=== PATIENT | female | born 1945 | race Caucasian/White ===

== ENCOUNTER 2019-11-12 15:18 | Outpatient (CLI) | payer MEDICARE, SELFPAY ==
--- NOTE | ~2019-11-12 | XR_ITS ---
EXAMINATION: XR chest 2V EXAM DATE: 11/12/2019 16:37 INDICATION: Clinical concern for pneumonia. Sinus infection. TECHNIQUE: Frontal and lateral projections of the chest obtained and reviewed. Comparison is made to prior examination from 03/09/2019. FINDINGS: The lungs are clear. There are no pleural effusions. There is mild cardiomegaly. There i s no pneumothorax suspected. The bones and soft tissues are unremarkable. IMPRESSION: Mild cardiomegaly. Reviewed, dictated and finalized at location A. IMPRESSION: Mild cardiomegaly.
--- NOTE | ~2019-11-12 | XR_ITS ---
EXAMINATION: XR sinus min 3V EXAM DATE: 11/12/2019 16:36 INDICATION: Sinusitis, drainage left side worse. TECHNIQUE: Sinuses frontal, Rosa's, De La Torre, lateral and submentovertex projections for interpretati on. There is no prior study for comparison. FINDINGS: Probable small amount of fluid in the right maxillary sinus. Otherwise, difficult to appre ciate any sinus disease but mild mucoperiosteal thickening difficult to identify by x-ray. Dental joseph lings. IMPRESSION: Probable small right maxillary sinus fluid. Reviewed, dictated and finalized at location A.
[2019-11-12 16:15] LABS: Basophils Absolute Auto 0.1 K/mm3 (0.0-0.1); Basophils Percent Auto 0.6 % (0.2-1.2); Eosinophils Absolute Auto 0.2 K/mm3 (0-0.3); Eosinophils Percent Auto 1.7 % (0-4.4); Hematocrit 35.5 % (37.0-47.0); Hemoglobin 12.2 g/dL (12.0-15.0); Immature Granulocyte Absolute 0.05 K/mm3 (0.00-0.031); Immature Granulocyte Percent A 0.5 % (0-0.5); Lymphocytes Absolute Auto 1.04 K/mm3 (0.9-3.2); Lymphocytes Percent Auto 10.8 % (18.3-44.2); Mean Corpuscular HGB Conc 34.4 g/dl (32-36); Mean Corpuscular Hemoglobin 29.5 pg (26-34); Mean Platelet Volume 12.9 fl (7.4-10.4); Monocytes Absolute Auto 0.7 K/mm3 (0.1-0.6); Monocytes Percent Auto 7.5 % (2.6-8.5); Neutrophils Absolute Auto 7.6 K/mm3 (1.3-6.7); Neutrophils Percent Auto 78.9 % (45.5-73.1); Platelet Count Result 157 k/mm3 (150-375); Red Blood Count 4.13 M/mm3 (4.2-5.4); Red Cell Distribution Width 15.6 % (11.5-14.5); White Blood Count 9.6 K/mm3 (4.5-10.0)
[2019-11-12 16:31] LABS: Blood Urea Nitrogen 12 mg/dL (7-17); Calcium 9.6 mg/dL (8.4-10.2); Carbon Dioxide 30 mmol/L (22-30); Chloride 88 mmol/L (98-107); Estimated Glomerular Filt Rate > 60; Glucose 122 mg/dL (65-105); Magnesium 1.4 mg/dL (1.6-2.3); Potassium 4.1 mmol/L (3.4-5.0); Sodium 125 mmol/L (137-145)
== END 2019-11-12 15:19 | disposition home or self-care (01) ==
PROVIDERS: PCP Internal Medicine; Visit Provider Internal Medicine
DX: R69 Illness, unspecified (principal); R68.89 Other general symptoms and signs; J32.9 Chronic sinusitis, unspecified; I51.7 Cardiomegaly
CPT/HCPCS: 36415; 70220; 71046; 80048; 83735; 85025

== ENCOUNTER 2019-12-14 09:26 | Outpatient (CLI) | payer MEDICARE, SELFPAY ==
--- NOTE | ~2019-12-14 | MR_ITS ---
EXAMINATION: MR brain IAC wo/w con DATE: 12/14/2019 11:03 INDICATION: Sudden idiopathic bilateral hearing loss. TECHNIQUE: Magnetic resonance imaging (MRI) of the brain, brainstem, and internal auditory canals was performed without and with 13 mL MultiHance intravenous contrast. Sequences included sagittal and ax ial T1-weighted FSE, axial diffusion-weighted FS EPI, axial T2*-weighted GRE, axial T2-weighted FLAIR Propeller, axial T2-weighted Propeller, small ivnhe-ao-jcws coronal FIESTA, small vqkbk-ki-rqhh dank nal T1-weighted FSE, and small wrpdr-fl-hkql axial T1-weighted SPGR. Postcontrast sequences included axial T1-weighted FSE, small nxght-dx-qphl coronal T1-weighted FSE, and small zgqkc-ph-bmsv axial T1- weighted SPGR. Apparent diffusion coefficient (ADC) maps were created. COMPARISON: Brain MRI 06/20/2011 FINDINGS: There are scattered areas of nonspecific increased T2-weighted signal intensity in the cere bral white matter, which is within normal limits for the patient's age. There is no intracranial hemo rrhage, acute infarction, or abnormal intracranial mass lesion. The ventricles are normal in size. Th e orbits are normal. The paranasal sinuses are clear. The internal auditory canals and inner and midd le ears are normal. The mastoid air cells are normal. IMPRESSION: 1. Normal aging brain. Reviewed, dictated and finalized at location A. IMPRESSION: 1. Normal aging brain.
[2019-12-14 10:09] LABS: Estimated Glomerular Filt Rate > 60
== END 2019-12-14 09:27 | disposition home or self-care (01) ==
PROVIDERS: PCP Internal Medicine; Visit Provider Otolaryngology
DX: H91.23 Sudden idiopathic hearing loss, bilateral (principal)
CPT/HCPCS: 36415; 70553; A9577

== ENCOUNTER → 2020-02-11 10:42 | Outpatient (CLI) | payer MEDICARE, SELFPAY ==
--- NOTE | ~2020-02-11 | XR_ITS ---
EXAMINATION: XR chest 2V EXAM DATE: 02/11/2020 10:59 INDICATION: Edema, shortness of breath for one month. Bilateral ankle swelling. TECHNIQUE: Frontal and lateral projections of the chest obtained and reviewed. Comparison is made to prior examination from 11/12/2019. FINDINGS: There is moderate cardiomegaly and moderate hyperinflation. No confluent consolidation, pn eumothorax or pleural effusion suspected. There are no osseous abnormalities identified. Accounting f or differences in technique, there is no significant interval change. IMPRESSION: 1. Moderate cardiomegaly. 2. Moderate hyperinflation. Reviewed, dictated and finalized at location A.
== END ==
PROVIDERS: PCP Internal Medicine; Visit Provider Internal Medicine
DX: R60.9 Edema, unspecified (principal); R06.02 Shortness of breath; I51.7 Cardiomegaly; R91.8 Other nonspecific abnormal finding of lung field
CPT/HCPCS: 71046

== ENCOUNTER 2021-04-19 11:17 | Emergency (ER) | payer MEDICARE, SELFPAY ==
[2021-04-19] VITALS (17 sets, daily range): BP systolic 105–124; BP diastolic 55–72; PULSE 66–76; RESP 14–21; TEMP 36.9; O2SAT 87–96
--- NOTE | ~2021-04-19 | XR_ITS ---
EXAMINATION: XR chest 2V DATE: 04/19/2021 12:09 INDICATION: Shortness of breath and weakness TECHNIQUE: PA and lateral views of the chest were obtained. COMPARISON: Chest radiograph dated 02/11/2020 FINDINGS: Increased interstitial pattern, mild peribronchial cuffing and a few peripheral [place] B-lines in the bilateral mid and lower lung zones consistent with mild pulmonary edema. No pleural effusion or pneu mothorax. Cardiomegaly. Mild thoracic spondylosis. IMPRESSION: 1. Likely congestive heart failure with cardiomegaly and mild pulmonary edema in the mid and lower dana ng zones. Differential would include less likely pneumonia. Reviewed, dictated and finalized at location B. IMPRESSION: 1. Likely congestive heart failure with cardiomegaly and mild pulmonary edema i n the mid and lower lung zones. Differential would include less likely pneumoni a.
--- NOTE | 2021-04-19 11:25 | ECG_ITS ---
Measurements Intervals [place] Rate: 78 P: NH: 0 QRS: 114 QRSD: 97 T: 46 QT: 386 QTc: 441 Interpretive Statements ATRIAL FIBRILLATION RIGHT AXIS DEVIATION INCOMPLETE RIGHT BUNDLE BRANCH BLOCK POOR R WAVE PROGRESSION, ANTERIOR LEADS BORDERLINE T WAVE ABNORMALITY- ANTERIOR LEADS BASELINE ARTIFACT- I, III, AVR, AVL, AVF ABNORMAL ECG Electronically Signed On 04-19-2021 11:31:17 CDT by Ruben Conklin D.O.
[2021-04-19 11:46] LABS: Basophils Absolute Auto 0.1 K/mm3 (0.0-0.1); Basophils Percent Auto 0.9 % (0.2-1.2); Eosinophils Absolute Auto 0.2 K/mm3 (0-0.3); Eosinophils Percent Auto 1.7 % (0-4.4); Hemoglobin 9.8 g/dL (12.0-15.0); Immature Granulocyte Absolute 0.03 K/mm3 (0.00-0.031); Immature Granulocyte Percent A 0.3 % (0-0.5); Lymphocytes Absolute Auto 0.78 K/mm3 (0.9-3.2); Lymphocytes Percent Auto 8.4 % (18.3-44.2); Mean Corpuscular HGB Conc 33.8 g/dl (32-36); Mean Corpuscular Hemoglobin 26.6 pg (26-34); Mean Corpuscular Volume 78.8 fl (80-100); Mean Platelet Volume 12.6 fl (7.4-10.4); Monocytes Absolute Auto 0.8 K/mm3 (0.1-0.6); Neutrophils Absolute Auto 7.4 K/mm3 (1.3-6.7); Neutrophils Percent Auto 79.7 % (45.5-73.1); Platelet Count Result 266 k/mm3 (150-375); Red Blood Count 3.68 M/mm3 (4.2-5.4); Red Cell Distribution Width 16.2 % (11.5-14.5); White Blood Count 9.3 K/mm3 (4.5-10.0)
[2021-04-19 11:57] LABS: Anion Gap 12 mmol/L (8-16); Blood Urea Nitrogen 16 mg/dL (7-17); Calcium 9.1 mg/dL (8.4-10.2); Carbon Dioxide 26 mmol/L (22-30); Chloride 86 mmol/L (98-107); Estimated CRCL calculation 51 ml/min; Estimated Glomerular Filt Rate > 60; Glucose 114 mg/dL (65-110); Sodium 124 mmol/L (137-145)
[2021-04-19 11:59] LABS: INR 2.9; Prothrombin Time 29.4 Seconds (11.1-14.7)
[2021-04-19 12:00] LABS: Partial Thromboplastin Time 57.2 SECONDS (22.3-36.8)
[2021-04-19 12:09] LABS: NT Pro B Type Natriuretic Pept 15500 pg/mL (5-100); Troponin I < 0.012 ng/mL (0.000-0.034)
--- NOTE | 2021-04-19 15:08 | ED.GENADULT ---
HPI - General Adult General Chief complaint: Shortness of Breath/Dyspnea Stated complaint: SOB x 4 weeks Time Seen by Provider: 04/19/21 14:53 Source: patient History of Present Illness HPI narrative: Patient is a 75 y/o female complaining of moderate to severe SOB for last 3 weeks. She states that her SOB is worse with exertion and laying down. She has no chest pain or cough. She has some chronic leg swelling. Related Data Home Medications Medication Instructions Recorded Confirmed mecobalamin (vitamin B12) 1,000 1,000 mcg SUBLINGUAL DAILY 08/28/20 04/20/21 mcg disintegrating tablet,sublingual Allergies Allergy/AdvReac Type Severity Reaction Status Date / Time Penicillins Allergy Unknown Rash Verified 04/20/21 12:07 hydrochlorothiazide AdvReac Unknown Other Verified 04/20/21 12:07 Review of Systems Constitutional: Constitutional: Denies chills, Denies fever(s), Denies headache(s) and Denies weakness Eyes: Eyes: Denies blurry vision ENT: Denies headache(s) and Denies neck pain Cardiovascular: Cardiovascular: Denies chest pain, Reports leg edema and Reports dyspnea Respiratory: Respiratory: Denies cough and Reports dyspnea Gastrointestinal: Gastrointestinal: Denies abdominal pain, Denies diarrhea, Denies nausea and Denies vomiting Genitourinary: Genitourinary: Denies hematuria and Denies dysuria Musculoskeletal: Musculoskeletal: Denies back pain and Denies neck pain Neurologic: Denies headache(s) and Denies weakness [facility] Past Medical History Medical History (Updated 04/24/21 @ 21:03 by Cira Jiang MD) Anemia BMI 25.0-25.9,adult BMI 26.0-26.9,adult CHF (congestive heart failure) Colon cancer screening Cough Elevated alkaline phosphatase level Elevated homocysteine Encounter for routine adult health examination with abnormal findings Encounter for routine adult health examination without abnormal findings Encounter for screening mammogram for malignant neoplasm of breast Epistaxis Follow up Hearing loss Hypomagnesemia Hyponatremia IBS (irritable bowel syndrome) Impacted cerumen of both ears Nocturia Pedal edema Sinus infection Tobacco abuse Family History Family History Sibling Family history of rheumatoid arthritis Family history of lung cancer Father Family history of rheumatoid arthritis Patient's father is Mother Family history of type 2 diabetes mellitus Diabetes mellitus Family history of diabetes mellitus in first degree relative Social History Social History Smoking status: Current every day smoker Second hand tobacco smoke exposure: No Alcohol intake: never Exam Const: General: no acute distress and well developed Orientation/consciousness: oriented to person, oriented to place, oriented to time and patient oriented x3 HENMT: Head: normocephalic Ears: external ears normal General nose exam: Normal external nose present Eyes: General: appearance normal, both eyes and all related structures Conjunctivae: conjunctivae normal Neck: Neck: normal visual inspection and full ROM Chest: Chest palpation & inspection: normal inspection of the chest and no tenderness Resp: Effort & Inspection: normal respiratory effort Auscultation: clear to auscultation bilaterally Cardio: Rate: regular rate Rhythm: regular rhythm GI: GI Palp: No abdominal tenderness and Yes Soft to palpation Skin: General skin exam: normal color and turgor normal Neuro: General: oriented to person, oriented to place, oriented to time and patient oriented x3 Cognition (Neuro): normal cognition Extrem: General: full ROM and edema bilateral Psych: Appearance: grossly normal Mental Status: mental status grossly normal Affect: normal affect Course Reevaluation(s) Reevaluation #1: I advised patient to be admitted for observation and further evaluation. She declined a
[2021-04-19] MEDS: FUROSEMIDE INJ 40 MG/4 ML VIAL IV PUSH (15:35)
--- NOTE | 2021-04-19 17:16 | PC.NURSE ---
pt walked out of ER with telling him multiple times I'm not staying . told her Dr Contreras wants her to stay in the hospital. She states I'm not staying . gait steady no resp distress noted as she walked out.
== END 2021-04-19 17:16 | disposition left against medical advice (07) ==
PROVIDERS: Emergency Provider Emergency Medicine; PCP Internal Medicine
DX: E87.1 Hypo-osmolality and hyponatremia (principal); I50.9 Heart failure, unspecified; K58.9 Irritable bowel syndrome, unspecified; F17.200 Nicotine dependence, unspecified, uncomplicated; I48.91 Unspecified atrial fibrillation; I45.10 Unspecified right bundle-branch block; R94.31 Abnormal electrocardiogram [ECG] [EKG]
CPT/HCPCS: 36415; 71046; 80048; 83880; 84484; 85025; 85610; 85730; 93005; 96374; 99284; J1940

== ENCOUNTER → 2021-05-15 00:51 | Outpatient (CLI) | payer MEDICARE, SELFPAY ==
[2021-05-15 18:23] LABS: SARS-CoV-2 RNA PCR Negative
== END ==
PROVIDERS: PCP Internal Medicine; Visit Provider Specialist
DX: Z01.812 Encounter for preprocedural laboratory examination (principal); Z20.822 Contact with and (suspected) exposure to COVID-19
CPT/HCPCS: C9803; U0003; U0005

== ENCOUNTER 2021-05-19 00:53 | Day surgery (SDC) | payer MEDICARE, SELFPAY ==
[2021-05-18 11:10] VITALS: BMI 25.2
[2021-05-19] VITALS (7 sets, daily range): BP systolic 127–148; BP diastolic 70–85; PULSE 69–95; RESP 13–22; TEMP 36.8; O2SAT 96–100
--- NOTE | 2021-05-19 | ECHO_ITS ---
Patient Info Name: Ela Chen Age: 75 years : 1945 Gender: Female Ht: 66 in Wt: 157 lbs BSA: 1.83 m2 HR: 87 bpm Heart Rhythm: Atrial Fibrillation Exam Date: 05/19/2021 10:07 AM Exam Location: [facility] Patient Status: Outpatient Admit Date: 05/19/2021 Staff Ordering Physician: Tushar Shore MD Field Manager: Santiago Rodriguez RDCS, RT Attending Provider: Tushar Shore MD Referring Physician: Mone LONDON; Exam Type: CA echo transesophageal Study Info Indications I34.0 - Nonrheumatic mitral (valve) insufficiency Complete two-dimensional, color flow and Doppler transesophageal study is performed. Summary 1. Left ventricular chamber dimension is normal. 2. Normal systolic function. 3. Mild MVP. 4. There is moderate mitral valve regurgitation. 5. Biatrial dilation. Left Ventricle Left ventricular chamber dimension is normal. Normal systolic function. Right Ventricle Right ventricular chamber dimension is normal. Left Atria Left atrial chamber dimension is severely enlarged. Right Atria Right atrial chamber dimension is mildly enlarged. Aortic Valve The aortic valve is normal. Pulmonic Valve The pulmonic valve is normal. Mitral Valve The mitral valve has anterior prolapse and posterior prolapse. There is moderate mitral valve regurgitation. Mild MVP. Tricuspid Valve The tricuspid valve leaflets are normal. There is trace tricuspid valve regurgitation. Pericardium/Pleural The pericardium appears normal. There is no pericardial effusion. Inferior Vena Cava Not well visualized inferior vena cava with Empty collapse upon inspiration consistent with Empty right atrial pressure, Empty. Aorta The aortic root size at the sinus of Valsalva is normal. Report Signatures
--- NOTE | 2021-05-19 10:28 | P.PCNCC_ITS ---
Cardiac Cath Procedure Note Date of procedure:: 05/19/21 Performing physician:: Tushar Shore MD Indication:: Mitral regurgitation/chronic atrial fibrillation Brief clinical history:: This is a 75-year-old woman who is in chronic atrial fibrillation. She is known to have mitral regurgitation which on previous echocardiogram has been felt to be [id number]-ga-ocjqmtjr. On a recent echocardiogram it was graded as moderate to severe prompting recommendation for transesophageal examination. Procedure Procedure performed:: Transesophageal echocardiogram Sedation/Medication given:: Fentanyl 50 mg Versed 4 mg Case start time 10:12 a.m. Case end time 10:27 a.m. Sedation provided by Marii Sparrow RN, trained observer Estimated blood loss:: None Procedure note:: Patient was brought to the cardiac catheterization lab holding area in the postabsorptive state he was placed in the supine position. Oropharyngeal benzocaine was sprayed for topical anesthesia. She then had a bite block placed into position and was then sedated using a combination of fentanyl and Versed as detailed above. There was excellent procedural sedation. The esophagus was then intubated using the KADEN probe and esophageal echocardiogram was carried out in detail. The details of this are in a separately dictated echo report. Following this the probe was withdrawn the patient is awake conversant and stable there were no apparent procedural complications Findings:: The left atrium is moderately dilated. The mitral valve leaflets are pliable with no evidence of stenosis. There is mild anterior leaflet prolapse. There is a jet of mitral valve regurgitation which appears to be moderate in severity. There is a centrally directed jet. There do not appear to be any disrupted chordal elements. The left ventricle is modestly enlarged the systolic contractility is adequate in all segments the global ejection fraction is 50-55% the aortic valve is a trileaflet structure which is normal. The ascending aorta aortic arch and descending thoracic aorta are remarkable for mild atherosclerotic plaquing but no other abnormalities. The right-sided chambers are unremarkable remarkable the tricuspid and pulmonic valves look normal. There is a trivial jet of tricuspid valve regurgitation that is the barely detectable. The interatrial septum is unremarkable. Conclusion:: 1. Left atrial dilation 2. Mild LV dilation with preserved left systolic function 3. Modest mitral valve prolapse of the anterior leaflet, no disrupted chordal elements and moderate mitral regurgitation mostly a centrally directed jet. Tushar Shore MD [facility]
== END 2021-05-19 11:30 | disposition home or self-care (01) ==
PROVIDERS: PCP Internal Medicine; Visit Provider Specialist
PROC: (CPT 93312; principal; 2021-05-19 10:00)
DX: I34.0 Nonrheumatic mitral (valve) insufficiency (principal); I48.20 Chronic atrial fibrillation, unspecified; I34.1 Nonrheumatic mitral (valve) prolapse; Z79.51 Long term (current) use of inhaled steroids; Z79.84 Long term (current) use of oral hypoglycemic drugs; Z79.01 Long term (current) use of anticoagulants
CPT/HCPCS: 93312; 93320; 93325; J1644; J2250; J3010; J7030; J7040

== ENCOUNTER 2021-08-11 06:57 | Emergency (ER) | payer MEDICARE, SELFPAY ==
[2021-08-11 06:57] VITALS: BP 160/79; PULSE 93; RESP 20; TEMP 36.4; O2SAT 95
--- NOTE | 2021-08-11 07:02 | PC.NURSE ---
Rhino rocket applied.
--- NOTE | 2021-08-11 07:43 | ED.EPISTAXIS ---
HPI - Epistaxis General Chief complaint: Epistaxis Stated complaint: NOSEBLEED Time Seen by Provider: 08/11/21 07:31 Source: patient and family Mode of arrival: ambulatory Limitations: clinical condition History of Present Illness HPI Narrative: 75-year-old female Take Xarelto for A. fib Says she blew her nose this morning and epistaxis ensued She thinks it started on the right-hand side but blood did come out of both sides, said that she bloodied about half a dozen washcloths Right now it does not seem to be very active Not having any lightheadedness or dizziness or shortness of breath Related Data Home Medications Medication Instructions Recorded Confirmed furosemide 80 mg PO DAILY 05/18/21 06/24/21 olmesartan-hydrochlorothiazide 1 tablet PO DAILY 05/18/21 06/24/21 rivaroxaban [Xarelto] 20 mg PO BID 05/18/21 06/24/21 Allergies Allergy/AdvReac Type Severity Reaction Status Date / Time Penicillins Allergy Unknown Rash Verified 08/11/21 07:02 Review of Systems Constitutional: Constitutional: Denies fever(s) and Denies weakness Cardiovascular: Cardiovascular: Denies chest pain Respiratory: Respiratory: Denies cough and Denies dyspnea Gastrointestinal: Gastrointestinal: Denies vomiting Hematologic/Lymphatic: Hematologic/Lymphatic: Reports easy bleeding and Reports easy bruising PMFSH Past Medical History Medical History Anemia BMI 25.0-25.9,adult BMI 25.0-25.9,adult BMI 26.0-26.9,adult CHF (congestive heart failure) Colon cancer screening Cough Elevated alkaline phosphatase level Elevated homocysteine Encounter for routine adult health examination with abnormal findings Encounter for routine adult health examination without abnormal findings Encounter for screening mammogram for malignant neoplasm of breast Epistaxis Follow up Hearing loss Hypomagnesemia Hyponatremia IBS (irritable bowel syndrome) Impacted cerumen of both ears Moderate mitral valve regurgitation Nocturia Pedal edema Post-nasal drainage Sinus infection Tobacco abuse Tortuous colon Family History Family History Sibling Family history of rheumatoid arthritis Family history of lung cancer Father Family history of rheumatoid arthritis Patient's father is Mother Family history of type 2 diabetes mellitus Diabetes mellitus Family history of diabetes mellitus in first degree relative Social History Social History Smoking status: Current every day smoker Tobacco type: cigarettes Second hand tobacco smoke exposure: No Alcohol intake: current Drinks per week: 2 Exam Const: General: alert Orientation/consciousness: patient oriented x3 HENMT: General nose exam: Epistaxis present Other: Dried blood bilaterally [place] Resp: Effort & Inspection: normal respiratory effort, not labored and not tachypneic Neuro: General: patient oriented x3 Speech: normal speech Course Vital Signs Vital signs: Vital Signs Temperature 36.4 C 08/11/21 06:57 Pulse Rate 93 08/11/21 06:57 Respiratory Rate 20 08/11/21 06:57 Blood Pressure 160/79 H 08/11/21 06:57 Pulse Oximetry 95 08/11/21 06:57 Temperature 36.4 C 08/11/21 06:57 Pulse Rate 93 08/11/21 06:57 Respiratory Rate 20 08/11/21 06:57 Blood Pressure 160/79 H 08/11/21 06:57 Pulse Oximetry 95 08/11/21 06:57 MDM - Epistaxis Lab Data Result diagrams: 08/11/21 07:45 08/11/21 08:29 Labs: Lab Results 08/11/21 08/11/21 08/11/21 Range/Units 07:45 07:45 08:29 WBC 5.0 (4.5-10.0) K/mm3 RBC 2.86 L (4.2-5.4) M/mm3 Hgb 7.4 L (12.0-15.0) g/dL Hct 23.2 L (37.0-47.0) % MCV 81.1 (80-100) fl MCH 25.9 L (26-34) pg MCHC 31.9 L (32-36) g/dl RDW 15.3 H (11.5-14.5) % Plt Count 124 L D (150-375)
[2021-08-11 08:00] LABS: Basophils Percent Auto 0.8 % (0.2-1.2); Eosinophils Absolute Auto 0.2 K/mm3 (0-0.3); Eosinophils Percent Auto 4.8 % (0-4.4); Hematocrit 23.2 % (37.0-47.0); Hemoglobin 7.4 g/dL (12.0-15.0); Immature Granulocyte Absolute 0.02 K/mm3 (0.00-0.031); Immature Granulocyte Percent A 0.4 % (0-0.5); Immature Platelet Fraction Pct 19.1 % (0.9-11.2); Lymphocytes Absolute Auto 0.64 K/mm3 (0.9-3.2); Lymphocytes Percent Auto 12.7 % (18.3-44.2); Mean Corpuscular HGB Conc 31.9 g/dl (32-36); Mean Corpuscular Hemoglobin 25.9 pg (26-34); Mean Corpuscular Volume 81.1 fl (80-100); Monocytes Absolute Auto 0.4 K/mm3 (0.1-0.6); Neutrophils Absolute Auto 3.7 K/mm3 (1.3-6.7); Neutrophils Percent Auto 73.3 % (45.5-73.1); Platelet Count Result 124 k/mm3 (150-375); Red Blood Count 2.86 M/mm3 (4.2-5.4); Red Cell Distribution Width 15.3 % (11.5-14.5)
[2021-08-11 08:10] LABS: INR 2.8; Prothrombin Time 28.5 Seconds (11.1-14.7)
[2021-08-11 08:11] LABS: Partial Thromboplastin Time 47.1 SECONDS (22.3-36.8)
[2021-08-11] MEDS: PHENYLEPHRINE 1% NA SPR (*BKC) 15 ML BTL 4 SPRAY NASAL (08:35)
[2021-08-11 08:38] LABS: Immature Reticulocyte Fraction 18.2 % (3.0-15.9); Reticulocyte Hemoglobin Conten 26.2 pg (28.2-35.7); Reticulocyte Percent 1.58 % (0.7-4.3); Reticulocytes Absolute 0.04 B/L (32.2-175.7)
[2021-08-11 08:46] LABS: Anion Gap 9 mmol/L (8-16); Blood Urea Nitrogen 29 mg/dL (7-17); Calcium 9.3 mg/dL (8.4-10.2); Carbon Dioxide 26 mmol/L (22-30); Chloride 93 mmol/L (98-107); Estimated CRCL calculation 38 ml/min; Estimated Glomerular Filt Rate 49; Glucose 115 mg/dL (65-110); Potassium 4.4 mmol/L (3.4-5.0); Sodium 128 mmol/L (137-145)
[2021-08-11 09:45] LABS: Iron 38 ug/dL (37-170)
[2021-08-11 09:47] VITALS: BP 143/91; PULSE 86; RESP 18; O2SAT 99
[2021-08-11 09:54] LABS: Percent Iron Saturation 9 % (20-50)
== END 2021-08-11 10:00 | disposition home or self-care (01) ==
PROVIDERS: Emergency Provider Emergency Medicine; PCP Internal Medicine
DX: R04.0 Epistaxis (principal); E87.1 Hypo-osmolality and hyponatremia; D64.9 Anemia, unspecified; I48.91 Unspecified atrial fibrillation; I50.9 Heart failure, unspecified; I34.0 Nonrheumatic mitral (valve) insufficiency; K58.9 Irritable bowel syndrome, unspecified; Z79.01 Long term (current) use of anticoagulants; F17.210 Nicotine dependence, cigarettes, uncomplicated
CPT/HCPCS: 36415; 80048; 82728; 83540; 83550; 85025; 85046; 85055; 85610; 85730; 99283; A9270

== ENCOUNTER 2021-08-12 09:58 | Outpatient (CLI) | payer MEDICARE, SELFPAY ==
--- NOTE | ~2021-08-12 | CT_ITS ---
EXAMINATION: CT chest abdomen pelvis w con DATE: 08/12/2021 11:12 INDICATION: Anemia, unspecified. TECHNIQUE: Computed tomography (CT) of the chest, abdomen, and pelvis was performed with 100 mL Omnip aque 350 intravenous contrast. Automated exposure control and iterative reconstruction technique were employed. The dose-length product was 498.51 mGy-cm. COMPARISON: CT abdomen and pelvis 02/22/2018, chest CT 09/08/16 FINDINGS: CHEST CT: There is mild emphysema. There is mild scarring at the lung apices. There is mild atelectasis bilater ally. There is a 12 mm nodule in right upper lobe. There is a 4 mm nodule in right upper lobe. There is a 6 mm nodule in right lower lobe. There is smooth septal thickening in the inferior lungs, consis tent with mild pulmonary edema. No pleural effusion. Cardiomegaly is noted. There are coronary artery calcifications. There is a small pericardial effusion. There is no pulmonary embolus. There is mild thoracic spondylosis. ABDOMEN/PELVIS CT: There is transient hepatic attenuation difference in the gallbladder fossa. The gallbladder is normal in size. Gallbladder wall thickening is noted, likely interstitial edema. The spleen, pancreas, and adrenal glands are normal. There is cortical thinning of the kidneys. There are no dilated loops of b owel. There is high attenuation material in the cecum. The appendix is not visualized. There is calci fied atherosclerosis of the aorta and many of the other arteries. There are no pathologically enlarge d lymph nodes. There is no free intraperitoneal fluid. There is moderate lumbar spondylosis. IMPRESSION: 1. High attenuation material in the cecum, which may be active extravasation of contrast or normal mac wel contents. Correlate for blood in stool. 2. Pulmonary nodules measuring up to 12 mm, new from 09/08/2016. The largest nodule is suspicious for primary bronchogenic carcinoma. CT-guided biopsy is recommended. 3. Mild pulmonary edema. 4. Cardiomegaly. 5. Small pericardial effusion. Reviewed, dictated and finalized at location A. END JAVA DEVELOPER IMPRESSION: 1. High attenuation material in the cecum, which may be active extravasation of contrast or normal bowel contents. Correlate for blood in stool. 2. Pulmonary nodules measuring up to 12 mm, new from 09/08/2016. The largest nod ule is suspicious for primary bronchogenic carcinoma. CT-guided biopsy is recom mended. 3. Mild pulmonary edema. 4. Cardiomegaly. 5. Small pericardial effusion.
[2021-08-12 10:47] LABS: Basophils Absolute Auto 0.1 K/mm3 (0.0-0.1); Basophils Percent Auto 0.8 % (0.2-1.2); Eosinophils Absolute Auto 0.3 K/mm3 (0-0.3); Eosinophils Percent Auto 3.4 % (0-4.4); Hematocrit 22.1 % (37.0-47.0); Hemoglobin 7.2 g/dL (12.0-15.0); Immature Granulocyte Absolute 0.04 K/mm3 (0.00-0.031); Immature Granulocyte Percent A 0.5 % (0-0.5); Immature Platelet Fraction Pct 19.1 % (0.9-11.2); Lymphocytes Absolute Auto 0.84 K/mm3 (0.9-3.2); Lymphocytes Percent Auto 11.3 % (18.3-44.2); Mean Corpuscular HGB Conc 32.6 g/dl (32-36); Mean Corpuscular Hemoglobin 26.4 pg (26-34); Monocytes Absolute Auto 0.7 K/mm3 (0.1-0.6); Monocytes Percent Auto 9.4 % (2.6-8.5); Neutrophils Absolute Auto 5.5 K/mm3 (1.3-6.7); Neutrophils Percent Auto 74.6 % (45.5-73.1); Platelet Count Result 128 k/mm3 (150-375); Red Blood Count 2.73 M/mm3 (4.2-5.4); Red Cell Distribution Width 15.3 % (11.5-14.5); White Blood Count 7.4 K/mm3 (4.5-10.0)
[2021-08-12 11:01] LABS: Anion Gap 9 mmol/L (8-16); Blood Urea Nitrogen 26 mg/dL (7-17); Calcium 9.5 mg/dL (8.4-10.2); Carbon Dioxide 28 mmol/L (22-30); Chloride 94 mmol/L (98-107); Estimated Glomerular Filt Rate 54; Glucose 117 mg/dL (65-110); Potassium 4.1 mmol/L (3.4-5.0); Sodium 131 mmol/L (137-145)
== END 2021-08-12 09:59 | disposition home or self-care (01) ==
PROVIDERS: PCP Internal Medicine; Visit Provider Internal Medicine
DX: D64.9 Anemia, unspecified (principal); R07.9 Chest pain, unspecified; J44.9 Chronic obstructive pulmonary disease, unspecified; R58 Hemorrhage, not elsewhere classified; R91.1 Solitary pulmonary nodule; Z79.899 Other long term (current) drug therapy
CPT/HCPCS: 36415; 36430; 71260; 74177; 80048; 85025; 85055; 86850; 86900; 86901; 86920; J3411; J7050; P9016; Q9967

== ENCOUNTER 2021-08-12 11:00 | Outpatient (RCR) | payer MEDICARE, SELFPAY ==
[2021-08-12] MEDS: SODIUM CHLORIDE 0.9% IV 250 ML 65 ML IV CONT (14:00)
[2021-08-12 14:15] VITALS: BP 142/87; PULSE 84; RESP 16; TEMP 36.3; O2SAT 96
[2021-08-12] MEDS: THIAMINE HCL 200 MG/2 ML VIAL 100 MG IM (14:20)
[2021-08-12 14:30] VITALS: BP 147/89; PULSE 88; RESP 18; TEMP 36.6; O2SAT 98
[2021-08-12 15:30] VITALS: BP 149/81; PULSE 85; RESP 18; TEMP 36.4; O2SAT 96
[2021-08-12 16:30] VITALS: BP 149/75; PULSE 82; RESP 16; TEMP 36.4; O2SAT 95
[2021-08-12 17:30] VITALS: BP 149/78; PULSE 92; RESP 16; TEMP 36.6; O2SAT 99
[2021-08-12 18:00] VITALS: BP 156/84; PULSE 95; RESP 16; TEMP 37.1; O2SAT 100
== END 2021-11-10 23:59 | disposition home or self-care (01) ==
LOC: ANHCPCTRAN 11:00
PROVIDERS: PCP Internal Medicine; Visit Provider Internal Medicine
DX: D64.9 Anemia, unspecified (principal); D50.0 Iron deficiency anemia secondary to blood loss (chronic); J44.9 Chronic obstructive pulmonary disease, unspecified; R91.1 Solitary pulmonary nodule; R58 Hemorrhage, not elsewhere classified
CPT/HCPCS: 36415; 36430; 86850; 86900; 86901; 86920; J3411; J7050; P9016

== ENCOUNTER → 2021-08-24 09:32 | Outpatient (CLI) | payer MEDICARE, SELFPAY ==
[2021-08-24 17:21] LABS: SARS-CoV-2 RNA PCR Negative
== END ==
PROVIDERS: PCP Internal Medicine; Visit Provider Internal Medicine Gastroenterology
DX: Z01.812 Encounter for preprocedural laboratory examination (principal); Z20.822 Contact with and (suspected) exposure to COVID-19
CPT/HCPCS: C9803; U0003; U0005

== ENCOUNTER 2021-08-27 02:14 | Day surgery (SDC) | payer MEDICARE, SELFPAY ==
[2021-08-18 14:43] VITALS: BMI 25.4
[2021-08-27 10:10] VITALS: BP 128/64; PULSE 88; RESP 18; TEMP 36.6; O2SAT 100; BMI 23.9
--- NOTE | 2021-08-27 10:26 | WPDGICN ---
Assessment and Plan Assessment and plan (1) Anemia: Qualifiers: Anemia type: unspecified type Qualified Code(s): D64.9 - Anemia, unspecified Code(s): D64.9 - Anemia, unspecified Status: Acute Assessment and Plan: Patient with significant anemia presumably from nose bleed. She does have a prior history of colon polyps. Plan for GI endoscopy to assess safety of restarting anticoagulation also to exclude any additional etiology for anemia. (2) Epistaxis: Code(s): R04.0 - Epistaxis Status: Acute Assessment and Plan: Patient with significant nose bleed. Likely etiology for anemia but uncertain whether other factors contributed GI endoscopy will be performed to exclude additional etiology. (3) Colon polyps: Qualifiers: Colon polyp type: unspecified Colon location: unspecified part of colon Qualified Code(s): K63.5 - Polyp of colon Code(s): K63.5 - Polyp of colon Status: Acute Assessment and Plan: Patient has a prior history of colon polyps. Most recently 5 years ago. Plan is for follow-up colonoscopy at this time. (4) Atrial fibrillation and flutter: Code(s): I48.91 - Unspecified atrial fibrillation; I48.92 - Unspecified atrial flutter Status: Acute Assessment and Plan: Anticoagulation on hold because of profound anemia requiring transfusion significant epistaxis. Colonoscopy and EGD plan to determine safety of restarting anticoagulation. (5) Lung nodule: Code(s): R91.1 - Solitary pulmonary nodule Status: Acute Assessment and Plan: Workup in process by primary care service. GI Consult Note Consult date/time: 08/27/21 10:26 HPI: Ela Chen is a 75 year old female Presents for GI endoscopy because of anemia. Patient has a history of colon polyps on 2 previous colonoscopies. Most recently 5 years ago. She was advised to return this year for screening colonoscopy. Patient has done well until recently. She was found to have atrial fibrillation and congestive heart failure. Patient was placed on anticoagulation with Xarelto. She developed rather significant nose bleed at the end of July. This required an emergency room visit. It was noted that she had a significant decline in hemoglobin. Patient denies any obvious blood in her stools. She now presents for EGD and colonoscopy to assess safety of restarting anticoagulation. Also to assess for recurrent colon polyps with prior to any consideration of anticoagulation. Most recent follow-up CBC shows improvement after transfusion. Patient's past medical history is significant for significant alcohol use in the past. She has been evaluated for a lung nodule and workup is proceeding. Her family history is noncontributory. Review of Systems Review of Systems: All systems reviewed & are unremarkable except as noted in HPI and below PMFSH Past Medical History Medical History (Updated 08/26/21 @ 10:07 by Raffi Vasquez, ) Anemia BMI 25.0-25.9,adult BMI 25.0-25.9,adult BMI 26.0-26.9,adult CHF (congestive heart failure) EF 61% Colon cancer screening Cough Elevated alkaline phosphatase level Elevated homocysteine Encounter for routine adult health examination with abnormal findings Encounter for routine adult health examination without abnormal findings Encounter for screening mammogram for malignant neoplasm of breast Epistaxis Epistaxis Follow up Hearing loss Hypomagnesemia Hyponatremia IBS (irritable bowel syndrome) Impacted cerumen of both ears Moderate mitral valve regurgitation Nocturia Orthostatic hypotension Pedal edema Post-nasal drainage Sinus infection Tobacco abuse Tortuous colon Family History Family History Sibling Family history of rheumatoid arthritis Family history of lung cancer Father Family history of rheumatoid arthritis Patient's fath
--- NOTE | 2021-08-27 10:34 | WPDANESEPPF ---
Anes - Initial Pre Proc Eval Procedure: Operation Date: 08/27/21 11:30 Proposed Procedures p Colonoscopy - Maico Bains MD Date/Time: 08/27/21 10:34 Surgeon: Maico Bains MD Pre Op Diagnosis: AHSAN Patient Data Age: 75 Gender: F Height: 1.68 m Weight: 67.3 kg Last Vital Signs Temp 36.6 C 08/27/21 10:10 Pulse 88 08/27/21 10:10 Resp 18 08/27/21 10:10 BP 128/64 08/27/21 10:10 Pulse Ox 100 08/27/21 10:10 Allergies Allergy/AdvReac Type Severity Reaction Status Date / Time Penicillins Allergy Severe Rash Verified 08/27/21 10:18 Home Medications Medication Instructions Recorded Confirmed Type albuterol sulfate 90 mcg/actuation See Rx Instructions .ROUTE 09/16/20 08/27/21 Rx aerosol inhaler .COMPLEX #9 g carvedilol 12.5 mg tablet 12.5 mg PO Q12H #180 tablet 04/20/21 08/27/21 Rx potassium chloride 10 mEq 10 meq PO DAILY #90 tablet 05/06/21 08/27/21 Rx tablet,extended release olmesartan-hydrochlorothiazide 1 tablet PO DAILY 05/18/21 08/27/21 History rivaroxaban [Xarelto] 20 mg PO DAILY 05/18/21 08/27/21 History safety needles 25 gauge x 1 #1 ea 08/14/21 08/27/21 Rx thiamine HCl (vitamin B1) 100 mg 100 mg PO DAILY #90 tablet 08/14/21 08/27/21 Rx tablet Calcium 600 + D(3) 1 cap PO DAILY 08/18/21 08/27/21 History alprazolam 0.25 mg PO BID 08/18/21 08/27/21 History atorvastatin 40 mg PO DAILY 08/18/21 08/27/21 History calcium polycarbophil [FiberCon] 1,250 mg PO DAILY 08/18/21 08/27/21 History cholecalciferol (vitamin D3) 25 mcg PO DAILY 08/18/21 08/27/21 History [Vitamin D3] cyanocobalamin (vitamin B-12) 1,000 mcg PO DAILY 08/18/21 08/27/21 History [Vitamin B-12] diphenhydramine HCl [Benadryl] 50 mg PO HS 08/18/21 08/27/21 History folic acid 1 mg PO DAILY 08/18/21 08/27/21 History furosemide 80 mg PO DAILY 08/18/21 08/27/21 History linagliptin [Tradjenta] 5 mg PO DAILY 08/18/21 08/27/21 History magnesium oxide 800 mg PO BID 08/18/21 08/27/21 History nortriptyline 20 mg PO HS 08/18/21 08/27/21 History omeprazole magnesium [Prilosec OTC] 20 mg PO DAILY 08/18/21 08/27/21 History oxymetazoline [Sinus Relief 2 spray INTRANASAL Q12H PRN 08/18/21 08/27/21 History (oxymetazoline)] pantoprazole 40 mg PO DAILY 08/18/21 08/27/21 History Patient hx anesthesia problems: none Family hx anesthesia problems: none Results Review: All pre-operative results and documents have been reviewed as part of the pre-operative evaluation. REPLACED BY [facility] Past Medical History Medical History (Updated 08/26/21 @ 10:07 by Raffi Vasquez DO) Anemia BMI 25.0-25.9,adult BMI 25.0-25.9,adult BMI 26.0-26.9,adult CHF (congestive heart failure) EF 61% Colon cancer screening Cough Elevated alkaline phosphatase level Elevated homocysteine Encounter for routine adult health examination with abnormal findings Encounter for routine adult health examination without abnormal findings Encounter for screening mammogram for malignant neoplasm of breast Epistaxis Epistaxis Follow up Hearing loss Hypomagnesemia Hyponatremia IBS (irritable bowel syndrome) Impacted cerumen of both ears Moderate mitral valve regurgitation Nocturia Orthostatic hypotension Pedal edema Post-nasal drainage Sinus infection Tobacco abuse Tortuous colon Family History Family History Sibling Family history of rheumatoid arthritis Family history of lung cancer Father Family history of rheumatoid arthritis Patient's father is Mother Family history of type 2 diabetes mellitus Diabetes mellitus Family history of diabetes mellitus in first degree relative Social History Social History Smoking packs per day: 0.5 Smoking cigarettes per day: 10.0 Years smoked: 53 Smoking pack-years: 26.50 Smoking status: Current every day smoker Tobacco type: cigarettes Second hand tobacco smoke exposure: No A
[2021-08-27] MEDS: LACTATED RINGERS 1,000 ML 150 ML IV CONT (10:36)
[2021-08-27 10:38] LABS: Glucose Point of Care 89 mg/dl (65-105)
[2021-08-27 11:28] VITALS: BP 81/47; PULSE 68; RESP 25; O2SAT 100
[2021-08-27 11:38] VITALS: BP 90/51; PULSE 75; RESP 20; O2SAT 100
[2021-08-27 11:48] VITALS: BP 98/51; PULSE 77; RESP 31; O2SAT 100
== END 2021-08-27 12:04 | disposition home or self-care (01) ==
PROVIDERS: PCP Internal Medicine; Visit Provider Internal Medicine Gastroenterology
PROC: 0DJD8ZZ Inspection of Lower Intestinal Tract, Via Natural or Artificial Opening Endoscopic (ICD-10-PCS; CPT 45378; principal; 2021-08-27 11:30)
DX: D50.0 Iron deficiency anemia secondary to blood loss (chronic) (principal); K64.8 Other hemorrhoids; K57.30 Diverticulosis of large intestine without perforation or abscess without bleeding; Z86.010 Personal history of colon polyps; R04.0 Epistaxis; I48.91 Unspecified atrial fibrillation; R91.1 Solitary pulmonary nodule; I50.9 Heart failure, unspecified; I34.0 Nonrheumatic mitral (valve) insufficiency; F17.210 Nicotine dependence, cigarettes, uncomplicated; Z79.51 Long term (current) use of inhaled steroids; Z79.01 Long term (current) use of anticoagulants
CPT/HCPCS: 45378; 82948; J2704; J7120

== ENCOUNTER 2021-11-04 09:00 | Outpatient (CLI) | payer MEDICARE, SELFPAY ==
--- NOTE | ~2021-11-04 | PE_ITS ---
EXAMINATION: PET skull to mid thigh DATE: 11/04/2021 10:51 INDICATION: Solitary pulmonary nodule TECHNIQUE: Blood glucose level was 130 mg/dL. 11.443 mCi of 18-fluorodeoxyglucose (18-FDG) was admini stered i.v. Low dose computed tomography (CT) images were acquired from the base of the brain to the proximal thighs for attenuation correction and anatomic localization. Positron emission tomography (P ET) images were acquired in the same distribution beginning 57 minutes after injection. Images includ ing fused PET/CT images were reconstructed in axial, coronal, and sagittal planes. Automated exposure control technique was employed. The dose-length product was 482.49mGy-cm. COMPARISON: CT chest, abdomen and pelvis dated 08/12/2021 FINDINGS: Head/neck: There is symmetric increased activity in the oral and nasal cavities, palatine tonsils, laryngeal mus cles and ocular muscles without CT correlate, likely physiologic. No pathologically enlarged cervical lymphadenopathy or suspicious foci of increased FDG uptake in the visualized head or neck. Chest: Mild emphysema. There is increased FDG uptake with maximal SUV of 4.4 is associated with an approxima te 1.5 cm spiculated right upper lobe nodule which is concerning for primary bronchogenic carcinoma. No evident FDG uptake associated with a smaller 4 mm right upper lobe nodule or 6 mm right lower lobe nodule. Band of discoid atelectasis/scarring in the right middle lobe. No pneumonia, pulmonary edema or pleural effusion. Cardiomegaly including biatrial enlargement. Atherosclerotic coronary artery ca lcific location. Small pericardial effusion. Thoracic aorta is normal in caliber. No pathologically e nlarged or FDG avid thoracic lymphadenopathy. Abdomen/pelvis/proximal thighs: Physiologic renal accumulation and excretion of FDG activity in the kidneys, bladder and along portio ns of ureters. Normal degree and heterogenous pattern of increased uptake throughout the liver withou t radiologic correlate or dominant FDG avid lesion. The gallbladder, pancreas, spleen and bilateral a drenal glands are normal. There is moderate colonic diverticulosis with a sigmoid predominance. Ther e is no adjacent inflammatory change to suggest diverticulitis. Mild uptake scattered throughout the bowels without radiologic correlate, also likely physiologic. The uterus is not identified and has li sherrie been surgically resected. No other abnormal foci of increased FDG uptake or pathologically enl arged lymphadenopathy in the abdomen, pelvis or proximal thighs. Musculoskeletal: Mild likely synovial uptake at the bilateral shoulders most prominent at the left acromioclavicular j oint where there is severe osteoarthritis. Additional mild likely degenerative FDG uptake associated with severe osteoarthritis at C3-C4. No suspicious lytic, blastic or other FDG avid bone lesions. IMPRESSION: 1. Increased FDG uptake is fissure with a 1.5 cm spiculated right upper lobe nodule concerning for pr imary bronchogenic carcinoma. Recommend CT-guided biopsy. No findings to suggest metastatic disease. 2. Cardiomegaly with biatrial enlargement and small pericardial effusion. 3. Diverticulosis. Reviewed, dictated and finalized at location A. IMPRESSION: 1. Increased FDG uptake is fissure with a 1.5 cm spiculated right upper lobe no dule concerning for primary bronchogenic carcinoma. Recommend CT-guided biopsy. No findings to suggest metastatic disease. 2. Cardiomegaly with biatrial enlargement and small pericardial effusion. 3. Diverticulosis.
[2021-11-04 09:24] LABS: Glucose Point of Care 130 mg/dl (65-105)
== END 2021-11-04 09:01 | disposition home or self-care (01) ==
LOC: ANHIMG 09:04
PROVIDERS: PCP Internal Medicine; Visit Provider Internal Medicine
DX: R91.8 Other nonspecific abnormal finding of lung field (principal); C34.90 Malignant neoplasm of unspecified part of unspecified bronchus or lung; K57.30 Diverticulosis of large intestine without perforation or abscess without bleeding; I51.7 Cardiomegaly
CPT/HCPCS: 78815; A9552

== ENCOUNTER → 2021-11-08 02:22 | Outpatient (CLI) | payer MEDICARE, SELFPAY ==
[2021-11-08 11:34] LABS: SARS-CoV-2 RNA PCR Negative
== END ==
PROVIDERS: PCP Internal Medicine; Visit Provider Internal Medicine
DX: Z01.812 Encounter for preprocedural laboratory examination (principal); Z20.822 Contact with and (suspected) exposure to COVID-19
CPT/HCPCS: C9803; U0003; U0005

== ENCOUNTER 2021-11-11 08:53 | Outpatient (CLI) | payer MEDICARE, SELFPAY ==
--- NOTE | 2021-11-08 12:58 | PC.NURSE ---
Pre Radiology instructions Report to the Outpatient Waiting Room, entrance under the green pavilion located off [facility], at time _0900 on date __11/11/21 . Procedure Time: _1100 . One visitor will be allowed to accompany the patient into the hospital. The visitor will be instructed to remain with patient at all times or leave the building. We will allow the visitor to come back to the postoperative area when patient is ready. You and your visitor will be asked a series of questions to screen for COVID 19 for your protection. A mask is required within the hospital. Pre-procedure COVID Testing Requirements: No COVID Test needed if: (proof is required; if not received patient will have Rapid Test prior to entry)- Patient has received COVID Vaccine at least 14 days prior to procedure date or- Patient has positive COVID test result within last 90 days of procedure date. COVID Test needed if above criteria is not met If not COVID vaccinated a COVID test must be conducted within 72 hours of surgery and patient is asked to isolate self from time of testing until procedure. You will go to the [facility] for your COVID testing. The [facility] is located at the corner of [address] [facility]. You will only be called if COVID results are positive and your surgeon may reschedule your elective procedure date Patients are to have no food or drink 6 hours prior to procedure time Driving will be restricted after the procedure, you must have a person to drive you home. Labs will be drawn in preop area and once reviewed, you will be taken to radiology area for procedure. When the procedure is completed, you will be taken to outpatient where you will be monitored for several hours. You may have one visitor in this area. Other than holding anti-coagulants, patient may take other medication(s) as scheduled. Prior to your appointment date patients are instructed to hold anti-coagulants after discussing with ordering provider to stop. If unable to discontinue anti-coagulants please notify radiologist. No aspirin or warfarin (Coumadin) for 7 days prior to the procedure. No clopidogrel (Plavix), ticagrelor (Brilinta), prasugrel (Effient) or dabigatran (Pradaxa) for 5 days prior to the procedure. No rivaroxaban (Xarelto), apixaban (Eliquis), dipyridamole (Aggrenox or Persantine) or cilostazol (Pletal) for 2 days prior to the procedure. Medications to discontinue per physician: Date to take last dose: Please leave all valuables, including medications, at home the day of procedure. The hospital will not accept responsibility for valuables. Wear comfortable, loose fitting clothing. Follow any additional instructions given to you from ordering provider. Telephone instructions given to __PATIENT and asked if any additional questions and then verbalized understanding. Patient advised to call scheduling provider office or registration scheduling [phone] if any additional questions.
[2021-11-08 13:03] VITALS: BMI 26.4
[2021-11-11] VITALS (11 sets, daily range): BP systolic 141–158; BP diastolic 69–99; PULSE 85–102; RESP 14–20; TEMP 36.7; O2SAT 97–100
--- NOTE | ~2021-11-11 | XR_ITS ---
EXAMINATION: XR chest 1V portable DATE: 11/11/2021 13:03 INDICATION: Right lung nodule status post percutaneous biopsy. TECHNIQUE: A single frontal view of the chest was obtained. COMPARISON: Chest single view at 12:06 PM FINDINGS: There is a mass in right lung upper lobe. [place] B-lines are noted, consistent with mild pu lmonary edema. No pleural effusion or pneumothorax. Cardiomegaly is noted. IMPRESSION: 1. Mass in right lung upper lobe, consistent with postbiopsy hemorrhage. 2. Mild pulmonary edema. 3. Cardiomegaly. Reviewed, dictated and finalized at location A.
--- NOTE | ~2021-11-11 | XR_ITS ---
EXAMINATION: XR chest 1V portable DATE: 11/11/2021 15:02 INDICATION: Right lung nodule status post percutaneous biopsy. TECHNIQUE: A single frontal view of the chest was obtained. COMPARISON: Chest single view at 12:57 PM FINDINGS: There is a diffuse interstitial pattern, consistent mild pulmonary edema. There is a mass i n right lung upper lobe. No pleural effusion or pneumothorax. Cardiomegaly is noted. IMPRESSION: 1. Mass in right lung upper lobe, consistent with postbiopsy hemorrhage. 2. Mild pulmonary edema. 3. Cardiomegaly. Reviewed, dictated and finalized at location A.
--- NOTE | ~2021-11-11 | CT_ITS ---
EXAMINATION: CT biopsy lung w/imaging DATE: 11/11/2021 12:16 INDICATION: Malignant neoplasm of unspecified part of unspecified lung. TECHNIQUE: The procedure including the risks, benefits, and alternatives and possibility of chest tub e placement were discussed with the patient. Risks discussed included infection, approximately 1/10 r isk of symptomatic hemorrhage beyond mild hemoptysis, approximately 1/3 risk of pneumothorax, approxi mately 1/10 risk of pneumothorax severe enough to warrant chest tube placement, and rarely . The patient understood the risks and agreed to proceed. The patient was placed supine. The skin overlyi ng the right chest was prepped and draped in sterile fashion. Anesthetic was administered with 1% li docaine subcutaneously. A 19 gauge outer needle was advanced under CT guidance to the lesion of inte rest. A 20 gauge core biopsy needle was then used to obtain 3 core biopsy specimens. The needle was r emoved and the entry site was cleaned and dressed. The mA was adjusted according to patient size. Ite rative reconstruction technique was employed. The dose-length product was 131.22 mGy-cm. There were no immediate complications. FINDINGS: CT images demonstrate the outer needle tip adjacent to a 1.5 cm nodule in right lung upper lobe. Postbiopsy images demonstrate hemorrhage around the nodule. The patient denies chest pain or sh ortness of breath. IMPRESSION: 1. CT-guided core needle biopsy of a nodule in right lung upper lobe. Reviewed, dictated and finalized at location A.
--- NOTE | ~2021-11-11 | XR_ITS ---
EXAMINATION: XR chest 1V DATE: 11/11/2021 12:10 INDICATION: Right lung nodule status post percutaneous biopsy. TECHNIQUE: A single frontal view of the chest was obtained. COMPARISON: Chest 2 views 04/19/2021 FINDINGS: There is a mass in right lung upper lobe. No pleural effusion or pneumothorax. Cardiomegaly is noted. IMPRESSION: 1. Mass in right lung upper lobe, consistent with postbiopsy hemorrhage. 2. Cardiomegaly. Reviewed, dictated and finalized at location A.
[2021-11-11 09:52] LABS: Immature Platelet Fraction Pct 17.5 % (0.9-11.2); Mean Platelet Volume 12.7 fl (7.4-10.4); Platelet Count Result 178 k/mm3 (150-375)
[2021-11-11 10:00] LABS: INR 1.1
--- NOTE | 2021-11-11 15:04 | SUR.PHASEII ---
Dr. Rivero called this nurse and said pt CXR looks good and pt can go home and that he does not need to see pt before he leaves.
== END 2021-11-11 15:20 | disposition home or self-care (01) ==
PROVIDERS: PCP Internal Medicine; Visit Provider Radiology Diagnostic Radiology
PROC: BB24ZZZ Computerized Tomography (CT Scan) of Bilateral Lungs (ICD-10-PCS; CPT 32408; principal; 2021-11-11 11:00)
DX: Z01.818 Encounter for other preprocedural examination (principal); C34.11 Malignant neoplasm of upper lobe, right bronchus or lung; R91.1 Solitary pulmonary nodule; Z51.81 Encounter for therapeutic drug level monitoring; Z79.899 Other long term (current) drug therapy
CPT/HCPCS: 32408; 36415; 71045; 85049; 85055; 85610; 88305

== ENCOUNTER 2021-12-06 07:52 | Outpatient (CLI) | payer MEDICARE, SELFPAY ==
--- NOTE | 2021-12-06 12:46 | WPDPFTINT ---
PFT Procedure Performed PFT Procedure Performed Spirometry with Pre/Post Bronchodilator Plethysmography (Lung Vol) Diffusing Cap (DLCO) Flow Vol Loop PFT Interpretation Lung volumes were measured with the body plethysmography method. Lung volumes are unremarkable. Spirometry showed diminished expiratory flow rates and a diminished FEV1 to FVC ratio of 63%, indicative of mild obstructive airway disease. No post bronchodilator study was carried out. Lung diffusion capacity is moderately reduced at 48% predicted. The flow volume loop is consistent with obstructive airway disease. Impression: Mild obstructive airway disease. Moderately reduced lung diffusion capacity.
== END 2021-12-06 07:53 | disposition home or self-care (01) ==
LOC: ANHPFT 07:54
PROVIDERS: PCP Internal Medicine; Visit Provider Internal Medicine Hematology & Oncology
DX: C34.11 Malignant neoplasm of upper lobe, right bronchus or lung (principal); R94.2 Abnormal results of pulmonary function studies
CPT/HCPCS: 94375; 94726; 94729

== ENCOUNTER 2022-01-10 19:28 | Inpatient (IN) | payer MEDICARE, SELFPAY ==
[2022-01-10] VITALS (30 sets, daily range): BP systolic 83–98; BP diastolic 50–66; PULSE 62–79; RESP 13–23; TEMP 36.4; O2SAT 90–100
--- NOTE | ~2022-01-10 | US_ITS ---
EXAMINATION: US wrist asp inj w image RT DATE: 01/12/2022 11:47 INDICATION: Right wrist swelling TECHNIQUE: The procedure including the risks and benefits was discussed with the patient. Risks discu ssed included bleeding and infection. The patient understood the risks and agreed to proceed. The sk in overlying the dorsum of the right wrist was prepped and draped in usual sterile fashion. Anesthet ic was administered with 1% lidocaine subcutaneously. An 21 gauge needle was advanced under continuo us ultrasound observation into the fluid collection at the dorsal aspect of the wrist joint. 1 mL of relatively clear yellowish fluid was aspirated. Post procedure ultrasound demonstrated no hemorrhag e. FINDINGS: Ultrasound images demonstrate a small wrist joint effusion at the dorsal recess. Trace amou nt of fluid is seen extending along a few of the extensor tendon sheaths at the dorsal aspect of the wrist and carpus. Hypertrophic osteophytes but no significant joint effusion at the first carpometaca rpal joint. Subsequent images demonstrate aspiration needle advanced into the anechoic fluid at the d orsal recess of the radiocarpal joint which is decompressed following the aspiration. IMPRESSION: 1. Successful Ultrasound-guided aspiration of the right wrist joint yielding 1 mL of clear yellowish fluid which was sent to the lab for Gram stain, cultures and crystal analysis. Reviewed, dictated and finalized at location A.
--- NOTE | ~2022-01-10 | CT_ITS ---
EXAMINATION: CT abdomen pelvis wo con DATE: 01/15/2022 13:52 INDICATION: abdominal pain TECHNIQUE: Computed tomography (CT) of the abdomen and pelvis was performed without intravenous contr ast. Automated exposure control and iterative reconstruction technique were employed. The dose-length product was 808.84 mGy-cm. COMPARISON: 08/12/2021. FINDINGS: Lower thorax: Trace bilateral pleural effusions. Bibasilar scarring. Pulmonary edema. Cardiomegaly, w ith incompletely visualized pericardial effusion. Coronary artery calcifications. Liver: Nodular liver border. Biliary/Gallbladder: Wall hyperemia and pericholecystic fluid. No bile duct dilation. Pancreas: No mass or duct dilation. Atrophy. Spleen: Normal. Adrenals:No mass. Kidneys: No mass, stone, or hydronephrosis. Left renal scarring. Bilateral stranding. GI tract: No small or large bowel dilation. Appendix not visualized. Diverticulosis without diverticu litis. Mesentery/Peritoneum: Trace ascites. Retroperitoneum: No mass. Atherosclerotic abdominal aortic and/or arterial calcifications. Pelvis: Bladder wall thickening with surrounding inflammatory change and intraluminal gas. Soft Tissues: Subcutaneous edema in the right flank. Diffuse body wall edema. Bones: No acute osseous finding. IMPRESSION: Cardiomegaly. Pulmonary edema and small pericardial effusion. Small bilateral pleural effusions. Cirr hosis. Mild ascites and body wall edema. Nonspecific gallbladder wall thickening. Bladder findings th at may reflect cystitis, in the appropriate clinical context. Reviewed, dictated and finalized at location K. IMPRESSION: Cardiomegaly. Pulmonary edema and small pericardial effusion. Small bilateral p leural effusions. Cirrhosis. Mild ascites and body wall edema. Nonspecific gall bladder wall thickening. Bladder findings that may reflect cystitis, in the josselyn ropriate clinical context.
--- NOTE | ~2022-01-10 | NM_ITS ---
EXAMINATION: NM hepatobiliary w pharm DATE: 01/18/2022 14:04 INDICATION: Acute cholecystitis with abdominal pain COMPARISON: None. TECHNIQUE: 3.9 mCi Tc-99m mebrofenin (Choletec) was administered intravenously. Scintigraphic images of the abdomen were obtained for one hour. 1.5 mcg sincalide (Kinevac) was administered by slow intr avenous infusion, and imaging was continued for 30 minutes. Gallbladder ejection fraction was calcula jessica by the technologist. FINDINGS: There is normal clearance of radiotracer from the blood pool. There is homogeneous tracer uptake by t he liver. Activity progresses to the gallbladder and bowel. The gallbladder ejection fraction (GBEF) is 100% (normal 10-90%, but most patient with gallbladder dysfunction have GBEF < 35% which does ove rlap with the normal range). IMPRESSION: 1. Essentially complete emptying of the gallbladder post Kinevac administration which strongly sugge sts the gallbladder wall thickening identified on prior ultrasound related to other systemic causes o f edema such as heart failure, liver failure, renal failure or sepsis. Reviewed, dictated and finalized at location A. IMPRESSION: 1. Essentially complete emptying of the gallbladder post Kinevac administratio n which strongly suggests the gallbladder wall thickening identified on prior u ltrasound related to other systemic causes of edema such as heart failure, live r failure, renal failure or sepsis.
--- NOTE | ~2022-01-10 | CT_ITS ---
EXAMINATION: CTA chest PE protocol DATE: 01/10/2022 20:47 INDICATION: recent right lobectomy on 12/20/2021, increased weakness, SOB TECHNIQUE: Computed tomography angiography (CTA) of the chest was performed with 100 mL Omnipaque-350 intravenous contrast timed to evaluate the pulmonary arteries. Coronal maximum intensity projection 3D-reconstructions were created by the technologist. The dose-length product (DLP) was 552.48 mGy-cm. Automated exposure control and iterative reconstruction technique were employed. COMPARISON: CT chest abdomen and pelvis 08/12/2021. FINDINGS: Study quality: Adequate. Pulmonary arteries: No pulmonary emboli detected. Main pulmonary artery dilation as can be seen with pulmonary arterial hypertension. Thoracic aorta: Arch calcifications. No significant dilation. Lung parenchyma and airways: Interlobular septal thickening and patchy peripheral reticulation, more pronounced in the right lung. Bibasilar scar/atelectasis. Status post right upper lobe lobectomy. Thoracic inlet, axillae and chest wall: Postsurgical change in the right chest. Mediastinum: Normal. Heart and pericardium: Cardiomegaly, with prominent dilation of the right atrium. Small-volume perica rdial effusion. Coronary artery calcifications: Moderate. Pleura: Small volume right pleural and fissural fluid. Small volume anterior right pneumothorax. Upper abdomen: Hepatic vein reflux as can be seen with right heart failure. Bones: No acute osseous finding. IMPRESSION: No CT evidence of acute pulmonary embolus. Mild pulmonary edema, more pronounced in the right lung. S mall pericardial effusion. Cardiomegaly with marked dilation of the right atrium and signs of right h eart failure. Pulmonary arterial hypertension. Post surgical changes in the right chest wall includin g small volume right pleural effusion and small anteriorly loculated pneumothorax. Reviewed, dictated and finalized at location K. IMPRESSION: No CT evidence of acute pulmonary embolus. Mild pulmonary edema, more pronounce d in the right lung. Small pericardial effusion. Cardiomegaly with marked dilat ion of the right atrium and signs of right heart failure. Pulmonary arterial hy pertension. Post surgical changes in the right chest wall including small volum e right pleural effusion and small anteriorly loculated pneumothorax.
--- NOTE | ~2022-01-10 | XR_ITS ---
XR chest port-a-cath/central 01/11/2022 02:25 Indication: AP portable chest Procedure: Comparison to multiple prior studies sequentially, with oldest reviewed study dated 04/19. Comparison: 11/11/2021 Findings: Cardiomegaly. Small right pleural effusion. Previously identified mass in the right upper l obe is not seen on current examination. Right IJ central line tip in the cranial aspect of the SVC. T here are interstitial changes of the right lung base which may reflect mild edema or pneumonia. Impression: 1: Central line tip in the cranial aspect of the SVC. 2: Interstitial infiltrates of the right lower lung which may represent edema or pneumonia. 3: Enlarged cardiopericardial silhouette. Cannot exclude pericardial effusion. Reviewed, dictated and finalized at location A. Impression: 1: Central line tip in the cranial aspect of the SVC. 2: Interstitial infiltrates of the right lower lung which may represent edema o r pneumonia. 3: Enlarged cardiopericardial silhouette. Cannot exclude pericardial effusion.
--- NOTE | ~2022-01-10 | US_ITS ---
US right upper quadrant DATE: 01/17/2022 09:09 INDICATION: Abdominal pain. Nonspecific gallbladder wall thickening noted on 01/15/2022 CT abdomen pelv is examination TECHNIQUE: Real-time imaging of liver, pancreas, gallbladder COMPARISON: 01/15/2022 CT abdomen pelvis FINDINGS: There is hepatic surface nodularity suggesting cirrhosis. There is normal hepatopedal portal venous flow direction. No hepatic space-occupying mass lesion is e vident. Small gallstones are identified. There is gallbladder wall thickening, which is a nonspecific finding , possibly due to acute or chronic cholecystitis, congestive heart failure, cirrhosis. If there is co ncern for acute cholecystitis and need for further imaging evaluation, consider radionuclide hepatobi liary scan which did help to confirm or exclude acute cholecystitis. The common bile duct measures 3 mm, normal. No pancreatic mass lesion or ductal dilatation is noted. IMPRESSION: Cholelithiasis and gallbladder wall thickening; acute cholecystitis is not excluded. Cons ider radionuclide hepatobiliary scan for more definitive evaluation of possible acute cholecystitis a s clinically appropriate Cirrhosis Reviewed, dictated and finalized at Location A. Reviewed, dictated and finalized at location A. IMPRESSION: Cholelithiasis and gallbladder wall thickening; acute cholecystitis is not excluded. Consider radionuclide hepatobiliary scan for more definitive evaluation of possible acute cholecystitis as clinically appropriate Cirrhosis
--- NOTE | ~2022-01-10 | XR_ITS ---
EXAMINATION: XR wrist RT min 3V INDICATION: Right wrist pain TECHNIQUE: Four views of the right wrist are obtained. COMPARISON: None available FINDINGS: There is no fracture. There is advanced osteoarthritis at the first carpometacarpal joint. The soft tissues are unremarkable. IMPRESSION: 1. 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 Reviewed, dictated and finalized at location A.
--- NOTE | 2022-01-10 19:40 | ED.GENADULT ---
HPI - General Adult General Chief complaint: Weakness Stated complaint: low b/p, weak, 1 week s/p right lobectomy Time Seen by Provider: 01/10/22 19:32 History of Present Illness HPI narrative: 76-year-old female with history of lung cancer presenting to the emergency department for evaluation of increased generalized weakness and fatigue. Patient had a right lobectomy done last week at [facility]. Patient is complaining of increased generalized weakness, some shortness of breath and increased body aches. Patient also reports decreased p.o. intake. Patient's oncologist is Dr. Rainey, surgeon was Dr Villafuerte at [facility]. Related Data Home Medications Medication Instructions Recorded Confirmed olmesartan 40 1 tablet PO DAILY 05/18/21 01/11/22 mg-hydrochlorothiazide 12.5 mg tablet Calcium 600 + D(3) 1 cap PO DAILY 08/18/21 01/11/22 atorvastatin 40 mg tablet 40 mg PO DAILY 08/18/21 01/11/22 calcium polycarbophil 625 mg 625 mg PO DAILY 08/18/21 01/11/22 tablet (FiberCon) cholecalciferol (vitamin D3) 25 25 mcg PO DAILY 08/18/21 01/11/22 mcg (1,000 unit) tablet (Vitamin D3) cyanocobalamin (vitamin B-12) 1,000 mcg PO DAILY 08/18/21 01/11/22 1,000 mcg tablet (Vitamin B-12) diphenhydramine HCl 25 mg capsule 50 mg PO HS 08/18/21 01/11/22 (Benadryl) folic acid 1 mg tablet 1 mg PO DAILY 08/18/21 01/11/22 omeprazole magnesium 20 mg 20 mg PO DAILY 08/18/21 01/11/22 tablet,delayed release (Prilosec OTC) pantoprazole 40 mg tablet,delayed 40 mg PO DAILY 08/18/21 01/11/22 release ferrous sulfate 325 mg (65 mg 325 mg PO DAILY 11/08/21 01/11/22 iron) tablet furosemide 40 mg tablet 80 mg PO DAILY 01/11/22 01/11/22 linagliptin 5 mg tablet (Tradjenta) 5 mg PO DAILY 01/11/22 01/11/22 magnesium oxide 400 mg (241.3 mg 400 mg PO DAILY 01/11/22 01/11/22 magnesium) tablet nortriptyline 10 mg capsule 10 mg PO QHS 01/11/22 01/11/22 potassium chloride 10 mEq 20 meq PO BID 01/11/22 01/11/22 tablet,extended release tramadol 50 mg tablet 1 tablet PO Q4-6H PRN Moderate 01/11/22 01/11/22 Pain (Scale Score 5-6) Allergies Allergy/AdvReac Type Severity Reaction Status Date / Time Penicillins Allergy Severe Rash Verified 01/11/22 00:40 Review of Systems Review of Systems: CONSTITUTIONAL: See HPI EYES: Denies visual changes, redness, or discharge. ENT: Denies rhinorrhea, congestion, sore throat, or otalgia. CARDIOVASCULAR: See HPI RESPIRATORY: Denies cough or dyspnea. GASTROINTESTINAL: Denies abdominal pain, nausea, vomiting, or diarrhea. GENITOURINARY: Denies dysuria or hematuria. SKIN: Denies rash or itching. MUSCULOSKELETAL: Denies back pain, joint pain, or myalgia. NEUROLOGIC: Denies headache, numbness, or weakness. PSYCHIATRIC: Denies anxiety or depression. [facility] Past Medical History Medical History (Updated 01/11/22 @ 04:04 by Parris Brown DO) Atrial fibrillation Cataract of both eyes COPD (chronic obstructive pulmonary disease) PFTs 11/2021: Mild obstructive airway disease moderate reduced diffusion capacity Elevated alkaline phosphatase level Elevated homocysteine ETOHism Hearing loss Hyponatremia With baseline sodium ranging between 128 and 138 IBS (irritable bowel syndrome) Iron deficiency anemia secondary to blood loss (chronic) With most recent iron studies September 2021 due to severe epistaxis from Xarelto use Moderate mitral valve regurgitation KADEN May 2021 Orthostatic hypotension Right-sided heart failure TTE April 2021: Mild concentric left ventricular hypertrophy, indeterminate diastolic function, ejection fraction 61%, moderate enlargement of the right ventricle, moderate right ventricular hypokinesis, severe biatrial enlargement, moderate to severe mitral valve regurgitation, severe pulmonary hypertension with RVSP of 69, moderate to severe tricuspid regurgitation Severe pulmonary hypertension Squamous cell carcinoma of lung, stage I (10/2021) PET scan demonstrated 1.5 cm spicu
[2022-01-10 20:02] LABS: Basophils Percent Auto 0.3 % (0.2-1.2); Eosinophils Absolute Auto 0.2 K/mm3 (0-0.3); Eosinophils Percent Auto 0.9 % (0-4.4); Hematocrit 24.8 % (37.0-47.0); Hemoglobin 8.5 g/dL (12.0-15.0); Immature Granulocyte Absolute 0.16 K/mm3 (0.00-0.031); Lymphocytes Percent Auto 4.4 % (18.3-44.2); Mean Corpuscular HGB Conc 34.3 g/dl (32-36); Mean Corpuscular Volume 84.6 fl (80-100); Mean Platelet Volume 12.4 fl (7.4-10.4); Monocytes Absolute Auto 1.1 K/mm3 (0.1-0.6); Monocytes Percent Auto 7.1 % (2.6-8.5); Neutrophils Absolute Auto 13.7 K/mm3 (1.3-6.7); Neutrophils Percent Auto 86.3 % (45.5-73.1); Platelet Count Result 176 k/mm3 (150-375); Red Blood Count 2.93 M/mm3 (4.2-5.4); Red Cell Distribution Width 16.8 % (11.5-14.5); White Blood Count 15.9 K/mm3 (4.5-10.0)
[2022-01-10 20:11] LABS: Lactic Acid Reflex 1.6 mmol/L (0.7-2.0)
[2022-01-10 20:13] LABS: INR 1.4; Prothrombin Time 16.4 Seconds (11.1-14.7)
[2022-01-10 20:17] LABS: Alanine Aminotransferase 31 U/L (6-35); Albumin Level 3.1 g/dL (3.5-5.1); Alkaline Phosphatase 275 U/L (38-126); Anion Gap 6 mmol/L (8-16); Aspartate Amino Transferase 37 U/L (14-36); Bilirubin,Total 2.5 mg/dL (0.2-1.3); Blood Urea Nitrogen 17 mg/dL (7-17); Calcium 7.7 mg/dL (8.4-10.2); Carbon Dioxide 28 mmol/L (22-30); Chloride 81 mmol/L (98-107); Estimated Glomerular Filt Rate 37; Glucose 131 mg/dL (65-110); Potassium 3.6 mmol/L (3.4-5.0); Sodium 115 mmol/L (137-145)
[2022-01-10 20:19] LABS: Partial Thromboplastin Time 38.8 SECONDS (22.3-36.8)
--- NOTE | 2022-01-10 20:27 | PC.NURSE ---
VRBO from EDJulisa Cote give a bolus of normal saline
[2022-01-10] MEDS: SODIUM CHLORIDE 0.9% IV 1,000 ML 999 ML IV CONT (20:28)
[2022-01-10 20:37] LABS: SARS-CoV-2 RNA PCR Negative
[2022-01-10 20:38] LABS: Ovalocytes 1+ (NORMAL); Platelet Estimate Adequate (Adequate)
--- NOTE | 2022-01-10 22:28 | ECG_ITS ---
Measurements Intervals [place] Rate: 65 P: [place]: 0 QRS: 128 QRSD: 94 T: 68 QT: 408 QTc: 427 Interpretive Statements ATRIAL FIBRILLATION INCOMPLETE RIGHT BUNDLE BRANCH BLOCK POSSIBLE ANTERIOR MYOCARDIAL INFARCTION , AGE INDETERMINATE Electronically Signed On 01-11-2022 10:54:28 CDT by Jovany Garcia M.D.
[2022-01-10 23:44] LABS: Bacteria Urine Trace /hpf; Mucus Urine Rare /lpf; RBC Urine 0-2 /hpf (0-2); Squamous Epithelial Cell Urine Rare /hpf (Few); WBC Clumps Urine Present /HPF; WBC Urine >75 /hpf
[2022-01-10 23:45] LABS: Add Urine Microscopic? YES; Appearance Urine Clear (Clear); Bilirubin Urine Negative (Negative); Blood Urine Trace-lysed (Negative); Color Urine Yellow (Yellow); Glucose Urine UA Negative (Negative); Ketones Urine Negative (Negative); Leukocyte Esterase Ur 2+ LEU/UL (Negative); Nitrate Urine Negative (Negative); Protein Urine Negative (Negative); Specific Grav Ur <= 1.005 (1.001-1.035); Urobilinogen Urine 0.2 mg/dL (<2.0); pH Urine 5.5 (5.0-9.0)
[2022-01-10] MEDS: SODIUM CHLORIDE 0.9% IV 1,000 ML 75 ML IV CONT (23:48)
[2022-01-11] VITALS (32 sets, daily range): BP systolic 81–119; BP diastolic 56–78; PULSE 59–88; RESP 11–24; TEMP 35.7–36.9; O2SAT 91–100; BMI 27.6
--- NOTE | 2022-01-11 00:35 | PM.IMHP ---
H&P: HPI History of Present Illness Date/Time: 01/11/22 00:35 Chief Complaint: Weakness Narrative: 76-year-old female with a past medical history of hypertension, hyperlipidemia, COPD, right-sided heart failure, nonrheumatic valvular heart disease, and recent diagnosis of right upper lobe squamous cell carcinoma who presented to the ER due to increased weakness. The patient reports that she was diagnosed with lung cancer after she had a screening imaging study that suggested possible bronchogenic carcinoma. She had a CT-guided biopsy in October 2021 that demonstrated squamous cell carcinoma. He had a PET scan November 04 which demonstrated localized 1.5 cm mass in the right upper lobe. She underwent right upper lobe lobectomy at [facility] on 12/30. She reports he was discharged from hospital on the . She reports that she has been having some increased shortness breath over the last 2 days. She has had increased profound weakness over the last 2-3 days. She denies any dysuria or hematuria. She reports that she has been feeling dehydrated so has not taken her Lasix at home for the last 3 days. She has been having some nausea but no vomiting. She denies any specific chest pain but states that she just hurts all over. But her most notable area of pain is her right wrist. She cries out if the wrist is moved or touched in any way shape or form. She denies any fevers or chills. She reports that she has been so weak over the last couple of days that she has not been able to get out of bed. She has become so weak that she cannot stay awake. She describes that her pain is aching in nature. She denies any known injury to the right hand and does not know she had an IV in that arm during her last hospitalization to cause her pain. She quit smoking on the when she had her lung surgery. Prior that she has smoked between a half a pack to 1 pack of cigarettes per day since she was a teenager. Review of Systems Review of Systems: 12 systems were reviewed with pertinent positives and negatives per HPI. Except as documented in the HPI, all other systems were reviewed and are negative. [facility] Past Medical History Medical History (Updated 01/11/22 @ 10:35 by Parris Brown DO) Atrial fibrillation Cataract of both eyes COPD (chronic obstructive pulmonary disease) PFTs 11/2021: Mild obstructive airway disease moderate reduced diffusion capacity Elevated alkaline phosphatase level Elevated homocysteine ETOHism Hearing loss Hyponatremia With baseline sodium ranging between 128 and 138 IBS (irritable bowel syndrome) Iron deficiency anemia secondary to blood loss (chronic) With most recent iron studies September 2021 due to severe epistaxis from Xarelto use Moderate mitral valve regurgitation KADEN May 2021 Orthostatic hypotension Right-sided heart failure TTE April 2021: Mild concentric left ventricular hypertrophy, indeterminate diastolic function, ejection fraction 61%, moderate enlargement of the right ventricle, moderate right ventricular hypokinesis, severe biatrial enlargement, moderate to severe mitral valve regurgitation, severe pulmonary hypertension with RVSP of 69, moderate to severe tricuspid regurgitation Severe pulmonary hypertension Squamous cell carcinoma of lung, stage I (10/2021) PET scan demonstrated 1.5 cm spiculated right upper lobe lung mass concerning for primary bronchogenic carcinoma. No evidence to suggest metastatic disease Tobacco abuse Tortuous colon Surgical History Surgical History (Updated 01/11/22 @ 04:04 by Parris Brown, ) History of appendectomy History of carpal tunnel surgery of right wrist History of colonoscopy with polypectomy X2 in the past with last colonoscopy August 2021 demonstrated no polyps History of tonsillectomy History of total hysterectomy with bilateral salpingo-oophorectomy (BSO) Status post lobectomy of lung (12/30/21) Due to lung cancer reportedly stage I Family Hist
--- NOTE | 2022-01-11 00:44 | PC.NURSE ---
This patient, Ela Chen, was admitted to Intensive Care Unit-10. Patient/family oriented to hospital policies and general routines including ID bracelet, bed and alarms, visiting hours, pain management, procedures, bathroom and other care routines, personal items, smoking policy, room service/diet, and visiting hours. Information on how to activate the Rapid Response Team has been discussed. Patient/Family are encouraged to report perceived risks to care and to ask questions if they do not understand what they are told or what they should do.
[2022-01-11] MEDS: SODIUM CHLORIDE 0.9% IV 500 ML 250 ML IV CONT (00:45)
[2022-01-11 01:13] LABS: Sodium 119 mmol/L (137-145)
[2022-01-11 01:29] LABS: Troponin I 0.027 ng/mL (0.000-0.034)
--- NOTE | 2022-01-11 02:14 | WPDPROCEDUR ---
Procedures Central Line Placement Right IJ: Central Line Date: 01/11/22 Central Line Time: 01:50 Discussed w/ the patient/family/POA,the placement of a central venous catheter, including its clinical necessity/indication & associated potential risks, benifits and alternatives.: Yes Consent: I have discussed with the patient and/or surrogate, the non-emergent placement of a central venous catheter, including its clinical necessity/indication and associated potential risks and complications. The patient and/or surrogate understand(s) and acknowledge(s) the need to proceed with central venous catheter insertion as an important element of the patient's clinical management. Time Out Performed: Yes Patient Position: trendelenburg Patient placed on monitor/pulse ox: Yes Provider Prep: mask, sterile gown, sterile gloves, Max. sterile barrier precautions, cap and hand hygiene with conventional soap/water or alcohol based hand rub Central line prep: 2% Chlorhexidine scrub and sterile full body sheet applied Local anesthesia used: lidocaine 1% Amount of anesthesia used (ml): 5 Sterile US Technique with sterile gel/sterile probe covers: Yes Cameroonian: 7 Length (cm): 16 Depth of Insertion (cm): 13 Post Procedure: sutured in place, good blood return, all ports aspirated, flushed, capped, transparent dressing, hemostatic product, antimicrobial product, securement product and aseptic technique maintained throughout procedure Post procedure x-ray: tip of catheter in good position and other Patient tolerated procedure: well and no complications Additional comments: The patient has a known pneumothorax but is actually cannot be visualized on the current x-ray. Tip is in good position. Radiologic interpretation pending.
[2022-01-11] MEDS: NOREPINEPHRINE 8 MG/D5W 250 ML 8 MG/250 ML BAG 9.38 MG IV CONT (02:33)
[2022-01-11] MEDS: DOBUTamine 250 MG/D5W 250 ML 250 MG/250 ML BAG 13.57 MG IV CONT (02:57)
[2022-01-11] MEDS: DEXTROSE 5%/0.45% SOD CHL 1,000 ML 75 ML IV CONT ×2 (04:45→20:28)
[2022-01-11 05:43] LABS: Basophils Percent Auto 0.2 % (0.2-1.2); Eosinophils Absolute Auto 0.2 K/mm3 (0-0.3); Eosinophils Percent Auto 1.2 % (0-4.4); Hematocrit 23.9 % (37.0-47.0); Hemoglobin 8.2 g/dL (12.0-15.0); Immature Granulocyte Absolute 0.17 K/mm3 (0.00-0.031); Lymphocytes Absolute Auto 0.66 K/mm3 (0.9-3.2); Lymphocytes Percent Auto 4.1 % (18.3-44.2); Mean Corpuscular HGB Conc 34.3 g/dl (32-36); Mean Corpuscular Hemoglobin 29.2 pg (26-34); Mean Corpuscular Volume 85.1 fl (80-100); Monocytes Percent Auto 6.3 % (2.6-8.5); Neutrophils Absolute Auto 14.1 K/mm3 (1.3-6.7); Neutrophils Percent Auto 87.2 % (45.5-73.1); Platelet Count Result 168 k/mm3 (150-375); Red Blood Count 2.81 M/mm3 (4.2-5.4); Red Cell Distribution Width 16.5 % (11.5-14.5); White Blood Count 16.2 K/mm3 (4.5-10.0)
[2022-01-11 05:52] LABS: Lactic Acid Reflex 0.6 mmol/L (0.7-2.0)
[2022-01-11 05:56] LABS: Alanine Aminotransferase 30 U/L (6-35); Albumin Level 2.9 g/dL (3.5-5.1); Alkaline Phosphatase 270 U/L (38-126); Anion Gap 6 mmol/L (8-16); Aspartate Amino Transferase 27 U/L (14-36); Bilirubin,Total 2.7 mg/dL (0.2-1.3); Blood Urea Nitrogen 15 mg/dL (7-17); Calcium 7.6 mg/dL (8.4-10.2); Carbon Dioxide 28 mmol/L (22-30); Chloride 87 mmol/L (98-107); Estimated CRCL calculation 37 ml/min; Estimated Glomerular Filt Rate 44; Glucose 171 mg/dL (65-110); Potassium 3.2 mmol/L (3.4-5.0); Sodium 121 mmol/L (137-145)
[2022-01-11 06:03] LABS: Troponin I 0.026 ng/mL (0.000-0.034)
[2022-01-11 06:56] LABS: CRP 17.8 mg/dL (<1.0)
[2022-01-11] MEDS: POTASSIUM CHLORIDE 20 MEQ TABLET 40 MEQ PO (06:59)
[2022-01-11] MEDS: ALBUTEROL SULFATE NEB 2.5 MG/3 ML INH 5 MG INHALATION ×3 (08:43→20:44)
[2022-01-11] MEDS: IPRATROPIUM BR 0.02% INH SOLN 0.5 MG/2.5 ML VIAL INHALATION ×3 (08:44→20:44)
[2022-01-11] MEDS: PANTOPRAZOLE 40 MG TABLET PO (10:02)
[2022-01-11] MEDS: CHOLECALCIFEROL 1,000 UNITS TABLET 1000 UNITS PO (10:02)
[2022-01-11] MEDS: THIAMINE HCL 100 MG TABLET PO (10:02)
[2022-01-11] MEDS: POTASSIUM CHLORIDE 10 MEQ TABLET.ER 20 MEQ PO ×2 (10:02→17:08)
[2022-01-11] MEDS: calcium polycarbophiL 625 MG TABLET PO (10:02)
[2022-01-11] MEDS: ATORVASTATIN 40 MG TABLET PO (10:02)
[2022-01-11] MEDS: FOLIC ACID 1 MG TABLET PO (10:02)
[2022-01-11] MEDS: FERROUS SULFATE 324 MG TABLET PO (10:02)
[2022-01-11] MEDS: CYANOCOBALAMIN 1,000 MCG TABLET 1000 MCG PO (10:02)
[2022-01-11] MEDS: traMADol HCL (*CRX) 50 MG TABLET PO ×2 (10:07→21:12)
[2022-01-11 10:32] LABS: Sodium 122 mmol/L (137-145); Uric Acid 5.4 mg/dL (2.5-7.5)
--- NOTE | 2022-01-11 12:43 | PM.CNOR ---
Assessment and Plan Assessment and plan (1) Wrist pain: Code(s): M25.539 - Pain in unspecified wrist <EBONY Lu - Last Filed: 01/11/22 15:51> Status: Acute <EBONY Lu - Last Filed: 01/11/22 15:51> Assessment and Plan: History exam and radiographs reviewed with the patient. Radiographs of the right wrist reveal advanced osteoarthritis at the first carpometacarpal joint, no evidence of fracture. Patient does have swelling and significant difficultly with flexion and extension of the wrist. Positive grind test. Mild warmth. Mild redness. She reports 2 day history of wrist pain. No history of wrist pain prior. No known injury. Elevated CRP. Elevated white count. Recommend MRI at this time to rule out evidence of infection. Ice and elevation in the interim. We will determine further plan of care pending MRI results. <JOSE LuP - Last Filed: 01/11/22 15:51> (2) Status post lobectomy of lung: Onset Date: 12/30/21 <JOSE LuP - Last Filed: 01/11/22 15:51> Code(s): Z90.2 - Acquired absence of lung [part of] <JOSE LuP - Last Filed: 01/11/22 15:51> Status: Acute <JOSE LuP - Last Filed: 01/11/22 15:51> Assessment and Plan: Recent lobectomy at [facility]. Medicine team following. <JOSE LuP - Last Filed: 01/11/22 15:51> (3) Shock circulatory: Code(s): R57.9 - Shock, unspecified <JOSE LuP - Last Filed: 01/11/22 15:51> Status: Acute <EBONY Lu - Last Filed: 01/11/22 15:51> Assessment and Plan: Medicine team following. <JOSE LuP - Last Filed: 01/11/22 15:51> Assessment and Plan: Consult and chart reviewed. Recommend MRI of the wrist. Further treatment based on MRI results. <Clifford Islas MD - Last Filed: 01/11/22 16:01> Additional Plan Reviewed history, radiographs and physical exam with attending physician and consulted surgeon, Dr. Clifford Islas. Agrees with current plan of care. No further recommendations. We will review MRI results with attending pending finalized results. <EBONY Lu - Last Filed: 01/11/22 15:51> History of Present Illness HPI Consult date: 01/11/22 <EBONY Lu - Last Filed: 01/11/22 15:51> 01/11/22 <Clifford Islas MD - Last Filed: 01/11/22 16:01> Requesting physician: Parris Brown DO <EBONY Lu - Last Filed: 01/11/22 15:51> Consult reason: other (right wrist pain ) <EBONY Lu - Last Filed: 01/11/22 15:51> Chief complaint: Hyponatremia <EBONY Lu - Last Filed: 01/11/22 15:51> Narrative: 76 [facility]. Per the medical record, patient was discharged from [facility] on 01/04 after a lobectomy due to squamous cell carcinoma. Patient had generalized weakness on arrival with septic shock, hyponatremia and UTI. Patient admitted to the ICU due to diagnosis of septic shock. She has been complaining of significant right wrist pain x2 days. She denies known injury. She denies history of wrist pain. She also complains of left wrist pain which is not as significant. Orthopedic surgery consulted requested for evaluation of right wrist pain. <EBONY Lu - Last Filed: 01/11/22 15:51> Review of Systems Constitutional: Constitutional: Reports no additional constitutional complaints, Reports fatigue, Denies fever(s), Denies headache(s) and Reports weakness <EBONY Lu - Last Filed: 01/11/22 15:51> Eyes: Eyes: Denies change in vision <EBONY Lu - Last Filed: 01/11/22 15:51> ENT: Reports Normal hearing present and Denies headache(s) <EBONY Lu - Last Filed: 01/11/22 15:51> Cardiovascular: Cardiovascular: Denies chest pain and Denies dyspnea <EBONY Lu - Last Filed: 01/11/22 15:51> Respiratory: Respiratory: D
--- NOTE | 2022-01-11 13:44 | PM.IMPN ---
Progress Note: A&P Assessment and Plan (1) Shock circulatory: Code(s): R57.9 - Shock, unspecified Status: Acute (2) Status post lobectomy of lung: Onset Date: 12/30/21 Code(s): Z90.2 - Acquired absence of lung [part of] Status: Acute (3) Abnormal urinalysis: Code(s): R82.90 - Unspecified abnormal findings in urine Status: Acute (4) Hyponatremia: Code(s): E87.1 - Hypo-osmolality and hyponatremia Status: Acute (5) Atrial fibrillation: Code(s): I48.91 - Unspecified atrial fibrillation Status: Acute (6) Hypokalemia: Code(s): E87.6 - Hypokalemia Status: Acute Plan Generalized weakness hypotensive on arrival cortisol 13.2. Septic shock blood pressure is 80s on arrival. Treated with IV fluid resuscitation. With improvement CT negative for pneumonia. CTA with postsurgical changes in the right chest wall including small volume right pleural effusion with small anteriorly located pneumothorax. urinalysis with WBC clumps. On cefepime and vancomycin . Cortisol level 13.2 Started on vasopressor with Levophed and dobutamine. Severe hyponatremia sodium level of 115 on arrival. History of chronic hyponatremia in the past. Possible SIADH. Continue to monitor sodium level closely. Up to 122 this afternoon. Currently on D5 half normal saline Right wrist pain uric acid is normal. MR wrist ordered by orthopedics was then consulted Leukocytosis Anemia with no signs of bleeding hypokalemia replace and monitor Atrial fibrillation chronic rate controlled. Anticoagulation currently on hold elevated liver enzymes Hypertension Hyperlipidemia COPD Right-sided heart failure Nonrheumatic valvular heart disease Recently diagnosed right upper lobe squamous cell carcinoma status post CT-guided biopsy in October 2021 status post right upper lobe lobectomy at [facility] on 12/30/2021 DVT prophylaxis Code status full code Subjective Date/time seen: 01/11/22 13:44 Interval history: HPI:76-year-old female with a past medical history of hypertension, hyperlipidemia, COPD, right-sided heart failure, nonrheumatic valvular heart disease, and recent diagnosis of right upper lobe squamous cell carcinoma who presented to the ER due to increased weakness.? The patient reports that she was diagnosed with lung cancer after she had a screening imaging study that suggested possible bronchogenic carcinoma.? She had a CT-guided biopsy in October 2021 that demonstrated squamous cell carcinoma.? He had a PET scan November 04 which demonstrated localized 1.5 cm mass in the right upper lobe.? She underwent right upper lobe lobectomy at [facility] on 12/30.? She reports he was discharged from hospital on the .? She reports that she has been having some increased shortness breath over the last 2 days.? She has had increased profound weakness over the last 2-3 days.? She denies any dysuria or hematuria.? She reports that she has been feeling dehydrated so has not taken her Lasix at home for the last 3 days.? She has been having some nausea but no vomiting.? She denies any specific chest pain but states that she just hurts all over.? But her most notable area of pain is her right wrist.? She cries out if the wrist is moved or touched in any way shape or form.? She denies any fevers or chills.? She reports that she has been so weak over the last couple of days that she has not been able to get out of bed.? She has become so weak that she cannot stay awake.? She describes that her pain is aching in nature. She denies any known injury to the right hand and does not know she had an IV in that arm during her last hospitalization to cause her pain. She quit smoking on the when she had her lung surgery.? Prior that she has smoked between a half a pack to 1 pack of cigarettes per day since she was a teenager. 01/11/2022 no overnight events. Remains on Levophed and dobutamine infusion. Blood pressure low norm
--- NOTE | 2022-01-11 17:07 | WPDCNINT ---
Assessment and Plan Assessment and plan (1) Shock: Code(s): R57.9 - Shock, unspecified Status: Acute Assessment and Plan: Patient presented with hypertension, adequately fluid-resuscitated, despite which she had refractory hypotension, central line was inserted and patient was started on Levophed -continue Levophed and maintain mean arterial pressures greater than 65 mmHg 5 adequate end organ perfusion -lactic acid was 0.6 -Leukocytosis -acute kidney injury -patient started on cefepime and vancomycin -blood and urine cultures have been obtained and pending (2) Wrist pain: Code(s): M25.539 - Pain in unspecified wrist Status: Acute Assessment and Plan: Right wrist pain and decreased movement of the joint -x-ray of the right wrist showed Advanced osteoarthritis at the first carpometacarpal joint. -appreciate Ortho evaluation -MRI of the right wrist is pending (3) UTI (urinary tract infection): Code(s): N39.0 - Urinary tract infection, site not specified Status: Acute Assessment and Plan: Urine cultures have been obtained, continue cefepime (4) Hypokalemia: Code(s): E87.6 - Hypokalemia Status: Acute Assessment and Plan: Potassium has been repleted (5) Hyponatremia: Code(s): E87.1 - Hypo-osmolality and hyponatremia Status: Acute Assessment and Plan: Hyponatremia which could be a cause of the weakness -patient presented with sodium levels of 115 on admission -repeat sodium levels 122 this morning -will continue to monitor, could be related to SIADH from lung cancer (6) Weakness: Code(s): R53.1 - Weakness Status: Acute Assessment and Plan: Weakness could be related to the UTI, shock, low blood pressures, hyponatremia -once she is off the vasopressors will have PT/OT evaluate the patient (7) Status post lobectomy of lung: Onset Date: 12/30/21 Code(s): Z90.2 - Acquired absence of lung [part of] Status: Acute Assessment and Plan: Patient had a right lobectomy at [facility] on 12/30/2021 (8) Atrial fibrillation: Code(s): I48.91 - Unspecified atrial fibrillation Status: Acute Assessment and Plan: Patient has a history of atrial fibrillation. Has not been on any anticoagulation at home likely related to the recent lobectomy -currently rate controlled, -hold home Coreg as patient is on vasopressors Additional Plan DVT prophylaxis: SCDs Stress ulcer prophylaxis: Protonix Nutrition: Heart healthy diet Code status: Full code Critical care time spent: 45 minutes This dictation may have been done utilizing a voice recognition system. Attempts have been made to correct errors. However, there may be uncorrected grammatical, spelling, and recognition errors present. Due to a high probability of clinically significant, life threatening deterioration, the patient required my highest level of preparedness to intervene emergently and I personally spent this critical care time directly and personally managing the patient. This critical care time included obtaining a history; examining the patient; pulse oximetry; ordering and review of studies; arranging urgent treatment with development of a management plan; evaluation of patient's response to treatment; frequent reassessment; and discussions with other providers. It was exclusive of separately billable procedures and treating other patients and teaching time. Please see Assessment and Plan section and the rest of the note for further information on patient assessment and treatment Employee Representative Consult Note Consult date: 01/11/22 Reason for consult: Generalized weakness, UTI, shock HPI: Ela Chen is a 76 year old female with past medical history of essential hypertension, hyperlipidemia, COPD, right-sided heart failure, nonrheumatic valvular heart disease, recent diagnosis of right upper lobe squamous cell carcinoma with rec
[2022-01-11 17:54] LABS: Sodium 122 mmol/L (137-145)
[2022-01-11] MEDS: diphenhydrAMINE HCl CAP 25 MG CAPSULE 50 MG PO (21:05)
[2022-01-11 21:24] LABS: Sodium 120 mmol/L (137-145)
[2022-01-12] VITALS (17 sets, daily range): BP systolic 86–117; BP diastolic 57–79; PULSE 70–90; RESP 16–25; TEMP 36.4–36.9; O2SAT 92–98
[2022-01-12] MEDS: IPRATROPIUM BR 0.02% INH SOLN 0.5 MG/2.5 ML VIAL INHALATION ×3 (01:00→14:17)
[2022-01-12] MEDS: ALBUTEROL SULFATE NEB 2.5 MG/3 ML INH 5 MG INHALATION ×3 (01:00→14:17)
[2022-01-12] MEDS: traMADol HCL (*CRX) 50 MG TABLET PO ×2 (04:42→14:01)
[2022-01-12 04:53] LABS: Hematocrit 24.5 % (37.0-47.0); Hemoglobin 8.4 g/dL (12.0-15.0); Mean Corpuscular HGB Conc 34.3 g/dl (32-36); Mean Corpuscular Hemoglobin 29.2 pg (26-34); Mean Corpuscular Volume 85.1 fl (80-100); Platelet Count Result 179 k/mm3 (150-375); Red Blood Count 2.88 M/mm3 (4.2-5.4); Red Cell Distribution Width 16.9 % (11.5-14.5); White Blood Count 14.6 K/mm3 (4.5-10.0)
[2022-01-12 05:01] LABS: Alanine Aminotransferase 27 U/L (6-35); Albumin Level 3.1 g/dL (3.5-5.1); Alkaline Phosphatase 288 U/L (38-126); Anion Gap 3 mmol/L (8-16); Aspartate Amino Transferase 24 U/L (14-36); Bilirubin,Total 1.9 mg/dL (0.2-1.3); Blood Urea Nitrogen 12 mg/dL (7-17); Carbon Dioxide 28 mmol/L (22-30); Chloride 91 mmol/L (98-107); Estimated CRCL calculation 49 ml/min; Estimated Glomerular Filt Rate > 60; Glucose 100 mg/dL (65-110); Magnesium 1.6 mg/dL (1.6-2.3); Potassium 4.7 mmol/L (3.4-5.0); Sodium 122 mmol/L (137-145)
[2022-01-12] MEDS: FOLIC ACID 1 MG TABLET PO (08:59)
[2022-01-12] MEDS: THIAMINE HCL 100 MG TABLET PO (08:59)
[2022-01-12] MEDS: calcium polycarbophiL 625 MG TABLET PO (08:59)
[2022-01-12] MEDS: POTASSIUM CHLORIDE 10 MEQ TABLET.ER 20 MEQ PO ×2 (08:59→16:05)
[2022-01-12] MEDS: CYANOCOBALAMIN 1,000 MCG TABLET 1000 MCG PO (08:59)
[2022-01-12] MEDS: ATORVASTATIN 40 MG TABLET PO (08:59)
[2022-01-12] MEDS: FERROUS SULFATE 324 MG TABLET PO (08:59)
[2022-01-12] MEDS: PANTOPRAZOLE 40 MG TABLET PO (08:59)
[2022-01-12] MEDS: CHOLECALCIFEROL 1,000 UNITS TABLET 1000 UNITS PO (08:59)
[2022-01-12] MEDS: ONDANSETRON INJ 4 MG/2 ML VIAL IV PUSH (09:04)
[2022-01-12] MEDS: DEXTROSE 5%/0.45% SOD CHL 1,000 ML 75 ML IV CONT (11:09)
--- NOTE | 2022-01-12 12:49 | P.CONNP_ITS ---
Assessment and Plan Assessment and plan (1) Hyponatremia: Code(s): E87.1 - Hypo-osmolality and hyponatremia Status: Acute Assessment and Plan: * acute on chronic * sodium levels appear to have fluctuated around 125 - 134 since 2019 * during recent [facility] admission, sodium running 128 - 129 * on admission here, sodium 115...now up to 122 by AM labs (over 48 hours) * multiple risk factors for this issue: * COPD * lung cancer (possible SIADH) * PPI use * thiazide diuretics * improvement in sodium with normal saline IVF would suggest an element of volume depletion * check TSH, cortisol, SPEP, UPEP serum/urine osmolality, as well as urine electrolytes * follow serial sodium levels (2) Shock: Code(s): R57.9 - Shock, unspecified Status: Acute Assessment and Plan: * resolved * presented with hypotension * unresponsive despite aggressive IVF resuscitation * initially on vasopressor therapy but this has since been weaned off * follow culture data * on antibiotics (3) Wrist pain: Qualifiers: Laterality: right Qualified Code(s): M25.531 - Pain in right wrist Code(s): M25.539 - Pain in unspecified wrist Status: Acute Assessment and Plan: * Right wrist pain with decreased movement noted on admision * X-ray results noted; unable to get MRI * s/p ultrasound-guided aspiration of the right wrist joint * Orthopedics following (4) UTI (urinary tract infection): Code(s): N39.0 - Urinary tract infection, site not specified Status: Acute Assessment and Plan: * urine culture with Klebsiella * on antibiotics (5) Status post lobectomy of lung: Onset Date: 12/30/21 Code(s): Z90.2 - Acquired absence of lung [part of] Status: Acute Assessment and Plan: * s/p right lobectomy on 12/30/21 * done as part of her treatment for lung cancer (6) Atrial fibrillation: Code(s): I48.91 - Unspecified atrial fibrillation Status: Acute Assessment and Plan: * continue rate control strategy * off anticoagulation presumable due to recent lung surgery Will continue to follow. History of Present Illness Reason for Consult Consult date: 01/12/22 Reason for consult: hyponatremia Chief Complaint Chief complaint: Hyponatremia History of Present Illness Narrative: The patient is a 76-year-old female with an extensive past medical history as outlined below who presented to [facility] Emergency room with complaints of shortness of breath and weakness. 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 She was subsequently discharged on 01/04/22. approximately 2 days prior to presentation to the emergency room, the patient reports worsening shortness of breath in association brought with profound weakness. Associated symptoms include some nausea but no overt vomiting and a description of pain all over her body with particular emphasis on her right wrist. Due to her profound weakness, she has not been able to ambulate much or get out of bed. Because of the progressive nature of the symptoms, she presented to the ER for further evaluation Workup and evaluation in the emergency room demonstrated the patient to be quite hypotensive. She was aggressively fluid resuscitated but did not respond to this intervention and hence had a central line placed and was started on va sopressor therapy. Routine b
--- NOTE | 2022-01-12 12:49 | PM.CNNEP ---
Assessment and Plan Assessment and plan (1) Hyponatremia: Code(s): E87.1 - Hypo-osmolality and hyponatremia Status: Acute Assessment and Plan: acute on chronic sodium levels appear to have fluctuated around 125 - 134 since 2019 during recent [facility] admission, sodium running 128 - 129 on admission here, sodium 115...now up to 122 by AM labs (over 48 hours) multiple risk factors for this issue: COPD lung cancer (possible SIADH) PPI use thiazide diuretics improvement in sodium with normal saline IVF would suggest an element of volume depletion check TSH, cortisol, SPEP, UPEP serum/urine osmolality, as well as urine electrolytes follow serial sodium levels (2) Shock: Code(s): R57.9 - Shock, unspecified Status: Acute Assessment and Plan: resolved presented with hypotension unresponsive despite aggressive IVF resuscitation initially on vasopressor therapy but this has since been weaned off follow culture data on antibiotics (3) Wrist pain: Qualifiers: Laterality: right Qualified Code(s): M25.531 - Pain in right wrist Code(s): M25.539 - Pain in unspecified wrist Status: Acute Assessment and Plan: Right wrist pain with decreased movement noted on admision X-ray results noted; unable to get MRI s/p ultrasound-guided aspiration of the right wrist joint Orthopedics following (4) UTI (urinary tract infection): Code(s): N39.0 - Urinary tract infection, site not specified Status: Acute Assessment and Plan: urine culture with Klebsiella on antibiotics (5) Status post lobectomy of lung: Onset Date: 12/30/21 Code(s): Z90.2 - Acquired absence of lung [part of] Status: Acute Assessment and Plan: s/p right lobectomy on 12/30/21 done as part of her treatment for lung cancer (6) Atrial fibrillation: Code(s): I48.91 - Unspecified atrial fibrillation Status: Acute Assessment and Plan: continue rate control strategy off anticoagulation presumable due to recent lung surgery Will continue to follow. History of Present Illness Reason for Consult Consult date: 01/12/22 Reason for consult: hyponatremia Chief Complaint Chief complaint: Hyponatremia History of Present Illness Narrative: The patient is a 76-year-old female with an extensive past medical history as outlined below who presented to [facility] Emergency room with complaints of shortness of breath and weakness. 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 She was subsequently discharged on 01/04/22. approximately 2 days prior to presentation to the emergency room, the patient reports worsening shortness of breath in association brought with profound weakness. Associated symptoms include some nausea but no overt vomiting and a description of pain all over her body with particular emphasis on her right wrist. Due to her profound weakness, she has not been able to ambulate much or get out of bed. Because of the progressive nature of the symptoms, she presented to the ER for further evaluation Workup and evaluation in the emergency room demonstrated the patient to be quite hypotensive. She was aggressively fluid resuscitated but did not respond to this intervention and hence had a central line placed and was started on vasopressor therapy. Routine blood tests were done and were significant for significant hyponatremia with a sodium level of 115. Given her history, a CTA of her chest was done but did not demonstrate any acute pulmonary embolism but did have some mild pulmonary edema that was more pronounced in the right lung In association with cardiomegaly, and pulmonary hypertension. Postsurgical changes in the right chest wall including a small volume right pleural effusio
--- NOTE | 2022-01-12 12:49 | PM.PNORT ---
Progress Note: A&P Assessment and Plan (1) Wrist pain: Qualifiers: Laterality: right Qualified Code(s): M25.531 - Pain in right wrist Code(s): M25.539 - Pain in unspecified wrist Status: Acute Assessment and Plan: Right wrist pain and swelling without injury. MRI ordered yesterday but and able to be performed. Discussed with Radiology. May be more beneficial for ultrasound with possible aspiration. We will see if we can obtain that today and follow lab results from the fluid if any. Conservative treatment with ice and elevation. Will continue to follow. Subjective Subjective Date/Time Seen: 01/12/22 07:49 Principal diagnosis: Right wrist pain and swelling Interval history: patient seen and examined. Continues to complain of right wrist pain on the dorsal aspect. Also some pain on the left side. Denies numbness or tingling. Review of Systems Constitutional: Constitutional: Reports no additional constitutional complaints, Reports fatigue, Denies fever(s), Denies headache(s) and Reports weakness Eyes: Eyes: Denies change in vision ENT: Reports Normal hearing present and Denies headache(s) Cardiovascular: Cardiovascular: Denies chest pain and Denies dyspnea Respiratory: Respiratory: Denies cough, Denies dyspnea and Denies wheezing Gastrointestinal: Gastrointestinal: Denies constipation, Denies diarrhea, Denies nausea and Denies vomiting Genitourinary: Genitourinary: Denies hematuria, Denies dysuria and Denies urinary urgency Musculoskeletal: Musculoskeletal: Reports as per HPI, Denies numbness and Denies tingling Integumentary/Breasts: Skin/Breast: Reports as per HPI Neurologic: Reports as per HPI, Reports Normal hearing present, Denies headache(s), Denies numbness, Denies tingling and Denies weakness Psychiatric: Psychiatric: Reports no additional psychiatric complaints Endocrine: Endocrine: Reports no additional endocrine complaints and Reports fatigue Hematologic/Lymphatic: Hematologic/Lymphatic: Reports no additional hematologic/lymphatic complaints Allergic/Immunologic: Allergic/Immunologic: Reports no additional allergic/immunologic complaints and Denies wheezing Exam Const: General: no acute distress and ill appearing Nutritional Appearance: well nourished Orientation/consciousness: patient oriented x3 Limitations: no limitations HENMT: Head: normal to inspection, normocephalic and atraumatic Ears: hearing grossly normal bilaterally General nose exam: Normal external nose present Mouth: Yes Normal oral and palatal mucosa present Eyes: Conjunctivae: conjunctivae normal Sclera: sclerae normal Cardio: Jugular venous distension: no JVD Rate: regular rate Rhythm: regular rhythm Neuro: Cognition (Neuro): normal cognition Extrem: Right upper extremity: elbow/forearm normal to inspection and normal ROM; no tenderness and no swelling, wrist tenderness of the distal radius, swelling of the dorsal wrist and of the volar wrist, warmth of the dorsal wrist and of the volar wrist, normal vascular exam and radial pulse present 2+; no ecchymosis and no crepitus and Extremity exam: right hand normal capillary refill, neuromotor exam normal wrist extension normal, thumb opposition normal, thumb IP flexion normal, thumb ADduction normal and fingers 2-5 ABduction normal and tenderness of the thumb (CMC joint ) Left upper extremity: elbow/forearm normal to inspection and normal ROM; no tenderness and no swelling, wrist normal to inspection, tenderness (mild, diffuse ) and abnormal ROM pain with active ROM with extension and with flexion and pain with passive ROM in extension and in flexion and hand no swelling Objective Data Vital Signs Vital Signs: Vital Signs - 24 hr 01/11/22 13:04 01/11/22 15:43 01/11/22 15:45 Temperature Pulse Rate 70 73 73 Respiratory Rate 15 12 Blood Pressure 106/56 L Pulse Oximetry 93 Oxygen Delivery Room Air 01/11/22 15:52 01/11/22
[2022-01-12] MEDS: DICLOFENAC SODIUM 1% 100 GM GEL (*BKC) 1 APPLIC TOPICAL ×3 (13:59→21:21)
[2022-01-12] MEDS: CENTRAL LINE FLUSH 10 ML IV PUSH ×3 (14:08→21:21)
--- NOTE | 2022-01-12 14:50 | WPDINTPN ---
Progress Note: A&P Assessment and Plan (1) Shock: Code(s): R57.9 - Shock, unspecified Status: Acute Assessment and Plan: RESOLVED Patient presented with hypertension, adequately fluid-resuscitated, despite which she had refractory hypotension, central line was inserted and patient was started on Levophed -OFF LEVOPHED -lactic acid was 0.6 -Leukocytosis -acute kidney injury -patient started on cefepime and vancomycin -01/11/2022 blood cultures: Preliminary results are Negative x2 -01/11/2022 urine cultures growing Klebsiella pneumonia, sensitivities pending (2) Wrist pain: Qualifiers: Laterality: right Qualified Code(s): M25.531 - Pain in right wrist Code(s): M25.539 - Pain in unspecified wrist Status: Acute Assessment and Plan: Right wrist pain and decreased movement of the joint -x-ray of the right wrist showed 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 -appreciate Ortho evaluation -01/12: ultrasound-guided aspiration of the right wrist joint with removal of 1 mL of clear yellowish fluid which was sent to the lab for Gram stain, culture and crystal analysis. (3) UTI (urinary tract infection): Code(s): N39.0 - Urinary tract infection, site not specified Status: Acute Assessment and Plan: 01/12/2022: Urine culture growing Klebsiella pneumoniae, sensitivities pending -continue cefepime (4) Hypokalemia: Code(s): E87.6 - Hypokalemia Status: Acute Assessment and Plan: Resolved (5) Hyponatremia: Code(s): E87.1 - Hypo-osmolality and hyponatremia Status: Acute Assessment and Plan: Hyponatremia which could be a cause of the weakness -patient presented with sodium levels of 115 on admission -repeat sodium levels 122 this morning -continue D5 half normal saline IV fluids. -will continue to monitor, could be related to SIADH from lung cancer -nephrology following the patient and managing sodium levels (6) Weakness: Code(s): R53.1 - Weakness Status: Acute Assessment and Plan: Weakness could be related to the UTI, shock, low blood pressures, hyponatremia -once she is off the vasopressors will have PT/OT evaluate the patient (7) Status post lobectomy of lung: Onset Date: 12/30/21 Code(s): Z90.2 - Acquired absence of lung [part of] Status: Acute Assessment and Plan: Patient had a right lobectomy at [facility] on 12/30/2021 (8) Atrial fibrillation: Code(s): I48.91 - Unspecified atrial fibrillation Status: Acute Assessment and Plan: Patient has a history of atrial fibrillation. Has not been on any anticoagulation at home likely related to the recent lobectomy -currently rate controlled, -hold home Coreg for now as patient just came off vasopressors on 01/11/2022 Additional Plan DVT prophylaxis: SCDs Stress ulcer prophylaxis: Protonix Nutrition: Heart healthy diet Code status: Full code Critical care time spent: 33 minutes This dictation may have been done utilizing a voice recognition system. Attempts have been made to correct errors. However, there may be uncorrected grammatical, spelling, and recognition errors present. Due to a high probability of clinically significant, life threatening deterioration, the patient required my highest level of preparedness to intervene emergently and I personally spent this critical care time directly and personally managing the patient. This critical care time included obtaining a history; examining the patient; pulse oximetry; ordering and review of studies; arranging urgent treatment with development of a management plan; evaluation of patient's response to treatment; frequent reassessment; and discussions with other providers. It was exclusive of separately billable procedures and treating other patients and teaching time. Please see Assessment and Plan section and the rest of the note for further inform
--- NOTE | 2022-01-12 18:19 | PC.NURSE ---
This patient, Ela Chen, was transferred to [[id number]] on 01/12/22 at 1819. Personal belongings sent with patient. Report given to [Marcie CHARLES]. Appropriate documentation sent with patient.
--- NOTE | 2022-01-12 18:23 | PC.NURSE ---
This patient, Ela Chen, was transferred from Intensive Care Unit-10 to [facility] 3 med-surg at 1820. Patient/family oriented to hospital policies and general routines including ID bracelet, bed and alarms, visiting hours, pain management, procedures, bathroom and other care routines, personal items, smoking policy, room service/diet, and visiting hours. Information on how to activate the Rapid Response Team has been discussed. Patient/Family are encouraged to report perceived risks to care and to ask questions if they do not understand what they are told or what they should do.
--- NOTE | 2022-01-12 18:52 | PC.NURSE ---
urine samples sent to lab for analysis
[2022-01-12 19:09] LABS: Sodium Urine Random 16 meq/L
[2022-01-12 19:11] LABS: Creatinine Urine 38.6 mg/dL; Total Protein Urine Random 24 mg/dL; Ur Ttl Prot Creatinine Ratio 0.62 mg/mg (0-0.20)
[2022-01-12 19:39] LABS: Sodium 121 mmol/L (137-145)
[2022-01-12] MEDS: diphenhydrAMINE HCl CAP 25 MG CAPSULE 50 MG PO (21:21)
[2022-01-13] VITALS (11 sets, daily range): BP systolic 110–145; BP diastolic 60–90; PULSE 62–90; RESP 16–22; TEMP 36.6–36.7; O2SAT 94–98
[2022-01-13] MEDS: DEXTROSE 5%/0.9% SOD CHL 1,000 ML 60 ML IV CONT (01:03)
[2022-01-13 01:29] LABS: Sodium 120 mmol/L (137-145)
[2022-01-13] MEDS: SODIUM CHLORIDE 0.9% IV 1,000 ML 75 ML IV CONT ×2 (01:42→16:05)
[2022-01-13] MEDS: traMADol HCL (*CRX) 50 MG TABLET PO ×2 (03:52→20:57)
[2022-01-13] MEDS: IPRATROPIUM BR 0.02% INH SOLN 0.5 MG/2.5 ML VIAL INHALATION ×4 (04:42→21:21)
[2022-01-13] MEDS: ALBUTEROL SULFATE NEB 2.5 MG/3 ML INH 5 MG INHALATION ×3 (04:43→21:21)
[2022-01-13] MEDS: CENTRAL LINE FLUSH 10 ML IV PUSH ×4 (05:23→21:00)
[2022-01-13 05:44] LABS: Basophils Absolute Auto 0.1 K/mm3 (0.0-0.1); Basophils Percent Auto 0.5 % (0.2-1.2); Eosinophils Absolute Auto 0.3 K/mm3 (0-0.3); Eosinophils Percent Auto 2.2 % (0-4.4); Hematocrit 23.5 % (37.0-47.0); Hemoglobin 8.2 g/dL (12.0-15.0); Immature Granulocyte Percent A 0.9 % (0-0.5); Lymphocytes Absolute Auto 0.89 K/mm3 (0.9-3.2); Lymphocytes Percent Auto 7.9 % (18.3-44.2); Mean Corpuscular HGB Conc 34.9 g/dl (32-36); Mean Corpuscular Hemoglobin 29.3 pg (26-34); Mean Corpuscular Volume 83.9 fl (80-100); Monocytes Absolute Auto 1.1 K/mm3 (0.1-0.6); Monocytes Percent Auto 9.4 % (2.6-8.5); Neutrophils Absolute Auto 8.9 K/mm3 (1.3-6.7); Neutrophils Percent Auto 79.1 % (45.5-73.1); Platelet Count Result 186 k/mm3 (150-375); Red Cell Distribution Width 16.5 % (11.5-14.5); White Blood Count 11.2 K/mm3 (4.5-10.0)
[2022-01-13 06:00] LABS: Anion Gap 4 mmol/L (8-16); Blood Urea Nitrogen 8 mg/dL (7-17); Calcium 8.2 mg/dL (8.4-10.2); Carbon Dioxide 26 mmol/L (22-30); Chloride 93 mmol/L (98-107); Estimated CRCL calculation 57 ml/min; Estimated Glomerular Filt Rate > 60; Glucose 98 mg/dL (65-110); Potassium 5.3 mmol/L (3.4-5.0); Sodium 123 mmol/L (137-145)
[2022-01-13 08:10] LABS: Free T4 Free Thyroxine Reflex 1.94 ng/dL (0.78-2.19)
[2022-01-13] MEDS: FERROUS SULFATE 324 MG TABLET PO (08:32)
[2022-01-13] MEDS: PANTOPRAZOLE 40 MG TABLET PO (08:32)
[2022-01-13] MEDS: ATORVASTATIN 40 MG TABLET PO (08:32)
[2022-01-13] MEDS: POTASSIUM CHLORIDE 10 MEQ TABLET.ER 20 MEQ PO ×2 (08:32→16:06)
[2022-01-13] MEDS: calcium polycarbophiL 625 MG TABLET PO (08:33)
[2022-01-13] MEDS: THIAMINE HCL 100 MG TABLET PO (08:33)
[2022-01-13] MEDS: FOLIC ACID 1 MG TABLET PO (08:33)
[2022-01-13] MEDS: CHOLECALCIFEROL 1,000 UNITS TABLET 1000 UNITS PO (08:33)
[2022-01-13] MEDS: DICLOFENAC SODIUM 1% 100 GM GEL (*BKC) 1 APPLIC TOPICAL ×4 (08:33→20:59)
[2022-01-13] MEDS: CYANOCOBALAMIN 1,000 MCG TABLET 1000 MCG PO (08:33)
[2022-01-13 09:21] LABS: Total Triiodothyronine (T3) 0.91 NG/ML (0.97-1.69)
--- NOTE | 2022-01-13 09:22 | PM.PNORT ---
Progress Note: A&P Assessment and Plan (1) Wrist pain: Qualifiers: Laterality: right Qualified Code(s): M25.531 - Pain in right wrist Code(s): M25.539 - Pain in unspecified wrist Status: Acute Assessment and Plan: Right wrist pain and swelling without injury. MRI ordered initially but unable to be performed. Ultrasound guided aspiration of 1mL of serous fluid yesterday. Culture results pending currently. Patient reports 95% improvement in pain. Flexion/extension with significant improvement. Will await results. WBAT. Activity as tolerated. Dispo: Pending culture results when medically stable. Subjective Subjective Date/Time Seen: 01/13/22 09:22 Interval history: Reevaluation of right wrist pain. Patient reports 95% improvement in pain at this time. No new concerns. Review of Systems Constitutional: Constitutional: Reports no additional constitutional complaints, Reports fatigue, Denies fever(s), Denies headache(s) and Reports weakness Eyes: Eyes: Denies change in vision ENT: Reports Normal hearing present and Denies headache(s) Cardiovascular: Cardiovascular: Denies chest pain and Denies dyspnea Respiratory: Respiratory: Denies cough, Denies dyspnea and Denies wheezing Gastrointestinal: Gastrointestinal: Denies constipation, Denies diarrhea, Denies nausea and Denies vomiting Genitourinary: Genitourinary: Denies hematuria, Denies dysuria and Denies urinary urgency Musculoskeletal: Musculoskeletal: Reports as per HPI, Denies numbness and Denies tingling Integumentary/Breasts: Skin/Breast: Reports as per HPI Neurologic: Reports as per HPI, Reports Normal hearing present, Denies headache(s), Denies numbness, Denies tingling and Denies weakness Psychiatric: Psychiatric: Reports no additional psychiatric complaints Endocrine: Endocrine: Reports no additional endocrine complaints and Reports fatigue Hematologic/Lymphatic: Hematologic/Lymphatic: Reports no additional hematologic/lymphatic complaints Allergic/Immunologic: Allergic/Immunologic: Reports no additional allergic/immunologic complaints and Denies wheezing Exam Const: General: no acute distress and ill appearing Nutritional Appearance: well nourished Orientation/consciousness: patient oriented x3 Limitations: no limitations HENMT: Head: normal to inspection, normocephalic and atraumatic Ears: hearing grossly normal bilaterally General nose exam: Normal external nose present Mouth: Yes Normal oral and palatal mucosa present Eyes: Conjunctivae: conjunctivae normal Sclera: sclerae normal Cardio: Jugular venous distension: no JVD Rate: regular rate Rhythm: regular rhythm GI: GI Palp: Yes Soft to palpation, No Tenderness to palpation present (GI) and No Guarding due to palpation present (GI) Neuro: Cognition (Neuro): normal cognition Extrem: Right upper extremity: elbow/forearm normal to inspection and normal ROM; no tenderness and no swelling, wrist tenderness (IMPROVED ) of the distal radius, swelling (MILD ) of the dorsal wrist and of the volar wrist, warmth (MILD ) of the dorsal wrist and of the volar wrist, normal vascular exam and radial pulse present 2+; no ecchymosis and no crepitus and Extremity exam: right hand normal capillary refill, neuromotor exam normal wrist extension normal, thumb opposition normal, thumb IP flexion normal, thumb ADduction normal and fingers 2-5 ABduction normal and tenderness of the thumb (CMC joint ) Left upper extremity: elbow/forearm normal to inspection and normal ROM; no tenderness and no swelling, wrist normal to inspection, tenderness (mild, diffuse ) and abnormal ROM pain with active ROM with extension and with flexion and pain with passive ROM in extension and in flexion and hand no swelling Objective Data Vital Signs Vital Signs: Vital Signs - 24 hr 01/12/22 09:35 01/12/22 10:00 01/12/22 10:00 Temperature Pulse Rate 77 81 80 Respiratory Rate 16 25 H Blood Pressure
[2022-01-13 12:56] LABS: Sodium 125 mmol/L (137-145)
--- NOTE | 2022-01-13 14:35 | PC.NURSE ---
paul removed this shift
[2022-01-13] MEDS: ALBUTEROL SULFATE NEB 2.5 MG/0.5 ML INH 5 MG (15:03)
--- NOTE | 2022-01-13 15:09 | P.PNNP_ITS ---
Progress Note: A&P Assessment and Plan (1) Hyponatremia: Code(s): E87.1 - Hypo-osmolality and hyponatremia Status: Acute Assessment and Plan: * acute on chronic * sodium levels appear to have fluctuated around 125 - 134 since 2019 * during recent [facility] admission, sodium running 128 - 129 * on admission here, sodium 115 * multiple risk factors for this issue: * COPD * lung cancer (possible SIADH) * PPI use * thiazide diuretics * improvement in sodium with normal saline IVF would suggest an element of vo lume depletion * evaluation to date: * TSH and cortisol okay * urine electrolytes suggest pre-renal azotemia * SPEP, UPEP serum/urine osmolality pending * follow serial sodium levels (2) Wrist pain: Qualifiers: Laterality: right Qualified Code(s): M25.531 - Pain in right wrist Code(s): M25.539 - Pain in unspecified wrist Status: Acute Assessment and Plan: * Right wrist pain with decreased movement noted on admision * X-ray results noted; unable to get MRI * s/p ultrasound-guided aspiration of the right wrist joint * Orthopedics following (3) UTI (urinary tract infection): Code(s): N39.0 - Urinary tract infection, site not specified Status: Acute Assessment and Plan: * urine culture with Klebsiella * on antibiotics (4) Status post lobectomy of lung: Onset Date: 12/30/21 Code(s): Z90.2 - Acquired absence of lung [part of] Status: Acute Assessment and Plan: * s/p right lobectomy on 12/30/21 * done as part of her treatment for lung cancer (5) Atrial fibrillation: Code(s): I48.91 - Unspecified atrial fibrillation Status: Acute Assessment and Plan: * continue rate control strategy * off anticoagulation presumable due to recent lung surgery Will continue to follow. Subjective Date/time seen: 01/13/22 15:09 Moved out of ICU and seems to be doing reasonably well; sodium appears to be slowly improving with normal saline IVFs; right wrist pain appears to be doing better as well; no issues/events overnight or earlier this AM. Exam Narrative: General: WD/WN female in NAD Heart: normal S1 and S2; no rub Lungs: clear to auscultation Abdomen: soft, nontender, nondistended, positive bowel sounds Extremities: no cyanosis or clubbing; no edema Skin: warm and dry Objective Data Vital Signs Vital Signs: Vital Signs Temp Pulse Resp BP Pulse Ox O2 Del Method 01/13/22 15:00 77 22 H 01/13/22 15:00 97 Room Air 01/13/22 16:00 36.7 C 79 18 131/67 95 01/13/22 08:00 62 18 96 Room Air 01/13/22 11:14 Room Air 01/13/22 08:00 36.6 C 62 18 110/64 96 01/13/22 05:41 36.7 C 68 17 112/60 98 01/13/22 04:53 84 16 01/13/22 04:40 82 16 01/12/22 22:00 36.6 C 76 17 108/61 95 01/12/22 20:00 Room Air Intake/Output Intake/Output: Intake & Output 01/10/22 01/11/22 01/12/22 01/13/22 23:59 23:59 23:59 23:59 Intake Total 1000 1740 1650 3710 Output Total 2250 1101 1850 Balance 1000 -362 543 2283 Meds/Results Medications: Active Medications Gene
--- NOTE | 2022-01-13 15:09 | PM.PNNEP ---
Progress Note: A&P Assessment and Plan (1) Hyponatremia: Code(s): E87.1 - Hypo-osmolality and hyponatremia Status: Acute Assessment and Plan: acute on chronic sodium levels appear to have fluctuated around 125 - 134 since 2020 during recent [facility] admission, sodium running 128 - 129 on admission here, sodium 115 multiple risk factors for this issue: COPD lung cancer (possible SIADH) PPI use thiazide diuretics improvement in sodium with normal saline IVF would suggest an element of volume depletion evaluation to date: TSH and cortisol okay urine electrolytes suggest pre-renal azotemia SPEP, UPEP serum/urine osmolality pending follow serial sodium levels (2) Wrist pain: Qualifiers: Laterality: right Qualified Code(s): M25.531 - Pain in right wrist Code(s): M25.539 - Pain in unspecified wrist Status: Acute Assessment and Plan: Right wrist pain with decreased movement noted on admision X-ray results noted; unable to get MRI s/p ultrasound-guided aspiration of the right wrist joint Orthopedics following (3) UTI (urinary tract infection): Code(s): N39.0 - Urinary tract infection, site not specified Status: Acute Assessment and Plan: urine culture with Klebsiella on antibiotics (4) Status post lobectomy of lung: Onset Date: 12/30/21 Code(s): Z90.2 - Acquired absence of lung [part of] Status: Acute Assessment and Plan: s/p right lobectomy on 12/30/21 done as part of her treatment for lung cancer (5) Atrial fibrillation: Code(s): I48.91 - Unspecified atrial fibrillation Status: Acute Assessment and Plan: continue rate control strategy off anticoagulation presumable due to recent lung surgery Will continue to follow. Subjective Date/time seen: 01/13/22 15:09 Moved out of ICU and seems to be doing reasonably well; sodium appears to be slowly improving with normal saline IVFs; right wrist pain appears to be doing better as well; no issues/events overnight or earlier this AM. Exam Narrative: General: WD/WN female in NAD Heart: normal S1 and S2; no rub Lungs: clear to auscultation Abdomen: soft, nontender, nondistended, positive bowel sounds Extremities: no cyanosis or clubbing; no edema Skin: warm and dry Objective Data Vital Signs Vital Signs: Vital Signs Temp Pulse Resp BP Pulse Ox O2 Del Method 01/13/22 15:00 77 22 H 01/13/22 15:00 97 Room Air 01/13/22 16:00 36.7 C 79 18 131/67 95 01/13/22 08:00 62 18 96 Room Air 01/13/22 11:14 Room Air 01/13/22 08:00 36.6 C 62 18 110/64 96 01/13/22 05:41 36.7 C 68 17 112/60 98 01/13/22 04:53 84 16 01/13/22 04:40 82 16 01/12/22 22:00 36.6 C 76 17 108/61 95 01/12/22 20:00 Room Air Intake/Output Intake/Output: Intake & Output 01/10/22 01/11/22 01/12/22 01/13/22 23:59 23:59 23:59 23:59 Intake Total 1000 1740 1650 3710 Output Total 2250 1101 1850 Balance 1000 -851 139 2403 Meds/Results Medications: Active Medications Generic Name Dose Route Start Last Admin Trade Name Freq PRN Reason Stop Dose Admin Albuterol 5 mg 01/11/22 08:00 01/13/22 15:03 Albuterol Sulfate Neb 2.5 Mg/3 Ml Inh INHALATION Not Given Q6HRT [facility] Alprazolam 0.25 mg 01/11/22 02:56 Alprazolam (*Crx) 0.25 Mg Tablet PO BID PRN anxiety Atorvastatin Calcium 40 mg 01/11/22 09:00 01/13/22 08:32 Atorvastatin 40 Mg Tablet PO 40 mg DAILY [facility] Administration Calcium Carbonate 500 mg 01/11/22 09:00 01/13/22 08:33 Calcium/Vitamin D 500 Mg Tablet PO 500 mg QAM [facility] Administration Calcium Polycarbophil 625 mg 01/11/22 09:00 01/13/22 08:33 Calcium Polycarbophil 625 Mg Tablet PO 625 mg DAILY [facility] Administration Cyanocobalamin 1,000 mcg 01/11/22 09:00 01/13/22 08:33 Cyanocobalamin 1,000 Mcg Tabl
--- NOTE | 2022-01-13 15:53 | PM.IMPN ---
Progress Note: A&P Assessment and Plan (1) Shock circulatory: Code(s): R57.9 - Shock, unspecified Status: Acute (2) Status post lobectomy of lung: Onset Date: 12/30/21 Code(s): Z90.2 - Acquired absence of lung [part of] Status: Acute (3) Abnormal urinalysis: Code(s): R82.90 - Unspecified abnormal findings in urine Status: Acute (4) Hyponatremia: Code(s): E87.1 - Hypo-osmolality and hyponatremia Status: Acute (5) Atrial fibrillation: Code(s): I48.91 - Unspecified atrial fibrillation Status: Acute (6) Hypokalemia: Code(s): E87.6 - Hypokalemia Status: Acute Plan # Generalized weakness hypotensive on arrival cortisol 13.2. improving. PT OT to see will recommence home health therapy 01/13 # Septic shock blood pressure is 80s on arrival. Treated with IV fluid resuscitation. With improvement CT negative for pneumonia. CTA with postsurgical changes in the right chest wall including small volume right pleural effusion with small anteriorly located pneumothorax. urinalysis with WBC clumps. On cefepime and vancomycin . Cortisol level 13.2 Started on vasopressor with Levophed and dobutamine. Remains on vancomycin and cefepime MRSA screen is negative. Urine culture growing Klebsiella pneumoniae. Which is pansensitive wrist arthrocentesis culture is pending her Gram stain showed some WBC but no organisms Leukocytosis improving #Severe hyponatremia sodium level of 115 on arrival. History of chronic hyponatremia in the past. Possible SIADH. Continue to monitor sodium level closely. Nephrology on board. On normal saline #Right wrist pain uric acid is normal. ultrasound-guided arthrocentesis performed 01/12/2022. Few WBCs seen in the wrist with no organisms #Leukocytosis continues to improve #Anemia with no signs of bleeding # hypokalemia replace and monitor #Atrial fibrillation chronic rate controlled. 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 The patient reports that she was diagnosed with lung cancer after she had a screening imaging study that suggested possible bronchogenic carcinoma.? She had a CT-guided biopsy in October 2021 that demonstrated squamous cell carcinoma.? He had a PET scan November 04 which demonstrated localized 1.5 cm mass in the right upper lobe.? She underwent right upper lobe lobectomy at [facility] on 12/30.? She reports he was discharged from hospital on the .? She reports that she has been having some increased shortness breath over the last 2 days.? She has had increased profound weakness over the last 2-3 days.? She denies any dysuria or hematuria.? She reports that she has been feeling dehydrated so has not taken her Lasix at home for the last 3 days.? She has been having some nausea but no vomiting.? She denies any specific chest pain but states that she just hurts all over.? But her most notable area of pain is her right wrist.? She cries out if the wrist is moved or touched in any way shape or form.? She denies any fevers or chills.? She reports that she has been so weak over the last couple of days that she has not been able to get out of bed.? She has become so weak that she cannot stay awak
[2022-01-13 20:14] LABS: Sodium 124 mmol/L (137-145)
[2022-01-13] MEDS: diphenhydrAMINE HCl CAP 25 MG CAPSULE 50 MG PO (20:58)
[2022-01-14] VITALS (11 sets, daily range): BP systolic 137–153; BP diastolic 75–90; PULSE 77–107; RESP 16–20; TEMP 36.6–36.9; O2SAT 94–99
[2022-01-14] MEDS: SODIUM CHLORIDE 0.9% IV 1,000 ML 75 ML IV CONT (05:07)
[2022-01-14] MEDS: CENTRAL LINE FLUSH 10 ML IV PUSH ×2 (05:08→13:24)
[2022-01-14] MEDS: FOLIC ACID 1 MG TABLET PO (08:28)
[2022-01-14] MEDS: FERROUS SULFATE 324 MG TABLET PO (08:28)
[2022-01-14] MEDS: CHOLECALCIFEROL 1,000 UNITS TABLET 1000 UNITS PO (08:29)
[2022-01-14] MEDS: ATORVASTATIN 40 MG TABLET PO (08:29)
[2022-01-14] MEDS: THIAMINE HCL 100 MG TABLET PO (08:29)
[2022-01-14] MEDS: CYANOCOBALAMIN 1,000 MCG TABLET 1000 MCG PO (08:29)
[2022-01-14] MEDS: calcium polycarbophiL 625 MG TABLET PO (08:29)
[2022-01-14] MEDS: PANTOPRAZOLE 40 MG TABLET PO (08:29)
[2022-01-14] MEDS: DICLOFENAC SODIUM 1% 100 GM GEL (*BKC) 1 APPLIC TOPICAL ×4 (08:30→21:01)
[2022-01-14 08:31] LABS: Basophils Absolute Auto 0.1 K/mm3 (0.0-0.1); Basophils Percent Auto 0.9 % (0.2-1.2); Eosinophils Absolute Auto 0.2 K/mm3 (0-0.3); Eosinophils Percent Auto 2.6 % (0-4.4); Hemoglobin 8.4 g/dL (12.0-15.0); Immature Granulocyte Absolute 0.07 K/mm3 (0.00-0.031); Immature Granulocyte Percent A 0.8 % (0-0.5); Lymphocytes Absolute Auto 0.85 K/mm3 (0.9-3.2); Lymphocytes Percent Auto 9.7 % (18.3-44.2); Mean Corpuscular HGB Conc 33.6 g/dl (32-36); Mean Corpuscular Volume 86.2 fl (80-100); Mean Platelet Volume 12.6 fl (7.4-10.4); Monocytes Absolute Auto 0.8 K/mm3 (0.1-0.6); Monocytes Percent Auto 9.5 % (2.6-8.5); Neutrophils Absolute Auto 6.7 K/mm3 (1.3-6.7); Neutrophils Percent Auto 76.5 % (45.5-73.1); Platelet Count Result 209 k/mm3 (150-375); White Blood Count 8.8 K/mm3 (4.5-10.0)
[2022-01-14] MEDS: traMADol HCL (*CRX) 50 MG TABLET PO ×3 (08:35→21:09)
[2022-01-14 08:45] LABS: Alanine Aminotransferase 23 U/L (6-35); Albumin Level 3.1 g/dL (3.5-5.1); Alkaline Phosphatase 296 U/L (38-126); Anion Gap 7 mmol/L (8-16); Aspartate Amino Transferase 25 U/L (14-36); Bilirubin,Total 1.9 mg/dL (0.2-1.3); Blood Urea Nitrogen 7 mg/dL (7-17); Calcium 8.5 mg/dL (8.4-10.2); Carbon Dioxide 21 mmol/L (22-30); Chloride 98 mmol/L (98-107); Estimated CRCL calculation 64 ml/min; Estimated Glomerular Filt Rate > 60; Glucose 92 mg/dL (65-110); Magnesium 1.5 mg/dL (1.6-2.3); Potassium 5.2 mmol/L (3.4-5.0); Sodium 126 mmol/L (137-145)
[2022-01-14] MEDS: ALBUTEROL SULFATE NEB 2.5 MG/3 ML INH 5 MG INHALATION ×2 (09:07→20:55)
[2022-01-14] MEDS: IPRATROPIUM BR 0.02% INH SOLN 0.5 MG/2.5 ML VIAL INHALATION ×2 (09:08→20:56)
[2022-01-14 09:35] LABS: Vancomycin Trough 11.7 ug/mL (10.0-20.0)
[2022-01-14] MEDS: ENOXAPARIN 40 MG/0.4 ML SYRINGE SUB-Q (09:54)
--- NOTE | 2022-01-14 12:07 | PM.PNNEP ---
Progress Note: A&P Assessment and Plan (1) Hyponatremia: Code(s): E87.1 - Hypo-osmolality and hyponatremia Status: Acute Assessment and Plan: acute on chronic sodium levels appear to have fluctuated around 125 - 134 since 2020 during recent [facility] admission, sodium running 128 - 129 on admission here, sodium 115 multiple risk factors for this issue: COPD lung cancer (possible SIADH) PPI use thiazide diuretics improvement in sodium with normal saline IVF would suggest a significant element of volume depletion evaluation to date: TSH and cortisol okay urine electrolytes suggest pre-renal azotemia SPEP, UPEP serum/urine osmolality pending follow serial sodium levels (2) Wrist pain: Qualifiers: Laterality: right Qualified Code(s): M25.531 - Pain in right wrist Code(s): M25.539 - Pain in unspecified wrist Status: Acute Assessment and Plan: right wrist pain with decreased movement noted on admision X-ray results noted; unable to get MRI s/p ultrasound-guided aspiration of the right wrist joint Orthopedics following (3) UTI (urinary tract infection): Code(s): N39.0 - Urinary tract infection, site not specified Status: Acute Assessment and Plan: urine culture with Klebsiella on antibiotics (4) Status post lobectomy of lung: Onset Date: 12/30/21 Code(s): Z90.2 - Acquired absence of lung [part of] Status: Acute Assessment and Plan: s/p right lobectomy on 12/30/21 done as part of her treatment for lung cancer (5) Atrial fibrillation: Code(s): I48.91 - Unspecified atrial fibrillation Status: Acute Assessment and Plan: continue rate control strategy off anticoagulation presumable due to recent lung surgery Will continue to follow. Subjective Date/time seen: 01/14/22 12:07 Continues to make slow and steady progress; sodium continues to improve with gentle IVFs; right wrist pain getting better as well; no apparent distress voiced; no acute issues overnight or earlier this morning to report. Exam Narrative: General: WD/WN female in NAD Heart: normal S1 and S2; no rub Lungs: clear to auscultation Abdomen: soft, nontender, nondistended, positive bowel sounds Extremities: no cyanosis or clubbing; no edema Skin: warm and intact Objective Data Vital Signs Vital Signs: Vital Signs Temp Pulse Resp BP Pulse Ox O2 Del Method 01/14/22 08:35 20 96 Room Air 01/14/22 09:08 78 20 01/14/22 09:00 77 20 01/14/22 09:08 96 Room Air 01/14/22 07:51 36.9 C 94 18 137/75 96 01/14/22 06:13 36.6 C 107 H 18 149/83 H 94 01/13/22 21:41 36.6 C 90 16 145/90 H 98 01/13/22 21:27 79 20 01/13/22 21:22 94 Room Air 01/13/22 21:20 74 22 H 01/13/22 20:00 Room Air 01/13/22 17:18 79 20 Intake/Output Intake/Output: Intake & Output 01/11/22 01/12/22 01/13/22 01/14/22 23:59 23:59 23:59 23:59 Intake Total 1740 1650 3760 2009 Output Total 2250 1101 1850 1550 Balance -323 635 6980 460 Meds/Results Medications: Active Medications Generic Name Dose Route Start Last Admin Trade Name Freq PRN Reason Stop Dose Admin Albuterol 5 mg 01/11/22 08:00 01/14/22 15:53 Albuterol Sulfate Neb 2.5 Mg/3 Ml Inh INHALATION Not Given Q6HRT [facility] Alprazolam 0.25 mg 01/11/22 02:56 Alprazolam (*Crx) 0.25 Mg Tablet PO BID PRN anxiety Atorvastatin Calcium 40 mg 01/11/22 09:00 01/14/22 08:29 Atorvastatin 40 Mg Tablet PO 40 mg DAILY [facility] Administration Calcium Carbonate 500 mg 01/11/22 09:00 01/14/22 08:29 Calcium/Vitamin D 500 Mg Tablet PO 500 mg QAM [facility] Administration Calcium Polycarbophil 625 mg 01/11/22 09:00 01/14/22 08:29 Calcium Polycarbophil 625 Mg Tablet PO 625 mg DAILY [facility] Administration Cephalexin HCl 500 mg 01/14/22 18:00 Cephalexi
--- NOTE | 2022-01-14 12:07 | P.PNNP_ITS ---
Progress Note: A&P Assessment and Plan (1) Hyponatremia: Code(s): E87.1 - Hypo-osmolality and hyponatremia Status: Acute Assessment and Plan: * acute on chronic * sodium levels appear to have fluctuated around 125 - 134 since 2019 * during recent [facility] admission, sodium running 128 - 129 * on admission here, sodium 115 * multiple risk factors for this issue: * COPD * lung cancer (possible SIADH) * PPI use * thiazide diuretics * improvement in sodium with normal saline IVF would suggest a significant el ement of volume depletion * evaluation to date: * TSH and cortisol okay * urine electrolytes suggest pre-renal azotemia * SPEP, UPEP serum/urine osmolality pending * follow serial sodium levels (2) Wrist pain: Qualifiers: Laterality: right Qualified Code(s): M25.531 - Pain in right wrist Code(s): M25.539 - Pain in unspecified wrist Status: Acute Assessment and Plan: * right wrist pain with decreased movement noted on admision * X-ray results noted; unable to get MRI * s/p ultrasound-guided aspiration of the right wrist joint * Orthopedics following (3) UTI (urinary tract infection): Code(s): N39.0 - Urinary tract infection, site not specified Status: Acute Assessment and Plan: * urine culture with Klebsiella * on antibiotics (4) Status post lobectomy of lung: Onset Date: 12/30/21 Code(s): Z90.2 - Acquired absence of lung [part of] Status: Acute Assessment and Plan: * s/p right lobectomy on 12/30/21 * done as part of her treatment for lung cancer (5) Atrial fibrillation: Code(s): I48.91 - Unspecified atrial fibrillation Status: Acute Assessment and Plan: * continue rate control strategy * off anticoagulation presumable due to recent lung surgery Will continue to follow. Subjective Date/time seen: 01/14/22 12:07 Continues to make slow and steady progress; sodium continues to improve with gentle IVFs; right wrist pain getting better as well; no apparent distress voiced; no acute issues overnight or earlier this morning to report. Exam Narrative: General: WD/WN female in NAD Heart: normal S1 and S2; no rub Lungs: clear to auscultation Abdomen: soft, nontender, nondistended, positive bowel sounds Extremities: no cyanosis or clubbing; no edema Skin: warm and intact Objective Data Vital Signs Vital Signs: Vital Signs Temp Pulse Resp BP Pulse Ox O2 Del Method 01/14/22 08:35 20 96 Room Air 01/14/22 09:08 78 20 01/14/22 09:00 77 20 01/14/22 09:08 96 Room Air 01/14/22 07:51 36.9 C 94 18 137/75 96 01/14/22 06:13 36.6 C 107 H 18 149/83 H 94 01/13/22 21:41 36.6 C 90 16 145/90 H 98 01/13/22 21:27 79 20 01/13/22 21:22 94 Room Air 01/13/22 21:20 74 22 H 01/13/22 20:00 Room Air 01/13/22 17:18 79 20 Intake/Output Intake/Output: Intake & Output 01/11/22 01/12/22 01/13/22 01/14/22 23:59 23:59 23:59 23:59 Intake Total 1740 1650 3760 2009 Output Total 2250 1101 1850 1550 Balance -419 956 4314 460 Meds/Results Medications:
--- NOTE | 2022-01-14 13:00 | PM.IMPN ---
Progress Note: A&P Assessment and Plan (1) Shock circulatory: Code(s): R57.9 - Shock, unspecified Status: Acute (2) Status post lobectomy of lung: Onset Date: 12/30/21 Code(s): Z90.2 - Acquired absence of lung [part of] Status: Acute (3) Abnormal urinalysis: Code(s): R82.90 - Unspecified abnormal findings in urine Status: Acute (4) Hyponatremia: Code(s): E87.1 - Hypo-osmolality and hyponatremia Status: Acute (5) Atrial fibrillation: Code(s): I48.91 - Unspecified atrial fibrillation Status: Acute (6) Hypokalemia: Code(s): E87.6 - Hypokalemia Status: Acute Plan # Generalized weakness hypotensive on arrival cortisol 13.2. improving. PT OT to see will recommence home health therapy 01/13 # Septic shock blood pressure is 80s on arrival. Treated with IV fluid resuscitation. With improvement CT negative for pneumonia. CTA with postsurgical changes in the right chest wall including small volume right pleural effusion with small anteriorly located pneumothorax. urinalysis with WBC clumps. On cefepime and vancomycin . Cortisol level 13.2 Started on vasopressor with Levophed and dobutamine. Remains on vancomycin and cefepime MRSA screen is negative. Urine culture growing Klebsiella pneumoniae. Which is pansensitive wrist arthrocentesis culture is pending her Gram stain showed some WBC but no organisms Leukocytosis resolved 01/14 Will stop vancomycin. MRSA screen came back negative. Continue cefepime for her Klebsiella pneumoniae UTI. Will switch to oral cephalexin # Severe hyponatremia sodium level of 115 on arrival. History of chronic hyponatremia in the past. Possible SIADH. Continue to monitor sodium level closely. Nephrology on board. On normal saline Sodium level slowly and steadily improving. One hundred twenty-six today # Right wrist pain uric acid is normal. ultrasound-guided arthrocentesis performed 01/12/2022. Few WBCs seen in the wrist with no organisms #Leukocytosis continues to improve # Anemia with no signs of bleeding # hypokalemia replace and monitor now mild hyperkalemia noted. Will continue to monitor #Atrial fibrillation chronic rate controlled. 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 Subjective Date/time seen: 01/14/22 13:00 Interval history: HPI:76-year-old female with a past medical history of hypertension, hyperlipidemia, COPD, right-sided heart failure, nonrheumatic valvular heart disease, and recent diagnosis of right upper lobe squamous cell carcinoma who presented to the ER due to increased weakness.? The patient reports that she was diagnosed with lung cancer after she had a screening imaging study that suggested possible bronchogenic carcinoma.? She had a CT-guided biopsy in October 2021 that demonstrated squamous cell carcinoma.? He had a PET scan November 04 which demonstrated localized 1.5 cm mass in the right upper lobe.? She underwent right upper lobe lobectomy at [facility] on 12/30.? She reports he was discharged from hospital on the .? She reports that she has been having some increased shortness breath over the last 2 days.? She has had increased profound weakness over the last 2-3 days.? She denies any dysuria or hematuria.? She reports that she has been feeling dehydrated so has not taken her Lasix at home for the last 3 days.? She has been having some nausea but no vomiting.? She denies any specific chest pain but states
[2022-01-14] MEDS: MAGNESIUM SULF 2 GM/WATER 50ML 2 GM/50 ML BAG IVPB (13:25)
--- NOTE | 2022-01-14 15:32 | PCCCNOTE ---
On 01/14/22, the student, [Zeina Nunes], provided care and completed [facility] documentation on this patient. I have reviewed the student's documentation and agree with the findings.
[2022-01-14] MEDS: NEOMYCIN/POLYMYXIN/BACITRACIN OINTMENT PACKET 1 PACKET (16:00)
[2022-01-14] MEDS: CEPHALEXIN 500 MG CAPSULE PO (17:29)
[2022-01-14 17:49] LABS: Sodium 125 mmol/L (137-145)
[2022-01-14] MEDS: diphenhydrAMINE HCl CAP 25 MG CAPSULE 50 MG PO (21:00)
[2022-01-15] VITALS (14 sets, daily range): BP systolic 140–150; BP diastolic 76–97; PULSE 80–119; RESP 16–18; TEMP 36.3–36.4; O2SAT 95–98
[2022-01-15] MEDS: IPRATROPIUM BR 0.02% INH SOLN 0.5 MG/2.5 ML VIAL INHALATION ×4 (02:13→20:10)
[2022-01-15] MEDS: ALBUTEROL SULFATE NEB 2.5 MG/3 ML INH 5 MG INHALATION ×4 (02:13→20:09)
[2022-01-15] MEDS: CEPHALEXIN 500 MG CAPSULE PO ×4 (05:29→18:06)
[2022-01-15 06:12] LABS: Hematocrit 26.6 % (37.0-47.0); Hemoglobin 9.1 g/dL (12.0-15.0); Mean Corpuscular HGB Conc 34.2 g/dl (32-36); Mean Corpuscular Hemoglobin 28.7 pg (26-34); Mean Corpuscular Volume 83.9 fl (80-100); Mean Platelet Volume 12.8 fl (7.4-10.4); Platelet Count Result 236 k/mm3 (150-375); Red Blood Count 3.17 M/mm3 (4.2-5.4); Red Cell Distribution Width 16.8 % (11.5-14.5); White Blood Count 8.3 K/mm3 (4.5-10.0)
[2022-01-15 06:24] LABS: Alanine Aminotransferase 23 U/L (6-35); Albumin Level 3.1 g/dL (3.5-5.1); Alkaline Phosphatase 297 U/L (38-126); Anion Gap 8 mmol/L (8-16); Aspartate Amino Transferase 28 U/L (14-36); Bilirubin,Total 1.7 mg/dL (0.2-1.3); Blood Urea Nitrogen 6 mg/dL (7-17); Calcium 8.7 mg/dL (8.4-10.2); Carbon Dioxide 21 mmol/L (22-30); Chloride 97 mmol/L (98-107); Estimated CRCL calculation 56 ml/min; Estimated Glomerular Filt Rate > 60; Glucose 94 mg/dL (65-110); Magnesium 1.9 mg/dL (1.6-2.3); Potassium 4.8 mmol/L (3.4-5.0); Sodium 126 mmol/L (137-145)
[2022-01-15] MEDS: ENOXAPARIN 40 MG/0.4 ML SYRINGE SUB-Q (08:25)
[2022-01-15] MEDS: calcium polycarbophiL 625 MG TABLET PO (08:26)
[2022-01-15] MEDS: CHOLECALCIFEROL 1,000 UNITS TABLET 1000 UNITS PO (08:26)
[2022-01-15] MEDS: CYANOCOBALAMIN 1,000 MCG TABLET 1000 MCG PO (08:26)
[2022-01-15] MEDS: DICLOFENAC SODIUM 1% 100 GM GEL (*BKC) 1 APPLIC TOPICAL ×4 (08:26→22:02)
[2022-01-15] MEDS: FOLIC ACID 1 MG TABLET PO (08:26)
[2022-01-15] MEDS: POTASSIUM CHLORIDE 10 MEQ TABLET.ER 20 MEQ PO ×2 (08:26→16:50)
[2022-01-15] MEDS: PANTOPRAZOLE 40 MG TABLET PO (08:27)
[2022-01-15] MEDS: ATORVASTATIN 40 MG TABLET PO (08:27)
[2022-01-15] MEDS: THIAMINE HCL 100 MG TABLET PO (08:27)
[2022-01-15] MEDS: FERROUS SULFATE 324 MG TABLET PO (08:27)
[2022-01-15] MEDS: traMADol HCL (*CRX) 50 MG TABLET PO ×3 (08:40→22:10)
--- NOTE | 2022-01-15 11:29 | PM.PNNEP ---
Progress Note: A&P Assessment and Plan (1) Hyponatremia: Code(s): E87.1 - Hypo-osmolality and hyponatremia Status: Acute Assessment and Plan: acute on chronic sodium levels appear to have fluctuated around 125 - 134 since 2020 during recent [facility] admission, sodium running 128 - 129 on admission here, sodium 115 multiple risk factors for this issue: COPD lung cancer (possible SIADH) PPI use thiazide diuretics improvement in sodium with normal saline IVF would suggest a significant element of volume depletion evaluation to date: TSH and cortisol okay urine electrolytes suggest pre-renal azotemia SPEP, UPEP serum/urine osmolality pending follow serial sodium levels (2) Wrist pain: Qualifiers: Laterality: right Qualified Code(s): M25.531 - Pain in right wrist Code(s): M25.539 - Pain in unspecified wrist Status: Acute Assessment and Plan: right wrist pain with decreased movement noted on admision X-ray results noted; unable to get MRI s/p ultrasound-guided aspiration of the right wrist joint Orthopedics following (3) UTI (urinary tract infection): Code(s): N39.0 - Urinary tract infection, site not specified Status: Acute Assessment and Plan: urine culture with Klebsiella on antibiotics (4) Status post lobectomy of lung: Onset Date: 12/30/21 Code(s): Z90.2 - Acquired absence of lung [part of] Status: Acute Assessment and Plan: s/p right lobectomy on 12/30/21 done as part of her treatment for lung cancer (5) Atrial fibrillation: Code(s): I48.91 - Unspecified atrial fibrillation Status: Acute Assessment and Plan: continue rate control strategy off anticoagulation presumable due to recent lung surgery Will continue to follow. Subjective Date/time seen: 01/15/22 11:29 Right wrist pain getting better; sodium levels continues to improve as well; no new issues or problems currently but does mention on/off abdominal pain more so in the RUQ area; no issues overnight or earlier this morning. Exam Narrative: General: WD/WN female in NAD Heart: normal S1 and S2; no rub Lungs: clear to auscultation Abdomen: soft, nontender, nondistended, positive bowel sounds Extremities: no cyanosis or clubbing; no edema Skin: warm and intact Objective Data Vital Signs Vital Signs: Vital Signs Temp Pulse Resp BP Pulse Ox O2 Del Method 01/15/22 08:27 16 95 Room Air 01/15/22 09:06 112 H 16 01/15/22 08:55 119 H 16 01/15/22 08:55 95 Room Air 01/15/22 05:12 36.4 C 110 H 16 150/82 H 96 01/15/22 02:21 88 16 01/15/22 02:13 91 16 01/14/22 20:00 85 16 95 Room Air 01/14/22 21:05 85 16 01/14/22 20:58 95 Room Air 01/14/22 20:58 88 16 01/14/22 20:46 36.6 C 84 18 153/78 H 94 01/14/22 16:00 36.9 C 92 18 143/90 H 99 Intake/Output Intake/Output: Intake & Output 01/12/22 01/13/22 01/14/22 01/15/22 23:59 23:59 23:59 23:59 Intake Total 1650 3760 3160 510 Output Total 1101 1850 1950 400 Balance 549 1910 1210 110 Meds/Results Medications: Active Medications Generic Name Dose Route Start Last Admin Trade Name Freq PRN Reason Stop Dose Admin Albuterol 5 mg 01/11/22 08:00 01/15/22 08:50 Albuterol Sulfate Neb 2.5 Mg/3 Ml Inh INHALATION 5 mg Q6HRT [facility] Administration Alprazolam 0.25 mg 01/11/22 02:56 Alprazolam (*Crx) 0.25 Mg Tablet PO BID PRN anxiety Atorvastatin Calcium 40 mg 01/11/22 09:00 01/15/22 08:27 Atorvastatin 40 Mg Tablet PO 40 mg DAILY [facility] Administration Calcium Carbonate 500 mg 01/11/22 09:00 01/15/22 08:28 Calcium/Vitamin D 500 Mg Tablet PO 500 mg QAM [facility] Administration Calcium Polycarbophil 625 mg 01/11/22 09:00 01/15/22 08:26 Calcium Polycarbophil 625 Mg Tablet PO 625 mg DAILY [facility] Administration
--- NOTE | 2022-01-15 11:29 | P.PNNP_ITS ---
Progress Note: A&P Assessment and Plan (1) Hyponatremia: Code(s): E87.1 - Hypo-osmolality and hyponatremia Status: Acute Assessment and Plan: * acute on chronic * sodium levels appear to have fluctuated around 125 - 134 since 2019 * during recent [facility] admission, sodium running 128 - 129 * on admission here, sodium 115 * multiple risk factors for this issue: * COPD * lung cancer (possible SIADH) * PPI use * thiazide diuretics * improvement in sodium with normal saline IVF would suggest a significant el ement of volume depletion * evaluation to date: * TSH and cortisol okay * urine electrolytes suggest pre-renal azotemia * SPEP, UPEP serum/urine osmolality pending * follow serial sodium levels (2) Wrist pain: Qualifiers: Laterality: right Qualified Code(s): M25.531 - Pain in right wrist Code(s): M25.539 - Pain in unspecified wrist Status: Acute Assessment and Plan: * right wrist pain with decreased movement noted on admision * X-ray results noted; unable to get MRI * s/p ultrasound-guided aspiration of the right wrist joint * Orthopedics following (3) UTI (urinary tract infection): Code(s): N39.0 - Urinary tract infection, site not specified Status: Acute Assessment and Plan: * urine culture with Klebsiella * on antibiotics (4) Status post lobectomy of lung: Onset Date: 12/30/21 Code(s): Z90.2 - Acquired absence of lung [part of] Status: Acute Assessment and Plan: * s/p right lobectomy on 12/30/21 * done as part of her treatment for lung cancer (5) Atrial fibrillation: Code(s): I48.91 - Unspecified atrial fibrillation Status: Acute Assessment and Plan: * continue rate control strategy * off anticoagulation presumable due to recent lung surgery Will continue to follow. Subjective Date/time seen: 01/15/22 11:29 Right wrist pain getting better; sodium levels continues to improve as well; no new issues or problems currently but does mention on/off abdominal pain more so in the RUQ area; no issues overnight or earlier this morning. Exam Narrative: General: WD/WN female in NAD Heart: normal S1 and S2; no rub Lungs: clear to auscultation Abdomen: soft, nontender, nondistended, positive bowel sounds Extremities: no cyanosis or clubbing; no edema Skin: warm and intact Objective Data Vital Signs Vital Signs: Vital Signs Temp Pulse Resp BP Pulse Ox O2 Del Method 01/15/22 08:27 16 95 Room Air 01/15/22 09:06 112 H 16 01/15/22 08:55 119 H 16 01/15/22 08:55 95 Room Air 01/15/22 05:12 36.4 C 110 H 16 150/82 H 96 01/15/22 02:21 88 16 01/15/22 02:13 91 16 01/14/22 20:00 85 16 95 Room Air 01/14/22 21:05 85 16 01/14/22 20:58 95 Room Air 01/14/22 20:58 88 16 01/14/22 20:46 36.6 C 84 18 153/78 H 94 01/14/22 16:00 36.9 C 92 18 143/90 H 99 Intake/Output Intake/Output: Intake & Output 01/12/22 01/13/22 01/14/22 01/15/22 23:59 23:59 23:59 23:59 Intake Total 1650 3760 3160 510 Output Total 1101 1850 1950 400 Balance 549 1910 1210 110 Meds/Result
--- NOTE | 2022-01-15 13:04 | PM.IMPN ---
Progress Note: A&P Assessment and Plan (1) Shock circulatory: Code(s): R57.9 - Shock, unspecified Status: Acute (2) Status post lobectomy of lung: Onset Date: 12/30/21 Code(s): Z90.2 - Acquired absence of lung [part of] Status: Acute (3) Abnormal urinalysis: Code(s): R82.90 - Unspecified abnormal findings in urine Status: Acute (4) Hyponatremia: Code(s): E87.1 - Hypo-osmolality and hyponatremia Status: Acute (5) Atrial fibrillation: Code(s): I48.91 - Unspecified atrial fibrillation Status: Acute (6) Hypokalemia: Code(s): E87.6 - Hypokalemia Status: Acute Plan # Generalized weakness hypotensive on arrival cortisol 13.2. improving. PT OT to see will recommence home health therapy 01/13 # Septic shock blood pressure is 80s on arrival. Treated with IV fluid resuscitation. With improvement CT negative for pneumonia. CTA with postsurgical changes in the right chest wall including small volume right pleural effusion with small anteriorly located pneumothorax. urinalysis with WBC clumps. On cefepime and vancomycin . Cortisol level 13.2 Started on vasopressor with Levophed and dobutamine. Remains on vancomycin and cefepime MRSA screen is negative. Urine culture growing Klebsiella pneumoniae. Which is pansensitive wrist arthrocentesis culture is pending her Gram stain showed some WBC but no organisms Leukocytosis resolved 01/14 Will stop vancomycin. MRSA screen came back negative. Continue cefepime for her Klebsiella pneumoniae UTI. Will switch to oral cephalexin # Severe hyponatremia sodium level of 115 on arrival. History of chronic hyponatremia in the past. Possible SIADH. Continue to monitor sodium level closely. Nephrology on board. On normal saline Sodium level slowly and steadily improving. 126 baseline around 120-129 # Right wrist pain uric acid is normal. ultrasound-guided arthrocentesis performed 01/12/2022. Few WBCs seen in the wrist with no organisms #Leukocytosis continues to improve # Anemia with no signs of bleeding # hypokalemia replace and monitor now mild hyperkalemia noted. Will continue to monitor #Atrial fibrillation chronic rate controlled. 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 Constipation related is possibility as well. Since around the surgical side will re-evaluate with CT abdomen . #DVT prophylaxis Lovenox #Code status full code # disposition PT OT evaluated need home health at discharge. Subjective Date/time seen: 01/15/22 13:04 Interval history: HPI:76-year-old female with a past medical history of hypertension, hyperlipidemia, COPD, right-sided heart failure, nonrheumatic valvular heart disease, and recent diagnosis of right upper lobe squamous cell carcinoma who presented to the ER due to increased weakness.? The patient reports that she was diagnosed with lung cancer after she had a screening imaging study that suggested possible bronchogenic carcinoma.? She had a CT-guided biopsy in October 2021 that demonstrated squamous cell carcinoma.? He had a PET scan November 04 which demonstrated localized 1.5 cm mass in the right upper lobe.? She underwent right upper lobe lobectomy at [facility] on 12/30.? She reports he was discharged from hospital on the .? She reports that she has been having some increased shortness breath over the last 2 days.? She has had increased profound weakness over the last 2-3 days.? She denies any dysuria or hematuria.? She reports that she has
[2022-01-15] MEDS: ALBUTEROL SULFATE NEB 2.5 MG/3 ML INH (20:08)
[2022-01-15] MEDS: diphenhydrAMINE HCl CAP 25 MG CAPSULE 50 MG PO (22:02)
[2022-01-16] VITALS (8 sets, daily range): BP systolic 155–168; BP diastolic 90–95; PULSE 76–148; RESP 16–22; TEMP 35.8–36.5; O2SAT 92–99
[2022-01-16] MEDS: CEPHALEXIN 500 MG CAPSULE PO ×4 (00:39→17:10)
[2022-01-16 06:34] LABS: Hematocrit 26.4 % (37.0-47.0); Immature Platelet Fraction Pct 14.7 % (0.9-11.2); Mean Corpuscular HGB Conc 34.1 g/dl (32-36); Mean Corpuscular Volume 85.2 fl (80-100); Mean Platelet Volume 12.3 fl (7.4-10.4); Platelet Count Result 265 k/mm3 (150-375); Red Cell Distribution Width 16.9 % (11.5-14.5); White Blood Count 8.6 K/mm3 (4.5-10.0)
[2022-01-16 06:43] LABS: Alanine Aminotransferase 23 U/L (6-35); Albumin Level 3.5 g/dL (3.5-5.1); Alkaline Phosphatase 310 U/L (38-126); Anion Gap 5 mmol/L (8-16); Aspartate Amino Transferase 31 U/L (14-36); Bilirubin,Total 1.6 mg/dL (0.2-1.3); Blood Urea Nitrogen 5 mg/dL (7-17); Calcium 8.7 mg/dL (8.4-10.2); Carbon Dioxide 23 mmol/L (22-30); Chloride 97 mmol/L (98-107); Estimated CRCL calculation 56 ml/min; Estimated Glomerular Filt Rate > 60; Glucose 101 mg/dL (65-110); Magnesium 1.7 mg/dL (1.6-2.3); Potassium 5.3 mmol/L (3.4-5.0); Sodium 125 mmol/L (137-145)
[2022-01-16] MEDS: FOLIC ACID 1 MG TABLET PO (08:04)
[2022-01-16] MEDS: PANTOPRAZOLE 40 MG TABLET PO (08:04)
[2022-01-16] MEDS: FERROUS SULFATE 324 MG TABLET PO (08:05)
[2022-01-16] MEDS: CHOLECALCIFEROL 1,000 UNITS TABLET 1000 UNITS PO (08:05)
[2022-01-16] MEDS: calcium polycarbophiL 625 MG TABLET PO (08:05)
[2022-01-16] MEDS: ATORVASTATIN 40 MG TABLET PO (08:05)
[2022-01-16] MEDS: CYANOCOBALAMIN 1,000 MCG TABLET 1000 MCG PO (08:06)
[2022-01-16] MEDS: THIAMINE HCL 100 MG TABLET PO (08:06)
[2022-01-16] MEDS: DICLOFENAC SODIUM 1% 100 GM GEL (*BKC) 1 APPLIC TOPICAL ×4 (08:08→20:58)
[2022-01-16] MEDS: ENOXAPARIN 40 MG/0.4 ML SYRINGE SUB-Q (08:08)
[2022-01-16] MEDS: traMADol HCL (*CRX) 50 MG TABLET PO ×2 (08:11→19:34)
[2022-01-16] MEDS: SODIUM CHLORIDE 500 MG TABLET PO ×2 (08:11→17:13)
--- NOTE | 2022-01-16 12:34 | P.PNNP_ITS ---
Progress Note: A&P Assessment and Plan (1) Hyponatremia: Code(s): E87.1 - Hypo-osmolality and hyponatremia Status: Acute Assessment and Plan: * acute on chronic * sodium levels appear to have fluctuated around 125 - 134 since 2019 * during recent [facility] admission, sodium running 128 - 129 * on admission here, sodium 115 * multiple risk factors for this issue: * COPD * lung cancer (possible SIADH) * PPI use * thiazide diuretics * improvement in sodium with normal saline IVF would suggest a significant el ement of volume depletion * evaluation to date: * TSH and cortisol okay * urine electrolytes suggest pre-renal azotemia * SPEP, UPEP serum/urine osmolality pending * will add low dose salt tabs today -- given LE edema, will consider adding low dose lasix tomorrow as well * follow serial sodium levels (2) Wrist pain: Qualifiers: Laterality: right Qualified Code(s): M25.531 - Pain in right wrist Code(s): M25.539 - Pain in unspecified wrist Status: Acute Assessment and Plan: * right wrist pain with decreased movement noted on admision * X-ray results noted; unable to get MRI * s/p ultrasound-guided aspiration of the right wrist joint * Orthopedics following (3) UTI (urinary tract infection): Code(s): N39.0 - Urinary tract infection, site not specified Status: Acute Assessment and Plan: * urine culture with Klebsiella * on antibiotics (4) Status post lobectomy of lung: Onset Date: 12/30/21 Code(s): Z90.2 - Acquired absence of lung [part of] Status: Acute Assessment and Plan: * s/p right lobectomy on 12/30/21 * done as part of her treatment for lung cancer (5) Atrial fibrillation: Code(s): I48.91 - Unspecified atrial fibrillation Status: Acute Assessment and Plan: * continue rate control strategy * off anticoagulation presumable due to recent lung surgery Will continue to follow. Subjective Date/time seen: 01/16/22 12:34 Says she feels bloated at times and right upper abdomen seems to hurt from time to time; no other acute issues/problems to report; sodium remains relatively stable but no significant improvement in the last 24 hours. Exam Narrative: General: WD/WN female in NAD Heart: normal S1 and S2; no rub Lungs: clear to auscultation Abdomen: soft, nontender, nondistended, positive bowel sounds Extremities: no cyanosis or clubbing; trace - 1+ edema Skin: warm and intact Objective Data Vital Signs Vital Signs: Vital Signs Temp Pulse Resp BP Pulse Ox O2 Del Method 01/16/22 08:11 18 97 Room Air 01/16/22 05:50 36.5 C 105 H 18 163/90 H 97 01/15/22 21:45 36.3 C L 109 H 18 150/97 H 96 01/15/22 20:21 82 18 01/15/22 20:00 84 16 97 Room Air 01/15/22 20:15 97 Room Air 01/15/22 20:11 84 16 Intake/Output Intake/Output: Intake & Output 01/13/22 01/14/22 01/15/22 01/16/22 23:59 23:59 23:59 23:59 Intake Total 3760 3160 750 440 Output Total 1850 1950 400 300 Balance 1910 1210 350 140 Meds/Results Medications: Act
--- NOTE | 2022-01-16 12:34 | PM.PNNEP ---
Progress Note: A&P Assessment and Plan (1) Hyponatremia: Code(s): E87.1 - Hypo-osmolality and hyponatremia Status: Acute Assessment and Plan: acute on chronic sodium levels appear to have fluctuated around 125 - 134 since 2020 during recent [facility] admission, sodium running 128 - 129 on admission here, sodium 115 multiple risk factors for this issue: COPD lung cancer (possible SIADH) PPI use thiazide diuretics improvement in sodium with normal saline IVF would suggest a significant element of volume depletion evaluation to date: TSH and cortisol okay urine electrolytes suggest pre-renal azotemia SPEP, UPEP serum/urine osmolality pending will add low dose salt tabs today -- given LE edema, will consider adding low dose lasix tomorrow as well follow serial sodium levels (2) Wrist pain: Qualifiers: Laterality: right Qualified Code(s): M25.531 - Pain in right wrist Code(s): M25.539 - Pain in unspecified wrist Status: Acute Assessment and Plan: right wrist pain with decreased movement noted on admision X-ray results noted; unable to get MRI s/p ultrasound-guided aspiration of the right wrist joint Orthopedics following (3) UTI (urinary tract infection): Code(s): N39.0 - Urinary tract infection, site not specified Status: Acute Assessment and Plan: urine culture with Klebsiella on antibiotics (4) Status post lobectomy of lung: Onset Date: 12/30/21 Code(s): Z90.2 - Acquired absence of lung [part of] Status: Acute Assessment and Plan: s/p right lobectomy on 12/30/21 done as part of her treatment for lung cancer (5) Atrial fibrillation: Code(s): I48.91 - Unspecified atrial fibrillation Status: Acute Assessment and Plan: continue rate control strategy off anticoagulation presumable due to recent lung surgery Will continue to follow. Subjective Date/time seen: 01/16/22 12:34 Says she feels bloated at times and right upper abdomen seems to hurt from time to time; no other acute issues/problems to report; sodium remains relatively stable but no significant improvement in the last 24 hours. Exam Narrative: General: WD/WN female in NAD Heart: normal S1 and S2; no rub Lungs: clear to auscultation Abdomen: soft, nontender, nondistended, positive bowel sounds Extremities: no cyanosis or clubbing; trace - 1+ edema Skin: warm and intact Objective Data Vital Signs Vital Signs: Vital Signs Temp Pulse Resp BP Pulse Ox O2 Del Method 01/16/22 08:11 18 97 Room Air 01/16/22 05:50 36.5 C 105 H 18 163/90 H 97 01/15/22 21:45 36.3 C L 109 H 18 150/97 H 96 01/15/22 20:21 82 18 01/15/22 20:00 84 16 97 Room Air 01/15/22 20:15 97 Room Air 01/15/22 20:11 84 16 Intake/Output Intake/Output: Intake & Output 01/13/22 01/14/22 01/15/22 01/16/22 23:59 23:59 23:59 23:59 Intake Total 3760 3160 750 440 Output Total 1850 1950 400 300 Balance 1910 1210 350 140 Meds/Results Medications: Active Medications Generic Name Dose Route Start Last Admin Trade Name Freq PRN Reason Stop Dose Admin Albuterol 5 mg 01/11/22 08:00 01/16/22 17:31 Albuterol Sulfate Neb 2.5 Mg/3 Ml Inh INHALATION Not Given Q6HRT [facility] Alprazolam 0.25 mg 01/11/22 02:56 Alprazolam (*Crx) 0.25 Mg Tablet PO BID PRN anxiety Atorvastatin Calcium 40 mg 01/11/22 09:00 01/16/22 08:05 Atorvastatin 40 Mg Tablet PO 40 mg DAILY FELIBERTO Administration Calcium Carbonate 500 mg 01/11/22 09:00 01/16/22 08:06 Calcium/Vitamin D 500 Mg Tablet PO 500 mg QAM FELIBERTO Administration Calcium Polycarbophil 625 mg 01/11/22 09:00 01/16/22 08:05 Calcium Polycarbophil 625 Mg Tablet PO 625 mg DAILY FELIBERTO Administration Cephalexin HCl 500 mg 01/14/22 18:00 01/16/22 17:10 Cephalexin 500 Mg Capsule PO 500 mg
--- NOTE | 2022-01-16 13:29 | PM.IMPN ---
Progress Note: A&P Assessment and Plan (1) Shock circulatory: Code(s): R57.9 - Shock, unspecified Status: Acute (2) Status post lobectomy of lung: Onset Date: 12/30/21 Code(s): Z90.2 - Acquired absence of lung [part of] Status: Acute (3) Abnormal urinalysis: Code(s): R82.90 - Unspecified abnormal findings in urine Status: Acute (4) Hyponatremia: Code(s): E87.1 - Hypo-osmolality and hyponatremia Status: Acute (5) Atrial fibrillation: Code(s): I48.91 - Unspecified atrial fibrillation Status: Acute (6) Hypokalemia: Code(s): E87.6 - Hypokalemia Status: Acute Plan # Generalized weakness hypotensive on arrival cortisol 13.2. improving. PT OT to see will recommence home health therapy 01/13 # Septic shock blood pressure is 80s on arrival. Treated with IV fluid resuscitation. With improvement CT negative for pneumonia. CTA with postsurgical changes in the right chest wall including small volume right pleural effusion with small anteriorly located pneumothorax. urinalysis with WBC clumps. On cefepime and vancomycin . Cortisol level 13.2 Started on vasopressor with Levophed and dobutamine. Remains on vancomycin and cefepime MRSA screen is negative. Urine culture growing Klebsiella pneumoniae. Which is pansensitive wrist arthrocentesis culture is pending her Gram stain showed some WBC but no organisms Leukocytosis resolved 01/14 Will stop vancomycin. MRSA screen came back negative. Continue cefepime for her Klebsiella pneumoniae UTI. Switched to oral cephalexin # Severe hyponatremia sodium level of 115 on arrival. History of chronic hyponatremia in the past. Possible SIADH. Continue to monitor sodium level closely. Nephrology on board. On normal saline Sodium level slowly and steadily improving. 126 baseline around 120-129 Started on salt tablet. Will also give a dose of Lasix. Signs of volume overload on CT scan # Right wrist pain uric acid is normal. ultrasound-guided arthrocentesis performed 01/12/2022. Few WBCs seen in the wrist with no organisms #Leukocytosis continues to improve # Anemia with no signs of bleeding # hypokalemia replace and monitor now mild hyperkalemia noted. Will continue to monitor #Atrial fibrillation chronic rate controlled. 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 Constipation related is possibility as well. Since around the surgical side re-evaluate with a CT scan which was reviewed 01/15/2022 Signs of volume overload noted will give 1 dose IV Lasix Gallbladder nonspecific swelling likely related to volume overload as well will get right upper quadrant ultrasound #DVT prophylaxis Lovenox #Code status full code # disposition PT OT evaluated need home health at discharge. Subjective Date/time seen: 01/16/22 13:29 Interval history: HPI:76-year-old female with a past medical history of hypertension, hyperlipidemia, COPD, right-sided heart failure, nonrheumatic valvular heart disease, and recent diagnosis of right upper lobe squamous cell carcinoma who presented to the ER due to increased weakness.? The patient reports that she was diagnosed with lung cancer after she had a screening imaging study that suggested possible bronchogenic carcinoma.? She had a CT-guided biopsy in October 2021 that demonstrated squamous cell carcinoma.? He had a PET scan November 04 which demonstrated localized 1.5 cm mass in the right upper lobe.? She underwent right upper lobe lobectomy at [facility] on
--- NOTE | 2022-01-16 14:13 | PCOTNOTE ---
Attempted to see pt for occupational therapy tx at 14:16. Pt states that all her self care tasks were complete and declined to get out of bed for therapeutic activities due to increased fatigue and wanting to take a nap. Pt was educated on the importance of participation in therapy however pt still declined. Will continue per poc duration/frequency tomorrow.
[2022-01-16 14:16] LABS: Kappa\\Lambda Light Chains 0.87 (0.26-1.65)
[2022-01-16 14:52] LABS: Chloride Rand Ur 20 mmol/L (32-290); Chloride/Creatinine Rand Ur 53 (38-318); Creatinine Random Urine 38 mg/dL (20-275); Osmolality, Urine 285 mOsm/kg (50-1200)
[2022-01-16 15:10] LABS: Total Protein/Creatinine Ratio 385 mg/g creat (21-161)
[2022-01-16] MEDS: FUROSEMIDE INJ 40 MG/4 ML VIAL IV PUSH (17:12)
[2022-01-16] MEDS: DOCUSATE SODIUM 100 MG CAPSULE PO (20:55)
[2022-01-16] MEDS: diphenhydrAMINE HCl CAP 25 MG CAPSULE 50 MG PO (20:55)
[2022-01-16] MEDS: ALBUTEROL SULFATE NEB 2.5 MG/3 ML INH 5 MG INHALATION (21:42)
[2022-01-16] MEDS: IPRATROPIUM BR 0.02% INH SOLN 0.5 MG/2.5 ML VIAL INHALATION (21:42)
[2022-01-16 23:55] LABS: Albumin 2.8 g/dL (3.8-4.8); Alpha 1 Globulin 0.6 g/dL (0.2-0.3); Alpha 2 Globulin 0.8 g/dL (0.5-0.9); Beta 1 Globulin 0.3 g/dL (0.4-0.6); Gamma Globulin 0.7 g/dL (0.8-1.7); Protein, Total 5.4 g/dL (6.1-8.1)
[2022-01-17] VITALS (12 sets, daily range): BP systolic 137–152; BP diastolic 74–76; PULSE 65–117; RESP 16–20; TEMP 35.9–36.6; O2SAT 96–100
[2022-01-17] MEDS: ALBUTEROL SULFATE NEB 2.5 MG/3 ML INH 5 MG INHALATION ×3 (03:17→21:10)
[2022-01-17] MEDS: IPRATROPIUM BR 0.02% INH SOLN 0.5 MG/2.5 ML VIAL INHALATION ×3 (03:18→21:10)
[2022-01-17] MEDS: CEPHALEXIN 500 MG CAPSULE PO ×2 (05:04→05:38)
[2022-01-17 07:28] LABS: Basophils Absolute Auto 0.1 K/mm3 (0.0-0.1); Basophils Percent Auto 0.9 % (0.2-1.2); Eosinophils Absolute Auto 0.2 K/mm3 (0-0.3); Eosinophils Percent Auto 2.1 % (0-4.4); Hematocrit 27.5 % (37.0-47.0); Hemoglobin 9.5 g/dL (12.0-15.0); Immature Granulocyte Absolute 0.07 K/mm3 (0.00-0.031); Immature Granulocyte Percent A 0.9 % (0-0.5); Immature Platelet Fraction Pct 15.1 % (0.9-11.2); Lymphocytes Absolute Auto 0.98 K/mm3 (0.9-3.2); Lymphocytes Percent Auto 12.2 % (18.3-44.2); Mean Corpuscular HGB Conc 34.5 g/dl (32-36); Mean Corpuscular Hemoglobin 28.4 pg (26-34); Mean Corpuscular Volume 82.3 fl (80-100); Mean Platelet Volume 13.2 fl (7.4-10.4); Neutrophils Absolute Auto 5.8 K/mm3 (1.3-6.7); Neutrophils Percent Auto 71.9 % (45.5-73.1); Platelet Count Result 241 k/mm3 (150-375); Red Blood Count 3.34 M/mm3 (4.2-5.4); Red Cell Distribution Width 16.5 % (11.5-14.5)
[2022-01-17 07:38] LABS: Alanine Aminotransferase 21 U/L (6-35); Albumin Level 3.4 g/dL (3.5-5.1); Alkaline Phosphatase 294 U/L (38-126); Anion Gap 6 mmol/L (8-16); Aspartate Amino Transferase 29 U/L (14-36); Bilirubin,Total 1.7 mg/dL (0.2-1.3); Blood Urea Nitrogen 6 mg/dL (7-17); Calcium 8.8 mg/dL (8.4-10.2); Carbon Dioxide 27 mmol/L (22-30); Chloride 95 mmol/L (98-107); Estimated CRCL calculation 55 ml/min; Estimated Glomerular Filt Rate > 60; Glucose 93 mg/dL (65-110); Magnesium 1.4 mg/dL (1.6-2.3); Potassium 4.5 mmol/L (3.4-5.0); Sodium 128 mmol/L (137-145)
[2022-01-17] MEDS: SODIUM CHLORIDE 500 MG TABLET PO (09:29)
[2022-01-17] MEDS: PANTOPRAZOLE 40 MG TABLET PO (09:30)
[2022-01-17] MEDS: calcium polycarbophiL 625 MG TABLET PO (09:30)
[2022-01-17] MEDS: POTASSIUM CHLORIDE 10 MEQ TABLET.ER 20 MEQ PO ×2 (09:30→18:11)
[2022-01-17] MEDS: CYANOCOBALAMIN 1,000 MCG TABLET 1000 MCG PO (09:30)
[2022-01-17] MEDS: FOLIC ACID 1 MG TABLET PO (09:30)
[2022-01-17] MEDS: CHOLECALCIFEROL 1,000 UNITS TABLET 1000 UNITS PO (09:30)
[2022-01-17] MEDS: traMADol HCL (*CRX) 50 MG TABLET PO ×3 (09:30→21:57)
[2022-01-17] MEDS: FERROUS SULFATE 324 MG TABLET PO (09:31)
[2022-01-17] MEDS: ATORVASTATIN 40 MG TABLET PO (09:31)
[2022-01-17] MEDS: THIAMINE HCL 100 MG TABLET PO (09:31)
[2022-01-17] MEDS: ENOXAPARIN 40 MG/0.4 ML SYRINGE SUB-Q (09:31)
[2022-01-17] MEDS: DICLOFENAC SODIUM 1% 100 GM GEL (*BKC) 1 APPLIC TOPICAL ×4 (09:42→21:04)
[2022-01-17] MEDS: MAGNESIUM SULF 2 GM/WATER 50ML 2 GM/50 ML BAG IVPB (09:51)
--- NOTE | 2022-01-17 11:52 | PM.IMPN ---
Progress Note: A&P Assessment and Plan (1) Shock circulatory: Code(s): R57.9 - Shock, unspecified Status: Acute (2) Status post lobectomy of lung: Onset Date: 12/30/21 Code(s): Z90.2 - Acquired absence of lung [part of] Status: Acute (3) Abnormal urinalysis: Code(s): R82.90 - Unspecified abnormal findings in urine Status: Acute (4) Hyponatremia: Code(s): E87.1 - Hypo-osmolality and hyponatremia Status: Acute (5) Atrial fibrillation: Code(s): I48.91 - Unspecified atrial fibrillation Status: Acute (6) Hypokalemia: Code(s): E87.6 - Hypokalemia Status: Acute Plan # Generalized weakness hypotensive on arrival cortisol 13.2. improving. PT OT to see will recommence home health therapy 01/13 # Septic shock blood pressure is 80s on arrival. Treated with IV fluid resuscitation. With improvement CT negative for pneumonia. CTA with postsurgical changes in the right chest wall including small volume right pleural effusion with small anteriorly located pneumothorax. urinalysis with WBC clumps. On cefepime and vancomycin . Cortisol level 13.2 Started on vasopressor with Levophed and dobutamine. Remains on vancomycin and cefepime MRSA screen is negative. Urine culture growing Klebsiella pneumoniae. Which is pansensitive wrist arthrocentesis culture is pending her Gram stain showed some WBC but no organisms Leukocytosis resolved 01/14 Stopped vancomycin. MRSA screen came back negative. Continue cefepime for her Klebsiella pneumoniae UTI. Switched to oral cephalexin Now with concern for acute cholecystitis will start IV Zosyn. WBC count still remains normal. # Severe hyponatremia sodium level of 115 on arrival. History of chronic hyponatremia in the past. Possible SIADH. Continue to monitor sodium level closely. Nephrology on board. On normal saline Sodium level slowly and steadily improving. 126 baseline around 120-129 Started on salt tablet. Give a dose of Lasix 40 mg x 1 IV 01/16/2022 Signs of volume overload on CT scan # Right wrist pain uric acid is normal. ultrasound-guided arthrocentesis performed 01/12/2022. Few WBCs seen in the wrist with no organisms #Leukocytosis continues to improve # Anemia with no signs of bleeding # hypokalemia replace and monitor now mild hyperkalemia noted. Will continue to monitor #Atrial fibrillation chronic rate controlled. 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 Constipation related is possibility as well. Since around the surgical side re-evaluate with a CT scan which was reviewed 01/15/2022 Signs of volume overload noted will give 1 dose IV Lasix Gallbladder nonspecific swelling likely related to volume overload as well. Right upper quadrant ultrasound with cholelithiasis and gallbladder wall thickening acute cholecystitis not completely excluded. As these possibly could relate to congestive heart failure and cirrhosis which she does have. Will get HIDA scan. He does have positive clinical signs of acute cholecystitis calculus versus non calculus. Will start IV Zosyn and consult General surgery. #DVT prophylaxis Lovenox #Code status full code # disposition PT OT evaluated need home health at discharge. Subjective Date/time seen: 01/17/22 11:52 Interval history: HPI:76-year-old female with a past medical history of hypertension, hyperlipidemia, COPD, right-sided heart failure, nonrheumatic valvular heart disease, and recent diagnosis of right upper lobe squamou
--- NOTE | 2022-01-17 13:05 | P.PNNP_ITS ---
Progress Note: A&P Assessment and Plan (1) Hyponatremia: Code(s): E87.1 - Hypo-osmolality and hyponatremia Status: Acute Assessment and Plan: * acute on chronic * sodium levels appear to have fluctuated around 125 - 134 since 2019 * during recent [facility] admission, sodium running 128 - 129 * evaluation includes normal TSH and cortisol, urine electrolytes showing pre renal azotemia, and other labs are pending. * on admission here, sodium 115 * this has improved now to 128. * multiple risk factors for this issue: * COPD * lung cancer (possible SIADH) * PPI use . Can she get by with famotidine? * thiazide diuretics * Narcotics. * Volume depletion * Currently on fluid restriction, and salt tablets. Will add Lasix 20mg twice a day. * Will check another sodium level tomorrow morning. (2) Wrist pain: Qualifiers: Laterality: right Qualified Code(s): M25.531 - Pain in right wrist Code(s): M25.539 - Pain in unspecified wrist Status: Acute Assessment and Plan: * right wrist pain with decreased movement noted on admision * X-ray results noted; unable to get MRI * s/p ultrasound-guided aspiration of the right wrist joint * Orthopedics following (3) UTI (urinary tract infection): Code(s): N39.0 - Urinary tract infection, site not specified Status: Acute Assessment and Plan: * urine culture with Klebsiella * on Zosyn. (4) Status post lobectomy of lung: Onset Date: 12/30/21 Code(s): Z90.2 - Acquired absence of lung [part of] Status: Acute Assessment and Plan: * s/p right lobectomy on 12/30/21 * done as part of her treatment for lung cancer (5) Atrial fibrillation: Code(s): I48.91 - Unspecified atrial fibrillation Status: Acute Assessment and Plan: * On no chronotropic medications. * Heart rate was 65 Subjective Date/time seen: 01/17/22 13:05 Interval history: in the room. The patient is sitting up in a chair. She still has right upper quadrant belly pain. She had nausea all day yesterday and so consumed very little liquid. Today she is going to try to eat something. Exam Narrative: General: WD/WN female in NAD Heart: normal S1 and S2; no rub Lungs: clear to auscultation Abdomen: soft, Mild right upper quadrant tenderness, nondistended, positive bowel sounds Extremities: no cyanosis or clubbing; trace - 1+ edema Skin: warm and intact Objective Data Vital Signs Vital Signs: Vital Signs - 24 hr 01/16/22 14:00 01/16/22 14:30 01/16/22 21:07 Temperature 35.8 C L 36.1 C L Pulse Rate 148 H 96 Respiratory Rate 22 H 16 Blood Pressure 155/95 H 168/90 H Pulse Oximetry 92 97 99 Oxygen Delivery Room Air 01/16/22 21:42 01/16/22 21:51 01/16/22 20:30 Temperature Pulse Rate 80 76 80 Respiratory Rate 18 18 Blood Pressure Pulse Oximetry 99 Oxygen Delivery Room Air 01/17/22 03:18 01/17/22 03:26 01/17/22 04:36 Temperature 35.9 C L Pulse Rate 77 78 65 Respiratory Rate 18 18 18 Blood Pressure 152/76 H Pulse Oximetry 99 [employer]xygen [employer]
--- NOTE | 2022-01-17 13:05 | PM.PNNEP ---
Progress Note: A&P Assessment and Plan (1) Hyponatremia: Code(s): E87.1 - Hypo-osmolality and hyponatremia Status: Acute Assessment and Plan: acute on chronic sodium levels appear to have fluctuated around 125 - 134 since 2019 during recent [facility] admission, sodium running 128 - 129 evaluation includes normal TSH and cortisol, urine electrolytes showing pre renal azotemia, and other labs are pending. on admission here, sodium 115 this has improved now to 128. multiple risk factors for this issue: COPD lung cancer (possible SIADH) PPI use . Can she get by with famotidine? thiazide diuretics Narcotics. Volume depletion Currently on fluid restriction, and salt tablets. Will add Lasix 20mg twice a day. Will check another sodium level tomorrow morning. (2) Wrist pain: Qualifiers: Laterality: right Qualified Code(s): M25.531 - Pain in right wrist Code(s): M25.539 - Pain in unspecified wrist Status: Acute Assessment and Plan: right wrist pain with decreased movement noted on admision X-ray results noted; unable to get MRI s/p ultrasound-guided aspiration of the right wrist joint Orthopedics following (3) UTI (urinary tract infection): Code(s): N39.0 - Urinary tract infection, site not specified Status: Acute Assessment and Plan: urine culture with Klebsiella on Zosyn. (4) Status post lobectomy of lung: Onset Date: 12/30/21 Code(s): Z90.2 - Acquired absence of lung [part of] Status: Acute Assessment and Plan: s/p right lobectomy on 12/30/21 done as part of her treatment for lung cancer (5) Atrial fibrillation: Code(s): I48.91 - Unspecified atrial fibrillation Status: Acute Assessment and Plan: On no chronotropic medications. Heart rate was 65 Subjective Date/time seen: 01/17/22 13:05 Interval history: in the room. The patient is sitting up in a chair. She still has right upper quadrant belly pain. She had nausea all day yesterday and so consumed very little liquid. Today she is going to try to eat something. Exam Narrative: General: WD/WN female in NAD Heart: normal S1 and S2; no rub Lungs: clear to auscultation Abdomen: soft, Mild right upper quadrant tenderness, nondistended, positive bowel sounds Extremities: no cyanosis or clubbing; trace - 1+ edema Skin: warm and intact Objective Data Vital Signs Vital Signs: Vital Signs - 24 hr 01/16/22 14:00 01/16/22 14:30 01/16/22 21:07 Temperature 35.8 C L 36.1 C L Pulse Rate 148 H 96 Respiratory Rate 22 H 16 Blood Pressure 155/95 H 168/90 H Pulse Oximetry 92 97 99 Oxygen Delivery Room Air 01/16/22 21:42 01/16/22 21:51 01/16/22 20:30 Temperature Pulse Rate 80 76 80 Respiratory Rate 18 18 Blood Pressure Pulse Oximetry 99 Oxygen Delivery Room Air 01/17/22 03:18 01/17/22 03:26 01/17/22 04:36 Temperature 35.9 C L Pulse Rate 77 78 65 Respiratory Rate 18 18 18 Blood Pressure 152/76 H Pulse Oximetry 99 Oxygen Delivery Intake/Output Intake/Output: Intake & Output 01/14/22 01/15/22 01/16/22 01/17/22 23:59 23:59 23:59 23:59 Intake Total 3160 750 680 200 Output Total 8426 973 5469 1800 Balance 1210 350 -520 -1600 Meds/Results Medications: Active Medications Generic Name Dose Route Start Last Admin Trade Name Freq PRN Reason Stop Dose Admin Albuterol 5 mg 01/11/22 08:00 01/17/22 09:46 Albuterol Sulfate Neb 2.5 Mg/3 Ml Inh INHALATION Not Given Q6HRT FELIBERTO Alprazolam 0.25 mg 01/11/22 02:56 Alprazolam (*Crx) 0.25 Mg Tablet PO BID PRN anxiety Atorvastatin Calcium 40 mg 01/11/22 09:00 01/17/22 09:31 Atorvastatin 40 Mg Tablet PO 40 mg DAILY FELIBERTO Administration Calcium Carbonate 500 mg 01/11/22 09:00 01/17/22 09:31 Calcium/Vitamin D 500 Mg Tablet PO 500 mg QAM
[2022-01-17] MEDS: PIPERACILLIN/TAZOBACTAM SOD 3.375 GM in SODIUM CHLORIDE 0.9% IV 50 ML IVPB ×2 (13:10→18:11)
--- NOTE | 2022-01-17 14:46 | PM.CNGS ---
Assessment and Plan Assessment and plan (1) Right upper quadrant abdominal pain: Code(s): R10.11 - Right upper quadrant pain Status: Acute Assessment and Plan: Patient has tenderness and pain in the right upper quadrant. She also has gallstones. No association with the right upper quadrant pain and he eating which is unusual. Abnormal appearance on imaging of the gallbladder is certainly very common with edema ascites and cirrhosis. HIDA scan has been ordered. I agree with this. If positive, would recommend cholecystectomy. Thank you for asking me to see this patient in consultation. I will follow along with you. (2) Cholelithiasis: Code(s): K80.20 - Calculus of gallbladder without cholecystitis without obstruction Status: Acute Assessment and Plan: Unclear if cholecystitis exists (3) UTI (urinary tract infection): Code(s): N39.0 - Urinary tract infection, site not specified Status: Acute Assessment and Plan: Klebsiella UTI, being treated. (4) Shock: Code(s): R57.9 - Shock, unspecified Status: Acute Assessment and Plan: Resolved (5) Status post lobectomy of lung: Onset Date: 12/30/21 Code(s): Z90.2 - Acquired absence of lung [part of] Status: Acute Assessment and Plan: Surgery on 12/30/2021. (6) Hyponatremia: Code(s): E87.1 - Hypo-osmolality and hyponatremia Status: Acute Assessment and Plan: Improving. Currently on fluid restriction and sodium still less than 130. 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 She was discharged 5 days later on 01/04/[address] [facility]. She presented at our emergency room 6 days after her discharge with feeling weak and nauseated. She could get out of bed. She also was having severe right wrist pain. She was found to be hypotensive and in shock due to multiple factors. She also had a very low sodium of 115. She appeared to have pulmonary hypertension and some right heart failure and was in the ICU on vasopressor agents. Fortunately she has improved significantly. Her sodium is now 128. She is on fluid restriction and a heart healthy diet. Her admitting urinalysis showed pyuria and subsequent cultures grew Klebsiella. Septic shock from urinary tract infection may certainly have been playing a role. She has been moved to the medical-surgical floor. I was asked to see her regarding right upper quadrant abdominal pain. She had this evaluated initially with a CT scan on 01/15/2022. This showed ascites cirrhosis and some nonspecific edema or thickening of the gallbladder wall. She had an ultrasound of the gallbladder today which showed small gallstones and again some nonspecific wall thickening that could be due to ascites or cirrhosis and pulmonary edema. The notes reflect the right upper quadrant pain started on 01/15. The patient tells me she has had right upper quadrant pain for about a week. She reports that the pain is worse with movement. She just started eating again but has not noticed any increase in the pain with eating. She has not had any nausea or vomiting in the last couple of days either although she did have nausea before coming to the hospital. Before her lung surgery, she had never been told she has gallstones or had any problems with her gallbladder. She is seen now in consultation. Review of Systems Review of Systems: All systems reviewed & are unremarkable except as noted in HPI and below Constitutional: Constitutional: Reports as per HPI, Denies chills, Denies fever(s), Denies headache(s) and Denies poor appetite Cardiovascular: Cardiovascular: Denies chest leslie
[2022-01-17] MEDS: FUROSEMIDE 20 MG TABLET PO (18:11)
[2022-01-17] MEDS: SODIUM CHLORIDE 500 MG TABLET 1000 MG PO (18:12)
[2022-01-17] MEDS: diphenhydrAMINE HCl CAP 25 MG CAPSULE 50 MG PO (20:59)
[2022-01-17] MEDS: ALPRAZolam (*CRX) 0.25 MG TABLET PO (21:02)
[2022-01-18] VITALS (10 sets, daily range): BP systolic 113–126; BP diastolic 62–78; PULSE 60–103; RESP 16–20; TEMP 36.6; O2SAT 94–97
[2022-01-18] MEDS: PIPERACILLIN/TAZOBACTAM SOD 3.375 GM in SODIUM CHLORIDE 0.9% IV 50 ML IVPB ×3 (00:41→19:41)
[2022-01-18] MEDS: ALBUTEROL SULFATE NEB 2.5 MG/3 ML INH 5 MG INHALATION ×4 (02:08→22:00)
[2022-01-18] MEDS: IPRATROPIUM BR 0.02% INH SOLN 0.5 MG/2.5 ML VIAL INHALATION ×4 (02:08→22:00)
[2022-01-18] MEDS: traMADol HCL (*CRX) 50 MG TABLET PO ×2 (02:27→16:05)
[2022-01-18 07:37] LABS: Hematocrit 25.8 % (37.0-47.0); Hemoglobin 8.7 g/dL (12.0-15.0); Mean Corpuscular HGB Conc 33.7 g/dl (32-36); Mean Corpuscular Hemoglobin 28.9 pg (26-34); Mean Corpuscular Volume 85.7 fl (80-100); Mean Platelet Volume 12.7 fl (7.4-10.4); Platelet Count Result 200 k/mm3 (150-375); Red Blood Count 3.01 M/mm3 (4.2-5.4); White Blood Count 6.9 K/mm3 (4.5-10.0)
[2022-01-18 07:53] LABS: Alanine Aminotransferase 19 U/L (6-35); Albumin Level 3.2 g/dL (3.5-5.1); Alkaline Phosphatase 256 U/L (38-126); Anion Gap 6 mmol/L (8-16); Aspartate Amino Transferase 26 U/L (14-36); Bilirubin,Total 1.6 mg/dL (0.2-1.3); Blood Urea Nitrogen 7 mg/dL (7-17); Calcium 8.3 mg/dL (8.4-10.2); Carbon Dioxide 27 mmol/L (22-30); Chloride 97 mmol/L (98-107); Estimated CRCL calculation 49 ml/min; Estimated Glomerular Filt Rate > 60; Glucose 83 mg/dL (65-110); Phosphorus 3.8 mg/dL (2.5-4.5); Potassium 4.5 mmol/L (3.4-5.0); Sodium 130 mmol/L (137-145)
[2022-01-18] MEDS: DICLOFENAC SODIUM 1% 100 GM GEL (*BKC) 1 APPLIC TOPICAL ×3 (09:00→20:52)
--- NOTE | 2022-01-18 09:04 | PCPTNOTE ---
The patient treatment was not able to be completed at this time due to patient awaiting test this morning. Will plan to continue treatment per plan of care.
--- NOTE | 2022-01-18 09:26 | PM.PNORT ---
Progress Note: A&P Assessment and Plan (1) Wrist pain: Qualifiers: Laterality: right Qualified Code(s): M25.531 - Pain in right wrist Code(s): M25.539 - Pain in unspecified wrist Status: Acute Assessment and Plan: Right wrist pain and swelling without injury now completely resolved. Ultrasound guided aspiration of 1mL of serous fluid by radiology. Culture results with no organisms to date. Patient reports 100% improvement in pain. Flexion/extension with significant improvement. WBAT. Activity as tolerated. Thank you for allowing us to assist in the care of this patient. We will be available if any orthopedic issues arise at this point. Subjective Subjective Date/Time Seen: 01/18/22 09:26 Interval history: No complaints of wrist pain. 100% resolved. No orthopedic concerns at this time. Review of Systems Review of Systems: All systems reviewed & are unremarkable except as noted in HPI and below Exam Const: General: no acute distress and ill appearing Nutritional Appearance: well nourished Orientation/consciousness: patient oriented x3 Limitations: no limitations HENMT: Head: normal to inspection, normocephalic and atraumatic Ears: hearing grossly normal bilaterally General nose exam: Normal external nose present Mouth: Yes Normal oral and palatal mucosa present Eyes: Conjunctivae: conjunctivae normal Sclera: sclerae normal Cardio: Jugular venous distension: no JVD Rate: regular rate Rhythm: regular rhythm GI: GI Palp: Yes Soft to palpation, No Tenderness to palpation present (GI) and No Guarding due to palpation present (GI) Neuro: Cognition (Neuro): normal cognition Extrem: Right upper extremity: elbow/forearm normal to inspection and normal ROM; no tenderness and no swelling, wrist swelling (MILD ) of the dorsal wrist and of the volar wrist, normal ROM, warmth (MILD ) of the dorsal wrist and of the volar wrist, normal vascular exam and radial pulse present 2+; no tenderness, no ecchymosis and no crepitus and Extremity exam: right hand normal capillary refill, neuromotor exam normal wrist extension normal, thumb opposition normal, thumb IP flexion normal, thumb ADduction normal and fingers 2-5 ABduction normal and tenderness of the thumb (CMC joint ) Left upper extremity: elbow/forearm normal to inspection and normal ROM; no tenderness and no swelling, wrist normal to inspection, tenderness (mild, diffuse ) and abnormal ROM pain with active ROM with extension and with flexion and pain with passive ROM in extension and in flexion and hand no swelling Objective Data Vital Signs Vital Signs: Vital Signs - 24 hr 01/17/22 14:33 01/17/22 14:35 01/17/22 14:43 Temperature Pulse Rate 107 H 117 H Respiratory Rate 18 20 Blood Pressure Pulse Oximetry 97 Oxygen Delivery Room Air 01/17/22 15:48 01/17/22 20:00 01/17/22 20:33 Temperature 36.6 C Pulse Rate 96 96 96 Respiratory Rate 20 20 20 Blood Pressure 139/74 Pulse Oximetry 100 100 100 Oxygen Delivery Room Air Room Air 01/17/22 21:12 01/17/22 21:12 01/17/22 21:32 Temperature Pulse Rate 68 68 68 Respiratory Rate 20 20 20 Blood Pressure Pulse Oximetry 96 Oxygen Delivery Room Air 01/17/22 23:35 01/18/22 02:20 01/18/22 02:37 Temperature 36.2 C L Pulse Rate 93 88 88 Respiratory Rate 16 20 20 Blood Pressure 137/74 Pulse Oximetry 98 Oxygen Delivery Intake/Output Intake/Output: Intake & Output 01/15/22 01/16/22 01/17/22 01/18/22 23:59 23:59 23:59 23:59 Intake Total 750 680 762 600 Output Total 400 1200 3000 Balance 150 -059 -5156 588 Meds/Results Medications: Active Medications Generic Name Dose Route Start Last Admin Trade Name Freq PRN Reason Stop Dose Admin Albuterol 5 mg 01/11/22 08:00 01/18/22 02:08 Albuterol Sulfate Neb 2.5 Mg/3 Ml Inh INHALATION 5 mg Q6HRT FELIBERTO Administration Alprazolam 0.25 mg 01/11/22 02:56 01/17/22 21:02 Alprazolam (*Crx
--- NOTE | 2022-01-18 11:26 | PM.IMPN ---
Progress Note: A&P Assessment and Plan (1) Shock circulatory: Code(s): R57.9 - Shock, unspecified Status: Acute (2) Status post lobectomy of lung: Onset Date: 12/30/21 Code(s): Z90.2 - Acquired absence of lung [part of] Status: Acute (3) Abnormal urinalysis: Code(s): R82.90 - Unspecified abnormal findings in urine Status: Acute (4) Hyponatremia: Code(s): E87.1 - Hypo-osmolality and hyponatremia Status: Acute (5) Atrial fibrillation: Code(s): I48.91 - Unspecified atrial fibrillation Status: Acute (6) Hypokalemia: Code(s): E87.6 - Hypokalemia Status: Acute Plan # Generalized weakness hypotensive on arrival cortisol 13.2. improving. PT OT to see will recommence home health therapy 01/13 # Septic shock blood pressure is 80s on arrival. Treated with IV fluid resuscitation. With improvement CT negative for pneumonia. CTA with postsurgical changes in the right chest wall including small volume right pleural effusion with small anteriorly located pneumothorax. urinalysis with WBC clumps. On cefepime and vancomycin . Cortisol level 13.2 Started on vasopressor with Levophed and dobutamine. Remains on vancomycin and cefepime MRSA screen is negative. Urine culture growing Klebsiella pneumoniae. Which is pansensitive wrist arthrocentesis culture is pending her Gram stain showed some WBC but no organisms Leukocytosis resolved 01/14 Stopped vancomycin. MRSA screen came back negative. Continue cefepime for her Klebsiella pneumoniae UTI. Switched to oral cephalexin Now with concern for acute cholecystitis started on IV Zosyn 01/17/2022 WBC count still remains normal. HIDA scan planned today which is pending. General surgery on board awaiting HIDA scan for further direction. Recommends cholecystectomy if positive # Severe hyponatremia sodium level of 115 on arrival. History of chronic hyponatremia in the past. Possible SIADH. Continue to monitor sodium level closely. Nephrology on board. On normal saline Sodium level slowly and steadily improving. 126 baseline around 120-129 Started on salt tablet. Give a dose of Lasix 40 mg x 1 IV 01/16/2022 Signs of volume overload on CT scan # Right wrist pain uric acid is normal. ultrasound-guided arthrocentesis performed 01/12/2022. Few WBCs seen in the wrist with no organisms #Leukocytosis continues to improve # Anemia with no signs of bleeding # hypokalemia replace and monitor now mild hyperkalemia noted. Will continue to monitor #Atrial fibrillation chronic rate controlled. Anticoagulation currently on hold # elevated liver enzymes predominantly ALP #Hypertension #Hyperlipidemia #COPD not in exacerbation #Right-sided heart failure well compensated #Nonrheumatic valvular heart disease #Recently diagnosed right upper lobe squamous cell carcinoma status post CT-guided biopsy in October 2021 status post right upper lobe lobectomy at [facility] on 12/30/2021 # right upper quadrant pain this is around the surgical site. Constipation related is possibility as well. Since around the surgical side re-evaluate with a CT scan which was reviewed 01/15/2022 Signs of volume overload noted will give 1 dose IV Lasix Gallbladder nonspecific swelling likely related to volume overload as well. Right upper quadrant ultrasound with cholelithiasis and gallbladder wall thickening acute cholecystitis not completely excluded. As these possibly could relate to congestive heart failure and cirrhosis which she does have. Will get HIDA scan. He does have positive clinical signs of acute cholecystitis calculus versus non calculus. Started on IV Zosyn and consulted General surgery HIDA scan is pending today #DVT prophylaxis Lovenox #Code status full code # disposition PT OT evaluated need home health at discharge. Subjective Date/time seen: 01/18/22 11:26 Interval history: HPI:76-ye
--- NOTE | 2022-01-18 14:58 | PCNWS ---
Weekly nutritional screen. Patient is tolerating current heart healthy diet with intake increasing. Pt reported decreased nausea and increased appetite for the first time since admission. Wt is consistent. Pt declined a nutritional supplement and said she would continue eating her meals. No nutritional needs at this time.
--- NOTE | 2022-01-18 15:02 | PCNSR ---
On 01/18/22, the student, Yesenia Khan, provided care and completed [facility] documentation on this patient. I have reviewed the student's documentation and agree with the findings.
[2022-01-18] MEDS: SODIUM CHLORIDE 500 MG TABLET 1000 MG PO (16:07)
[2022-01-18] MEDS: ENOXAPARIN 40 MG/0.4 ML SYRINGE SUB-Q (16:07)
[2022-01-18] MEDS: POTASSIUM CHLORIDE 10 MEQ TABLET.ER 20 MEQ PO (16:07)
[2022-01-18] MEDS: FUROSEMIDE 20 MG TABLET PO (16:07)
[2022-01-18] MEDS: ALPRAZolam (*CRX) 0.25 MG TABLET PO (16:15)
--- NOTE | 2022-01-18 16:15 | PM.PNGS ---
Progress Note: A&P Assessment and Plan (1) Right upper quadrant abdominal pain: Code(s): R10.11 - Right upper quadrant pain Status: Acute Assessment and Plan: improving. Etiology unclear. HIDA scan shows that changes in gallbladder most likely due to systemic disease rather than cholecystitis. Discussed with patient. No indication for surgery. Will sign off. Call if we can be of any other assistance. (2) Cholelithiasis: Code(s): K80.20 - Calculus of gallbladder without cholecystitis without obstruction Status: Acute Assessment and Plan: gallstones noted on imaging. Do not appear to be symptomatic. No indication for cholecystectomy. (3) UTI (urinary tract infection): Code(s): N39.0 - Urinary tract infection, site not specified Status: Acute Assessment and Plan: receiving antibiotics. (4) Shock: Code(s): R57.9 - Shock, unspecified Status: Acute Assessment and Plan: Resolved Subjective Subjective Date/Time Seen: 01/18/22 16:15 Patient reports: pain is less (Right upper quadrant abdominal pain improved today.), tolerating a regular diet and afebrile Review of Systems Review of Systems: All systems reviewed & are unremarkable except as noted in HPI and below ( HPI) Constitutional: Constitutional: Denies anorexia, Denies chills and Denies fever(s) Gastrointestinal: Gastrointestinal: Reports abdominal pain ( improved), Denies nausea and Denies vomiting Exam Const: General: comfortable, no acute distress, alert and awake Nutritional Appearance: average body habitus Orientation/consciousness: patient oriented x3 and No confusion GI: Inspection: normal to inspection and non-distended GI Palp: Yes Soft to palpation, Yes Tenderness to palpation present (GI) ( right upper quadrant), No Guarding due to palpation present (GI) and No Rebound tenderness present Auscultation: normal bowel sounds Objective Data Vital Signs Vital Signs: Vital Signs - 24 hr 01/17/22 20:00 01/17/22 20:33 01/17/22 21:12 Temperature Pulse Rate 96 96 68 Respiratory Rate 20 20 20 Blood Pressure Pulse Oximetry 100 100 96 Oxygen Delivery Room Air Room Air Room Air 01/17/22 21:12 01/17/22 21:32 01/17/22 23:35 Temperature 36.2 C L Pulse Rate 68 68 93 Respiratory Rate 20 20 16 Blood Pressure 137/74 Pulse Oximetry 98 Oxygen Delivery 01/18/22 02:20 01/18/22 02:37 01/18/22 10:30 Temperature Pulse Rate 88 88 92 Respiratory Rate 20 20 18 Blood Pressure Pulse Oximetry Oxygen Delivery 01/18/22 10:39 01/18/22 08:45 01/18/22 15:04 Temperature Pulse Rate 89 90 Respiratory Rate 18 Blood Pressure Pulse Oximetry 95 Oxygen Delivery Room Air Room Air 01/18/22 14:00 Temperature 36.6 C Pulse Rate 60 Respiratory Rate 16 Blood Pressure 113/62 Pulse Oximetry 97 Oxygen Delivery Intake/Output Intake/Output: Intake & Output 01/15/22 01/16/22 01/17/22 01/18/22 23:59 23:59 23:59 23:59 Intake Total 750 347 476 4286 Output Total 400 1200 3000 Balance 056 -234 -0554 3400 Meds/Results Medications: Active Medications Generic Name Dose Route Start Last Admin Trade Name Freq PRN Reason Stop Dose Admin Albuterol 5 mg 01/11/22 08:00 01/18/22 15:06 Albuterol Sulfate Neb 2.5 Mg/3 Ml Inh INHALATION 5 mg Q6HRT FELIBERTO Administration Alprazolam 0.25 mg 01/11/22 02:56 01/17/22 21:02 Alprazolam (*Crx) 0.25 Mg Tablet PO 0.25 mg BID PRN Administration anxiety Atorvastatin Calcium 40 mg 01/11/22 09:00 01/18/22 10:17 Atorvastatin 40 Mg Tablet PO Not Given DAILY FELIBERTO Calcium Carbonate 500 mg 01/11/22 09:00 01/18/22 10:17 Calcium/Vitamin D 500 Mg Tablet PO Not Given QAM [facility] Calcium Polycarbophil 625 mg 01/11/22 09:00 01/18/22 10:17 Calcium Polycarbophil 625 Mg Tablet PO Not Given DAILY FELIBERTO Cyanocobalamin 1,000 mcg 01/11/22 09:00 01/18/22 10:17
[2022-01-18] MEDS: diphenhydrAMINE HCl CAP 25 MG CAPSULE 50 MG PO (20:51)
[2022-01-19] VITALS (9 sets, daily range): BP systolic 117–150; BP diastolic 72–76; PULSE 85–110; RESP 16–18; TEMP 36.6; O2SAT 93–100
[2022-01-19] MEDS: PIPERACILLIN/TAZOBACTAM SOD 3.375 GM in SODIUM CHLORIDE 0.9% IV 50 ML IVPB ×3 (02:13→13:32)
[2022-01-19] MEDS: ALBUTEROL SULFATE NEB 2.5 MG/3 ML INH 5 MG INHALATION ×3 (03:18→14:29)
[2022-01-19] MEDS: IPRATROPIUM BR 0.02% INH SOLN 0.5 MG/2.5 ML VIAL INHALATION ×3 (03:18→14:29)
[2022-01-19 07:27] LABS: Basophils Absolute Auto 0.1 K/mm3 (0.0-0.1); Basophils Percent Auto 1.4 % (0.2-1.2); Eosinophils Absolute Auto 0.2 K/mm3 (0-0.3); Eosinophils Percent Auto 2.7 % (0-4.4); Hematocrit 26.3 % (37.0-47.0); Hemoglobin 8.9 g/dL (12.0-15.0); Immature Granulocyte Absolute 0.05 K/mm3 (0.00-0.031); Immature Granulocyte Percent A 0.8 % (0-0.5); Lymphocytes Absolute Auto 0.88 K/mm3 (0.9-3.2); Lymphocytes Percent Auto 13.3 % (18.3-44.2); Mean Corpuscular HGB Conc 33.8 g/dl (32-36); Mean Corpuscular Hemoglobin 28.4 pg (26-34); Mean Platelet Volume 11.9 fl (7.4-10.4); Monocytes Absolute Auto 0.7 K/mm3 (0.1-0.6); Monocytes Percent Auto 10.8 % (2.6-8.5); Neutrophils Absolute Auto 4.7 K/mm3 (1.3-6.7); Platelet Count Result 194 k/mm3 (150-375); Red Blood Count 3.13 M/mm3 (4.2-5.4); White Blood Count 6.6 K/mm3 (4.5-10.0)
[2022-01-19 08:04] LABS: Alanine Aminotransferase 19 U/L (6-35); Albumin Level 3.7 g/dL (3.5-5.1); Alkaline Phosphatase 262 U/L (38-126); Anion Gap 7 mmol/L (8-16); Aspartate Amino Transferase 27 U/L (14-36); Bilirubin,Total 1.7 mg/dL (0.2-1.3); Blood Urea Nitrogen 6 mg/dL (7-17); Calcium 8.4 mg/dL (8.4-10.2); Carbon Dioxide 26 mmol/L (22-30); Chloride 100 mmol/L (98-107); Estimated CRCL calculation 49 ml/min; Estimated Glomerular Filt Rate > 60; Glucose 94 mg/dL (65-110); Magnesium 1.6 mg/dL (1.6-2.3); Sodium 133 mmol/L (137-145)
--- NOTE | 2022-01-19 08:18 | PCOTNOTE ---
Attempted OT tx this AM. Patient refusing at this time due to being angry that she hasn't been discharged yet .
[2022-01-19] MEDS: ATORVASTATIN 40 MG TABLET PO (08:23)
[2022-01-19] MEDS: FOLIC ACID 1 MG TABLET PO (08:24)
[2022-01-19] MEDS: PANTOPRAZOLE 40 MG TABLET PO (08:24)
[2022-01-19] MEDS: FUROSEMIDE 20 MG TABLET PO (08:24)
[2022-01-19] MEDS: FERROUS SULFATE 324 MG TABLET PO (08:24)
[2022-01-19] MEDS: CYANOCOBALAMIN 1,000 MCG TABLET 1000 MCG PO (08:24)
[2022-01-19] MEDS: CHOLECALCIFEROL 1,000 UNITS TABLET 1000 UNITS PO (08:24)
[2022-01-19] MEDS: SODIUM CHLORIDE 500 MG TABLET 1000 MG PO (08:24)
[2022-01-19] MEDS: DOCUSATE SODIUM 100 MG CAPSULE PO (08:24)
[2022-01-19] MEDS: THIAMINE HCL 100 MG TABLET PO (08:24)
[2022-01-19] MEDS: calcium polycarbophiL 625 MG TABLET PO (08:24)
[2022-01-19] MEDS: POTASSIUM CHLORIDE 10 MEQ TABLET.ER 20 MEQ PO (08:24)
[2022-01-19] MEDS: ENOXAPARIN 40 MG/0.4 ML SYRINGE SUB-Q (08:25)
[2022-01-19] MEDS: traMADol HCL (*CRX) 50 MG TABLET PO ×2 (08:30→13:38)
[2022-01-19] MEDS: ALPRAZolam (*CRX) 0.25 MG TABLET PO (08:30)
--- NOTE | 2022-01-19 15:41 | PM.DS ---
DS: Admitting Diagnosis Discharge Date 01/19/22 Admitting Diagnosis Weakness DS: Discharge Diagnosis Discharge Diagnosis (1) Shock circulatory: Code(s): R57.9 - Shock, unspecified Status: Acute (2) Status post lobectomy of lung: Onset Date: 12/30/21 Code(s): Z90.2 - Acquired absence of lung [part of] Status: Acute (3) Abnormal urinalysis: Code(s): R82.90 - Unspecified abnormal findings in urine Status: Acute (4) Hyponatremia: Code(s): E87.1 - Hypo-osmolality and hyponatremia Status: Acute (5) Atrial fibrillation: Code(s): I48.91 - Unspecified atrial fibrillation Status: Acute (6) Hypokalemia: Code(s): E87.6 - Hypokalemia Status: Acute DS: Summary Hospital Course Reason for hospitalization: 76yo female with HTN, COPD and recent diagnosis of 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 Please see H&P for details Hospital Course: The patient reports that she was diagnosed with lung cancer after she had a screening imaging study showed a mass and a CT-guided biopsy in October 2021 demonstrated squamous cell carcinoma.? She had a PET scan November 04 which demonstrated localized 1.5 cm mass in the right upper lobe.? She underwent right upper lobe lobectomy at [facility] on 12/30.? She reports she was discharged from hospital on the .?? Patient presented with weakness and found to be hypotensive. She was fluid resuscitated. Central line was placed and she was started on Levophed. Lactic acid level was normal. She was started on broad-spectrum IV antibiotics. Urine culture grew Klebsiella. She did have right wrist pain and Orthopedics was consulted for that. She did undergo arthrocentesis but this culture also was negative. Fluid was not sent for crystals. COVID was negative. CTA of the chest was negative for PE. She did have mild pulmonary edema, cardiomegaly with dilated right atrium and postsurgical changes in the right chest. Patient also noted to have severe hyponatremia with a sodium 115. Nephrology was consulted. She had acute kidney injury with a creatinine of 1.4. With hydration, renal failure resolved. Sodium climbed slowly and on discharge it was 133. There was concern for acute cholecystitis. HIDA scan however showed normal gallbladder function. Her blood pressure improved and she was able to weaned off pressors quickly. We were able to add back some of her home medications including Lasix which she tolerated well. Patient worked with therapy. Hemoglobin is low on admission but remains stable in the 8-9 range. SPEP was consistent with acute inflammatory response. Troponins were negative x3. EKG showed atrial fibrillation that was rate controlled. She is up ambulating in the room. Patient overall did well was able to be discharged home on 01/19/2022. Status at Discharge Cognitive/behavioral status at discharge: Stable Time Spent with Patient Time attestation: Total time spent providing and/or coordinating discharge services: 45 minutes Time spent: Greater than 30 minutes Exam Narrative: AF 97.8 117/76 101 18 100% ra Gen - NARD Chest - Decreased BS in the right base. right flank and back surgical wounds healing well without drainage or erthema CV -irregularly irregular. Abd - Soft, NT/ND, Positive BS Ext -trace pedal edema. Negative Homans sign Psych - Nml mood and affect Skin - Warm and dry DS: Data Data Completed and Pending Labs on day of discharge: Labs from last 24 hours 01/19/22 01/19/22 07:17 07:17 WBC 6.6 RBC 3.13 L Hgb 8.9 L Hct 26.3 L MCV 84.0 MCH 28.4 MCHC 33.8 RDW 17.0 H Plt Count 194 MPV 11.9 H Immature Gran % (Auto) 0.8 H Neut % (Auto) 71.0 Lymph % (Auto) 13.3 L [place] % (Auto) 10.8 H Eos % (Auto) 2.7 Baso % (Auto) 1.4 H Lymph # (Auto) 0.88 L [place] # (Auto) 0.7 H Eos # (Auto
--- NOTE | 2022-01-19 17:43 | PM.PNNEP ---
Progress Note: A&P Additional Plan The patient had hyponatremia. Sodium level has gradually come up. Will stop the Lasix and salt tablets. Stay on the fluid restriction. Check labs in a few days and follow up with primary care physician. If there is trouble with the sodium she can come to our office for further follow-up as well. I asked the patient to stick to about 5 or 6 glasses of water or other liquids per day. Subjective Date/time seen: 01/19/22 17:43 Interval history: Patient feels okay. No chest pain or shortness of breath. Eager for discharge. Review of Systems Cardiovascular: Cardiovascular: Reports no additional cardiovascular complaints Respiratory: Respiratory: Reports no additional respiratory complaints Gastrointestinal: Gastrointestinal: Reports no additional gastrointestinal complaints Genitourinary: Genitourinary: Reports no additional female genitourinary complaints Exam Narrative: WDWN in NAD skin no rash head ncat lungs clear cor reg no rub abd BS+ nontender and soft ext no edema. Objective Data Vital Signs Vital Signs: Vital Signs - 24 hr 01/18/22 22:01 01/18/22 22:06 01/18/22 22:10 Temperature Pulse Rate 99 91 Respiratory Rate 18 18 Blood Pressure Pulse Oximetry 94 Oxygen Delivery Room Air 01/18/22 22:00 01/19/22 03:22 01/19/22 03:30 Temperature 36.6 C Pulse Rate 103 H 101 H 99 Respiratory Rate 18 18 18 Blood Pressure 126/78 Pulse Oximetry 97 Oxygen Delivery 01/19/22 06:00 01/19/22 08:54 01/19/22 08:57 Temperature 36.6 C Pulse Rate 98 104 H Respiratory Rate 16 18 Blood Pressure 150/72 H Pulse Oximetry 97 93 Oxygen Delivery Room Air 01/19/22 09:02 01/19/22 08:24 01/19/22 14:00 Temperature 36.6 C Pulse Rate 97 85 Respiratory Rate 18 18 Blood Pressure 117/76 Pulse Oximetry 100 Oxygen Delivery Room Air 01/19/22 14:29 01/19/22 14:38 Temperature Pulse Rate 110 H 101 H Respiratory Rate 18 18 Blood Pressure Pulse Oximetry Oxygen Delivery Intake/Output Intake/Output: Intake & Output 01/16/22 01/17/22 01/18/22 01/19/22 23:59 23:59 23:59 23:59 Intake Total 056 463 6401 250 Output Total 1200 3000 Balance -520 -1001 3450 250 Meds/Results Radiology Results: ITS Impressions Chest CTA 01/10/22 20:55 IMPRESSION: No CT evidence of acute pulmonary embolus. Mild pulmonary edema, more pronounced in the right lung. Small pericardial effusion. Cardiomegaly with marked dilation of the right atrium and signs of right heart failure. Pulmonary arterial hypertension. Post surgical changes in the right chest wall including small volume right pleural effusion and small anteriorly loculated pneumothorax. Chest X-Ray 01/11/22 08:43 Impression: 1: Central line tip in the cranial aspect of the SVC. 2: Interstitial infiltrates of the right lower lung which may represent edema or pneumonia. 3: Enlarged cardiopericardial silhouette. Cannot exclude pericardial effusion. Wrist X-Ray 01/11/22 08:49 IMPRESSION: 1. 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 Joint Aspiration/Injection 01/12/22 11:50 IMPRESSION: 1. Successful Ultrasound-guided aspiration of the right wrist joint yielding 1 mL of clear yellowish fluid which was sent to the lab for Gram stain, cultures and crystal analysis. Abdomen/Pelvis CT 01/15/22 14:03 IMPRESSION: Cardiomegaly. Pulmonary edema and small pericardial effusion. Small bilateral pleural effusions. Cirrhosis. Mild ascites and body wall edema. Nonspecific gallbladder wall thickening. Bladder findings that may reflect cystitis, in the appropriate clinical context. Upper Quadrant Ultrasound 01/17/22 10:28 IMPRESSION: Cholelithiasis and gallbladder wall thickening; acute cholecystitis is not excluded. Consider radionuclide hepatobiliary scan for more definitive evaluation of possible acute cholecystitis as clinically ap
--- NOTE | 2022-01-22 07:36 | PC.NURSE ---
UPEP shows no abn peaks. Dr. Cesar dupont.
[2022-01-31 15:32] LABS: Creatinine, Random Urine 39 mg/dL
== END 2022-01-19 17:20 | disposition home or self-care (01) | DRG 871 ==
LOC: ANHED 22:55 → ANHIMU 23:19 → ANHICU 01-11 00:33 → ANH3MEDSUR 01-13 09:29 → ANHICU 01-20 11:33
PROVIDERS: Internal Medicine; Internal Medicine Nephrology; Admitting Provider Internal Medicine; Emergency Provider Emergency Medicine; PCP Internal Medicine; Visit Provider Internal Medicine
DX: A41.9 Sepsis, unspecified organism (principal); R65.21 Severe sepsis with septic shock; E87.1 Hypo-osmolality and hyponatremia; N39.0 Urinary tract infection, site not specified; C34.11 Malignant neoplasm of upper lobe, right bronchus or lung; Z20.822 Contact with and (suspected) exposure to COVID-19; Z90.2 Acquired absence of lung [part of]; I48.91 Unspecified atrial fibrillation; E87.6 Hypokalemia; Z87.891 Personal history of nicotine dependence; Z79.899 Other long term (current) drug therapy; J44.9 Chronic obstructive pulmonary disease, unspecified; F10.21 Alcohol dependence, in remission; I27.20 Pulmonary hypertension, unspecified; Z80.1 Family history of malignant neoplasm of trachea, bronchus and lung; Z83.3 Family history of diabetes mellitus; I50.814 Right heart failure due to left heart failure; M19.031 Primary osteoarthritis, right wrist; D64.9 Anemia, unspecified; K80.20 Calculus of gallbladder without cholecystitis without obstruction
CPT/HCPCS: 20606; 36415; 71275; 73110; 74176; 76705; 78227; 80048; 80053; 80202; 81001; 81050; 82436; 82533; 82570; 83605; 83735; 83883; 83930; 83935; 84100; 84155; 84156; 84165; 84166; 84295; 84300; 84439; 84443; 84480; 84484; 84550; 85025; 85027; 85055; 85610; 85730; 86140; 87040; 87070; 87075; 87077; 87081; 87086; 87088; 87186; 87205; 93005; 94640; 96361; 96365; 96366; 96367; 96368; 96375; 97110; 97116; 97161; 97165; 97530; 97535; 99285; A9270; A9537; C1751; C9803; G0378; J0692; J1250; J1650; J1940; J2405; J2543; J2805; J3370; J3475; J7030; J7040; J7042; Q9967; U0003; U0005

== ENCOUNTER 2022-02-23 09:11 | Outpatient (CLI) | payer MEDICARE, SELFPAY ==
--- NOTE | ~2022-02-23 | XR_ITS ---
XR chest 2V 02/23/2022 09:37 Indication: Non-small cell cancer of the right lung. Procedure: 2 view chest Comparison: Comparison to multiple prior studies sequentially, with oldest reviewed study dated 11/03. Findings: Cardiomegaly. No focal air space disease, pulmonary edema, pleural effusion or suspected pn eumothorax. There is atherosclerosis. Impression: 1: No acute cardiopulmonary disease. 2: Cardiomegaly. Reviewed, dictated and finalized at location A. Impression: 1: No acute cardiopulmonary disease. 2: Cardiomegaly.
== END 2022-02-23 09:12 | disposition home or self-care (01) ==
PROVIDERS: PCP Internal Medicine
DX: C34.91 Malignant neoplasm of unspecified part of right bronchus or lung (principal); Z98.890 Other specified postprocedural states; I51.7 Cardiomegaly
CPT/HCPCS: 71046

== ENCOUNTER → 2023-09-07 09:55 | Outpatient (CLI) | payer MEDICARE, SELFPAY ==
--- NOTE | ~2023-09-07 | XR_ITS ---
EXAMINATION: XR ankle LT min 3V DATE: 09/07/2023 10:11 INDICATION: Left ankle pain, initial encounter TECHNIQUE: Anteroposterior, lateral, mortise, and additional oblique view of the ankle were obtained. COMPARISON: None. FINDINGS: There is an oblique fracture of the distal fibula which extends to the level of the tibial plafond. There is approximately one cortical width of lateral displacement of the distal fracture fra gment. The tibiotalar joint is unremarkable. There is lateral soft tissue swelling of ankle. No addit ional fracture is identified. IMPRESSION: 1. Oblique fracture of the distal fibula extending to the level of the tibial plafond. Reviewed, dictated and finalized at location L. GER CALL IMPRESSION: 1. Oblique fracture of the distal fibula extending to the level of the tibial p mazin.
== END ==
PROVIDERS: PCP Internal Medicine; Visit Provider Internal Medicine
DX: M25.472 Effusion, left ankle (principal); S82.432A Displaced oblique fracture of shaft of left fibula, initial encounter for closed fracture; X58.XXXA Exposure to other specified factors, initial encounter
CPT/HCPCS: 73610

== ENCOUNTER 2023-11-20 10:52 | Outpatient (NON) | payer MEDICARE, SELFPAY ==
[2023-11-20 11:37] LABS: Appearance Urine Clear (Clear); Blood Urine Negative (Negative); Color Urine Dark Yellow (Yellow); Glucose Urine UA Negative (Negative); Ketones Urine Negative (Negative); Protein Urine Trace mg/dL (Negative); Specific Grav Ur 1.008 (1.001-1.035); pH Urine 7.5 (5.0-9.0)
[2023-11-20 11:38] LABS: Bacteria Urine None Seen /hpf; Bilirubin Urine 1+ (Negative); Leukocyte Esterase Ur Trace LEU/UL (Negative); Nitrate Urine Negative (Negative); Non Pathogenic Casts 0-2; RBC Urine 0-2 /hpf (0-2); Squamous Epithelial Cell Urine Occasional /hpf (Few); WBC Urine 0-5 /hpf (0-3)
[2023-11-20 11:42] LABS: Add Urine Microscopic? YES
== END 2023-11-20 10:53 | disposition home or self-care (01) ==
PROVIDERS: PCP Internal Medicine; Visit Provider Internal Medicine
DX: R35.0 Frequency of micturition (principal)
CPT/HCPCS: 81001

== ENCOUNTER 2023-11-26 17:55 | Inpatient (IN) | payer MEDICARE, SELFPAY ==
[2023-11-26] VITALS (14 sets, daily range): BP systolic 95–122; BP diastolic 46–78; PULSE 71–116; RESP 16–27; TEMP 36.8–37; O2SAT 95–100; BMI 26.3
--- NOTE | ~2023-11-26 | MR_ITS ---
EXAMINATION: MR MRCP wo/w con/w 3D wo ind DATE: 11/27/2023 12:40 INDICATION: Jaundice TECHNIQUE: Magnetic resonance imaging (MRI) of the abdomen was performed without and with 14 mL Multi laura intravenous contrast. Sequences included coronal T2-weighted SS-FSE, coronal T2-weighted FS SS- FSE, coronal T2-weighted FS FIESTA, axial T2-weighted FS FIESTA, axial T2-weighted FIESTA, sagittal T 2-weighted SS-FSE, axial T1-weighted dual-echo FSPGR, axial T2-weighted SS-FSE, axial T1-weighted LAV A, axial T2-weighted STIR FSE. Thick-slab T2-weighted FRF SE-XL images were obtained for magnetic res onance cholangiopancreatography (MRCP). Rotating maximum intensity projection 3-D reconstructions of the volumetric data were created by the technologist. Postcontrast sequences included a time course o f axial T1-weighted LAVA. COMPARISON: CT dated 11/26/2023 FINDINGS: ABDOMEN MRI: Cardiomegaly with small to moderate-sized pericardial effusion. Smooth T2 hyperintense septal line th ickening at the dependent lower lungs consistent with mild pulmonary edema. No pleural effusion. Ther e is mild liver surface nodularity raises suspicion for cirrhosis. Cholelithiasis along the dependent gallbladder. Mild wall thickening of the incompletely distended gallbladder which is most prominent along the gallbladder fossa . Spleen, pancreas, bilateral adrenal glands and right kidney are normal. There are a few small T2 hyperintense nonenhancing cysts in the left kidney measuring up to 9 mm. Th ere is also a small region of cortical scarring at the posterior interpolar region of the left kidney likely sequela prior infection or infarction. The visualized bowels are unremarkable with no dilatio n to suggest obstruction. No pathologically enlarged abdominal or upper pelvic lymphadenopathy. Mild lumbar levoscoliosis with severe spondylosis. ABDOMEN MRCP: Diffuse mild intrahepatic biliary ductal dilation. There is also mild dilation of the common bile roberth t which measures up to 8 mm in maximal diameter. There are at least 4 stones scattered throughout the common bile duct. Main pancreatic duct is normal. IMPRESSION: 1. Cholelithiasis and choledocholithiasis with mild intra and extrahepatic biliary ductal dilation. 2. Mild wall thickening of the incompletely distended gallbladder with differential including acute c holecystitis or edema related to either liver or heart disease. Could consider HIDA scan for further evaluation as clinically indicated. 3. Cardiomegaly with small to moderate-sized pericardial effusion and mild pulmonary edema. 4. Mild liver surface nodularity suspicious for acute cirrhosis. Reviewed, dictated and finalized at location B. IMPRESSION: 1. Cholelithiasis and choledocholithiasis with mild intra and extrahepatic bili viridiana ductal dilation. 2. Mild wall thickening of the incompletely distended gallbladder with differen tial including acute cholecystitis or edema related to either liver or heart di sease. Could consider HIDA scan for further evaluation as clinically indicated. 3. Cardiomegaly with small to moderate-sized pericardial effusion and mild pulm onary edema. 4. Mild liver surface nodularity suspicious for acute cirrhosis.
--- NOTE | ~2023-11-26 | CT_ITS ---
EXAMINATION: CTA chest PE abdomen pel DATE: 11/26/2023 20:10 INDICATION: Abdominal pain. Shortness of breath. TECHNIQUE: Computed tomography angiography (CTA) of the chest was performed with 100 mL Omnipaque-350 intravenous contrast timed to evaluate the pulmonary arteries. Coronal maximum intensity projection 3D-reconstructions were created by the technologist. Computed tomography (CT) of the abdomen and pelv is was performed with intravenous contrast. Automated exposure control and iterative reconstruction t echnique were employed. The dose-length product was 559.51 mGy-cm. COMPARISON: CT abdomen and pelvis 05/18/2022 FINDINGS: CTA chest: There is mild emphysema. There is smooth septal thickening in the lungs, consistent with m ild pulmonary edema. There is mild atelectasis bilaterally. There is a trace right pleural effusion. Cardiomegaly is noted. There is a small pericardial effusion. There are coronary artery calcification s. The central pulmonary is enlarged, consistent pulmonary arterial hypertension. There is no pulmona ry embolus. Aortic atherosclerosis is noted. There is moderate thoracic spondylosis. CT abdomen and pelvis: The liver is normal. There are gallstones in the gallbladder, which is normal in size. Gallbladder wall thickening is noted, likely secondary to interstitial edema. The spleen, pa ncreas, adrenal glands, and right kidney are normal. There is cortical thinning of left kidney. There is diverticulosis of the colon without evidence of diverticulitis. The appendix is not visualized. T here is calcified atherosclerosis of the aorta and many of the other arteries. There is severe stenos is of left superficial femoral artery. There are no pathologically enlarged lymph nodes. There is no free intraperitoneal fluid. There is severe lumbar spondylosis. IMPRESSION: 1. No pulmonary embolus. 2. Mild pulmonary edema. 3. Mild emphysema. 4. Small pericardial effusion. 5. Severe stenosis of left superficial femoral artery. Reviewed, dictated and finalized at location E.
--- NOTE | ~2023-11-26 | XR_ITS ---
EXAMINATION: XR ERCP DATE: 11/28/2023 13:30 CDT INDICATION: GALLSTONES . TECHNIQUE: 4 fluoroscopic images of the right upper quadrant were obtained during ERCP, performed by Dr. Barber. I was not present during the procedure. Fluoroscopy exposure time was 138.9 seconds. A ir Kerma 23.6 mGy. DAP [id number] mGym2. COMPARISON: None FINDINGS/IMPRESSION: Fluoroscopic documentation of ERCP. Please refer to the operative note for complete procedural detail s . Reviewed, dictated and finalized at location K.
--- NOTE | ~2023-11-26 | US_ITS ---
EXAMINATION: US abdomen limited DATE: 11/26/2023 19:01 INDICATION: Abdominal pain. Jaundice. TECHNIQUE: Multiple grayscale and Doppler ultrasound images of the abdomen were obtained. COMPARISON: Abdomen ultrasound 01/17/2022 FINDINGS: The visualized portions of the head, body, and tail of the pancreas are normal. The liver d emonstrates surface nodularity, consistent with cirrhosis. There is antegrade flow in main portal vei n. The gallbladder is distended and contains sludge and stones. Gallbladder wall thickening is noted. There is a positive sonographic Rodriguez's sign. The common duct is dilated to 12 mm. IMPRESSION: 1. Acute cholecystitis. 2. Common duct dilated to 12 mm. 3. Cirrhosis of the liver. Reviewed, dictated and finalized at location E.
--- NOTE | 2023-11-26 17:59 | ED.ABDPAIN ---
HPI - Abdominal Pain General Chief Complaint: Abdominal Pain Stated Complaint: dizzy, abd pain History of Present Illness HPI narrative: Patient is a 78-year-old female with history of AFib, COPD, IBS, CHF, squamous cell lung cancer, status post right upper lobe resection here with abdominal pain and jaundice. She states the abdominal pain began about 12 days ago. She notes it is located in the upper abdomen and right upper quadrant, radiates diffusely throughout her abdomen. Yesterday she started noticing that her eyes and skin seemed to be more yellow than normal. She did contact her primary care doctor about a week ago, they checked her for urinary tract infection and started her on antibiotics, she is unsure of what antibiotic she is on. She notes some mild increased shortness of breath, does not feel similar to her prior COPD exacerbations. She denies any chest pain. She does note some associated dizziness and tiredness. Related Data Home Medications Medication Instructions Recorded Confirmed Calcium 600 + D(3) 1 cap PO DAILY 08/18/21 11/06/23 calcium polycarbophil 625 mg 625 mg PO DAILY 08/18/21 11/06/23 tablet (FiberCon) cholecalciferol (vitamin D3) 25 25 mcg PO DAILY 08/18/21 11/06/23 mcg (1,000 unit) tablet (Vitamin D3) cyanocobalamin (vitamin B-12) 1,000 mcg PO DAILY 08/18/21 11/06/23 1,000 mcg tablet (Vitamin B-12) Allergies Allergy/AdvReac Type Severity Reaction Status Date / Time Penicillins Allergy Severe Rash Verified 11/26/23 18:03 Review of Systems Review of Systems: All systems reviewed & are unremarkable except as noted in HPI and below [facility] Past Medical History Medical History (Updated 11/26/23 @ 20:57 by Michelle Seo MD) JAVON (acute kidney injury) Atrial fibrillation BMI 23.0-23.9, adult Cataract of both eyes COPD (chronic obstructive pulmonary disease) PFTs 11/2021: Mild obstructive airway disease moderate reduced diffusion capacity Elevated alkaline phosphatase level Elevated homocysteine ETOHism Hearing loss Hospital discharge follow-up Hyponatremia With baseline sodium ranging between 128 and 138 Hypotension IBS (irritable bowel syndrome) Iron deficiency anemia secondary to blood loss (chronic) With most recent iron studies September 2021 due to severe epistaxis from Xarelto use Moderate mitral valve regurgitation KADEN May 2021 Orthostatic hypotension Right upper quadrant abdominal pain Right-sided heart failure TTE April 2021: Mild concentric left ventricular hypertrophy, indeterminate diastolic function, ejection fraction 61%, moderate enlargement of the right ventricle, moderate right ventricular hypokinesis, severe biatrial enlargement, moderate to severe mitral valve regurgitation, severe pulmonary hypertension with RVSP of 69, moderate to severe tricuspid regurgitation Sepsis Severe pulmonary hypertension Shock Squamous cell carcinoma of lung, stage I (10/2021) PET scan demonstrated 1.5 cm spiculated right upper lobe lung mass concerning for primary bronchogenic carcinoma. No evidence to suggest metastatic disease Tobacco abuse Tortuous colon Surgical History Surgical History History of appendectomy History of carpal tunnel surgery of right wrist History of colonoscopy with polypectomy X2 in the past with last colonoscopy August 2021 demonstrated no polyps History of tonsillectomy History of total hysterectomy with bilateral salpingo-oophorectomy (BSO) Status post lobectomy of lung (12/30/21) Due to lung cancer reportedly stage I Family History Family History Sibling Lung cancer Rheumatoid arthritis Father Rheumatoid arthritis Mother Diabetes mellitus Social History Social History Social History: Code status: Full code Surrogate decision maker: Smoking
--- NOTE | 2023-11-26 18:01 | ECG_ITS ---
SEE SCANNED COPY FOR CONFIRMED REPORT MTDD
[2023-11-26 18:49] LABS: Basophils Absolute Auto 0.1 K/mm3 (0.0-0.1); Basophils Percent Auto 0.3 % (0.2-1.2); Eosinophils Absolute Auto 0.1 K/mm3 (0-0.3); Eosinophils Percent Auto 0.3 % (0-4.4); Hematocrit 30.1 % (37.0-47.0); Hemoglobin 10.5 g/dL (12.0-15.0); Immature Granulocyte Absolute 0.18 K/mm3 (0.00-0.031); Immature Granulocyte Percent A 0.8 % (0-0.5); Lymphocytes Absolute Auto 0.64 K/mm3 (0.9-3.2); Lymphocytes Percent Auto 2.7 % (18.3-44.2); Mean Corpuscular HGB Conc 34.9 g/dl (32-36); Mean Corpuscular Hemoglobin 29.9 pg (26-34); Mean Corpuscular Volume 85.8 fl (80-100); Mean Platelet Volume 12.7 fl (7.4-10.4); Monocytes Absolute Auto 0.9 K/mm3 (0.1-0.6); Monocytes Percent Auto 3.9 % (2.6-8.5); Platelet Count Result 186 k/mm3 (150-375); Red Blood Count 3.51 M/mm3 (4.2-5.4); Red Cell Distribution Width 18.8 % (11.5-14.5); White Blood Count 23.8 K/mm3 (4.5-10.0)
[2023-11-26 18:59] LABS: Alanine Aminotransferase 73 U/L (6-35); Albumin Level 4.2 g/dL (3.5-5.1); Alkaline Phosphatase 807 U/L (38-126); Anion Gap 10 mmol/L (4-12); Aspartate Amino Transferase 154 U/L (14-36); Bilirubin,Total 8.5 mg/dL (0.2-1.3); Blood Urea Nitrogen 5 mg/dL (7-17); Calcium 9.3 mg/dL (8.4-10.2); Carbon Dioxide 24 mmol/L (22-30); Chloride 89 mmol/L (98-107); Estimated CRCL calculation 53 ml/min; Estimated Glomerular Filt Rate > 60; Glucose 118 mg/dL (65-110); Lipase 1170 U/L (23-300); Potassium 3.2 mmol/L (3.4-5.0); Sodium 123 mmol/L (137-145)
[2023-11-26 19:00] LABS: Lactic Acid Reflex 1.5 mmol/L (0.7-2.0)
[2023-11-26 19:01] LABS: INR 1.1; Partial Thromboplastin Time 35.1 Seconds (22.3-36.8); Prothrombin Time 14.1 Seconds (11.1-14.7)
[2023-11-26 19:10] LABS: NT Pro B Type Natriuretic Pept 11900 pg/mL (19.9-100); Troponin I 0.014 ng/mL (0.000-0.034)
[2023-11-26 19:14] LABS: CRP 8.3 mg/dL (<1.0)
[2023-11-26 19:15] LABS: Platelet Estimate Adequate (Adequate)
[2023-11-26 19:16] LABS: Anisocytosis 1+; Burr Cells 1+; Schistocytes None Seen
[2023-11-26 19:50] LABS: Ammonia < 9 umol/L (9-30)
[2023-11-26] MEDS: ONDANSETRON INJ 4 MG/2 ML VIAL IV PUSH (20:24)
[2023-11-26] MEDS: metroNIDAZOLE 500 MG/ISO 100ML 500 MG/100 ML BAG 100 MG IVPB (20:24)
[2023-11-26] MEDS: LACTATED RINGERS 2,100 ML/1,000 ML BAG 999 ML IV CONT ×2 (20:24→20:46)
[2023-11-26] MEDS: MORPHINE SULFATE (*CRX) 2 MG/ML INJ IV PUSH (20:24)
[2023-11-26] MEDS: CIPROFLOXACIN 400 MG/D5W 200ML 200 ML 200 MG IVPB (20:37)
--- NOTE | 2023-11-26 20:50 | PC.NURSE ---
IV fluids discontinued due to patients BNP lab result
--- NOTE | 2023-11-26 20:54 | PM.IMHP ---
H&P: HPI History of Present Illness Date/Time: 11/26/23 20:54 Chief Complaint: Abdominal pain Narrative: this is a 78-year-old female past medical history significant for type diabetes mellitus, alcohol dependence, iron deficiency anemia, mitral valve regurg, EXAMINATION: US abdomen limited DATE:? 11/26/2023 19:01 INDICATION: Abdominal pain. Jaundice. TECHNIQUE: Multiple grayscale and Doppler ultrasound images of the abdomen were obtained. COMPARISON: Abdomen ultrasound 01/17/2022 FINDINGS: The visualized portions of the head, body, and tail of the pancreas are normal. The liver demonstrates surface nodularity, consistent with cirrhosis. There is antegrade flow in main portal vein. The gallbladder is distended and contains sludge and stones. Gallbladder wall thickening is noted. There is a positive sonographic Rodriguez's sign. The common duct is dilated to 12 mm. IMPRESSION: 1. Acute cholecystitis. 2. Common duct dilated to 12 mm. 3. Cirrhosis of the liver. EXAMINATION: CTA chest PE abdomen pel DATE: 11/26/2023 20:10 INDICATION: Abdominal pain. Shortness of breath. TECHNIQUE: Computed tomography angiography (CTA) of the chest was performed with 100 mL Omnipaque-350 intravenous contrast timed to evaluate the pulmonary arteries. Coronal maximum intensity projection 3D-reconstructions were created by the technologist. Computed tomography (CT) of the abdomen and pelvis was performed with intravenous contrast. Automated exposure control and iterative reconstruction technique were employed. The dose-length product was 559.51 mGy-cm. COMPARISON: CT abdomen and pelvis 05/18/2022 FINDINGS: CTA chest: There is mild emphysema. There is smooth septal thickening in the lungs, consistent with mild pulmonary edema. There is mild atelectasis bilaterally. There is a trace right pleural effusion. Cardiomegaly is noted. There is a small pericardial effusion. There are coronary artery calcifications. The central pulmonary is enlarged, consistent pulmonary arterial hypertension. There is no pulmonary embolus. Aortic atherosclerosis is noted. There is moderate thoracic spondylosis. CT abdomen and pelvis: The liver is normal. There are gallstones in the gallbladder, which is normal in size. Gallbladder wall thickening is noted, likely secondary to interstitial edema. The spleen, pancreas, adrenal glands, and right kidney are normal. There is cortical thinning of left kidney. There is diverticulosis of the colon without evidence of diverticulitis. The appendix is not visualized. There is calcified atherosclerosis of the aorta and many of the other arteries. There is severe stenosis of left superficial femoral artery. There are no pathologically enlarged lymph nodes. There is no free intraperitoneal fluid. There is severe lumbar spondylosis. IMPRESSION: 1. No pulmonary embolus. 2. Mild pulmonary edema. 3. Mild emphysema. 4. Small pericardial effusion. 5. Severe stenosis of left superficial femoral artery. Review of Systems Review of Systems: epigastric pain, nausea, chills, night sweats. Constitutional: Constitutional: Reports chills, Reports night sweats and Reports poor appetite Eyes: Eyes: Denies change in vision ENT: Denies dysphagia and Denies odynophagia Cardiovascular: Cardiovascular: Denies chest pain, Denies radiating jaw, neck or arm pain and Denies palpitations Respiratory: Respiratory: Denies cough and Denies dyspnea Gastrointestinal: Gastrointestinal: Reports abdominal pain, Denies melena, Denies hematochezia, Denies coffee ground emesis, Reports GI cramping, Reports diarrhea, Reports nausea and Reports vomiting Genitourinary: Genitourinary: Denies dysuria Musculoskeletal: Musculoskeletal: Denies myalgias Integumentary/Breasts: Skin/Breast: Denies rash Neurologic: Denies focal weakness and Denies Sensory deficit (Neuro) Psychiatric: Psychiatric: Reports no additional psychiatric complaints and Reports as per HPI
--- NOTE | 2023-11-26 22:14 | PC.NURSE ---
patient has been declining a straight catheter to provide urine sample. educated patient to use call light with any urge to urinate.
--- NOTE | 2023-11-26 22:56 | PC.NURSE ---
This patient, Ela Chen, was admitted to 3 [facility] Surg Room 319-01. Patient/family oriented to hospital policies and general routines including ID bracelet, bed and alarms, visiting hours, pain management, procedures, bathroom and other care routines, personal items, smoking policy, room service/diet, and visiting hours. Information on how to activate the Rapid Response Team has been discussed. Patient/Family are encouraged to report perceived risks to care and to ask questions if they do not understand what they are told or what they should do.
[2023-11-26 23:23] LABS: Troponin I < 0.012 ng/mL (0.000-0.034)
[2023-11-27] MEDS: DEXTROSE 5%/LACTATED RINGERS 1,000 ML 75 ML IV CONT (01:00)
[2023-11-27 05:20] VITALS: BP 117/60; PULSE 108; RESP 17; TEMP 36.8; O2SAT 91
[2023-11-27 05:27] LABS: Appearance Urine Clear (Clear); Bacteria Urine None Seen /hpf; Bilirubin Urine 3+ (Negative); Blood Urine Negative (Negative); Color Urine Dark Yellow (Yellow); Glucose Urine UA Negative (Negative); Ketones Urine Negative (Negative); Leukocyte Esterase Ur Trace LEU/UL (Negative); Need Manual Microscopic Reviewed; Nitrate Urine Positive (Negative); Protein Urine Trace mg/dL (Negative); RBC Urine 0-2 /hpf (0-2); Squamous Epithelial Cell Urine Occasional /hpf (Few); WBC Urine 0-5 /hpf (0-3); pH Urine 5.5 (5.0-9.0)
[2023-11-27 05:30] LABS: Specific Grav Ur 1.015 (1.001-1.035)
[2023-11-27 05:31] LABS: Add Urine Microscopic? YES
--- NOTE | 2023-11-27 08:18 | P.CONGI_ITS ---
I, Jayjay Alatorre MD, have provided a substantive portion of the care of this patient and discussed the patient with my Nurse Practitioner. I have reviewed any new relevant radiographic and laboratory results including medications. I agree with her documentation as noted below.?I personally performed the medical decision making and much of the history and exam for this encounter. briefly here with abdominal pain, nausea and dark urine, initially diagnosed with possible uti and given macrobid but got sicker. ER evaluation showed cholecystitis, bile duct 12mm no definitive bile duct stone, ultrasound also showed cirrhosis. bili 8, wbc 20k. Started on abx. Pending MRCP. Will complete work up for liver disease (etiology ? fatty liver), if choledocholithiasis then will need ERCP, surgery to evaluate given cholecystitis. Assessment and Plan Assessment and plan (1) Cirrhosis: Qualifiers: Ascites presence: without ascites Hepatic cirrhosis type: alcoholic cirrhosis Qualified Code(s): K70.30 - Alcoholic cirrhosis of liver without ascites Code(s): K74.60 - Unspecified cirrhosis of liver Status: Acute (2) Elevated LFTs: Code(s): R79.89 - Other specified abnormal findings of blood chemistry Status: Acute (3) Abnormal findings on diagnostic imaging of liver and biliary tract: Code(s): R93.2 - Abnormal findings on diagnostic imaging of liver and biliary tract Status: Acute (4) Normocytic anemia: Code(s): D64.9 - Anemia, unspecified Status: Acute (5) Acute pancreatitis: Qualifiers: Acute pancreatitis complication: unspecified Pancreatitis type: biliary Qualified Code(s): K85.10 - Biliary acute pancreatitis without necrosis or infection Code(s): K85.90 - Acute pancreatitis without necrosis or infection, unspecified Status: Acute (6) Hyponatremia: Code(s): E87.1 - Hypo-osmolality and hyponatremia Status: Acute (7) CHF (congestive heart failure): Qualifiers: Heart failure chronicity: unspecified Heart failure type: unspecified Qualified Code(s): I50.9 - Heart failure, unspecified Code(s): I50.9 - Heart failure, unspecified Status: Acute (8) Jaundice: Code(s): R17 - Unspecified jaundice Status: Acute (9) Personal history of colonic polyps: Code(s): Z86.010 - Personal history of colonic polyps Status: Acute Plan 1) Acute cholecystitis/abnormal HIDA scan: HIDA scan in January 2022 showed essentially complete emptying of the gallbladder with EF @ 100% post Kinevac administration which strongly suggests the gallbladder wall thickening identified on prior ultrasound related to other systemic causes of edema such as heart failure, liver failure, renal failure or sepsis. Ultrasound 11/26/2023 with acute cholecystitis With gallbladder distention and wall thickening with gallbladder containing sludge and stones, common bile duct dilated to 12 mm, and cirrhosis of the liver. WBC's on admission 24. * Surgery is on the patients case * MRCP pending * May required ERCP once stable if choledocholithiasis noted * ABX per primary care team and surgery 2) Acute biliary pancreatitis/elevated lipase: Normal appearing pancreas on CTA. Lipase on admission @ 1170. Patient was started on Macrobid 11/24/2023 for a UTI and patient took it for two days before discontinuing because she had a bad reaction . * Likely secondary to problem #1 versus multifactorial with medication induced? * Work up pending 3) Abnormal imaging liver/cirrhosis/elevated LFT's/jaundic
--- NOTE | 2023-11-27 08:18 | WPDGICN ---
Assessment and Plan Assessment and plan (1) Cirrhosis: Qualifiers: Ascites presence: without ascites Hepatic cirrhosis type: alcoholic cirrhosis Qualified Code(s): K70.30 - Alcoholic cirrhosis of liver without ascites Code(s): K74.60 - Unspecified cirrhosis of liver Status: Acute (2) Elevated LFTs: Code(s): R79.89 - Other specified abnormal findings of blood chemistry Status: Acute (3) Abnormal findings on diagnostic imaging of liver and biliary tract: Code(s): R93.2 - Abnormal findings on diagnostic imaging of liver and biliary tract Status: Acute (4) Normocytic anemia: Code(s): D64.9 - Anemia, unspecified Status: Acute (5) Acute pancreatitis: Qualifiers: Acute pancreatitis complication: unspecified Pancreatitis type: biliary Qualified Code(s): K85.10 - Biliary acute pancreatitis without necrosis or infection Code(s): K85.90 - Acute pancreatitis without necrosis or infection, unspecified Status: Acute (6) Hyponatremia: Code(s): E87.1 - Hypo-osmolality and hyponatremia Status: Acute (7) CHF (congestive heart failure): Qualifiers: Heart failure chronicity: unspecified Heart failure type: unspecified Qualified Code(s): I50.9 - Heart failure, unspecified Code(s): I50.9 - Heart failure, unspecified Status: Acute (8) Jaundice: Code(s): R17 - Unspecified jaundice Status: Acute (9) Personal history of colonic polyps: Code(s): Z86.010 - Personal history of colonic polyps Status: Acute Plan 1) Acute cholecystitis/abnormal HIDA scan: HIDA scan in January 2022 showed essentially complete emptying of the gallbladder with EF @ 100% post Kinevac administration which strongly suggests the gallbladder wall thickening identified on prior ultrasound related to other systemic causes of edema such as heart failure, liver failure, renal failure or sepsis. Ultrasound 11/26/2023 with acute cholecystitis With gallbladder distention and wall thickening with gallbladder containing sludge and stones, common bile duct dilated to 12 mm, and cirrhosis of the liver. WBC's on admission 24. Surgery is on the patients case MRCP pending May required ERCP once stable if choledocholithiasis noted ABX per primary care team and surgery 2) Acute biliary pancreatitis/elevated lipase: Normal appearing pancreas on CTA. Lipase on admission @ 1170. Patient was started on Macrobid 11/24/2023 for a UTI and patient took it for two days before discontinuing because she had a bad reaction . Likely secondary to problem #1 versus multifactorial with medication induced? Work up pending 3) Abnormal imaging liver/cirrhosis/elevated LFT's/jaundice: No prior Hx of EGD. Patient with hepatic steatosis noted on imaging dating back to 2018 and chronic Alk Phos elevation. LFT's were normal on 10/20/2023 except Alk Phos at 255. On admission LFT's showed total bili 8.5, Alk Phos 807, AST 154 and ALT 73. Ammonia <9, INR 1.1 and platelets 186. No ascites noted on CTA. Ultrasound with CBD dilation to 12 mm, acute cholecystis and cirrhosis. LFT's mixed picture but more cholestatic in presentation with acute transaminase elevation. Patient denies heavy alcohol use other than socially in her 20-30's. Acute presentation likely secondary to acute cholecystitis vs biliary obstruction and less likely secondary to liver disease as she appears compensated MRCP pending Cirrhosis likely secondary to longstanding history of hepatic steatosis but will order a liver work up to rule other possible underlying causes Continue to monitor LFT's Patient will need to follow up with us as outpatient for cirrhosis management and will need an EGD for esophageal varices screening 4) Normocytic anemia: last colonoscopy in August of 2021 showed no findings to explain anemia, at that time patient was on anticoagulants. CBC was normal October 19. O
--- NOTE | 2023-11-27 09:18 | PM.CNGS ---
Assessment and Plan Assessment and plan (1) Cholecystitis with cholelithiasis: Code(s): K80.10 - Calculus of gallbladder with chronic cholecystitis without obstruction Status: Acute Assessment and Plan: RUQ ultrasound on admission showed findings of acute cholecystitis and a dilated common bile duct. She also presented with leukocytosis and elevated LFTs with a bilirubin of 8.5. This is concerning for choledocholithiasis. GI was consulted. Agree with MRCP, which is pending. If the patient has evidence of acute cholecystitis and no common bile duct stone, then we could consider intervention. She would be a higher risk surgical candidate for a laparoscopic cholecystectomy given her multiple comorbidities and liver disease, but this appears compensated. The other option would be treating with antibiotics and consider percutaneous cholecystostomy tube placement if needed. Will discuss options with Dr. Seth following MRCP results. Will add IV antibiotics today to cover for cholecystitis and cholangitis given the concern of obstructive jaundice. Will also add labs to be repeated today. (2) Acute pancreatitis: Qualifiers: Acute pancreatitis complication: unspecified Pancreatitis type: biliary Qualified Code(s): K85.10 - Biliary acute pancreatitis without necrosis or infection Code(s): K85.90 - Acute pancreatitis without necrosis or infection, unspecified Status: Acute Assessment and Plan: CT without findings of pancreatitis, although lipase elevated at 1170 on admission. Will repeat labs today. Denies a history of pancreatitis. She has a history of ETOH abuse and gallstones with a dilated common bile duct. Could be alcohol vs biliary, but elevated LFTs concerning for obstructing common duct stone. MRCP pending. GI following. (3) Sepsis: Code(s): A41.9 - Sepsis, unspecified organism Status: Acute Assessment and Plan: Criteria met with tachycardia, tachypnea, hypotension, and leukocytosis. Source could be acute cholecystitis vs pancreatitis vs ascending cholangitis. One dose of ciprofloxacin and metronidazole were given in ER. No continued antibiotics were ordered. Labs repeated today and WBC up slightly to 24,000. Will add IV cefepime and metronidazole to cover for both cholecystitis and cholangitis. MRCP pending. If findings of a common duct stone, then patient will need ERCP. See plan above for cholecystitis. (4) Elevated LFTs: Code(s): R79.89 - Other specified abnormal findings of blood chemistry Status: Acute Assessment and Plan: LFTs elevated on admission with hyperbilirubinemia. LFTs about a month ago were normal other than a mildly elevated alk phos. Total bilirubin on admission was 8.5 with imaging showing a dilated common bile duct, concerning for obstructive jaundice/choledocholithiasis. Will repeat labs today and include a hepatic panel. MRCP ordered for today. GI also following and ordered other tests for further workup. (5) Jaundice: Code(s): R17 - Unspecified jaundice Status: Acute (6) Cirrhosis: Qualifiers: Ascites presence: without ascites Hepatic cirrhosis type: alcoholic cirrhosis Qualified Code(s): K70.30 - Alcoholic cirrhosis of liver without ascites Code(s): K74.60 - Unspecified cirrhosis of liver Status: Acute Assessment and Plan: Findings on CT and ultrasound of liver cirrhosis. This is reportedly new for patient but previous imaging does show changes of hepatic steatosis. No evidence of portal venous hypertension. Platelets and coags normal. Her liver cirrhosis increases her risks for a cholecystectomy. GI following and recommending eventual outpatient EGD, further workup pending. (7) ETOH abuse: Code(s): F10.10 - Alcohol abuse, uncomplicated Status: Acute Assessment and Plan: Patient denies heavy alcohol use for many years. She endorses drinking 1-2 drinks daily for the past few years u
[2023-11-27 09:54] LABS: Basophils Absolute Auto 0.1 K/mm3 (0.0-0.1); Basophils Percent Auto 0.2 % (0.2-1.2); Hematocrit 26.5 % (37.0-47.0); Hemoglobin 9.5 g/dL (12.0-15.0); Immature Granulocyte Absolute 0.32 K/mm3 (0.00-0.031); Immature Granulocyte Percent A 1.3 % (0-0.5); Immature Platelet Fraction Pct 17.2 % (0.9-11.2); Lymphocytes Absolute Auto 0.88 K/mm3 (0.9-3.2); Lymphocytes Percent Auto 3.6 % (18.3-44.2); Mean Corpuscular HGB Conc 35.8 g/dl (32-36); Mean Corpuscular Volume 83.6 fl (80-100); Mean Platelet Volume 13.3 fl (7.4-10.4); Monocytes Absolute Auto 1.1 K/mm3 (0.1-0.6); Monocytes Percent Auto 4.4 % (2.6-8.5); Neutrophils Absolute Auto 22.1 K/mm3 (1.3-6.7); Neutrophils Percent Auto 90.5 % (45.5-73.1); Platelet Count Result 197 k/mm3 (150-375); Red Blood Count 3.17 M/mm3 (4.2-5.4); Red Cell Distribution Width 18.4 % (11.5-14.5); White Blood Count 24.5 K/mm3 (4.5-10.0)
[2023-11-27 10:02] LABS: Alanine Aminotransferase 71 U/L (6-35); Albumin Level 3.7 g/dL (3.5-5.1); Alkaline Phosphatase 697 U/L (38-126); Anion Gap 7 mmol/L (4-12); Aspartate Amino Transferase 146 U/L (14-36); Bilirubin Direct 5.7 mg/dL (0-0.3); Bilirubin,Total 10.6 mg/dL (0.2-1.3); Blood Urea Nitrogen 7 mg/dL (7-17); Calcium 9.2 mg/dL (8.4-10.2); Carbon Dioxide 25 mmol/L (22-30); Chloride 91 mmol/L (98-107); Estimated CRCL calculation 47 ml/min; Estimated Glomerular Filt Rate > 60; Glucose 95 mg/dL (65-110); Lipase 124 U/L (23-300); Potassium 3.8 mmol/L (3.4-5.0); Sodium 123 mmol/L (137-145)
[2023-11-27 11:04] LABS: Crenated RBC 1+; Hypochromasia 2+; Ovalocytes 1+; Platelet Estimate Adequate (Adequate); Schistocytes 1+; Target Cells 1+
[2023-11-27 11:31] LABS: Hepatitis B Surface Antigen Negative (Negative)
[2023-11-27 11:37] LABS: HAV RESULT Negative (Negative); Hepatitis B Core IgM Result Negative (Negative)
[2023-11-27 11:48] LABS: Hepatitis C Virus Antibody Negative (Negative)
[2023-11-27 12:16] LABS: Iron 21 ug/dL (37-170)
[2023-11-27 12:25] LABS: Percent Iron Saturation 9 % (20-50)
[2023-11-27 14:00] VITALS: BP 116/47; PULSE 98; RESP 16; TEMP 36.4; O2SAT 97
[2023-11-27] MEDS: CEFEPIME 2 GM/NS 50 ML 2 GM/50 ML BAG IVPB ×2 (14:02→20:46)
[2023-11-27] MEDS: metroNIDAZOLE 500 MG/ISO 100ML 500 MG/100 ML BAG 100 MG IVPB ×2 (14:55→21:27)
[2023-11-27] MEDS: HYDROmorphone HCL INJ (*CRX) 1 MG/ML SYR IV PUSH (15:01)
--- NOTE | 2023-11-27 17:23 | PM.CNNEP ---
Assessment and Plan Assessment and plan (1) Hyponatremia: Code(s): E87.1 - Hypo-osmolality and hyponatremia Status: Acute Assessment and Plan: acute on chronic sodium levels appear to have fluctuated around 125 - 134 since 2019 previous/current evaluation noted: normal TSH normal cortisol urine electrolytes are prerenal SPEP/UPEP negative multiple risk factors for this issue COPD previous lung cancer acute pain pain medications pre-renal factors agree with ongoing trial of IVF hydration follow trend of repeat sodium levels (2) Cholecystitis with cholelithiasis: Code(s): K80.10 - Calculus of gallbladder with chronic cholecystitis without obstruction Status: Acute Assessment and Plan: RUQ ultrasound on admission showed findings of acute cholecystitis and a dilated common bile duct Surgery and GI following noted plan for MRCP on antibiotics NPO status IVFs continue supportive therapy (3) Acute pancreatitis: Qualifiers: Pancreatitis type: biliary Acute pancreatitis complication: unspecified Qualified Code(s): K85.10 - Biliary acute pancreatitis without necrosis or infection Code(s): K85.90 - Acute pancreatitis without necrosis or infection, unspecified Status: Acute Assessment and Plan: elevated lipase noted however, CT without findings of pancreatitis continus supportive therapy (4) Sepsis: Code(s): A41.9 - Sepsis, unspecified organism Status: Acute Assessment and Plan: as noted by tachycardia, tachypnea, hypotension, and leukocytosis on admission suspected source = acute cholecystitis vs pancreatitis vs ascending cholangitis on IV antibiotics follow culture data (5) Elevated LFTs: Code(s): R79.89 - Other specified abnormal findings of blood chemistry Status: Acute Assessment and Plan: associated with hyperbilirubinemia possibly due to obstructive jaundice/choledocholithiasis complicated by new findings of liver cirrhosis by admission imaging GI following with evaluation in progress (6) Type 2 diabetes mellitus without complication, without long-term current use of insulin: Code(s): E11.9 - Type 2 diabetes mellitus without complications Status: Acute Assessment and Plan: follow accu-cheks glycemic control per hospitalists I will continue follow the patient with you while she remains hospitalized make further recommendations as deemed necessary. Thank you for allowing me to participate in care of this patient. History of Present Illness Reason for Consult Consult date: 11/27/23 Reason for consult: hyponatremia Chief Complaint Chief complaint: choledocolithiaisis,cholecystitis,heart failure History of Present Illness Narrative: The patient is a 78-year-old female with a past medical history as outlined below who presented to [facility] with complaints of abdominal pain. The patient states that the abdominal pain was localized to her right upper quadrant and seemed to begin about 10-12 days ago. Unfortunately, she cannot recall the specific/ details of when that pain began but since it started, it has been nearly constant since that time. Due to the severity of her abdominal pain in association with persistent nausea she has had poor oral intake in this time frame. She reports that whenever she attempted to eat something, her pain will get aggravated. This was further complicated by the fact that she has had intermittent vomiting as well. During this period time, she reports that heard urine got very dark which concerned her and she called her PCP. She was empirically started on oral antibiotics on the assumption of a possible urinary tract infection but this medication just gave her more nausea and worsened her abdominal pain. More recently, she noticed that her skin seem to be yellowing which was eventuall
--- NOTE | 2023-11-27 17:23 | P.CONNP_ITS ---
Assessment and Plan Assessment and plan (1) Hyponatremia: Code(s): E87.1 - Hypo-osmolality and hyponatremia Status: Acute Assessment and Plan: * acute on chronic * sodium levels appear to have fluctuated around 125 - 134 since 2019 * previous/current evaluation noted: * normal TSH * normal cortisol * urine electrolytes are prerenal * SPEP/UPEP negative * multiple risk factors for this issue * COPD * previous lung cancer * acute pain * pain medications * pre-renal factors * agree with ongoing trial of IVF hydration * follow trend of repeat sodium levels (2) Cholecystitis with cholelithiasis: Code(s): K80.10 - Calculus of gallbladder with chronic cholecystitis without obstruction Status: Acute Assessment and Plan: * RUQ ultrasound on admission showed findings of acute cholecystitis and a dilated common bile duct * Surgery and GI following * noted plan for MRCP * on antibiotics * NPO status * IVFs * continue supportive therapy (3) Acute pancreatitis: Qualifiers: Pancreatitis type: biliary Acute pancreatitis complication: unspecified Qualified Code(s): K85.10 - Biliary acute pancreatitis without necrosis or infection Code(s): K85.90 - Acute pancreatitis without necrosis or infection, unspecified Status: Acute Assessment and Plan: * elevated lipase noted * however, CT without findings of pancreatitis * continus supportive therapy (4) Sepsis: Code(s): A41.9 - Sepsis, unspecified organism Status: Acute Assessment and Plan: * as noted by tachycardia, tachypnea, hypotension, and leukocytosis on admission * suspected source = acute cholecystitis vs pancreatitis vs ascending cholangitis * on IV antibiotics * follow culture data (5) Elevated LFTs: Code(s): R79.89 - Other specified abnormal findings of blood chemistry Status: Acute Assessment and Plan: * associated with hyperbilirubinemia * possibly due to obstructive jaundice/choledocholithiasis * complicated by new findings of liver cirrhosis by admission imaging * GI following with evaluation in progress (6) Type 2 diabetes mellitus without complication, without long-term current use of insulin: Code(s): E11.9 - Type 2 diabetes mellitus without complications Status: Acute Assessment and Plan: * follow accu-cheks * glycemic control per hospitalists I will continue follow the patient with you while she remains hospitalized make further recommendations as deemed necessary. Thank you for allowing me to participate in care of this patient. History of Present Illness Reason for Consult Consult date: 11/27/23 Reason for consult: hyponatremia Chief Complaint Chief complaint: choledocolithiaisis,cholecystitis,heart failure History of Present Illness Narrative: The patient is a 78-year-old female with a past medical history as outlined below who presented to [facility] with complaints of abdominal pain. The patient states that the abdominal pain was localized to her right upper quadrant and seemed to begin about 10-12 days ago. Unfortunately, she cannot recall the specific/ details of when that pain began but since it started, it has been nearly constant since that time. Due to the severity of her abdominal pain in association with persistent nausea she has had poor oral intake in this time frame. She reports that whenever she attempted to eat something, her pain will get aggravated. This
--- NOTE | 2023-11-27 18:36 | PM.IMPN ---
Progress Note: A&P Assessment and Plan (1) Sepsis: Code(s): A41.9 - Sepsis, unspecified organism Status: Acute (2) Cholecystitis with cholelithiasis: Code(s): K80.10 - Calculus of gallbladder with chronic cholecystitis without obstruction Status: Acute (3) Jaundice: Code(s): R17 - Unspecified jaundice Status: Acute (4) Acute pancreatitis: Qualifiers: Pancreatitis type: biliary Acute pancreatitis complication: unspecified Qualified Code(s): K85.10 - Biliary acute pancreatitis without necrosis or infection Code(s): K85.90 - Acute pancreatitis without necrosis or infection, unspecified Status: Acute Plan 78-year-old female with a history of [id number] diabetes mellitus, prior ETOH abuse, COPD, small cell lung cancer in 2020 status post right upper lobe resection, CHF, IBS, iron deficiency anemia. The patient presents with acute on chronic right upper quadrant pain with jaundice. She is found to have likely acute cholecystitis with a dilated common bile duct, biliary pancreatitis, possible UTI, sepsis. Pending MRCP. Patient is stable and NPO for anticipated procedures. She is currently on cefepime and metronidazole for possible intra-abdominal infection and possible UTI. Urine culture did not reflex from urinalysis, ordered that. Trend the white count which is high at 24. Trend the liver enzymes. She has chronic atrial fibrillation and non and anticoagulation due to nose bleeds. She has a history of CHF and COPD and her cardiopulmonary status appears to be stable. Continue Accu-Cheks q.6 hours with no sliding scale given she is NPO. [place] hypoglycemia protocol. She has hyponatremia with a sodium of 123. Suspect this is due to her acute anorexia due to gallbladder issue. Nephrology has been consulted and serum and urine studies are pending. Repeat sodium at 2100. Goal correction 6-8 millimoles per L per 24 hours. On her last admission in January 2020 to she had a similar sodium level. At that time TSH and cortisol were normal and urine electrolytes suggested pre renal azotemia. She did correct with fluid restriction and salt tablets and Lasix. She appears to be on Lasix still not salt tablets. Other compounding factors include COPD lung cancer, Protonix, diuretic use. She is currently on D5 LR at 75 cc/hour Dilaudid p.r.n., Zofran p.r.n.. FEN: NPO. D5 LR at 75 cc/hour GI prophylaxis: She is on Protonix at home, start Pepcid for GI prophylaxis considering she has hyponatremia DVT prophylaxis: SCDs pending procedure/surgery Lines: Peripheral IV Code Status: Full code Dispo: Stable. Continue telemetry in the setting of sepsis history of atrial fibrillation Subjective Date/time seen: 11/27/23 18:36 Interval history: Patient reports she is doing much better than admission. She reports there was almost no abdominal pain, she has not received pain medications 5 in the morning. She is currently in good spirits. Review of Systems Review of Systems: All systems reviewed & are unremarkable except as noted in HPI and below (Subjective) Exam Const: General: comfortable and no acute distress Other: Jaundiced. A&O x4 Eyes: Pupils: Equal, round and reactive pupils present Neck: Neck: supple Resp: Effort & Inspection: normal respiratory effort Auscultation: clear to auscultation bilaterally Cardio: Rate: regular rate Rhythm: regular rhythm GI: GI Palp: Yes Soft to palpation and No Guarding due to palpation present (GI) Other: Exquisite tenderness at the right upper quadrant, guarding however. Bowel sounds present no distension. Extrem: General: no edema Objective Data Vital Signs Vital Signs: Vital Signs - 24 hr 11/26/23 18:40 11/26/23 19:01 11/26/23 19:20 Temperature Pulse Rate 83 78 76 Respiratory Rate 19 20 27 H Blood Pressure 118/64 95/49 L 104/46 L Pulse Oximetry 100 98 98 Oxygen Delivery
[2023-11-27 19:46] VITALS: PULSE 98; RESP 16; O2SAT 97
[2023-11-27 20:15] VITALS: BP 134/57; PULSE 91; RESP 18; TEMP 36.8; O2SAT 93
[2023-11-27 20:36] LABS: Sodium 128 mmol/L (137-145)
[2023-11-27] MEDS: FAMOTIDINE 20 MG/2 ML VIAL IV PUSH (20:47)
[2023-11-28] VITALS (12 sets, daily range): BP systolic 117–172; BP diastolic 61–140; PULSE 87–125; RESP 16–28; TEMP 36.1–36.6; O2SAT 96–100
[2023-11-28 02:21] LABS: Creatinine Urine 109.8 mg/dL; Total Protein Urine Random 67 mg/dL; Ur Ttl Prot Creatinine Ratio 0.61 mg/mg (0-0.20); Urea Random Urine 464 MG/DL
[2023-11-28 02:25] LABS: Sodium Urine Random 7 meq/L
[2023-11-28 02:49] LABS: Eosinophil Urine None Seen % (None Seen); Urine Eos QC 2nd Tech Confirmed
[2023-11-28] MEDS: metroNIDAZOLE 500 MG/ISO 100ML 500 MG/100 ML BAG 100 MG IVPB ×3 (04:43→22:10)
[2023-11-28 06:46] LABS: Basophils Absolute Auto 0.1 K/mm3 (0.0-0.1); Basophils Percent Auto 0.5 % (0.2-1.2); Eosinophils Absolute Auto 0.1 K/mm3 (0-0.3); Eosinophils Percent Auto 0.6 % (0-4.4); Hematocrit 28.8 % (37.0-47.0); Hemoglobin 9.9 g/dL (12.0-15.0); Immature Granulocyte Absolute 0.14 K/mm3 (0.00-0.031); Immature Platelet Fraction Pct 20.4 % (0.9-11.2); Lymphocytes Absolute Auto 0.66 K/mm3 (0.9-3.2); Lymphocytes Percent Auto 4.9 % (18.3-44.2); Mean Corpuscular HGB Conc 34.4 g/dl (32-36); Mean Corpuscular Hemoglobin 29.8 pg (26-34); Mean Corpuscular Volume 86.7 fl (80-100); Mean Platelet Volume 13.1 fl (7.4-10.4); Monocytes Absolute Auto 0.8 K/mm3 (0.1-0.6); Monocytes Percent Auto 5.9 % (2.6-8.5); Neutrophils Absolute Auto 11.7 K/mm3 (1.3-6.7); Neutrophils Percent Auto 87.1 % (45.5-73.1); Platelet Count Result 169 k/mm3 (150-375); Red Blood Count 3.32 M/mm3 (4.2-5.4); Red Cell Distribution Width 19.4 % (11.5-14.5); White Blood Count 13.4 K/mm3 (4.5-10.0)
[2023-11-28 07:01] LABS: Alanine Aminotransferase 57 U/L (6-35); Albumin Level 3.6 g/dL (3.5-5.1); Alkaline Phosphatase 573 U/L (38-126); Anion Gap 8 mmol/L (4-12); Aspartate Amino Transferase 98 U/L (14-36); Bilirubin,Total 6.1 mg/dL (0.2-1.3); Blood Urea Nitrogen 8 mg/dL (7-17); Calcium 9.1 mg/dL (8.4-10.2); Carbon Dioxide 24 mmol/L (22-30); Chloride 96 mmol/L (98-107); Estimated CRCL calculation 61 ml/min; Estimated Glomerular Filt Rate > 60; Glucose 100 mg/dL (65-110); Magnesium 1.7 mg/dL (1.6-2.3); Potassium 3.9 mmol/L (3.4-5.0); Sodium 128 mmol/L (137-145)
[2023-11-28 07:24] LABS: Procalcitonin 0.2 ng/mL
[2023-11-28] MEDS: CEFEPIME 2 GM/NS 50 ML 2 GM/50 ML BAG IVPB ×2 (07:56→20:40)
[2023-11-28] MEDS: FAMOTIDINE 20 MG/2 ML VIAL IV PUSH ×2 (07:57→20:43)
[2023-11-28] MEDS: fentaNYL CITRATE INJ (*CRX) 100 MCG/2 ML VIAL 12.5 MCG IV PUSH (07:57)
--- NOTE | 2023-11-28 10:33 | PM.PNGS ---
Progress Note: A&P Assessment and Plan (1) Choledocholithiasis with acute cholecystitis with obstruction: Code(s): K80.43 - Calculus of bile duct with acute cholecystitis with obstruction Status: Acute Assessment and Plan: MRCP shows multiple stones in the bile duct. I believe Dr. Barber is proceeding with ERCP today. Her LFTs and bilirubin have dropped significantly from yesterday. Her white blood cell count has dropped quite a bit as well. The obstructive stone may have passed into the duodenum. She is doing better. I will change her pain medication to fentanyl as the hydromorphone was a bit much for her. Will need eventual laparoscopic cholecystectomy as this is likely the source of her stones. This will be more difficult due to her comorbid conditions especially her cirrhosis. (2) Gram-negative sepsis with organ dysfunction: Code(s): A41.50 - Gram-negative sepsis, unspecified; R65.20 - Severe sepsis without septic shock Status: Acute Assessment and Plan: Gram-negative bacteremia noted. Identity still pending (3) Cirrhosis: Qualifiers: Hepatic cirrhosis type: alcoholic cirrhosis Ascites presence: without ascites Qualified Code(s): K70.30 - Alcoholic cirrhosis of liver without ascites Code(s): K74.60 - Unspecified cirrhosis of liver Status: Chronic Assessment and Plan: History of heavy alcohol use as well as hepatic steatosis. Either could have contributed to her cirrhosis, possibly both. Creatinine, INR, initial albumin were all normal. Bilirubin elevated likely due to obstructive reasons. Sodium is low which can be attributed to her cirrhosis. Subjective Subjective Date/Time Seen: 11/28/23 06:33 Patient reports: still having pain (Was concerned her original symptoms were returning. Would like analgesics administered.) and afebrile Interval history: Patient had a dose of hydromorphone last night which she felt was way too strong. She does feel much better than she did on admission but is very concerned her pain may come back. Review of Systems Review of Systems: All systems reviewed & are unremarkable except as noted in HPI and below (HPI) Exam Const: General: comfortable, no acute distress, alert, awake and anxious Nutritional Appearance: average body habitus Orientation/consciousness: patient oriented x3 GI: Inspection: normal to inspection, no abdominal wall ecchymosis, no edema, non-distended, no obesity and no visible herniation GI Palp: Yes Soft to palpation, Yes Tenderness to palpation present (GI) (Mostly epigastrium, no guarding), No Guarding due to palpation present (GI), No Hernia present, No Palpable mass present and No Rebound tenderness present Auscultation: normal bowel sounds Neuro: General: patient oriented x3 and no focal motor deficits Extrem: General: no calf tenderness and no edema Psych: Appearance: well kempt Mental Status: mental status grossly normal Speech and movement: Clear speech present Affect: Anxious affect present Thought content: Yes Normal thought content present Insight: Good insight present (Psych) Judgement: Good judgement present (Psych) Objective Data Vital Signs Vital Signs: Vital Signs - 24 hr 11/27/23 14:00 11/27/23 16:00 11/27/23 19:46 Temperature 36.4 C L Pulse Rate 98 98 Respiratory Rate 16 16 Blood Pressure 116/47 L Pulse Oximetry 97 97 Oxygen Delivery Room Air Room Air 11/27/23 20:15 11/28/23 04:45 Temperature 36.8 C 36.6 C Pulse Rate 91 89 Respiratory Rate 18 18 Blood Pressure 134/57 L 123/62 Pulse Oximetry 93 96 Oxygen Delivery Intake/Output Intake/Output: Intake & Output 11/25/23 11/26/23 11/27/23 11/28/23 23:59 23:59 23:59 23:59 Intake Total 666.3 800 150 Output Total 1000 750 Balance 666.3 -200 -600 Meds/Results Medications: Active Medications Generic Name Dose Route Start Last Admin Trade Name Freq PRN Reason Stop Dose Admi
--- NOTE | 2023-11-28 11:06 | P.PNNP_ITS ---
Progress Note: A&P Assessment and Plan (1) Hyponatremia: Code(s): E87.1 - Hypo-osmolality and hyponatremia Status: Acute Assessment and Plan: * improvement noted * sodium levels appear to have fluctuated around 125 - 134mmol/L since 2019 * previous/current evaluation noted: * normal TSH * normal cortisol * urine electrolytes are prerenal * SPEP/UPEP negative * multiple risk factors for this issue * COPD * previous lung cancer * acute pain * pain medications * pre-renal factors * follow trend of repeat sodium levels (2) Cholecystitis with cholelithiasis: Code(s): K80.10 - Calculus of gallbladder with chronic cholecystitis without obstruction Status: Acute Assessment and Plan: * RUQ ultrasound on admission showed findings of acute cholecystitis and a dil ated common bile duct * Surgery and GI following * MRCP results noted -- plan for ERCP later today * on antibiotics * NPO status * IVFs * continue supportive therapy (3) Acute pancreatitis: Qualifiers: Pancreatitis type: biliary Acute pancreatitis complication: unspecified Qualified Code(s): K85.10 - Biliary acute pancreatitis without necrosis or inf ection Code(s): K85.90 - Acute pancreatitis without necrosis or infection, unspecified Status: Acute Assessment and Plan: * elevated lipase noted * however, CT without findings of pancreatitis * continus supportive therapy (4) Sepsis: Code(s): A41.9 - Sepsis, unspecified organism Status: Acute Assessment and Plan: * as noted by tachycardia, tachypnea, hypotension, and leukocytosis on admission * suspected source = acute cholecystitis vs pancreatitis vs ascending cholangitis * on IV antibiotics * follow culture data - positive blood cultures noted (5) Elevated LFTs: Code(s): R79.89 - Other specified abnormal findings of blood chemistry Status: Acute Assessment and Plan: * associated with hyperbilirubinemia * possibly due to obstructive jaundice/choledocholithiasis * complicated by new findings of liver cirrhosis by admission imaging * GI following with evaluation in progress (6) Type 2 diabetes mellitus without complication, without long-term current use of insulin: Code(s): E11.9 - Type 2 diabetes mellitus without complications Status: Acute Assessment and Plan: * follow accu-cheks * glycemic control per hospitalists Will continue to follow. Subjective Date/time seen: 11/28/23 11:06 Interval history: Follow-up for acute hyponatremia. Sodium level appears to be improving with current supportive therapy/interventions; noted plan for ERCP based on MRCP findings; still with on/off abdominal pain as well; positive blood cultures noted at this time; no other issues/events overnight or earlier this AM. Exam Narrative: General: elderly but WD/WN Caucasina female in mild distress secondary to pain Heart: normal S1 and S2; no rub Lungs: clear anteriorly Abdomen: soft, ++TTP in RUQ; hypoactive bowel sounds Extremities: no cyanosis or clubbing; no edema Skin: warm and dry Objective Data Vital Signs Vital Signs: Vital Signs Temp Pulse Resp BP Pulse Ox O2 Del Method O2 Flow Rate 11/28/23 04:45 97.8 F 89 18 123/62 96 11/27/23 20:15 98.2 F 91 18 134/57 L 93
--- NOTE | 2023-11-28 11:06 | PM.PNNEP ---
Progress Note: A&P Assessment and Plan (1) Hyponatremia: Code(s): E87.1 - Hypo-osmolality and hyponatremia Status: Acute Assessment and Plan: improvement noted sodium levels appear to have fluctuated around 125 - 134mmol/L since 2019 previous/current evaluation noted: normal TSH normal cortisol urine electrolytes are prerenal SPEP/UPEP negative multiple risk factors for this issue COPD previous lung cancer acute pain pain medications pre-renal factors follow trend of repeat sodium levels (2) Cholecystitis with cholelithiasis: Code(s): K80.10 - Calculus of gallbladder with chronic cholecystitis without obstruction Status: Acute Assessment and Plan: RUQ ultrasound on admission showed findings of acute cholecystitis and a dilated common bile duct Surgery and GI following MRCP results noted -- plan for ERCP later today on antibiotics NPO status IVFs continue supportive therapy (3) Acute pancreatitis: Qualifiers: Pancreatitis type: biliary Acute pancreatitis complication: unspecified Qualified Code(s): K85.10 - Biliary acute pancreatitis without necrosis or infection Code(s): K85.90 - Acute pancreatitis without necrosis or infection, unspecified Status: Acute Assessment and Plan: elevated lipase noted however, CT without findings of pancreatitis continus supportive therapy (4) Sepsis: Code(s): A41.9 - Sepsis, unspecified organism Status: Acute Assessment and Plan: as noted by tachycardia, tachypnea, hypotension, and leukocytosis on admission suspected source = acute cholecystitis vs pancreatitis vs ascending cholangitis on IV antibiotics follow culture data - positive blood cultures noted (5) Elevated LFTs: Code(s): R79.89 - Other specified abnormal findings of blood chemistry Status: Acute Assessment and Plan: associated with hyperbilirubinemia possibly due to obstructive jaundice/choledocholithiasis complicated by new findings of liver cirrhosis by admission imaging GI following with evaluation in progress (6) Type 2 diabetes mellitus without complication, without long-term current use of insulin: Code(s): E11.9 - Type 2 diabetes mellitus without complications Status: Acute Assessment and Plan: follow accu-cheks glycemic control per hospitalists Will continue to follow. Subjective Date/time seen: 11/28/23 11:06 Interval history: Follow-up for acute hyponatremia. Sodium level appears to be improving with current supportive therapy/interventions; noted plan for ERCP based on MRCP findings; still with on/off abdominal pain as well; positive blood cultures noted at this time; no other issues/events overnight or earlier this AM. Exam Narrative: General: elderly but WD/WN Caucas[place] female in mild distress secondary to pain Heart: normal S1 and S2; no rub Lungs: clear anteriorly Abdomen: soft, ++TTP in RUQ; hypoactive bowel sounds Extremities: no cyanosis or clubbing; no edema Skin: warm and dry Objective Data Vital Signs Vital Signs: Vital Signs Temp Pulse Resp BP Pulse Ox O2 Del Method O2 Flow Rate 11/28/23 04:45 97.8 F 89 18 123/62 96 11/27/23 20:15 98.2 F 91 18 134/57 L 93 11/27/23 19:46 98 16 97 Room Air Intake/Output Intake/Output: Intake & Output 11/25/23 11/26/23 11/27/23 11/28/23 23:59 23:59 23:59 23:59 Intake Total 666.3 800 1970 Output Total 1000 750 Balance 666.3 -200 1220 Meds/Results Medications: Active Medications Generic Name Dose Route Start Last Admin Trade Name Freq PRN Reason Stop Dose Admin Albuterol/Ipratropium 3 ml 11/28/23 17:15 Ipratropium 0.5 Mg/Albuterol Sulfate 2.5 Mg Ampul.Neb 3 Ml INHALATION Q6HRT PRN Wheezing or shortness of breath Famotidine 20 mg 11/27/23 21:00 11/28/23 07:57 Famotidine 20 Mg/2 Ml Vial IV P
[2023-11-28 12:12] LABS: Alpha-1-Antitrypsin, QN >600 mg/dL (83-199); Ceruloplasmin 39 mg/dL (14-48)
[2023-11-28] MEDS: LACTATED RINGERS 1,000 ML 150 ML IV CONT (12:24)
[2023-11-28] MEDS: fentaNYL CITRATE INJ (*CRX) 100 MCG/2 ML VIAL 25 MCG IV PUSH ×2 (12:44→22:12)
--- NOTE | 2023-11-28 13:24 | WPDANESEPPF ---
Anes - Initial Pre Proc Eval Procedure: Operation Date: 11/28/23 14:00 Proposed Procedures p Endoscopic Retro Cholangiopancreatogram - Jayjay Alatorre MD Date/Time: 11/28/23 13:24 Surgeon: Shen Polk MD Pre Op Diagnosis: choledocolithiaisis,cholecystitis,heart failure Patient Data Age: 78 Gender: F Height: 1.65 m Weight: 71.8 kg Last Vital Signs Temp 97.6 F 11/28/23 12:27 Pulse 92 11/28/23 12:27 Resp 18 11/28/23 12:27 BP 145/73 H 11/28/23 12:27 Pulse Ox 96 11/28/23 12:27 O2 Del Method Room Air 11/28/23 12:27 Allergies Allergy/AdvReac Type Severity Reaction Status Date / Time nitrofurantoin Allergy Severe Nausea and Verified 11/28/23 12:15 [From Macrobid] Vomiting Penicillins Allergy Severe Rash Verified 11/28/23 12:15 Home Medications Medication Instructions Recorded Confirmed Type safety needles 25 gauge x 1 (BD #1 ea 08/14/21 11/27/23 Rx Eclipse) Calcium 600 + D(3) 1 cap PO DAILY 08/18/21 11/27/23 History calcium polycarbophil 625 mg 625 mg PO DAILY 08/18/21 11/27/23 History tablet (FiberCon) cholecalciferol (vitamin D3) 25 25 mcg PO DAILY 08/18/21 11/27/23 History mcg (1,000 unit) tablet (Vitamin D3) cyanocobalamin (vitamin B-12) 1,000 mcg PO DAILY 08/18/21 11/27/23 History 1,000 mcg tablet (Vitamin B-12) gabapentin 100 mg capsule 100 mg PO TID #270 caps 04/20/22 11/27/23 Rx thiamine HCl (vitamin B1) 100 mg See Rx Instructions .Route 01/05/23 11/27/23 Rx tablet .COMPLEX #90 tabs folic acid 1 mg tablet See Rx Instructions .Route 06/06/23 11/27/23 Rx .COMPLEX #90 tabs olmesartan 20 mg tablet See Rx Instructions .Route 07/03/23 11/27/23 Rx .COMPLEX #90 tabs potassium chloride 10 mEq See Rx Instructions .Route 07/03/23 11/27/23 Rx tablet,extended release .COMPLEX #90 tabs trazodone 50 mg tablet 50 mg PO QHS PRN sleep #60 tabs 07/24/23 11/27/23 Rx carvedilol 6.25 mg tablet 3.125 mg PO Q12H #60 tabs 08/11/23 11/27/23 Rx ferrous sulfate 325 mg (65 mg 325 mg PO DAILY #90 tabs 08/11/23 11/27/23 Rx iron) tablet linagliptin 5 mg tablet (Tradjenta) See Rx Instructions .Route 08/11/23 11/27/23 Rx .COMPLEX #90 tabs magnesium oxide 400 mg (241.3 mg See Rx Instructions .Route 08/16/23 11/27/23 Rx magnesium) tablet .COMPLEX #120 tabs tramadol 50 mg tablet 50 mg PO Q6H PRN pain #30 tabs 09/07/23 11/27/23 Rx furosemide 40 mg tablet 40 mg PO DAILY #90 tabs 09/15/23 11/27/23 Rx alprazolam 0.25 mg tablet 0.25 mg PO BID #90 tabs 10/12/23 11/27/23 Rx atorvastatin 40 mg tablet See Rx Instructions .Route 10/26/23 11/27/23 Rx .COMPLEX #90 tabs nortriptyline 10 mg capsule 10 mg PO BID #180 caps 11/13/23 11/27/23 Rx pantoprazole 40 mg tablet,delayed See Rx Instructions .Route 11/13/23 11/27/23 Rx release .COMPLEX #90 tabs albuterol sulfate 90 mcg/actuation See Rx Instructions .Route 11/27/23 11/27/23 History aerosol inhaler .COMPLEX PRN as needed Laboratory Tests 11/27/23 11/27/23 11/28/23 09:41 20:20 01:32 WBC RBC Hgb Hct MCV MCH MCHC RDW Plt Count MPV Immature Gran % (Auto) Neut % (Auto) Lymph % (Auto) [place] % (Auto) Eos % (Auto) Baso % (Auto) Lymph # (Auto) [place] # (Auto) Eos # (Auto) Baso # (Auto) Abs Immat Gran (auto) Absolute Neuts (auto) Absolute Nucleated RBC Nucleated RBC % % Immature Plt Fraction Sodium 128 L mmol/L (137-145) Potassium Chloride Carbon Dioxide Anion Gap BUN Creatinine Estim Creat Clear Calc Estimated GFR Glucose Serum Osmolality Calcium Magnesium
[2023-11-28] MEDS: INDOMETHACIN 50 MG SUPP.RECT RECTAL (13:49)
[2023-11-28] MEDS: ALBUTEROL SULFATE NEB 2.5 MG/3 ML INH INHALATION (14:40)
--- NOTE | 2023-11-28 14:41 | SUR.PHASEII ---
1414: PT ARRIVED TO POST OP, 8L SIMPLE FACE MASK, ORAL AIRWAY IN PLACE. 1424: PT AWAKE, UNABLE TO TOLERATE SIMPLE FACE MASK, PT REMOVING IT HERSELF, PT STATES SHE FEELS LIKE SHE CANNOT BREATHE, UNABLE TO COUGH UP MUCUS, RN AND PT ATTEMPTED TO YANKEUR SUCTION WITH NO SUCCESS, GARY LUNG CLEAR TO AUSCULTATION, PT STATES UNABLE TO SWALLOW. DR SANTANA NOTIFIED AND SEEING PT AT BEDSIDE. NEW ORDERS RECEIVED. 1435: PT ABLE TO COUGH UP LARGE AMOUNT OF THICK MUCUS, PT ABLE TO SWALLOW, PT TOLERATING 02 AT 4L/NC. 1440: RESPIRATORY AT BEDSIDE FOR BREATHING TREATMENT. 1450: PT STATES SHE IS FEELING BETTER, 02 4L/NC, PT ABLE TO EXCRETE MUCUS HERSELF, RESTING COMFORTABLY.
[2023-11-28] MEDS: ONDANSETRON INJ 4 MG/2 ML VIAL IV PUSH (15:26)
[2023-11-28] MEDS: DEXTROSE 5%/LACTATED RINGERS 1,000 ML 75 ML IV CONT (15:32)
--- NOTE | 2023-11-28 17:14 | PM.IMPN ---
Progress Note: A&P Assessment and Plan (1) Sepsis: Code(s): A41.9 - Sepsis, unspecified organism Status: Acute (2) Cholecystitis with cholelithiasis: Code(s): K80.10 - Calculus of gallbladder with chronic cholecystitis without obstruction Status: Acute (3) Jaundice: Code(s): R17 - Unspecified jaundice Status: Acute (4) Acute pancreatitis: Qualifiers: Pancreatitis type: biliary Acute pancreatitis complication: unspecified Qualified Code(s): K85.10 - Biliary acute pancreatitis without necrosis or infection Code(s): K85.90 - Acute pancreatitis without necrosis or infection, unspecified Status: Acute Plan 78-year-old female with a history of hnt-[id number] diabetes mellitus, prior ETOH abuse, COPD, small cell lung cancer in 2020 status post right upper lobe resection, CHF, IBS, iron deficiency anemia. The patient presents with acute on chronic right upper quadrant pain with jaundice. She is found to have likely acute cholecystitis with a dilated common bile duct, biliary pancreatitis, possible UTI, sepsis. Pending MRCP. Patient is stable and NPO for anticipated procedures. She is currently on cefepime and metronidazole for possible intra-abdominal infection and possible UTI. Urine culture did not reflex from urinalysis, ordered that. Trend the white count which is high at 24. Trend the liver enzymes. She has chronic atrial fibrillation and non and anticoagulation due to nose bleeds. She has a history of CHF and COPD and her cardiopulmonary status appears to be stable. Continue Accu-Cheks q.6 hours with no sliding scale given she is NPO. [place] hypoglycemia protocol. She has hyponatremia with a sodium of 123. Suspect this is due to her acute anorexia due to gallbladder issue. Nephrology has been consulted and serum and urine studies are pending. Repeat sodium at 2100. Goal correction 6-8 millimoles per L per 24 hours. On her last admission in January 2020 to she had a similar sodium level. At that time TSH and cortisol were normal and urine electrolytes suggested pre renal azotemia. She did correct with fluid restriction and salt tablets and Lasix. She appears to be on Lasix still not salt tablets. Other compounding factors include COPD lung cancer, Protonix, diuretic use. She is currently on D5 LR at 75 cc/hour Dilaudid p.r.n., Zofran p.r.n.. On 11/27 she underwent ERCP with papillotomy and removal of stones. She will need interval cholecystectomy decided by General surgery. She is on clear liquid diet. She had some wheezing postop so DuoNeb p.r.n. have been added. Continue Accu-Cheks q.6 hours. Sodium has come up appropriately and we will check another BMP at 9:00 p.m. and defer to Nephrology for fluid management. She continues at the D5 LR at 75 cc/hour. Continue antibiotics for now. Metronidazole and cefepime. All of her other labs have entirely improved so we will continue to cycle those. FEN: Clear liquid diet and then NPO midnight.. D5 LR at 75 cc/hour GI prophylaxis: She is on Protonix at home, Pepcid for GI prophylaxis considering she has hyponatremia. DVT prophylaxis: SCDs pending procedure/surgery Lines: Peripheral IV Code Status: Full code Dispo: Stable. Continue telemetry in the setting of sepsis history of atrial fibrillation Subjective Date/time seen: 11/28/23 17:14 Interval history: Patient is seen post ERCP. She experiences nausea and has vomited mucus. Otherwise she denies abdominal pain chest pain or shortness of breath. Review of Systems Review of Systems: All systems reviewed & are unremarkable except as noted in HPI and below (Subjective) Exam Const: General: comfortable and no acute distress Other: Jaundiced. A&O x4 Eyes: Pupils: Equal, round and reactive pupils present Neck: Neck: supple Resp: Effort & Inspection: normal respiratory effort Auscultation: wheezes (Expiratory) Cardio: Rate
[2023-11-28] MEDS: HYDROmorphone HCL INJ (*CRX) 1 MG/ML SYR IV PUSH (17:46)
[2023-11-28 20:11] LABS: Anion Gap 13 mmol/L (4-12); Blood Urea Nitrogen 9 mg/dL (7-17); Calcium 9.4 mg/dL (8.4-10.2); Carbon Dioxide 19 mmol/L (22-30); Chloride 99 mmol/L (98-107); Estimated CRCL calculation 53 ml/min; Estimated Glomerular Filt Rate > 60; Glucose 108 mg/dL (65-110); Potassium 3.6 mmol/L (3.4-5.0); Sodium 131 mmol/L (137-145)
[2023-11-29] VITALS: BP 118/54; PULSE 85; RESP 18; TEMP 36.4; O2SAT 95
[2023-11-29] MEDS: HYDROmorphone HCL INJ (*CRX) 1 MG/ML SYR IV PUSH (00:48)
[2023-11-29 04:30] VITALS: BP 123/68; PULSE 100; RESP 30; TEMP 36.4; O2SAT 93
[2023-11-29] MEDS: metroNIDAZOLE 500 MG/ISO 100ML 500 MG/100 ML BAG 100 MG IVPB ×3 (04:36→21:00)
[2023-11-29 05:49] LABS: Hemoglobin 9.7 g/dL (12.0-15.0); Immature Platelet Fraction Pct 18.6 % (0.9-11.2); Mean Corpuscular HGB Conc 34.6 g/dl (32-36); Mean Corpuscular Volume 86.7 fl (80-100); Mean Platelet Volume 13.5 fl (7.4-10.4); Platelet Count Result 191 k/mm3 (150-375); Red Blood Count 3.23 M/mm3 (4.2-5.4); Red Cell Distribution Width 20.1 % (11.5-14.5); White Blood Count 15.8 K/mm3 (4.5-10.0)
[2023-11-29 05:58] LABS: Alanine Aminotransferase 54 U/L (6-35); Albumin Level 3.6 g/dL (3.5-5.1); Alkaline Phosphatase 664 U/L (38-126); Anion Gap 12 mmol/L (4-12); Aspartate Amino Transferase 110 U/L (14-36); Blood Urea Nitrogen 9 mg/dL (7-17); Carbon Dioxide 21 mmol/L (22-30); Chloride 99 mmol/L (98-107); Estimated CRCL calculation 61 ml/min; Estimated Glomerular Filt Rate > 60; Glucose 129 mg/dL (65-110); INR 1.1; Potassium 3.7 mmol/L (3.4-5.0); Prothrombin Time 14.7 Seconds (11.1-14.7); Sodium 132 mmol/L (137-145)
[2023-11-29 07:18] LABS: Protein, Total 5.8 g/dL (6.1-8.1)
[2023-11-29 08:00] VITALS: BP 137/69; PULSE 101; RESP 20; TEMP 36.1; O2SAT 98
[2023-11-29] MEDS: fentaNYL CITRATE INJ (*CRX) 100 MCG/2 ML VIAL 12.5 MCG IV PUSH ×2 (08:48→16:55)
[2023-11-29] MEDS: FAMOTIDINE 20 MG/2 ML VIAL IV PUSH ×2 (08:49→19:55)
[2023-11-29] MEDS: CEFEPIME 2 GM/NS 50 ML 2 GM/50 ML BAG IVPB ×2 (08:49→19:55)
[2023-11-29] MEDS: DEXTROSE 5%/LACTATED RINGERS 1,000 ML 75 ML IV CONT (11:30)
--- NOTE | 2023-11-29 11:33 | PM.PNGS ---
Progress Note: A&P Assessment and Plan (1) Choledocholithiasis with acute cholecystitis with obstruction: Code(s): K80.43 - Calculus of bile duct with acute cholecystitis with obstruction Status: Acute Assessment and Plan: ERCP yesterday with removal of multiple stones. She seems to be clinically improving. Bilirubin still at 9.0 today. We will start her on a clear liquid diet and start advancing her diet is tolerated to low-fat. She will eventually need an interval laparoscopic cholecystectomy, but we will have her return for this as an outpatient in the near future. (2) Gram-negative sepsis with organ dysfunction: Code(s): A41.50 - Gram-negative sepsis, unspecified; R65.20 - Severe sepsis without septic shock Status: Acute Assessment and Plan: Gram-negative bacteremia noted. Identity still pending (3) Cirrhosis: Qualifiers: Hepatic cirrhosis type: alcoholic cirrhosis Ascites presence: without ascites Qualified Code(s): K70.30 - Alcoholic cirrhosis of liver without ascites Code(s): K74.60 - Unspecified cirrhosis of liver Status: Chronic Assessment and Plan: History of heavy alcohol use as well as hepatic steatosis. GI following. This does increase her risks of surgery. Plan I have discussed the patient's case and plan of care with Dr. Seth. Subjective Subjective Date/Time Seen: 11/29/23 11:33 Patient reports: no new complaints, feels better (Status post ERCP) and afebrile Interval history: Patient reports feeling much better after her ERCP yesterday. Her abdominal pain is much better today. She feels much less tender. No nausea or vomiting. Noted that her total bilirubin did go up to 9 today. Exam Const: General: comfortable and no acute distress Orientation/consciousness: patient oriented x3 GI: Inspection: non-distended GI Palp: Yes Soft to palpation, Yes Tenderness to palpation present (GI) (Very mild right upper quadrant tenderness, much improved) and No Guarding due to palpation present (GI) Auscultation: normal bowel sounds Objective Data Vital Signs Vital Signs: Vital Signs - 24 hr 11/28/23 12:27 11/28/23 14:14 11/28/23 14:24 Temperature 97.6 F 97.4 F L Pulse Rate 92 90 98 Respiratory Rate 18 22 H 20 Blood Pressure 145/73 H 117/61 136/70 Pulse Oximetry 96 100 98 Oxygen Delivery Room Air Simple Face Mask Room Air Oxygen Flow Rate 8 11/28/23 14:34 11/28/23 14:44 11/28/23 14:54 Temperature Pulse Rate 125 H 87 98 Respiratory Rate 28 H 18 18 Blood Pressure 160/140 H 172/85 H 141/73 H Pulse Oximetry 100 100 99 Oxygen Delivery Nasal Cannula Nasal Cannula Room Air Oxygen Flow Rate 4 4 11/28/23 15:04 11/28/23 14:40 11/28/23 14:50 Temperature Pulse Rate 94 104 H 102 H Respiratory Rate 18 24 H 24 H Blood Pressure 143/86 H Pulse Oximetry 100 Oxygen Delivery Room Air Oxygen Flow Rate 11/28/23 19:38 11/28/23 20:00 11/29/23 00:00 Temperature 97 F L 97.5 F L Pulse Rate 94 93 85 Respiratory Rate 18 16 18 Blood Pressure 140/65 118/54 L Pulse Oximetry 100 96 95 Oxygen Delivery Room Air Oxygen Flow Rate 11/29/23 04:30 11/29/23 08:00 11/29/23 09:19 Temperature 97.5 F L 97.0 F L Pulse Rate 100 101 H Respiratory Rate 30 H 20 Blood Pressure 123/68 137/69 Pulse Oximetry 93 98 Oxygen Delivery Room Air Oxygen Flow Rate Intake/Output Intake/Output: Intake & Output 11/26/23 11/27/23 11/28/23 11/29/23 23:59 23:59 23:59 23:59 Intake Total 666.3 800 2120 1200 Output Total 1000 750 300 Balance 666.3 -200 1370 900 Meds/Results Medications: Active Medications Generic Name Dose Route Start Last Admin Trade Name Freq PRN Reason Stop Dose Admin Albuterol/Ipratropium 3 ml 11/28/23 17:15 Ipratropium 0.5 Mg/Albuterol Sulfate 2.5 Mg Ampul.Neb 3 Ml INHALATION Q6HRT PRN Wheezing or shortness of breath Famotidine 20 mg 11/27/23 21:00 11/29/23 08:49 Famot
[2023-11-29 11:47] VITALS: BP 147/64; PULSE 97; RESP 18; TEMP 36.3; O2SAT 98
--- NOTE | 2023-11-29 12:58 | P.PNNP_ITS ---
Progress Note: A&P Assessment and Plan (1) Hyponatremia: Code(s): E87.1 - Hypo-osmolality and hyponatremia Status: Acute Assessment and Plan: * improvement noted * sodium levels appear to have fluctuated around 125 - 134mmol/L since 2019 * previous/current evaluation noted: * normal TSH * normal cortisol * urine electrolytes are prerenal * SPEP/UPEP negative * multiple risk factors for this issue * COPD * previous lung cancer * acute pain * pain medications * pre-renal factors * follow trend of repeat sodium levels (2) Cholecystitis with cholelithiasis: Code(s): K80.10 - Calculus of gallbladder with chronic cholecystitis without obstruction Status: Acute Assessment and Plan: * RUQ ultrasound on admission showed findings of acute cholecystitis and a dil ated common bile duct * Surgery and GI following * MRCP results noted -- plan for ERCP later today * on antibiotics * NPO status * IVFs * continue supportive therapy (3) Acute pancreatitis: Qualifiers: Pancreatitis type: biliary Acute pancreatitis complication: unspecified Qualified Code(s): K85.10 - Biliary acute pancreatitis without necrosis or inf ection Code(s): K85.90 - Acute pancreatitis without necrosis or infection, unspecified Status: Acute Assessment and Plan: * elevated lipase noted * however, CT without findings of pancreatitis * continus supportive therapy (4) Sepsis: Code(s): A41.9 - Sepsis, unspecified organism Status: Acute Assessment and Plan: * as noted by tachycardia, tachypnea, hypotension, and leukocytosis on admission * suspected source = acute cholecystitis vs pancreatitis vs ascending cholangitis * on IV antibiotics * follow culture data - positive blood cultures noted (5) Elevated LFTs: Code(s): R79.89 - Other specified abnormal findings of blood chemistry Status: Acute Assessment and Plan: * associated with hyperbilirubinemia * possibly due to obstructive jaundice/choledocholithiasis * complicated by new findings of liver cirrhosis by admission imaging * GI following with evaluation in progress (6) Type 2 diabetes mellitus without complication, without long-term current use of insulin: Code(s): E11.9 - Type 2 diabetes mellitus without complications Status: Acute Assessment and Plan: * follow accu-cheks * glycemic control per hospitalists Not much else to add -- will continue to follow from a distance. Subjective Date/time seen: 11/29/23 12:58 Interval history: Follow-up for acute hyponatremia. Sodium continue to improve with interventions/therapy to date and appears back to baseline by labs done this AM; tolerated ERCP yesterday without any issues or problems; denies any abdominal pain and appears to be tolerating oral intake. Exam Narrative: General: elderly but WD/WN Caucas[place] female in NAD Heart: normal S1 and S2; no rub Lungs: clear anteriorly Abdomen: soft, reduced TTP; hypoactive bowel sounds Extremities: no cyanosis or clubbing; no edema Skin: warm and intact Objective Data Vital Signs Vital Signs: Vital Signs Temp Pulse Resp BP Pulse Ox O2 Del Method 11/29/23 11:47 97.4 F L 97 18 147/64 H 98 11/29/23 09:19 Room Air 11/29/23 08:00 97.0 F L 101 H 20 137/69 98
--- NOTE | 2023-11-29 12:58 | PM.PNNEP ---
Progress Note: A&P Assessment and Plan (1) Hyponatremia: Code(s): E87.1 - Hypo-osmolality and hyponatremia Status: Acute Assessment and Plan: improvement noted sodium levels appear to have fluctuated around 125 - 134mmol/L since 2019 previous/current evaluation noted: normal TSH normal cortisol urine electrolytes are prerenal SPEP/UPEP negative multiple risk factors for this issue COPD previous lung cancer acute pain pain medications pre-renal factors follow trend of repeat sodium levels (2) Cholecystitis with cholelithiasis: Code(s): K80.10 - Calculus of gallbladder with chronic cholecystitis without obstruction Status: Acute Assessment and Plan: RUQ ultrasound on admission showed findings of acute cholecystitis and a dilated common bile duct Surgery and GI following MRCP results noted -- plan for ERCP later today on antibiotics NPO status IVFs continue supportive therapy (3) Acute pancreatitis: Qualifiers: Pancreatitis type: biliary Acute pancreatitis complication: unspecified Qualified Code(s): K85.10 - Biliary acute pancreatitis without necrosis or infection Code(s): K85.90 - Acute pancreatitis without necrosis or infection, unspecified Status: Acute Assessment and Plan: elevated lipase noted however, CT without findings of pancreatitis continus supportive therapy (4) Sepsis: Code(s): A41.9 - Sepsis, unspecified organism Status: Acute Assessment and Plan: as noted by tachycardia, tachypnea, hypotension, and leukocytosis on admission suspected source = acute cholecystitis vs pancreatitis vs ascending cholangitis on IV antibiotics follow culture data - positive blood cultures noted (5) Elevated LFTs: Code(s): R79.89 - Other specified abnormal findings of blood chemistry Status: Acute Assessment and Plan: associated with hyperbilirubinemia possibly due to obstructive jaundice/choledocholithiasis complicated by new findings of liver cirrhosis by admission imaging GI following with evaluation in progress (6) Type 2 diabetes mellitus without complication, without long-term current use of insulin: Code(s): E11.9 - Type 2 diabetes mellitus without complications Status: Acute Assessment and Plan: follow accu-cheks glycemic control per hospitalists Not much else to add -- will continue to follow from a distance. Subjective Date/time seen: 11/29/23 12:58 Interval history: Follow-up for acute hyponatremia. Sodium continue to improve with interventions/therapy to date and appears back to baseline by labs done this AM; tolerated ERCP yesterday without any issues or problems; denies any abdominal pain and appears to be tolerating oral intake. Exam Narrative: General: elderly but WD/WN [place] female in NAD Heart: normal S1 and S2; no rub Lungs: clear anteriorly Abdomen: soft, reduced TTP; hypoactive bowel sounds Extremities: no cyanosis or clubbing; no edema Skin: warm and intact Objective Data Vital Signs Vital Signs: Vital Signs Temp Pulse Resp BP Pulse Ox O2 Del Method 11/29/23 11:47 97.4 F L 97 18 147/64 H 98 11/29/23 09:19 Room Air 11/29/23 08:00 97.0 F L 101 H 20 137/69 98 11/29/23 04:30 97.5 F L 100 30 H 123/68 93 11/29/23 00:00 97.5 F L 85 18 118/54 L 95 11/28/23 20:00 97 F L 93 16 140/65 96 11/28/23 19:38 94 18 100 Room Air Intake/Output Intake/Output: Intake & Output 11/26/23 11/27/23 11/28/23 11/29/23 23:59 23:59 23:59 23:59 Intake Total 666.3 800 2120 2152 Output Total 1000 750 700 Balance 666.3 -200 1370 1452 Meds/Results Medications: Active Medications Generic Name Dose Route Start Last Admin Trade Name Freq PRN Reason Stop Dose Admin Albuterol/Ipratropium 3 ml 11/28/23 17:15 Ipratropium 0.5 Mg/Albuterol Sulfate 2.5 Mg Am
--- NOTE | 2023-11-29 14:43 | WPDGIPROGNO ---
Progress Note: A&P Assessment and Plan (1) Choledocholithiasis with acute cholecystitis with obstruction: Code(s): K80.43 - Calculus of bile duct with acute cholecystitis with obstruction Status: Acute Assessment and Plan: clinically much better after ercp still elevated bili continue with iv abx (awaiting on final ID- GNR thus far), will need also cholecystectomy- timing per surgery (2) Gram-negative sepsis with organ dysfunction: Code(s): A41.50 - Gram-negative sepsis, unspecified; R65.20 - Severe sepsis without septic shock Status: Acute Assessment and Plan: on abx treated also with ercp and removal of stones (3) Cholangitis: Code(s): K83.09 - Other cholangitis Status: Acute Assessment and Plan: on treatment monitor liver enzymes (4) Jaundice: Code(s): R17 - Unspecified jaundice Status: Acute (5) ETOH abuse: Code(s): F10.10 - Alcohol abuse, uncomplicated Status: Acute (6) Cirrhosis: Qualifiers: Hepatic cirrhosis type: alcoholic cirrhosis Ascites presence: without ascites Qualified Code(s): K70.30 - Alcoholic cirrhosis of liver without ascites Code(s): K74.60 - Unspecified cirrhosis of liver Status: Chronic Assessment and Plan: new diagnosis h/o alcohol use work up pending for other chronic liver conditions (7) Elevated LFTs: Code(s): R79.89 - Other specified abnormal findings of blood chemistry Status: Acute (8) Type 2 diabetes mellitus without complication, without long-term current use of insulin: Code(s): E11.9 - Type 2 diabetes mellitus without complications Status: Acute Subjective Date/time seen: 11/29/23 14:43 Interval history: ercp yesterday with stones/sludge removed feeling better, noted also + GNR in blood cultures- she has been on antibiotics Review of Systems Review of Systems: All systems reviewed & are unremarkable except as noted in HPI and below Exam Const: General: comfortable and no acute distress Other: Jaundiced. A&O x4 HENMT: Face/Nose/Sinus: Normal nares present Eyes: Sclera: scleral abnormality (icteric) Pupils: Equal, round and reactive pupils present Neck: Neck: supple Resp: Effort & Inspection: normal respiratory effort Cardio: Rate: regular rate Rhythm: regular rhythm GI: GI Palp: Yes Soft to palpation, No Tenderness to palpation present (GI) and No Guarding due to palpation present (GI) Auscultation: normal bowel sounds Other: abdominal exam improved Skin: Other: jaundice Neuro: Speech: normal speech Motor exam (neuro): 5/5 motor strength present throughout Extrem: General: no edema Psych: Mental Status: mental status grossly normal Objective Data Vital Signs Vital Signs: Vital Signs - 24 hr 11/28/23 14:44 11/28/23 14:54 11/28/23 15:04 Temperature Pulse Rate 87 98 94 Respiratory Rate 18 18 18 Blood Pressure 172/85 H 141/73 H 143/86 H Pulse Oximetry 100 99 100 Oxygen Delivery Nasal Cannula Room Air Room Air Oxygen Flow Rate 4 11/28/23 14:50 11/28/23 19:38 11/28/23 20:00 Temperature 97 F L Pulse Rate 102 H 94 93 Respiratory Rate 24 H 18 16 Blood Pressure 140/65 Pulse Oximetry 100 96 Oxygen Delivery Room Air Oxygen Flow Rate 11/29/23 00:00 11/29/23 04:30 11/29/23 08:00 Temperature 97.5 F L 97.5 F L 97.0 F L Pulse Rate 85 100 101 H Respiratory Rate 18 30 H 20 Blood Pressure 118/54 L 123/68 137/69 Pulse Oximetry 95 93 98 Oxygen Delivery Oxygen Flow Rate 11/29/23 09:19 11/29/23 11:47 Temperature 97.4 F L Pulse Rate 97 Respiratory Rate 18 Blood Pressure 147/64 H Pulse Oximetry 98 Oxygen Delivery Room Air Oxygen Flow Rate Intake/Output Intake/Output: Intake & Output 11/26/23 11/27/23 11/28/23 11/29/23 23:59 23:59 23:59 23:59 Intake Total 666.3 800 2120 1672 Output Total 1000 750 400 Balance 666.3 -200 1370 1272 Meds
[2023-11-29 15:38] LABS: Osmolality, Urine 341 mOsm/kg (50-1200)
[2023-11-29 15:48] VITALS: BP 151/80; PULSE 102; RESP 18; TEMP 36.7; O2SAT 95
[2023-11-29 16:43] LABS: Creatinine, Random Urine 104 mg/dL (20-275); Total Protein/Creatinine Ratio 413 mg/g creat (24-184)
--- NOTE | 2023-11-29 17:28 | PM.IMPN ---
Progress Note: A&P Assessment and Plan (1) Sepsis: Code(s): A41.9 - Sepsis, unspecified organism Status: Acute (2) Cholecystitis with cholelithiasis: Code(s): K80.10 - Calculus of gallbladder with chronic cholecystitis without obstruction Status: Acute (3) Jaundice: Code(s): R17 - Unspecified jaundice Status: Acute (4) Acute pancreatitis: Qualifiers: Pancreatitis type: biliary Acute pancreatitis complication: unspecified Qualified Code(s): K85.10 - Biliary acute pancreatitis without necrosis or infection Code(s): K85.90 - Acute pancreatitis without necrosis or infection, unspecified Status: Acute Plan 78-year-old female with a history of [id number] diabetes mellitus, prior ETOH abuse, COPD, small cell lung cancer in 2020 status post right upper lobe resection, CHF, IBS, iron deficiency anemia. The patient presents with acute on chronic right upper quadrant pain with jaundice. She is found to have likely acute cholecystitis with a dilated common bile duct, biliary pancreatitis, possible UTI, sepsis. Pending MRCP. Patient is stable and NPO for anticipated procedures. She is currently on cefepime and metronidazole for possible intra-abdominal infection and possible UTI. Urine culture did not reflex from urinalysis, ordered that. Trend the white count which is high at 24. Trend the liver enzymes. She has chronic atrial fibrillation and non and anticoagulation due to nose bleeds. She has a history of CHF and COPD and her cardiopulmonary status appears to be stable. Continue Accu-Cheks q.6 hours with no sliding scale given she is NPO. [place] hypoglycemia protocol. She has hyponatremia with a sodium of 123. Suspect this is due to her acute anorexia due to gallbladder issue. Nephrology has been consulted and serum and urine studies are pending. Repeat sodium at 2100. Goal correction 6-8 millimoles per L per 24 hours. On her last admission in January 2020 to she had a similar sodium level. At that time TSH and cortisol were normal and urine electrolytes suggested pre renal azotemia. She did correct with fluid restriction and salt tablets and Lasix. She appears to be on Lasix still not salt tablets. Other compounding factors include COPD lung cancer, Protonix, diuretic use. She is currently on D5 LR at 75 cc/hour Dilaudid p.r.n., Zofran p.r.n.. On 11/27 she underwent ERCP with papillotomy and removal of stones. She will need interval cholecystectomy decided by General surgery. She is on clear liquid diet. She had some wheezing postop so DuoNeb p.r.n. have been added. Continue Accu-Cheks q.6 hours. Sodium has come up appropriately and we will check another BMP at 9:00 p.m. and defer to Nephrology for fluid management. She continues at the D5 LR at 75 cc/hour. Continue antibiotics for now. Metronidazole and cefepime. All of her other labs have entirely improved so we will continue to cycle those. November 28 update: DC IV fluids. She is tolerating diet and is being advanced per surgery. Continue to monitor leukocytosis along with elevated total bilirubin. Repeat blood cultures today. She is growing 1 bottle Gram-negative. Continue cefepime. Continue to monitor hyponatremia. FEN: Saline lock IV. Advance diet per surgery. GI prophylaxis: She is on Protonix at home, Pepcid for GI prophylaxis considering she has hyponatremia. DVT prophylaxis: SCDs. Lines: Peripheral IV Code Status: Full code Dispo: Stable. Continue telemetry in the setting of sepsis history of atrial fibrillation Subjective Date/time seen: 11/29/23 17:28 Interval history: No acute overnight events. The patient denies any abdominal pain nausea or vomiting. She is tolerating diet. Review of Systems Review of Systems: All systems reviewed & are unremarkable except as noted in HPI and below (Subjective) Exam Const: General: comfortable and no acute distress Other:
[2023-11-29 20:00] VITALS: BP 150/83; PULSE 108; RESP 18; TEMP 36.6; O2SAT 97
[2023-11-30] VITALS (11 sets, daily range): BP systolic 128–157; BP diastolic 71–85; PULSE 72–120; RESP 16–22; TEMP 36.2–36.6; O2SAT 95–100
[2023-11-30] MEDS: metroNIDAZOLE 500 MG/ISO 100ML 500 MG/100 ML BAG 100 MG IVPB ×2 (05:34→13:24)
[2023-11-30] MEDS: IPRATROPIUM 0.5 MG/ALBUTEROL SULFATE 2.5 MG AMPUL.NEB 3 ML INHALATION ×2 (05:55→12:15)
[2023-11-30 06:28] LABS: Basophils Absolute Auto 0.1 K/mm3 (0.0-0.1); Basophils Percent Auto 0.9 % (0.2-1.2); Eosinophils Absolute Auto 0.2 K/mm3 (0-0.3); Eosinophils Percent Auto 1.2 % (0-4.4); Hematocrit 27.3 % (37.0-47.0); Hemoglobin 9.4 g/dL (12.0-15.0); Immature Granulocyte Absolute 0.16 K/mm3 (0.00-0.031); Immature Granulocyte Percent A 1.3 % (0-0.5); Lymphocytes Absolute Auto 1.03 K/mm3 (0.9-3.2); Lymphocytes Percent Auto 8.2 % (18.3-44.2); Mean Corpuscular HGB Conc 34.4 g/dl (32-36); Mean Corpuscular Hemoglobin 29.8 pg (26-34); Mean Corpuscular Volume 86.7 fl (80-100); Mean Platelet Volume 12.9 fl (7.4-10.4); Monocytes Absolute Auto 1.1 K/mm3 (0.1-0.6); Monocytes Percent Auto 8.7 % (2.6-8.5); Neutrophils Percent Auto 79.7 % (45.5-73.1); Platelet Count Result 197 k/mm3 (150-375); Red Blood Count 3.15 M/mm3 (4.2-5.4); Red Cell Distribution Width 20.4 % (11.5-14.5); White Blood Count 12.6 K/mm3 (4.5-10.0)
[2023-11-30 06:42] LABS: Alanine Aminotransferase 51 U/L (6-35); Albumin Level 3.8 g/dL (3.5-5.1); Alkaline Phosphatase 677 U/L (38-126); Anion Gap 12 mmol/L (4-12); Aspartate Amino Transferase 82 U/L (14-36); Bilirubin,Total 6.9 mg/dL (0.2-1.3); Blood Urea Nitrogen 7 mg/dL (7-17); Calcium 9.2 mg/dL (8.4-10.2); Carbon Dioxide 22 mmol/L (22-30); Chloride 97 mmol/L (98-107); Estimated CRCL calculation 61 ml/min; Estimated Glomerular Filt Rate > 60; Glucose 115 mg/dL (65-110); Magnesium 1.7 mg/dL (1.6-2.3); Potassium 3.8 mmol/L (3.4-5.0); Sodium 131 mmol/L (137-145)
[2023-11-30 07:22] LABS: Procalcitonin 0.1 ng/mL
[2023-11-30 09:15] LABS: Albumin 2.9 g/dL (3.8-4.8); Alpha 1 Globulin 0.5 g/dL (0.2-0.3); Alpha 2 Globulin 0.8 g/dL (0.5-0.9); Beta 1 Globulin 0.3 g/dL (0.4-0.6); Gamma Globulin 0.9 g/dL (0.8-1.7)
[2023-11-30] MEDS: CEFEPIME 2 GM/NS 50 ML 2 GM/50 ML BAG IVPB (09:48)
[2023-11-30] MEDS: FAMOTIDINE 20 MG/2 ML VIAL IV PUSH (09:48)
[2023-11-30 13:37] LABS: Actin Antibody (IgG) <20 U (<20)
[2023-11-30] MEDS: ALBUTEROL SULFATE (*SP) AEROSOL 1 PUFF 2 PUFF INHALATION (13:42)
--- NOTE | 2023-11-30 14:51 | WPDGIPROGNO ---
Progress Note: A&P Assessment and Plan (1) Choledocholithiasis with acute cholecystitis with obstruction: Code(s): K80.43 - Calculus of bile duct with acute cholecystitis with obstruction Status: Acute Assessment and Plan: better after ercp with removal stones bili trending down she has cholangitis (E coli blood culture- on iv abx), will need also cholecystectomy- timing per surgery (2) Gram-negative sepsis with organ dysfunction: Code(s): A41.50 - Gram-negative sepsis, unspecified; R65.20 - Severe sepsis without septic shock Status: Acute Assessment and Plan: on abx treated also with ercp and removal of stones E coli + (3) Cholangitis: Code(s): K83.09 - Other cholangitis Status: Acute Assessment and Plan: on treatment liver enzymes and wbc trending down (4) Cirrhosis: Qualifiers: Hepatic cirrhosis type: alcoholic cirrhosis Ascites presence: without ascites Qualified Code(s): K70.30 - Alcoholic cirrhosis of liver without ascites Code(s): K74.60 - Unspecified cirrhosis of liver Status: Chronic Assessment and Plan: new diagnosis h/o alcohol use work up pending for other chronic liver conditions (5) Jaundice: Code(s): R17 - Unspecified jaundice Status: Acute (6) ETOH abuse: Code(s): F10.10 - Alcohol abuse, uncomplicated Status: Acute (7) Elevated LFTs: Code(s): R79.89 - Other specified abnormal findings of blood chemistry Status: Acute (8) Type 2 diabetes mellitus without complication, without long-term current use of insulin: Code(s): E11.9 - Type 2 diabetes mellitus without complications Status: Acute Subjective Date/time seen: 11/30/23 14:51 Interval history: she did not have a good night sleep, no abdominal pain, + cough Review of Systems Review of Systems: All systems reviewed & are unremarkable except as noted in HPI and below Exam Const: General: comfortable and no acute distress Other: Jaundiced. A&O x4 Eyes: Pupils: Equal, round and reactive pupils present Neck: Neck: supple Resp: Effort & Inspection: normal respiratory effort Auscultation: wheezes (Expiratory) Cardio: Rate: regular rate Rhythm: regular rhythm GI: GI Palp: Yes Soft to palpation and No Guarding due to palpation present (GI) Other: No longer with abdominal pain. Extrem: General: no edema Objective Data Vital Signs Vital Signs: Vital Signs - 24 hr 11/29/23 15:48 11/29/23 20:00 11/29/23 20:00 Temperature 98.0 F 97.9 F Pulse Rate 102 H 108 H Respiratory Rate 18 18 Blood Pressure 151/80 H 150/83 H Pulse Oximetry 95 97 Oxygen Delivery Room Air 11/30/23 00:00 11/30/23 05:55 11/30/23 06:01 Temperature 97.9 F Pulse Rate 103 H 110 H 106 H Respiratory Rate 18 22 H 22 H Blood Pressure 128/71 Pulse Oximetry 96 Oxygen Delivery 11/30/23 04:00 11/30/23 08:00 11/30/23 10:25 Temperature 97.8 F 97.7 F Pulse Rate 111 H 92 Respiratory Rate 18 20 Blood Pressure 157/79 H 150/73 H Pulse Oximetry 95 96 96 Oxygen Delivery Room Air 11/30/23 12:15 11/30/23 12:25 11/30/23 09:45 Temperature Pulse Rate 92 93 Respiratory Rate 18 18 Blood Pressure Pulse Oximetry Oxygen Delivery Room Air 11/30/23 12:00 11/30/23 14:21 Temperature 97.2 F L Pulse Rate 120 H Respiratory Rate 18 Blood Pressure 154/85 H Pulse Oximetry 100 Oxygen Delivery Room Air Intake/Output Intake/Output: Intake & Output 11/27/23 11/28/23 11/29/23 11/30/23 23:59 23:59 23:59 23:59 Intake Total 800 2120 2767 770 Output Total 1000 750 700 Balance -200 1370 2067 770 Meds/Results Medications: Active Medications Generic Name Dose Route Start Last Admin Trade Name Freq PRN Reason Stop Dose Admin Albuterol 2 puff 11/30/23 13:28 11/30/23 13:42 Albuterol Sulfate (*Sp) Aerosol 1 Puff INHALATION 2 puff Q6HRT PRN Administrat
--- NOTE | 2023-11-30 15:24 | PM.IMPN ---
Progress Note: A&P Assessment and Plan (1) Sepsis: Code(s): A41.9 - Sepsis, unspecified organism Status: Acute (2) Cholecystitis with cholelithiasis: Code(s): K80.10 - Calculus of gallbladder with chronic cholecystitis without obstruction Status: Acute (3) Jaundice: Code(s): R17 - Unspecified jaundice Status: Acute (4) Acute pancreatitis: Qualifiers: Pancreatitis type: biliary Acute pancreatitis complication: unspecified Qualified Code(s): K85.10 - Biliary acute pancreatitis without necrosis or infection Code(s): K85.90 - Acute pancreatitis without necrosis or infection, unspecified Status: Acute Plan 78-year-old female with a history of ghe-nbefxnn-qzvuuyfvf diabetes mellitus, atrial fibrillation not on anticoagulation due to nose bleeds, prior ETOH abuse, COPD, small cell lung cancer in 2020 status post right upper lobe resection, CHF, IBS, iron deficiency anemia. The patient presents with acute on chronic right upper quadrant pain with jaundice. She is found to have likely acute cholecystitis with a dilated common bile duct, biliary pancreatitis, possible UTI, sepsis. Pending MRCP. Patient is stable and NPO for anticipated procedures. She is currently on cefepime and metronidazole for possible intra-abdominal infection and possible UTI. Urine culture did not reflex from urinalysis, ordered that. Trend the white count which is high at 24. Trend the liver enzymes. She has chronic atrial fibrillation and non and anticoagulation due to nose bleeds. She has a history of CHF and COPD and her cardiopulmonary status appears to be stable. Continue Accu-Cheks q.6 hours with no sliding scale given she is NPO. [place] hypoglycemia protocol. She has hyponatremia with a sodium of 123. Suspect this is due to her acute anorexia due to gallbladder issue. Nephrology has been consulted and serum and urine studies are pending. Repeat sodium at 2100. Goal correction 6-8 millimoles per L per 24 hours. On her last admission in January 2020 to she had a similar sodium level. At that time TSH and cortisol were normal and urine electrolytes suggested pre renal azotemia. She did correct with fluid restriction and salt tablets and Lasix. She appears to be on Lasix still not salt tablets. Other compounding factors include COPD lung cancer, Protonix, diuretic use. She is currently on D5 LR at 75 cc/hour Dilaudid p.r.n., Zofran p.r.n.. On 11/27 she underwent ERCP with papillotomy and removal of stones. She will need interval cholecystectomy decided by General surgery. She is on clear liquid diet. She had some wheezing postop so DuoNeb p.r.n. have been added. Continue Accu-Cheks q.6 hours. Sodium has come up appropriately and we will check another BMP at 9:00 p.m. and defer to Nephrology for fluid management. She continues at the D5 LR at 75 cc/hour. Continue antibiotics for now. Metronidazole and cefepime. All of her other labs have entirely improved so we will continue to cycle those. November 28 update: DC IV fluids. She is tolerating diet and is being advanced per surgery. Continue to monitor leukocytosis along with elevated total bilirubin. Repeat blood cultures today. She is growing 1 bottle Gram-negative. Continue cefepime. Continue to monitor hyponatremia. November 29 update: Patient looks much better. PT OT has been ordered for her weakness. Continue low-fat diet. Continues trend leukocytosis and the repeat blood cultures. GI and General surgery to manage cholangitis and choledocholithiasis status post ERCP with stone removal. Gram-negative sepsis with you coli ESBL. Antibiotics have changed to levofloxacin IV. Will follow-up repeat blood cultures tomorrow. FEN: Saline lock IV. Low-fat diet. GI prophylaxis: She is on Protonix at home, Pepcid for GI prophylaxis considering she has hyponatremia. DVT prophylaxis: SCDs. Lines: Peripheral IV Code Status: Full code D
--- NOTE | 2023-11-30 15:34 | PM.PNGS ---
Progress Note: A&P Assessment and Plan (1) Cholangitis: Code(s): K83.09 - Other cholangitis Status: Acute Assessment and Plan: improving, cont abx (2) Choledocholithiasis with acute cholecystitis with obstruction: Code(s): K80.43 - Calculus of bile duct with acute cholecystitis with obstruction Status: Acute Assessment and Plan: bili trending down, cont low fat diet, interval cholecystectomy as outpt Subjective Subjective Date/Time Seen: 11/30/23 15:34 Interval history: feels better now, still c some epigastric discomfort Review of Systems Review of Systems: All systems reviewed & are unremarkable except as noted in HPI and below Exam Const: General: cooperative, comfortable and no acute distress Resp: Auscultation: diminished lung sounds Cardio: Rate: regular rate Rhythm: regular rhythm GI: Inspection: normal to inspection and distended GI Palp: Yes abdominal tenderness, Yes Soft to palpation, Yes Tenderness to palpation present (GI), No Guarding due to palpation present (GI) and No Rigid due to palpation Objective Data Vital Signs Vital Signs: Vital Signs - 24 hr 11/29/23 15:48 11/29/23 20:00 11/29/23 20:00 Temperature 36.7 C 36.6 C Pulse Rate 102 H 108 H Respiratory Rate 18 18 Blood Pressure 151/80 H 150/83 H Pulse Oximetry 95 97 Oxygen Delivery Room Air 11/30/23 00:00 11/30/23 05:55 11/30/23 06:01 Temperature 36.6 C Pulse Rate 103 H 110 H 106 H Respiratory Rate 18 22 H 22 H Blood Pressure 128/71 Pulse Oximetry 96 Oxygen Delivery 11/30/23 04:00 11/30/23 08:00 11/30/23 10:25 Temperature 36.6 C 36.5 C Pulse Rate 111 H 92 Respiratory Rate 18 20 Blood Pressure 157/79 H 150/73 H Pulse Oximetry 95 96 96 Oxygen Delivery Room Air 11/30/23 12:15 11/30/23 12:25 11/30/23 09:45 Temperature Pulse Rate 92 93 Respiratory Rate 18 18 Blood Pressure Pulse Oximetry Oxygen Delivery Room Air 11/30/23 12:00 11/30/23 14:21 Temperature 36.2 C L Pulse Rate 120 H Respiratory Rate 18 Blood Pressure 154/85 H Pulse Oximetry 100 Oxygen Delivery Room Air Intake/Output Intake/Output: Intake & Output 11/27/23 11/28/23 11/29/23 11/30/23 23:59 23:59 23:59 23:59 Intake Total 800 2120 2767 770 Output Total 1000 750 700 Balance -200 1370 2067 770 Meds/Results Medications: Active Medications Generic Name Dose Route Start Last Admin Trade Name Freq PRN Reason Stop Dose Admin Albuterol 2 puff 11/30/23 13:28 11/30/23 13:42 Albuterol Sulfate (*Sp) Aerosol 1 Puff INHALATION 2 puff Q6HRT PRN Administration Shortness Of Breath Albuterol/Ipratropium 3 ml 11/28/23 17:15 11/30/23 12:15 Ipratropium 0.5 Mg/Albuterol Sulfate 2.5 Mg Ampul.Neb 3 Ml INHALATION 3 ml Q6HRT PRN Administration Wheezing or shortness of breath Enoxaparin Sodium 40 mg 12/01/23 09:00 Enoxaparin 40 Mg/0.4 Ml Syringe SUB-Q DAILY [facility] Famotidine 20 mg 11/30/23 21:00 Famotidine 20 Mg Tablet PO Q12HR [facility] Fentanyl Citrate 12.5 mcg 11/28/23 10:47 11/29/23 16:55 Fentanyl Citrate Inj (*Crx) 100 Mcg/2 Ml Vial IV PUSH 12.5 mcg Q2H PRN Administration Breakthrough Pain Rated 4-6 or NPO Fentanyl Citrate 25 mcg 11/28/23 10:47 11/28/23 22:12 Fentanyl Citrate Inj (*Crx) 100 Mcg/2 Ml Vial IV PUSH 25 mcg Q2H PRN Administration Breakthrough Pain Rated 7-10 or NPO Ibuprofen 800 mg in 200 mls @ 400 mls/hr 11/28/23 10:47 Caldolor 800 Mg/200 Ml IVPB Q6H PRN Breakthrough Pain Rated 1-3 or NPO Levofloxacin/Dextrose 750 mg in 150 mls @ 100 mls/hr 11/30/23 15:00 Levaquin 750 Mg/D5w 150 Ml IVPB Q24H [facility] Ondansetron HCl 4 mg 11/27/23 00:43 11/28/23 15:26 Ondansetron Inj 4 Mg/2 Ml Vial IV PUSH 4 mg Q6H PRN Administration Nausea And Vomiting Radiology Results: ITS Impressions Abdomen Ultrasound 11/26/23 19:08 IMPRESSION: 1. Acut
[2023-11-30] MEDS: levoFLOXacin 750 MG/D5W 150 ML 750 MG/150 ML BAG 100 MG IVPB (18:22)
[2023-11-30] MEDS: FAMOTIDINE 20 MG TABLET PO (21:58)
[2023-11-30] MEDS: guaiFENesin 200 MG/10 ML UDC PO (21:58)
[2023-11-30] MEDS: HYDROcodone/acetaminophen (*CRX) 5-325 MG TABLET 1 TAB PO (21:58)
[2023-12-01 04:25] VITALS: BP 140/91; PULSE 117; RESP 24; TEMP 36.8; O2SAT 94
[2023-12-01 07:33] LABS: Basophils Absolute Auto 0.1 K/mm3 (0.0-0.1); Basophils Percent Auto 0.7 % (0.2-1.2); Eosinophils Percent Auto 0.3 % (0-4.4); Hematocrit 27.1 % (37.0-47.0); Hemoglobin 9.4 g/dL (12.0-15.0); Immature Granulocyte Absolute 0.12 K/mm3 (0.00-0.031); Immature Platelet Fraction Pct 21.5 % (0.9-11.2); Lymphocytes Absolute Auto 1.04 K/mm3 (0.9-3.2); Mean Corpuscular HGB Conc 34.7 g/dl (32-36); Mean Corpuscular Volume 86.6 fl (80-100); Mean Platelet Volume 13.9 fl (7.4-10.4); Monocytes Percent Auto 8.3 % (2.6-8.5); Neutrophils Absolute Auto 9.3 K/mm3 (1.3-6.7); Neutrophils Percent Auto 80.7 % (45.5-73.1); Platelet Count Result 214 k/mm3 (150-375); Red Blood Count 3.13 M/mm3 (4.2-5.4); White Blood Count 11.5 K/mm3 (4.5-10.0)
[2023-12-01 07:40] LABS: Alanine Aminotransferase 42 U/L (6-35); Albumin Level 3.8 g/dL (3.5-5.1); Alkaline Phosphatase 546 U/L (38-126); Anion Gap 10 mmol/L (4-12); Aspartate Amino Transferase 59 U/L (14-36); Bilirubin,Total 4.9 mg/dL (0.2-1.3); Blood Urea Nitrogen 7 mg/dL (7-17); Calcium 9.1 mg/dL (8.4-10.2); Carbon Dioxide 23 mmol/L (22-30); Chloride 98 mmol/L (98-107); Estimated CRCL calculation 61 ml/min; Estimated Glomerular Filt Rate > 60; Glucose 100 mg/dL (65-110); Magnesium 1.6 mg/dL (1.6-2.3); Potassium 3.5 mmol/L (3.4-5.0); Sodium 131 mmol/L (137-145)
[2023-12-01 07:46] LABS: Procalcitonin 0.1 ng/mL
[2023-12-01 08:00] VITALS: BP 145/85; PULSE 72; RESP 16; TEMP 36.6; O2SAT 96
[2023-12-01] MEDS: FAMOTIDINE 20 MG TABLET PO (08:25)
--- NOTE | 2023-12-01 10:19 | PM.PNGS ---
Progress Note: A&P Assessment and Plan (1) Cholecystitis with cholelithiasis: Code(s): K80.10 - Calculus of gallbladder with chronic cholecystitis without obstruction Status: Acute Assessment and Plan: exam benign, labs improved, cont low fat diet, ok to dc from surgical standpoint, f/u c Dr. Seth as outpt to setup interval lopez Subjective Subjective Date/Time Seen: 12/01/23 10:19 Interval history: feels good, juvencio low fat diet, pain minimal Review of Systems Review of Systems: All systems reviewed & are unremarkable except as noted in HPI and below Exam Const: General: cooperative, comfortable and no acute distress Resp: Auscultation: clear to auscultation bilaterally Cardio: Rate: regular rate Rhythm: regular rhythm GI: Inspection: normal to inspection and non-distended GI Palp: No abdominal tenderness, Yes Soft to palpation and No Tenderness to palpation present (GI) Objective Data Vital Signs Vital Signs: Vital Signs - 24 hr 11/30/23 10:25 11/30/23 12:15 11/30/23 12:25 Temperature Pulse Rate 92 93 Respiratory Rate 18 18 Blood Pressure Pulse Oximetry 96 Oxygen Delivery Room Air 11/30/23 12:00 11/30/23 14:21 11/30/23 16:00 Temperature 36.2 C L 36.6 C Pulse Rate 120 H 72 Respiratory Rate 18 18 Blood Pressure 154/85 H 155/72 H Pulse Oximetry 100 97 Oxygen Delivery Room Air 11/30/23 20:58 11/30/23 20:00 12/01/23 04:25 Temperature 36.6 C 36.8 C Pulse Rate 81 117 H Respiratory Rate 16 24 H Blood Pressure 137/72 140/91 H Pulse Oximetry 98 94 Oxygen Delivery Room Air 12/01/23 08:00 Temperature 36.6 C Pulse Rate 72 Respiratory Rate 16 Blood Pressure 145/85 H Pulse Oximetry 96 Oxygen Delivery Intake/Output Intake/Output: Intake & Output 11/28/23 11/29/23 11/30/23 12/01/23 23:59 23:59 23:59 23:59 Intake Total 2120 2767 920 240 Output Total 750 700 Balance 1370 2067 920 240 Meds/Results Medications: Active Medications Generic Name Dose Route Start Last Admin Trade Name Freq PRN Reason Stop Dose Admin Albuterol 2 puff 11/30/23 13:28 11/30/23 13:42 Albuterol Sulfate (*Sp) Aerosol 1 Puff INHALATION 2 puff Q6HRT PRN Administration Shortness Of Breath Albuterol/Ipratropium 3 ml 11/28/23 17:15 11/30/23 12:15 Ipratropium 0.5 Mg/Albuterol Sulfate 2.5 Mg Ampul.Neb 3 Ml INHALATION 3 ml Q6HRT PRN Administration Wheezing or shortness of breath Enoxaparin Sodium 40 mg 12/01/23 09:00 12/01/23 08:23 Enoxaparin 40 Mg/0.4 Ml Syringe SUB-Q Not Given DAILY [facility] Famotidine 20 mg 11/30/23 21:00 12/01/23 08:25 Famotidine 20 Mg Tablet PO 20 mg Q12HR [facility] Administration Fentanyl Citrate 12.5 mcg 11/28/23 10:47 11/29/23 16:55 Fentanyl Citrate Inj (*Crx) 100 Mcg/2 Ml Vial IV PUSH 12.5 mcg Q2H PRN Administration Breakthrough Pain Rated 4-6 or NPO Fentanyl Citrate 25 mcg 11/28/23 10:47 11/28/23 22:12 Fentanyl Citrate Inj (*Crx) 100 Mcg/2 Ml Vial IV PUSH 25 mcg Q2H PRN Administration Breakthrough Pain Rated 7-10 or NPO Guaifenesin 200 mg 11/30/23 21:46 11/30/23 21:58 Guaifenesin 200 Mg/10 Ml Udc PO 200 mg Q4H PRN Administration Cough Ibuprofen 800 mg in 200 mls @ 400 mls/hr 11/28/23 10:47 Caldolor 800 Mg/200 Ml IVPB Q6H PRN Breakthrough Pain Rated 1-3 or NPO Levofloxacin/Dextrose 750 mg in 150 mls @ 100 mls/hr 11/30/23 15:00 11/30/23 19:50 Levaquin 750 Mg/D5w 150 Ml IVPB Infused Q24H [facility] Infusion Ondansetron HCl 4 mg 11/27/23 00:43 11/28/23 15:26 Ondansetron Inj 4 Mg/2 Ml Vial IV PUSH 4 mg Q6H PRN Administration Nausea And Vomiting Radiology Results: ITS Impressions Abdomen Ultrasound 11/26/23 19:08 IMPRESSION: 1. Acute cholecystitis. 2. Common duct dilated to 12 mm. 3. Cirrhosis of the liver. Chest/Abdomen/Pelvis CTA 11/26/23 20:16 IMPRESSION: 1. No pulmonary embolus. 2. Mild
--- NOTE | 2023-12-01 12:15 | PM.DS ---
DS: Admitting Diagnosis Discharge Date December 01, 2023 Admitting Diagnosis Nausea and vomiting DS: Discharge Diagnosis Discharge Diagnosis (1) Cholangitis: Code(s): K83.09 - Other cholangitis Status: Acute (2) Gram-negative sepsis with organ dysfunction: Code(s): A41.50 - Gram-negative sepsis, unspecified; R65.20 - Severe sepsis without septic shock Status: Acute (3) Choledocholithiasis with acute cholecystitis with obstruction: Code(s): K80.43 - Calculus of bile duct with acute cholecystitis with obstruction Status: Acute (4) Sepsis: Code(s): A41.9 - Sepsis, unspecified organism Status: Acute (5) Acute pancreatitis: Qualifiers: Acute pancreatitis complication: unspecified Pancreatitis type: biliary Qualified Code(s): K85.10 - Biliary acute pancreatitis without necrosis or infection Code(s): K85.90 - Acute pancreatitis without necrosis or infection, unspecified Status: Acute DS: Summary Hospital Course Hospital Course: 78-year-old female with a history of [id number] diabetes mellitus, atrial fibrillation not on anticoagulation due to nose bleeds, prior ETOH abuse, COPD, small cell lung cancer in 2020 status post right upper lobe resection, CHF, IBS, iron deficiency anemia. She presented with acute on chronic right upper quadrant pain with jaundice. She was found to have cholangitis and choledocholithiasis with acute cholecystitis and pancreatitis. On 11/27 gastroenterology performed an ERCP including collection of specimens with sphincterotomy/papillotomy and common bile duct stone extraction. During this time she was treated with cefepime and Flagyl. After the procedure her sepsis resolved, hyperbilirubinemia improved, elevated liver enzymes and alkaline phosphatase improved as well. She is stable for discharge to home on 12/01/2023. Tolerating diet. No more abdominal pain nausea or vomiting. The patient has follow-up scheduled with Gastroenterology as well as surgery for an interval cholecystectomy. She also agrees to follow-up with her PCP within 1 week. She is discharged on a low-fat diet. Workup for cirrhosis has been started and she is to follow-up with gastroenterology on this as well. Of note, 1 bottle out of 2 blood cultures on 11/25 grew E coli resistant to penicillins and cephalosporins. He is discharged on another 7 days of levofloxacin. Repeat blood cultures x2 on 11/28 so far no growth to date. Unclear if this was a contaminant although the patient would like to pursue antibiotic management for 7 days. Of note, her Protonix was switched to Pepcid as she had hyponatremia. The hyponatremia is likely multifactorial and it was stable. She was full code during the admission. Time Spent with Patient Time attestation: Total time spent providing and/or coordinating discharge services: Exam Const: General: cooperative and no acute distress Resp: Effort & Inspection: normal respiratory effort Auscultation: clear to auscultation bilaterally Cardio: Rate: regular rate Rhythm: regular rhythm Heart sounds: S1 normal heart sound present and S2 normal heart sound present GI: GI Palp: No abdominal tenderness Auscultation: normal bowel sounds DS: Data Data Completed and Pending Labs on day of discharge: Labs from last 24 hours 12/01/23 11/28/23 11/27/23 06:23 09:40 09:41 WBC 11.5 H RBC 3.13 L Hgb 9.4 L Hct 27.1 L MCV 86.6 MCH 30.0 MCHC 34.7 RDW 20.0 H Plt Count 214 MPV 13.9 H Immature Gran % (Auto) 1.0 H Neut % (Auto) 80.7 H Lymph % (Auto) 9.0 L [place] % (Auto) 8.3 Eos % (Auto) 0.3 Baso % (Auto) 0.7 Lymph # (Auto) 1.04 [place] # (Auto) 1.0 H Eos # (Auto) 0.0 Baso # (Auto) 0.1 Abs Immat Gran (auto) 0.12 H Absolute Neuts (auto) 9.3 H Absolute Nucleated RBC 0.000 Nucleated RBC % 0.0 % Immature Plt Fraction 21.5 H Sodium 131 L
[2023-12-03 19:22] LABS: Immunofixation, Serum Normal pattern.
[2023-12-06 16:39] LABS: ALT 56 U/L (6-29); Alpha-2-Macroglobulin 224 mg/dL (106-279); Apolipoprotein A1 50 mg/dL (101-198); Fibrosis Score 0.98; Fibrosis Stage F4; GGT 831 U/L (3-65); Haptoglobin 174 mg/dL (43-212); Necroinflammat Act Grade A2; Total Bilirubin 10.9 mg/dL (0.2-1.2)
[2023-12-11 20:39] LABS: Mitochondrial (M2) Ab (IgG) <20.0 U
== END 2023-12-01 12:30 | disposition home or self-care (01) | DRG 871 ==
LOC: ANHED 20:57 → ANH3MEDSUR 22:20
PROVIDERS: Internal Medicine Gastroenterology; Internal Medicine Nephrology; Nurse Practitioner Family; Surgery; Admitting Provider Internal Medicine; Emergency Provider Student in an Organized Health Care Education/Training Program; PCP Internal Medicine; Visit Provider General Practice
PROC: 0FC98ZZ Extirpation of Matter from Common Bile Duct, Via Natural or Artificial Opening Endoscopic (ICD-10-PCS; CPT 43260; principal; 2023-11-28 14:00)
DX: A41.50 Gram-negative sepsis, unspecified (principal); K85.10 Biliary acute pancreatitis without necrosis or infection; K80.43 Calculus of bile duct with acute cholecystitis with obstruction; E87.1 Hypo-osmolality and hyponatremia; I48.92 Unspecified atrial flutter; I48.20 Chronic atrial fibrillation, unspecified; Z16.11 Resistance to penicillins; Z16.19 Resistance to other specified beta lactam antibiotics; J44.9 Chronic obstructive pulmonary disease, unspecified; I34.0 Nonrheumatic mitral (valve) insufficiency; I50.9 Heart failure, unspecified; D64.9 Anemia, unspecified; B96.20 Unspecified Escherichia coli [E. coli] as the cause of diseases classified elsewhere; E11.9 Type 2 diabetes mellitus without complications; R93.2 Abnormal findings on diagnostic imaging of liver and biliary tract; D50.9 Iron deficiency anemia, unspecified; K70.30 Alcoholic cirrhosis of liver without ascites; Z90.2 Acquired absence of lung [part of]; Z87.891 Personal history of nicotine dependence; Z90.49 Acquired absence of other specified parts of digestive tract; Z90.710 Acquired absence of both cervix and uterus; Z90.722 Acquired absence of ovaries, bilateral; Z85.118 Personal history of other malignant neoplasm of bronchus and lung; Z86.010 Personal history of colon polyps
CPT/HCPCS: 36415; 71275; 74177; 74183; 74329; 76376; 76705; 80048; 80053; 80074; 80076; 81001; 81050; 81596; 82103; 82105; 82140; 82390; 82533; 82570; 82728; 83520; 83540; 83550; 83605; 83690; 83735; 83880; 83930; 83935; 84145; 84155; 84156; 84165; 84166; 84295; 84300; 84443; 84484; 84540; 85025; 85027; 85055; 85610; 85730; 85999; 86038; 86140; 86334; 86335; 86364; 87040; 87077; 87086; 87186; 93005; 94640; 96374; 96375; 97161; 97165; 99285; A9270; A9577; J0330; J0692; J0744; J1170; J1836; J1956; J2270; J2405; J2704; J3010; J7120; J7121; Q9966; Q9967

== ENCOUNTER 2023-12-07 09:22 | Outpatient (CLI) | payer MEDICARE, SELFPAY ==
[2023-12-07 09:51] LABS: Basophils Percent Auto 0.6 % (0.2-1.2); Eosinophils Absolute Auto 0.1 K/mm3 (0-0.3); Eosinophils Percent Auto 2.1 % (0-4.4); Hematocrit 30.4 % (37.0-47.0); Hemoglobin 10.2 g/dL (12.0-15.0); Immature Granulocyte Absolute 0.05 K/mm3 (0.00-0.031); Immature Granulocyte Percent A 0.8 % (0-0.5); Immature Platelet Fraction Pct 15.4 % (0.9-11.2); Lymphocytes Absolute Auto 1.08 K/mm3 (0.9-3.2); Lymphocytes Percent Auto 17.5 % (18.3-44.2); Mean Corpuscular HGB Conc 33.6 g/dl (32-36); Mean Corpuscular Volume 89.4 fl (80-100); Monocytes Absolute Auto 0.7 K/mm3 (0.1-0.6); Monocytes Percent Auto 10.9 % (2.6-8.5); Neutrophils Absolute Auto 4.2 K/mm3 (1.3-6.7); Neutrophils Percent Auto 68.1 % (45.5-73.1); Platelet Count Result 204 k/mm3 (150-375); Red Cell Distribution Width 21.7 % (11.5-14.5); White Blood Count 6.2 K/mm3 (4.5-10.0)
[2023-12-07 09:58] LABS: Sodium 134 mmol/L (137-145)
[2023-12-07 10:01] LABS: Alanine Aminotransferase 27 U/L (6-35); Albumin Level 3.9 g/dL (3.5-5.1); Alkaline Phosphatase 351 U/L (38-126); Amylase 95 U/L (30-110); Aspartate Amino Transferase 54 U/L (14-36); Bilirubin,Total 2.8 mg/dL (0.2-1.3); Lipase 368 U/L (23-300)
== END 2023-12-07 09:23 | disposition home or self-care (01) ==
LOC: ANHSURGERY 09:27
PROVIDERS: Anesthesiology; PCP Internal Medicine; Visit Provider Surgery
DX: K80.10 Calculus of gallbladder with chronic cholecystitis without obstruction (principal); K80.43 Calculus of bile duct with acute cholecystitis with obstruction; E87.1 Hypo-osmolality and hyponatremia; Z01.818 Encounter for other preprocedural examination
CPT/HCPCS: 36415; 80076; 82150; 83690; 84295; 85025; 85055

== ENCOUNTER 2023-12-13 01:52 | Day surgery (SDC) | payer MEDICARE, SELFPAY ==
[2023-12-05 09:59] VITALS: BMI 24.9
--- NOTE | 2023-12-05 10:37 | PC.NURSE ---
Report to the Outpatient Waiting Room, entrance under the green pavilion located off [facility], at time __10:30AM on date __12/13/23 . Planned Procedure Time: __12:30PM . Time changes happen often and if your time is changed the preop area will call you the afternoon before. - You and your visitor will be asked to self-screen and do not enter if you have any COVID symptoms. - A mask is optional within the hospital at this time. Patients may have clear liquids (water, carbonated beverages, clear teas, apple juice) until 3 hours prior to surgery with a maximum of 20 ounces. - No food from midnight until time of surgery. Take the following medications with a SIP of water the morning of surgery: ____ALBUTEROL INHALER, ALPRAZOLAM, CARVEDILOL DO NOT STOP ANY OF YOUR OTHER PRESCRIPTION MEDICATIONS PRIOR TO SURGERY ?EXCEPT THE FOLLOWING Medications to discontinue per physician ___HOLD ALL VITAMINS/SUPPLEMENTS 3 DAYS PRE-OP Date to take last dose____12/09/23 Please no make-up, nail nepalese, hairspray, perfume, deodorant, or body powder the day of surgery. No jewelry (including any body piercings) or valuables the day of surgery, leave them at home. Please take a shower or bath the night before, or the morning of, surgery with an antibacterial soap. Wear comfortable, loose fitting clothing. - Jewelry must be removed prior to entering the operating room. Rings and piercings that are not removed may be cut off. - The hospital will not accept responsibility for valuables. - Please leave all valuables, including medications, at home the day of surgery. If you are going home after surgery, a licensed m48/m60 tank driver must drive you home. - NO public transportation without another adult if you receive anesthesia. - We recommend that an adult stay with you for 24 hours following discharge. - We also recommend that you do not drive, make important decision, drink alcoholic beverages, or take any drugs that were not prescribed by your health care provider for at least 24 hours after your discharge time. Follow any additional instructions given to you from your surgeon. If you or anyone in your household have experienced Covid symptoms in the past week, please notify your surgeon or the nurse liaison at the phone number below for possible testing. Telephone instructions given to ____PATIENT and asked if any additional questions and then verbalized understanding. Patient advised to call surgeon office or pre surgery nurse liaison [phone] if any additional questions.
[2023-12-13] VITALS (7 sets, daily range): BP systolic 111–124; BP diastolic 47–72; PULSE 65–78; RESP 14–16; TEMP 36.1–37.1; O2SAT 98–100; BMI 23.8
[2023-12-13] MEDS: LACTATED RINGERS 1,000 ML 30 ML IV CONT (07:25)
[2023-12-13] MEDS: KETOROLAC 15 MG/ML VIAL (*BKC) IV PUSH (07:40)
[2023-12-13] MEDS: ACETAMINOPHEN 500 MG TABLET 1000 MG PO (07:40)
[2023-12-13 07:52] LABS: Glucose Point of Care 95 mg/dl (65-105)
--- NOTE | 2023-12-13 07:52 | WPDANESEPPF ---
Anes - Initial Pre Proc Eval Procedure: Operation Date: 12/13/23 08:30 Proposed Procedures p Laparoscopic Cholecystectomy - Sebastian Seth MD Date/Time: 12/13/23 07:52 Surgeon: Sebastian Seth MD Pre Op Diagnosis: choledocholithiasis, acute cholecystitis Patient Data Age: 78 Gender: F Height: 1.65 m Weight: 68 kg Allergies Allergy/AdvReac Type Severity Reaction Status Date / Time levofloxacin Allergy Severe SWELLING, Verified 12/13/23 07:52 DIFFICULTY BREATHING Penicillins Allergy Intermediate Rash Verified 12/13/23 07:52 nitrofurantoin AdvReac Intermediate Nausea and Verified 12/13/23 07:52 [From Macrobid] Vomiting Home Medications Medication Instructions Recorded Confirmed Type safety needles 25 gauge x 1 (BD #1 ea 08/14/21 11/27/23 Rx Eclipse) calcium polycarbophil 625 mg 625 mg PO DAILY 08/18/21 12/05/23 History tablet (FiberCon) cholecalciferol (vitamin D3) 25 25 mcg PO DAILY 08/18/21 12/05/23 History mcg (1,000 unit) tablet (Vitamin D3) cyanocobalamin (vitamin B-12) 1,000 mcg PO DAILY 08/18/21 12/05/23 History 1,000 mcg tablet (Vitamin B-12) thiamine HCl (vitamin B1) 100 mg See Rx Instructions .Route 01/05/23 12/05/23 Rx tablet .COMPLEX #90 tabs folic acid 1 mg tablet See Rx Instructions .Route 06/06/23 12/05/23 Rx .COMPLEX #90 tabs olmesartan 20 mg tablet See Rx Instructions .Route 07/03/23 12/05/23 Rx .COMPLEX #90 tabs potassium chloride 10 mEq See Rx Instructions .Route 07/03/23 12/05/23 Rx tablet,extended release .COMPLEX #90 tabs trazodone 50 mg tablet 50 mg PO QHS PRN sleep #60 tabs 07/24/23 12/05/23 Rx carvedilol 6.25 mg tablet 3.125 mg PO Q12H #60 tabs 08/11/23 12/05/23 Rx ferrous sulfate 325 mg (65 mg 325 mg PO DAILY #90 tabs 08/11/23 12/05/23 Rx iron) tablet linagliptin 5 mg tablet (Tradjenta) See Rx Instructions .Route 08/11/23 12/05/23 Rx .COMPLEX #90 tabs magnesium oxide 400 mg (241.3 mg See Rx Instructions .Route 08/16/23 12/05/23 Rx magnesium) tablet .COMPLEX #120 tabs tramadol 50 mg tablet 50 mg PO Q6H PRN pain #30 tabs 09/07/23 12/05/23 Rx atorvastatin 40 mg tablet See Rx Instructions .Route 10/26/23 12/05/23 Rx .COMPLEX #90 tabs albuterol sulfate 90 mcg/actuation See Rx Instructions .Route 11/27/23 12/05/23 History aerosol inhaler .COMPLEX PRN Shortness Of Breath Or Wheezing alprazolam 0.25 mg tablet 0.25 mg PO BID #90 tabs 11/29/23 12/05/23 Rx famotidine 20 mg tablet (Pepcid) 20 mg PO BID #60 tabs 12/01/23 12/05/23 Rx calcium carb-ergocalciferol (vit 1 tablet PO DAILY 12/05/23 12/05/23 History D2) 600 mg calcium-200 unit tablet calcium polycarbophil 625 mg 1,250 mg PO DAILY 12/05/23 12/05/23 History tablet (FiberCon) diphenhydramine HCl 25 mg capsule 50 mg PO HS 12/05/23 12/05/23 History (Benadryl) furosemide 40 mg tablet 40 mg PO QAM 12/05/23 12/05/23 History nortriptyline 10 mg capsule 20 mg PO HS 12/05/23 12/05/23 History pantoprazole 40 mg tablet,delayed 40 mg PO DAILY 12/05/23 12/05/23 History release Laboratory Tests 12/13/23 07:48 POC Capillary Glucose 95 mg/dl (65-105) Patient hx anesthesia problems: none Family hx anesthesia problems: none Results Review: All pre-operative results and documents have been reviewed as part of the pre-operative evaluation. [facility] Past Medical History Medical History JAVON (acute kidney injury) Atrial fibrillation BMI 23.0-23.9, adult Cataract of both eyes Cholangitis COPD (chronic obstructive pulmonary disease) PFTs 11/2021: Mild obstructive airway disease moderate reduced diffusion capacity Elevated alkaline phosphatase level Elevated homocysteine ETOHism Hearing loss Hospital discharge follow-up Hyponatremia With baseline sodium ranging between 128 and 138 Hypotension IBS (irritable bowel syndrome) Iron deficiency anemia secondary to blood loss (chronic) With most recen
--- NOTE | 2023-12-13 08:23 | WPDHPUPDATE1 ---
History and Physical Update Update Date/Time: 12/13/23 08:23 History and Physical has been reviewed, including an updated exam of the patient. There are NO changes in the patient's condition. Risks, benefits, and alternatives have been discussed and questions answered. Patient agrees to proceed with procedure.
[2023-12-13] MEDS: ceFAZolin 2 GM/D5W 50 ML 2 GM/50 ML BAG IVPB (08:48)
[2023-12-13] MEDS: BUPIVACAINE/EPINEPHRINE 0.5% 10 ML VIAL 30 ML INFILTRATE (09:28)
--- NOTE | 2023-12-13 10:38 | W.PM.PROC2 ---
Procedure Note - Detailed Date of Procedure 12/13/23 Pre-op Diagnosis choledocholithiasis, acute cholecystitis Post-op Diagnosis Same Procedure Performed Laparoscopic cholecystectomy Surgeon Sebastian Seth MD Peer Specialist Baljeet Marques, [facility] Anesthesia General and Local Indications Patient is a 78-year-old woman who came into the hospital about 2 and half weeks ago with upper abdominal pain and abnormal liver enzymes. Imaging showed that she had gallstones and common bile duct stones. She underwent an ERCP with sphincterotomy and stone removal. Her abdominal pain had resolved. She was discharged on low-fat diet and did well at home. She is taken to surgery now for laparoscopic cholecystectomy. Patient does have numerous medical illnesses including diabetes, cirrhosis, congestive heart failure, atrial fibrillation, and COPD. Findings Chronic inflammation and tendency for small vessel oozing this was consistent with her diagnosis of cirrhosis. Fortunately the gallbladder plain was not fused with the liver and there was no bleeding with removal of the gallbladder from the liver. There were numerous dense adhesions in the cholecystohepatic triangle. These had to be carefully removed using hook cautery to avoid bleeding and difficult visualization. The liver did not appear to be nodular but was more firm than usual. There was no evidence of advanced cirrhosis of the liver but more consistent with hepatosteatosis. Description of Procedure Patient was taken to the operating room and induced into general anesthesia. The abdomen is prepped and draped. Trocars were placed in usual fashion using [employer] optical trocars and a 5 mm camera. The gallbladder was distended but did not have a very thickened wall. A laparoscopic aspirator was used in the gallbladder was decompressed. A Vicryl endoloop was used to close the cholecystotomy. Omental adhesions were taken down from the surface of the gallbladder down to the fundus. The gallbladder was then able to be retracted anterosuperiorly to some degree although the firmness of the liver prevented this to the degree usually achieved. Traction was placed on the infundibulum. Dissection was then carefully carried out in the cholecystohepatic triangle. As mentioned above, dissection of small vessels resulted in quite a bit more bleeding than is usual. This was not significant bleeding but did obscure visualization when it occurred. Nearly all the dissection was done with gentle hook cautery. There was very dense adhesions in the area of the cholecystohepatic triangle. Particularly between the cystic duct, gallbladder, common have patent duct and liver. I dissected out the cystic artery. It was directly in the way of the dissection between the cystic duct and liver. I dissected it out onto the surface of the liver being now quite confident of its identity. It was securely clipped and divided. I then began dissecting out the very dense adhesions between the gallbladder liver common hepatic duct and cystic duct. These were carefully taken down dissecting from both the medial aspect and the lateral aspect. In dissecting the cystic duct at its more distal portion, closer to the common hepatic duct, a small opening was created in the cystic duct. We still had several mm of cystic duct before reaching the common hepatic duct. There was very little if any oozing of bile from this opening. Again to can you dissecting out the cystic duct and all the adhesions between the cystic duct, hepatic duct and liver. The gallbladder was status dissected off liver as well. I then carefully dissected around the opening in the distal cystic duct. Since I was within 4 5 mm of the common hepatic duct, I went ahead and clipped the cystic duct close to the gallbladder and then divided it. I used a Vicryl endoloop and then carefully placed it beyond the rent in the cystic duct but still above the common hepatic duct. This secured
[2023-12-13 10:43] LABS: Glucose Point of Care 154 mg/dl (65-105)
[2023-12-13] MEDS: fentaNYL CITRATE INJ (*CRX) 100 MCG/2 ML VIAL 25 MCG IV PUSH (10:52)
[2023-12-13] MEDS: ONDANSETRON INJ 4 MG/2 ML VIAL IV PUSH (10:56)
== END 2023-12-13 11:39 | disposition home or self-care (01) ==
PROVIDERS: PCP Internal Medicine; Visit Provider Surgery
PROC: 0FT44ZZ Resection of Gallbladder, Percutaneous Endoscopic Approach (ICD-10-PCS; CPT 47562; principal; 2023-12-13 08:30)
DX: K80.62 Calculus of gallbladder and bile duct with acute cholecystitis without obstruction (principal); I48.91 Unspecified atrial fibrillation; J44.9 Chronic obstructive pulmonary disease, unspecified; I50.810 Right heart failure, unspecified; K74.60 Unspecified cirrhosis of liver; F10.10 Alcohol abuse, uncomplicated; E11.9 Type 2 diabetes mellitus without complications; I27.20 Pulmonary hypertension, unspecified; I34.0 Nonrheumatic mitral (valve) insufficiency; Z79.84 Long term (current) use of oral hypoglycemic drugs; Z79.51 Long term (current) use of inhaled steroids; Z85.118 Personal history of other malignant neoplasm of bronchus and lung; Z90.2 Acquired absence of lung [part of]; Z87.891 Personal history of nicotine dependence
CPT/HCPCS: 47562; 82948; 88304; A9270; J0690; J1100; J1885; J2250; J2371; J2405; J2704; J3010; J7120

== ENCOUNTER 2024-06-24 10:03 | Outpatient (CLI) | payer MEDICARE, SELFPAY ==
--- NOTE | ~2024-06-24 | CT_ITS ---
CT ANGIOGRAM NECK AND HEAD History: CVA. Technique: Axial noncontrast imaging the brain was performed. Serial spiral axial images through the head and neck were then obtained during arterial phase IV injection of 100 cc of Omnipaque 350. 3-D p ostprocessing and MIP images were then reconstructed on the remote workstation. Dose reduction techni que was used on this scan by utilizing automated exposure control and iterative reconstruction techni que. The dose-length product (DLP) was 2184.51 mGy-cm. CTA neck findings: Bilateral vertebral arteries are patent. Bilateral common carotid, internal carot id, and external carotid arteries are patent. Atherosclerotic calcification the proximal left interna l carotid artery results in approximate 40% stenosis. Calcification at the proximal right internal ca rotid artery results in focal 70% stenosis. No large vessel occlusion or aneurysm. The proximal right internal carotid artery demonstrates 70% stenosis relative to the normal distal artery lumen diamete r. The proximal left internal carotid artery demonstrates 40% stenosis relative to the normal distal artery lumen diameter. CTA head findings: Distal vertebral arteries, basilar artery, and posterior cerebral arteries are pat ent. Distal internal carotid arteries, middle cerebral arteries, and anterior cerebral arteries are p atent. There are atherosclerotic calcifications of the cavernous portions of the distal internal chandra tid arteries bilaterally. No large vessel occlusion or significant stenosis otherwise. No aneurysm ev ident. There is a 5.5 x 3.3 cm peripherally enhancing mass in the right occipital/parietal lobe with surroun ding vasogenic edema. There is a similar-appearing 4.0 cm peripherally enhancing mass in the left fro ntal lobe with surrounding vasogenic edema. No gross midline shift or ventricular compression evident . No acute intracranial hemorrhage seen. Ventricles and subarachnoid spaces demonstrate minimal atrop hic change. Paranasal sinuses and mastoid air cells are clear. Calvarium intact. Impression: 5.5 x 3.3 cm right occipital lobe/parietal lobe mass and additional 4.0 cm left frontal lobe mass. Fi ndings are consistent with metastatic disease. There is mild stranding vasogenic edema but no midline shift or intracranial hemorrhage. 70% stenosis of the proximal right internal carotid artery due to atherosclerotic calcification. 40% stenosis of the proximal left internal carotid artery due to atherosclerotic calcification. Findings discussed with Dr. Contreras at the time of this reading. Patient was instructed to return to h is office. Reviewed, dictated and finalized at location M. WAYS ASSISTANT Impression: 5.5 x 3.3 cm right occipital lobe/parietal lobe mass and additional 4.0 cm left frontal lobe mass. Findings are consistent with metastatic disease. There is m ild stranding vasogenic edema but no midline shift or intracranial hemorrhage. 70% stenosis of the proximal right internal carotid artery due to atherosclerot ic calcification. 40% stenosis of the proximal left internal carotid artery due to atheroscleroti c calcification. Findings discussed with Dr. Contreras at the time of this reading. Patient was ins tructed to return to his office.
[2024-06-24 10:40] LABS: Estimated Glomerular Filt Rate 54
== END 2024-06-24 10:04 | disposition home or self-care (01) ==
PROVIDERS: PCP Internal Medicine; Visit Provider Internal Medicine
DX: I63.9 Cerebral infarction, unspecified (principal); G93.89 Other specified disorders of brain; I65.23 Occlusion and stenosis of bilateral carotid arteries
CPT/HCPCS: 70496; 70498; Q9967

== ENCOUNTER 2024-06-27 10:19 | Outpatient (CLI) | payer MEDICARE, SELFPAY ==
--- NOTE | ~2024-06-27 | PE_ITS ---
EXAMINATION: PET skull to mid thigh DATE: 06/27/2024 12:50 INDICATION: Lung cancer metastatic to brain. TECHNIQUE: Blood glucose level was 131 mg/dL. 9.811 mCi of 18-fluorodeoxyglucose (18-FDG) was adminis tered i.v. Low dose computed tomography (CT) images were acquired from the base of the brain to the p roximal thighs for attenuation correction and anatomic localization. Automated exposure control was e mployed. Dose-length product (DLP) was 796 mGy-cm. Positron emission tomography (PET) images were acq uired in the same distribution. COMPARISON: PET/CT 11/04/2021, chest CT 11/26/2023, head CT 06/24/2024 FINDINGS: Head/neck: There is hypoactivity in the left frontal lobe and right parietal occipital region correla ting with cystic masses by CT, consistent with metastatic disease. There are no pathologically enlarg ed lymph nodes. Chest: There is mild emphysema. There are changes of right upper lobectomy. There is mild atelectasis bilaterally. No pleural effusion. Cardiomegaly is noted. There are coronary artery calcifications. T here is a chronic small pericardial effusion. A right paratracheal node measures 2.0 x 1.1 cm without increased activity, likely reactive. The central pulmonary arteries are enlarged, consistent with pu lmonary arterial hypertension. Abdomen/pelvis/proximal thighs: The liver and spleen are normal. There are changes of cholecystectomy . The pancreas, adrenal glands, and right kidney are normal. There is cortical thinning of left kidne y. There is calcified atherosclerosis of the aorta and many of the other arteries. There is diverticu losis of the colon without evidence of diverticulitis. There are no pathologically enlarged lymph nod es. There is no free intraperitoneal fluid. There is no osseous malignancy. IMPRESSION: 1. Cystic masses in left frontal lobe and right parietal occipital region of the brain, consistent wi th metastatic disease. Reviewed, dictated and finalized at location A. NTIFIC SOFTWARE DEVELOPER IMPRESSION: 1. Cystic masses in left frontal lobe and right parietal occipital region of th e brain, consistent with metastatic disease.
[2024-06-27 11:08] LABS: Glucose Point of Care 131 mg/dl (65-105)
== END 2024-06-27 10:20 | disposition home or self-care (01) ==
PROVIDERS: PCP Internal Medicine; Visit Provider Internal Medicine Hematology & Oncology
DX: C78.01 Secondary malignant neoplasm of right lung (principal); G93.0 Cerebral cysts
CPT/HCPCS: 78815; A9552

== ENCOUNTER 2024-07-01 11:06 | Outpatient (CLI) | payer MEDICARE, SELFPAY ==
--- NOTE | ~2024-07-01 | MR_ITS ---
EXAMINATION: MR brain/brain stem wo/w con DATE: 07/01/2024 11:51 INDICATION: Secondary malignant neoplasm of brain. TECHNIQUE: Magnetic resonance imaging (MRI) of the brain and brainstem was performed without and with 12 mL MultiHance intravenous contrast. COMPARISON: Brain MRI 12/14/2019, head CT 06/24/2024 FINDINGS: There is a 4.8 x 2.9 cm rim-enhancing mass with blood products in right occipital lobe. The re is a 3.9 x 3.6 cm rim-enhancing mass with blood products in left frontal lobe. Both masses demonst rate adjacent increased T2-weighted signal intensity, consistent with vasogenic edema. There are scat tered areas of nonspecific increased T2-weighted signal intensity in the cerebral white matter, which is within normal limits for the patient's age. There is no acute ischemic infarct. The ventricles ar e normal in size. The paranasal sinuses are clear. The orbits are normal. The mastoid air cells are n ormal. IMPRESSION: 1. Two rim-enhancing masses with blood products in the brain, consistent with metastatic disease. Reviewed, dictated and finalized at location A. ON TACKER IMPRESSION: 1. Two rim-enhancing masses with blood products in the brain, consistent with m etastatic disease.
== END 2024-07-01 11:07 | disposition home or self-care (01) ==
LOC: MICIMG 11:07
PROVIDERS: PCP Internal Medicine; Visit Provider Radiology Radiation Oncology
DX: C79.31 Secondary malignant neoplasm of brain (principal)
CPT/HCPCS: 70553; A9577

== ENCOUNTER 2024-08-05 08:01 | Emergency (ER) | payer MEDICARE, SELFPAY ==
[2024-08-05] VITALS (19 sets, daily range): BP systolic 196; BP diastolic 113; PULSE 89–129; RESP 14–24; TEMP 36.4; O2SAT 90–98
--- NOTE | ~2024-08-05 | CT_ITS ---
CT ANGIOGRAM HEAD History: Brain mass, seizure. Technique: Noncontrast imaging of the brain was performed axially. Serial spiral axial images through the head were then obtained during arterial phase IV injection of 100 cc of Omnipaque 350. 3-D postp rocessing and MIP images were then reconstructed on the remote workstation. Dose reduction technique was used on this scan by utilizing automated exposure control and iterative reconstruction technique. The dose-length product (DLP) was 1588.70 mGy-cm. COMPARISON: 06/24/2024 FINDINGS: Axial noncontrast imaging of brain demonstrate complex cystic masses in the left frontal l obe and right parietal lobe, as seen on prior exam. Right parietal lesion measures approximately 4.7 cm in diameter, and the left frontal lobe lesion measures approximately 3.6 cm in diameter. There is surrounding vasogenic edema about the lesions. No intracranial hemorrhage evident. No distinct midlin e shift. Calvarium intact. Paranasal sinuses and mastoid air cells are clear. Distal vertebral arteries, basilar artery, and posterior cerebral arteries are patent. Distal interna l carotid arteries demonstrate extensive atherosclerotic disease in the cavernous portions, with area s of moderate stenosis. Middle cerebral arteries and anterior shoulder arteries are patent. No large vessel occlusion. No aneurysm. Impression: Complex cystic masses in the left frontal lobe and right parietal lobe with surrounding edema are com patible with metastatic disease, similar appearance to prior exam. No midline shift. Atherosclerotic disease in the cavernous portions of the distal internal carotid arteries with areas of moderate stenosis. No large vessel occlusion or other significant stenosis. Reviewed, dictated and finalized at [facility]. TER Impression: Complex cystic masses in the left frontal lobe and right parietal lobe with maribel rounding edema are compatible with metastatic disease, similar appearance to pr ior exam. No midline shift. Atherosclerotic disease in the cavernous portions of the distal internal caroti d arteries with areas of moderate stenosis. No large vessel occlusion or other significant stenosis.
--- NOTE | ~2024-08-05 | XR_ITS ---
EXAMINATION: XR chest 1V portable DATE: 08/05/2024 08:42 INDICATION: Weakness TECHNIQUE: frontal view of the chest was obtained. COMPARISON: Chest radiograph dated 02/23/2022 and 11/26/2023 FINDINGS: Increased interstitial pattern in the bilateral lower lung zones consistent with mild pulmonary edema . No pleural effusion or pneumothorax. Cardiomegaly. Visualized bones and soft tissues are unremarkab le. IMPRESSION: 1. Likely congestive heart failure with cardiomegaly and mild pulmonary edema in the lower lungs. Reviewed, dictated and finalized at location B. [facility] A DRIVER IMPRESSION: 1. Likely congestive heart failure with cardiomegaly and mild pulmonary edema i n the lower lungs.
--- NOTE | 2024-08-05 08:43 | PC.NURSE ---
Pt states this morning she smacked her forehead on the doorframe twice, really hard. Pt has L sided facial droop. Pt states she has not been able to move her L arm since last night.
[2024-08-05 08:45] LABS: Basophils Absolute Auto 0.1 K/mm3 (0.0-0.1); Basophils Percent Auto 0.7 % (0.2-1.2); Eosinophils Absolute Auto 0.1 K/mm3 (0-0.3); Hematocrit 38.9 % (37.0-47.0); Hemoglobin 13.1 g/dL (12.0-15.0); Immature Granulocyte Absolute 0.02 K/mm3 (0.00-0.031); Immature Granulocyte Percent A 0.3 % (0-0.5); Immature Platelet Fraction Pct 16.6 % (0.9-11.2); Lymphocytes Absolute Auto 1.03 K/mm3 (0.9-3.2); Lymphocytes Percent Auto 14.8 % (18.3-44.2); Mean Corpuscular HGB Conc 33.7 g/dl (32-36); Mean Corpuscular Hemoglobin 31.7 pg (26-34); Mean Corpuscular Volume 94.2 fl (80-100); Mean Platelet Volume 13.1 fl (7.4-10.4); Monocytes Absolute Auto 0.7 K/mm3 (0.1-0.6); Monocytes Percent Auto 9.6 % (2.6-8.5); Neutrophils Absolute Auto 5.1 K/mm3 (1.3-6.7); Neutrophils Percent Auto 73.6 % (45.5-73.1); Platelet Count Result 130 k/mm3 (150-375); Red Blood Count 4.13 M/mm3 (4.2-5.4); Red Cell Distribution Width 15.1 % (11.5-14.5)
[2024-08-05 08:49] LABS: Estimated CRCL calculation 51 ml/min; Estimated Glomerular Filt Rate > 60
[2024-08-05 08:56] LABS: Prothrombin Time 13.8 Seconds (11.1-14.7)
--- NOTE | 2024-08-05 09:13 | ED_ITS ---
HPI - General Adult General Chief complaint: Unspecified Stated complaint: left arm is going crazy Time Seen by Provider: 08/05/24 08:14 History of Present Illness HPI narrative: 78-year-old female presenting to the emergency department for evaluation for spasm of the left arm. Patient reports that she went to bed at approximately 5:00 p.m. yesterday and was having difficulty moving her left arm. Patient was unable to move her left arm this morning other than the spasms that she was having. Patient does have a new left-sided facial droop. Patient does have known metastatic lesions to her brain and on July 09 patient and family decided to stop all oncology treatment. Patient is long no longer getting radiation and no longer receiving chemotherapy. Patient did discuss hospice with her primary care physician but they felt that she was not ready at that time. Patient states she is DNI DNR and is ready to talk to hospice. Related Data Home Medications ?Medication ?Instructions ?Recorded ?Confirmed ?Last Taken ?Type diphenhydramine HCl 25 mg capsule 50 mg PO HS 12/05/23 06/25/24 Unknown History (Benadryl) aspirin 81 mg tablet,delayed 162 mg PO DAILY 06/24/24 06/25/24 Unknown History release Allergies Allergy/AdvReac Type Severity Reaction Status Date / Time levofloxacin Allergy Severe SWELLING, Verified 06/24/24 11:45 DIFFICULTY BREATHING Penicillins Allergy Intermediate Rash Verified 06/24/24 11:45 nitrofurantoin (From AdvReac Intermediate Nausea and Verified 06/24/24 11:45 Macrobid) Vomiting Review of Systems 2 Review of Systems: All systems reviewed & are unremarkable except as noted in HPI and below [facility] Past Medical History Medical History (Updated 08/05/24 @ 14:22 by Ren Bear MD) 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 No evidence to suggest metastatic disease COPD (chronic obstructive pulmonary disease) PFTs 11/2021: Mild obstructive airway disease moderate reduced diffusion capacity Severe pulmonary hypertension Atrial fibrillation Right-sided heart failure TTE April 2021: Mild concentric left ventricular hypertrophy, indeterminate diastolic function, ejection fraction 61%, moderate enlargement of the right ventricle, moderate right ventricular hypokinesis, severe biatrial enlargement, moderate to severe mitral valve regurgitation, severe pulmonary hypertension with RVSP of 69, moderate to severe tricuspid regurgitation Cataract of both eyes ETOHism Iron deficiency anemia secondary to blood loss (chronic) With most recent iron studies September 2021 due to severe epistaxis from Xarelto use Orthostatic hypotension Tortuous colon Moderate mitral valve regurgitation KADEN May 2021 Hyponatremia With baseline sodium ranging between 128 and 138 Hearing loss Elevated alkaline phosphatase level Elevated homocysteine Tobacco abuse IBS (irritable bowel syndrome) Surgical History Surgical History History of laparoscopic cholecystectomy 12/13/23 History of colonoscopy with polypectomy X2 in the past with last colonoscopy August 2021 demonstrated no polyps History of appendectomy during her hysterectomy History of tonsillectomy History of total hysterectomy with bilateral salpingo-oophorectomy (BSO) History of carpal tunnel surgery of right wrist Status post lobectomy of lung (12/30/21) Due to lung cancer reportedly stage I Family History Family History Sibling Lung cancer Rheumatoid arthritis Father Rheumatoid arthritis Mother Diabetes mellitus Social History Social History Social History: Code status: Full code Surrogate decision maker: Smoking packs per day: 0.25 Smoking cigarettes per day: 5.0 Years smoked: 56 Smoking pack-years: 14.00 Smoking status: Current every day smoker Tobacco type: cigarettes Second hand tobacco smoke exposure: No Smoking end date: 12/15/21 Alcohol intake: former Drinks per week: 3 Alcohol use details: HX ALCOHOL ABUSE Substance use: never Substance use type: does not use Do You Feel Safe in your Home?: Yes Lack of Transportation: No Lack of Food: Never True Current Housing: I Have Housing Concerned About Future Housing: No Difficulty Paying Gas/Electric Bills: No Difficulty Paying for Meds: No Currently Unemployed: No Education: High School Diploma/GED Difficulty w/ Childcare or Family Care: No Living arrangements: with family Additional living arrangements comments: [place] Occupation/Education: retired Additional occupation/education comments: 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 Gender identity (if verbalized by the patient): Female Sexual Orientation (if Verbalized by the Patient): Straight or Heterosexual Spiritual care concerns: No Agree to blood products: Yes Exam 2 Narrative: APPEARANCE: Ill-appearing HEAD: normocephalic, atraumatic. EYES: PERRLA/EOMI, conjunctivae clear. NOSE: Normal no drainage EARS:TMS clear with good light reflex. THROAT: Pharynx clear, no exudate. NECK: Supple. No adenopathy, no masses. RESPIRATORY: Airway patent, respirations nonlabored. Clear to auscultation bilaterally, no rales, rhonchi, wheezing. CARDIOVASCULAR: Regular rate and rhythm without murmurs rubs or gallops. ABDOMINAL: Soft, nontender, nondistended, normal bowel sounds MUSCULOSKELETAL: Moves all extremities. Strength/ROM intact, No edema, No calf tenderness. NEURO: Left-sided facial droop, left arm flaccidity, able to moved left leg without deficit SKIN: Warm, dry. Normal Color Course Course Emergency Course: Patient was discharged to home on hospice Vital Signs Vital signs: Vital Signs Temperature 97.6 F 08/05/24 08:00 Pulse Rate 112 H 08/05/24 08:00 Respiratory Rate 14 08/05/24 08:00 Blood Pressure 196/113 H 08/05/24 08:00 Pulse Oximetry 93 08/05/24 08:00 Oxygen Delivery Room Air 08/05/24 08:00 Temperature 97.6 F 08/05/24 08:00 Pulse Rate 91 08/05/24 14:20 Respiratory Rate 17 08/05/24 14:20 Blood Pressure 196/113 H 08/05/24 08:00 Pulse Oximetry 98 08/05/24 14:20 Oxygen Delivery Room Air 08/05/24 08:00 Medical Decision Making MDM Narrative Medical decision making narrative: 78-year-old female presents to the emergency department for evaluation for acute onset of left arm numbness and possible seizure-like activity. Patient is currently afebrile with no leukocytosis and hemoglobin of 13.1. Patient has an INR of 1.0. CTA head and neck does show the persistence of a metastatic lesion. No evidence of an acute intracranial bleed. I do suspect that the patient has left-sided deficit secondary to stroke versus Ren's paralysis secondary to seizure activity. Differential Diagnosis Differential Diagnosis: CVA, TIA, subarachnoid hemorrhage, Ren's paralysis, seizure Medical Records Medical records reviewed: Yes I reviewed the external patient's medical records. Vital Signs Vital Signs: Vital Signs Temperature 97.6 F 08/05/24 08:00 Pulse Rate 112 H 08/05/24 08:00 Respiratory Rate 14 08/05/24 08:00 Blood Pressure 196/113 H 08/05/24 08:00 Pulse Oximetry 93 08/05/24 08:00 Oxygen Delivery Room Air 08/05/24 08:00 Temperature 97.6 F 08/05/24 08:00 Pulse Rate 91 08/05/24 14:20 Respiratory Rate 17 08/05/24 14:20 Blood Pressure 196/113 H 08/05/24 08:00 Pulse Oximetry 98 08/05/24 14:20 Oxygen Delivery Room Air 08/05/24 08:00 Lab Data Lab results reviewed: Yes I reviewed the patient's lab results. 08/05/24 08:35 08/05/24 08:47 Labs: Lab Results 08/05/24 08/05/24 08/05/24 Range/Units 08:35 08:47 09:21 WBC 7.0 (4.5-10.0) K/mm3 RBC 4.13 L (4.2-5.4) M/mm3 Hgb 13.1 (12.0-15.0) g/dL Hct 38.9 (37.0-47.0) % MCV 94.2 (80-100) fl MCH 31.7 (26-34) pg MCHC 33.7 (32-36) g/dl RDW 15.1 H (11.5-14.5) % Plt Count 130 L (150-375) k/mm3 MPV 13.1 H (7.4-10.4) fl Immature Gran % (Auto) 0.3 (0-0.5) % Neut % (Auto) 73.6 H (45.5-73.1) % Lymph % (Auto) 14.8 L (18.3-44.2) % [place] % (Auto) 9.6 H (2.6-8.5) % Eos % (Auto) 1.0 (0-4.4) % Baso % (Auto) 0.7 (0.2-1.2) % Lymph # (Auto) 1.03 (0.9-3.2) K/mm3 [place] # (Auto) 0.7 H (0.1-0.6) K/mm3 Eos # (Auto) 0.1 (0-0.3) K/mm3 Baso # (Auto) 0.1 (0.0-0.1) K/mm3 Abs Immat Gran (auto) 0.02 (0.00-0.031) K/mm3 Absolute Neuts (auto) 5.1 (1.3-6.7) K/mm3 Absolute Nucleated RBC 0.000 (0.0-0.012) K/mm3 Nucleated RBC % 0.0 (0.0-0.2) % % Immature Plt Fraction 16.6 H (0.9-11.2) % PT 13.8 (11.1-14.7) Seconds INR 1.0 APTT 29.0 (22.3-36.8) Seconds Sodium 133 L (137-145) mmol/L Potassium 4.0 (3.4-5.0) mmol/L Chloride 101 (98-107) mmol/L Carbon Dioxide 25 (22-30) mmol/L Anion Gap 7 (4-12) mmol/L BUN 10 (7-17) mg/dL Creatinine 0.65 L 0.70 (0.7-1.0) mg/dL Estim Creat Clear Calc 54 51 ml/min Estimated GFR > 60 > 60 (59 - ) Glucose 109 (65-110) mg/dL Calcium 9.5 (8.4-10.2) mg/dL Magnesium 1.3 L (1.6-2.3) mg/dL Total Bilirubin 1.7 H (0.2-1.3) mg/dL AST 31 (14-36) U/L ALT 18 (6-35) U/L Alkaline Phosphatase 189 H (38-126) U/L Total Protein 7.0 (6.3-8.2) g/dL Albumin 4.1 (3.5-5.1) g/dL TSH (Reflex) 1.250 (0.465-4.68) uIU/mL Urine Color (Yellow) Urine Appearance (Clear) Urine pH (5.0-9.0) Ur Specific [place] (1.001-1.035) Urine Protein (Negative) mg/dL Urine Glucose (UA) (Negative) mg/dL Urine Ketones (Negative) mg/dL Ur Blood (Man) (Negative) Urine Nitrate (Negative) Urine Bilirubin (Negative) Urine Urobilinogen (<2.0) mg/dL Leukocyte Esterase Rfl (Negative) GUALBERTO/UL Urine RBC (0-2) /hpf Urine WBC (0-3) /hpf Ur Squamous Epith Cells (Few) /hpf Urine Bacteria /hpf Urine Casts Influenza A (RT-PCR) Negative (Negative) Influenza B (RT-PCR) Negative (Negative) RSV (RT-PCR) Negative (Negative) SARS-CoV-2 RNA (RT-PCR) Negative (Negative) 08/05/24 Range/Units 09:31 WBC (4.5-10.0) K/mm3 RBC (4.2-5.4) M/mm3 Hgb (12.0-15.0) g/dL Hct (37.0-47.0) % MCV (80-100) fl MCH (26-34) pg MCHC (32-36) g/dl RDW (11.5-14.5) % Plt Count (150-375) k/mm3 MPV (7.4-10.4) fl Immature Gran % (Auto) (0-0.5) % Neut % (Auto) (45.5-73.1) % Lymph % (Auto) (18.3-44.2) % [place] % (Auto) (2.6-8.5) % Eos % (Auto) (0-4.4) % Baso % (Auto) (0.2-1.2) % Lymph # (Auto) (0.9-3.2) K/mm3 [place] # (Auto) (0.1-0.6) K/mm3 Eos # (Auto) (0-0.3) K/mm3 Baso # (Auto) (0.0-0.1) K/mm3 Abs Immat Gran (auto) (0.00-0.031) K/mm3 Absolute Neuts (auto) (1.3-6.7) K/mm3 Absolute Nucleated RBC (0.0-0.012) K/mm3 Nucleated RBC % (0.0-0.2) % % Immature Plt Fraction (0.9-11.2) % PT (11.1-14.7) Seconds INR APTT (22.3-36.8) Seconds Sodium (137-145) mmol/L Potassium (3.4-5.0) mmol/L Chloride (98-107) mmol/L Carbon Dioxide (22-30) mmol/L Anion Gap (4-12) mmol/L BUN (7-17) mg/dL Creatinine (0.7-1.0) mg/dL Estim Creat Clear Calc ml/min Estimated GFR (59 - ) Glucose (65-110) mg/dL Calcium (8.4-10.2) mg/dL Magnesium (1.6-2.3) mg/dL Total Bilirubin (0.2-1.3) mg/dL AST (14-36) U/L ALT (6-35) U/L Alkaline Phosphatase (38-126) U/L Total Protein (6.3-8.2) g/dL Albumin (3.5-5.1) g/dL TSH (Reflex) (0.465-4.68) uIU/mL Urine Color Yellow (Yellow) Urine Appearance Clear (Clear) Urine pH 7.0 (5.0-9.0) Ur Specific [place] 1.027 (1.001-1.035) Urine Protein Negative (Negative) mg/dL Urine Glucose (UA) Negative (Negative) mg/dL Urine Ketones Negative (Negative) mg/dL Ur Blood (Man) Negative (Negative) Urine Nitrate Negative (Negative) Urine Bilirubin Negative (Negative) Urine Urobilinogen 0.2 (<2.0) mg/dL Leukocyte Esterase Rfl 1+ H (Negative) GUALBERTO/UL Urine RBC 0-2 (0-2) /hpf Urine WBC 11-20 H (0-3) /hpf Ur Squamous Epith Cells Occasional (Few) /hpf Urine Bacteria None seen /hpf Urine Casts 0-2 Influenza A (RT-PCR) (Negative) Influenza B (RT-PCR) (Negative) RSV (RT-PCR) (Negative) SARS-CoV-2 RNA (RT-PCR) (Negative) Imaging Data Radiologist's impression: Impressions Chest X-Ray 08/05/24 08:43 IMPRESSION: 1. Likely congestive heart failure with cardiomegaly and mild pulmonary edema in the lower lungs. Head/Neck CTA 08/05/24 09:02 Impression: Complex cystic masses in the left frontal lobe and right parietal lobe with surrounding edema are compatible with metastatic disease, similar appearance to prior exam. No midline shift. Atherosclerotic disease in the cavernous portions of the distal internal carotid arteries with areas of moderate stenosis. No large vessel occlusion or other significant stenosis. Discharge Plan Discharge Clinical Impression: Acute CVA (cerebrovascular accident), Seizure, Headache, End of life care Patient Disposition: Hospice - Home Condition: Guarded Prognosis Additional Instructions: Today we are concerned for stroke and seizure. Rather than admission into the hospital you preferred to be discharged home on hospice. If you have any worsening symptoms please call or return to the emergency department. Patient Language: Moroccan Prescriptions: No Action famotidine [Pepcid] 20 mg tablet 20 mg PO BID Qty: 60 0RF diphenhydramine HCl [Benadryl] 25 mg Capsule 50 mg PO HS hydrocodone-acetaminophen 5-325 mg tablet 1 - 2 tablet PO Q6H PRN (Reason: pain) Qty: 10 0RF Tradjenta 5 mg tablet See Rx Instructions .ROUTE .COMPLEX Qty: 90 1RF Dose Instruction: TAKE 1 TABLET BY MOUTH EVERY DAY Rx Instructions: TAKE 1 TABLET BY MOUTH EVERY DAY, TAKES IN AM tramadol 50 mg tablet 50 mg PO Q6H PRN (Reason: pain) Qty: 30 0RF carvedilol 6.25 mg tablet See Rx Instructions .ROUTE .COMPLEX Qty: 60 0RF Dose Instruction: TAKE 1/2 TABLET BY MOUTH EVERY 12 HOURS W MEAL/FOOD Rx Instructions: TAKE 1/2 TABLET BY MOUTH EVERY 12 HOURS W MEAL/FOOD aspirin 81 mg tablet,delayed release (DR/EC) 162 mg PO DAILY albuterol sulfate 90 mcg/actuation HFA aerosol inhaler See Rx Instructions .ROUTE .COMPLEX PRN (Reason: Shortness Of Breath Or Wheezing) Qty: 8.5 0RF Rx Instructions: INHALE ONE PUFF BY MOUTH EVERY FOUR TO SIX HOURS NEEDED dexamethasone 4 mg tablet 4 mg PO QID Qty: 30 0RF potassium chloride 10 mEq tablet extended release See Rx Instructions .ROUTE .COMPLEX Qty: 90 1RF Dose Instruction: TAKE 1 TABLET BY MOUTH EVERY DAY WITH FOOD Rx Instructions: TAKE 1 TABLET BY MOUTH EVERY DAY WITH FOOD olmesartan 20 mg tablet See Rx Instructions .ROUTE .COMPLEX Qty: 90 1RF Dose Instruction: TAKE ONE TABLET BY MOUTH EVERY DAY Rx Instructions: TAKE ONE TABLET BY MOUTH EVERY DAY trazodone 50 mg tablet 50 mg PO QHS PRN (Reason: sleep) Qty: 60 2RF nortriptyline 10 mg capsule 20 mg PO HS Qty: 90 0RF alprazolam 0.25 mg tablet 0.25 mg PO TID PRN (Reason: anxiety) Qty: 90 0RF Follow-up/Referrals: Jaleel Contreras MD [Primary Care Provider] -
[2024-08-05 09:55] LABS: Add Urine Microscopic? YES; Appearance Urine Clear (Clear); Bacteria Urine None Seen /hpf; Bilirubin Urine Negative (Negative); Blood Urine Negative (Negative); Color Urine Yellow (Yellow); Glucose Urine UA Negative (Negative); Ketones Urine Negative (Negative); Leukocyte Esterase Ur 1+ LEU/UL (Negative); Nitrate Urine Negative (Negative); Non Pathogenic Casts 0-2; Protein Urine Negative (Negative); RBC Urine 0-2 /hpf (0-2); Specific Grav Ur 1.027 (1.001-1.035); Squamous Epithelial Cell Urine Occasional /hpf (Few); Urobilinogen Urine 0.2 mg/dL (<2.0)
[2024-08-05] MEDS: ONDANSETRON INJ 4 MG/2 ML VIAL IV PUSH ×2 (09:58→14:43)
[2024-08-05] MEDS: HYDROmorphone HCL INJ (*CRX) 1 MG/ML SYR 0.5 MG IV PUSH (09:58)
--- NOTE | 2024-08-05 09:58 | PCCCNOTE ---
0930: Called to the ED to speak with the pt and family about hospice. Pt would like to go home and they would like [facility] contacted. Referral faxed to Hospice.
[2024-08-05 10:00] LABS: Alanine Aminotransferase 18 U/L (6-35); Albumin Level 4.1 g/dL (3.5-5.1); Alkaline Phosphatase 189 U/L (38-126); Anion Gap 7 mmol/L (4-12); Aspartate Amino Transferase 31 U/L (14-36); Bilirubin,Total 1.7 mg/dL (0.2-1.3); Blood Urea Nitrogen 10 mg/dL (7-17); Calcium 9.5 mg/dL (8.4-10.2); Carbon Dioxide 25 mmol/L (22-30); Chloride 101 mmol/L (98-107); Estimated CRCL calculation 54 ml/min; Estimated Glomerular Filt Rate > 60; Glucose 109 mg/dL (65-110); Magnesium 1.3 mg/dL (1.6-2.3); Sodium 133 mmol/L (137-145)
--- NOTE | 2024-08-05 10:10 | PCCCNOTE ---
1005: Mishel with [facility] called, She will contact the to arrange for a hospital bed and let me know when a good time would be to send pt home. They will meet family at home to admit pt.
[2024-08-05 10:22] LABS: Influenza A QL RT-PCR Negative (Negative); Influenza B QL RT-PCR Negative (Negative); RSV RNA, RT-PCR Negative (Negative); SARS-CoV-2 RNA PCR Negative (Negative)
[2024-08-05] MEDS: MORPHINE SULFATE (*CRX) 4 MG/ML INJ IV PUSH (14:24)
--- NOTE | 2024-08-05 15:01 | PCCCNOTE ---
1445:Ambulance here to get pt, supplies have been delivered to the pt home. Call placed to Hospice to let them know she is on her way home.
--- OUTSIDE RECORDS SUMMARY | 2024-08-08 12:14 | XMS_ITS | Referral Summary ---
Demographics Address [address] [place] [id number] Home Phone Mobile Phone Email Address [email or web address] Preferred Language [place] Islander Marital Status Synagogue Affiliation Unknown Race White Ethnic Group Not or Lati no Author Organization [facility] Address [address] [place] [address] Care Team Providers Care Event Sales Assistant Name Role Phone Jaleel Contreras MD Primary Care Provider [phone] Source Comments [facility],non-owned Affiliates and Associated Physician Practices is amultiple site organization consisting of ambulatory clinics and hospital sitesin [place], [place], [place] and [place]. This disclosure is being madepursuant to the Care Everywhere program and may not contain all information available regarding this patient. Last updated 18.[facility] Social History Tobacco Use Types Packs/Day Years Used Date Smoking Tobacco: Never Assessed Sex and Gender Information Value Date Recorded Sex Assigned at Not on file Gender Identity Not on file Sexual Orientation Not on file Plan of Treatment Not on file Care Teams Event Sales Assistant Relationship Specialty Start Date End Date Jaleel Contreras MD [address] [facility] [address] [id number] PCP - General 11/16/21
--- OUTSIDE RECORDS SUMMARY | 2024-08-08 12:14 | XMS_ITS | Clinical Summary ---
Author Organization [facility] Address [address] [place] [address] Care Team Providers Care Structural Manager Name Role Phone Jaleel Contreras MD Primary Care Provider [phone] Source Comments [facility],non-owned Affiliates and Associated Physician Practices is amultiple site organization consisting of ambulatory clinics and hospital sitesin [place], [place], [place] and [place]. This disclosure is being madepursuant to the Care Everywhere program and may not contain all information available regarding this patient. Last updated 18.[facility] Social History Tobacco Use Types Packs/Day Years Used Date Smoking Tobacco: Never Assessed Sex and Gender Information Value Date Recorded Sex Assigned at Not on file Gender Identity Not on file Sexual Orientation Not on file Plan of Treatment Health Maintenance Due Date Last Done Comments BONE DENSITY TESTING 1945 MEDICARE AWV ? 12 MONTHS 1945 HEPATITIS C SCREENING 10/01/1965 DTAP/TDAP/TD VACCINES (1 - Tdap) 10/05/1966 PNEUMOCOCCAL VACCINE 50+ (1 of 1 - PCV) 10/05/1997 ZOSTER VACCINE (1 of 2) 10/05/1997 Respiratory Syncytial Virus (RSV) Vaccine Pt: or over 60 yrs (1 - 1-dose 75+ series) 10/05/2022 COVID-19 VACCINE ( - 2023-2 5 season) 2024 INFLUENZA VACCINE (#1) 2024 DEPRESSION SCREENING 07/17/2024 HEPATITIS B VACCINE Aged Out No longe r eligible based on patient's age to complete this topic HIB VACCINE Aged Out No longer eligi ble based on patient's age to complete this topic HPV VACCINE Aged Out No longer eligi ble based on patient's age to complete this topic MENINGOCOCCAL (Group B) VACCINE Aged Out No longer eligible based on patient's age to complete this topic MENINGOCOCCAL VACCINE Aged Out No magen isiah eligible based on patient's age to complete this topic Care Teams Structural Manager Relationship Specialty Start Date End Date Jaleel Contreras MD [address] [facility] [address] [address] [facility] - General 11/16/21
--- OUTSIDE RECORDS SUMMARY | 2024-08-08 12:15 | XMS_ITS | Clinical Summary ---
Author Organization [facility] Address [address] [place] [address]. [place], [place] [address] [place] [address] Care Team Providers Care Maintenance And Engineering Manager Name Role Phone Unavailable Primary Care Provider Unavailabl e Social History Tobacco Use Types Packs/Day Years Used Date Smoking Tobacco: Never Assessed Comments Unknown Sex and Gender Information Value Date Recorded Sex Assigned at Not on file Legal Sex Female 7:12 PM CDT Gender Identity Not on file Sexual Orientation Not on file Plan of Treatment Health Maintenance Due Date Last Done Comments Hepatitis C 10/05/1965 DTaP, Tdap and Td Vaccines ( 1 - Tdap) 10/05/1966 Zoster Vaccines (1 of 2) 10/05/1997 Dexa Scan (General) 10/05/2012 Pneumococcal Vaccine: 65+ Ye ars (1 of 1 - PCV) 10/05/2012 RSV Immunization or 60+ Years (1 - 1-dose 75+ series) 10/05/2022 COVID-19 Vaccine ( - 2023-2 5 season) 2024 Influenza Adult (#1) 2024 Meningococcal Vaccine Aged Out No magen isiah eligible based on patient's age to complete this topic RSV Immunizations Under 20 Months Aged Out No longer eligible based on patient's age to complete this topic
--- OUTSIDE RECORDS SUMMARY | 2024-08-08 12:15 | XMS_ITS | Referral Summary ---
Author Organization [facility] Address [address] [place] [address] Care Team Providers Care [employer] Social Studies Teacher Name Role Phone Jaleel Contreras MD Primary Care Provider [phone] Allergies Active Allergy Reactions Criticality Noted Date Comments Penicillins Rash Medium 09/15/2010 Medications ALPRAZolam (XANAX) 0.25 mg tablet Take 1 tablet by mouth 2 (two) times a day. 0 8 Active atorvastatin (LIPITOR) 40 mg tablet Take 80 mg by mouth daily 8 Active linaGLIPtin (TRADJENTA) 5 mg tabletIndicatio ns:type 2 diabetes mellitus Take 5 mg by mouth daily. Active magnesium oxide (MAG-OX) 400 mg (241.3 mg elemental magnesium) tabletIndicatio ns:hypomagnesem ia Take 400 mg by mouth daily. Active pantoprazole DR (PROTONIX) 40 mg EC tablet Take 40 mg by mouth daily Active calcium carbonate-vit D3-min 600 mg calcium- 400 unit tablet Take 1 tablet by mouth daily. Active polycarbophil (FIBERCON) 625 mg tablet Take 625 mg by mouth daily. Active cholecalciferol (VITAMIN D-3) 1,000 unit Take 1,000 Units by mouth daily. Active multivitamin capsule Take 1 capsule by mouth daily Active nortriptyline (PAMELOR) 10 mg capsule Take 10 mg by mouth nightly. Active olmesartan-hydr ochlorothiazide (BENICAR HCT) 40-12.5 mg per tablet Take 1 tablet by mouth daily. Active potassium chloride ER (KLOR-CON,K-DUR ) 10 mEq CR tablet Take 20 mEq by mouth 2 (two) times a day Active carvediloL (COREG) 12.5 mg tablet 1 Active furosemide (LASIX) 40 mg tablet Take 80 mg by mouth daily 1 Active Xarelto 20 mg tablet 1 Active amLODIPine (NORVASC) 2.5 mg tablet 1 Active folic acid (FOLVITE) 1 mg tablet 1 Active albuterol HFA (PROVENTIL HFA,VENTOLIN HFA,PROAIR HFA) 90 mcg/actuation inhaler 1 Active omeprazole (PriLOSEC) 20 mg capsule Take 20 mg by mouth daily Active ferrous sulfate 325 mg (65 mg of elemental iron) tabletIndicatio ns:Iron Deficiency Anemia Take 65 mg of elemental iron by mouth daily with breakfast Active Active Problems Problem Noted Date Diagnosed Date Nonrheumatic mitral valve regurgitation 06/03/20 21 Chronic atrial fibrillation 04/10/2018 Social History Tobacco Use Types Packs/Day Years Used Date Smoking Tobacco: Former Smokeless Tobacco: Never Comments:03-25-18 Alcohol Use Standard Drinks/Week Comments Yes 0 (1 standard drink = 0.6 oz pur e alcohol) Personal Safety Answer Date Recorded Getting School Help Needed Not on file 07/18 Comments Unknown Sex and Gender Information Value Date Recorded Sex Assigned at Not on file Legal Sex Female 9:20 AM FINANCIAL REPRESENTATIVE Gender Identity Not on file Sexual Orientation Not on file Last Filed Vital Signs Vital Sign Reading Time Taken Comments Blood Pressure 130/74 12/09/2021 9:30 AM CDT Pulse 79 12/09/2021 9:30 AM CDT Temperature 35.9 ??C (96.6 ??F) 02/19/2020 11:32 AM C DT Respiratory Rate - - Oxygen Saturation 96% 12/09/2021 9:30 AM CDT Inhaled Oxygen Concentration - - Weight 69.9 kg (154 lb) 12/09/2021 9:30 AM CDT Height 160 cm (5' 3 ) 12/09/2021 9:30 AM CDT Body Mass Index 27.28 12/09/2021 9:30 AM CDT Plan of Treatment Not on file Procedures Procedure Name Priority Date/Time Associated Diagnosis Comments COLONOSCOPY REPORT 07/05/2017 from Last 3 Months or Most Recently Relevant to Health Maintenance Results * COLONOSCOPY REPORT (07/05/2017) Anatomical Region Laterality Modality Other us Provider Scanning GI PROCEDURE ORDERABLES Final Result from Last 3 Months or Most Recently Relevant to Health Maintenance Insurance [employer] MEDICARE MEDICARE Care Teams High School Social Studies Teacher Relationship Specialty Start Date End Date Jaleel Contreras MD [address] [facility] [address] [place] [address] PCP - General 07/05/17
--- OUTSIDE RECORDS SUMMARY | 2024-08-08 12:15 | XMS_ITS | Patient Health Summary ---
Author Organization [facility] Address [address] [facility] [place] [address] Care Team Providers Care Scale Assembly Set Up Worker Name Role Phone Jaleel Contreras MD Primary Care Provider [phone] Note from [facility],non-owned Affiliates and Associated Physician Practices is amultiple site organization consisting of ambulatory clinics and hospital sitesin [place], [place], [place] and [place]. This disclosure is being madepursuant to the Care Everywhere program and may not contain all information available regarding this patient. Last updated 18.[facility] Social History Tobacco Use Types Packs/Day Years Used Date Smoking Tobacco: Never Assessed Sex and Gender Information Value Date Recorded Sex Assigned at Not on file Gender Identity Not on file Sexual Orientation Not on file Procedures * B-TYPE NATRIURETIC PEPTIDE(Performed 02/11/2020) * TROPONIN I(Performed 02/11/2020) * BASIC METABOLIC PANEL (CALCIUM TOTAL)(Performed 02/11/2020) Results * TROPONIN I (02/11/2020 12:00 PM CDT) Troponin I <0.010 <0.038 ng/mL 02/11/2020 3:18 PM CDT [facility] Blood BLOOD SPECIMEN / Unknown Venipuncture / Unknown 02/11/2020 12:00 PM CDT 02/11/2020 2:50 PM CDT Jaleel Contreras MD LAB - CHEMISTRY LORETTA GAMBOA [facility] [address] [place] [address] * (ABNORMAL) BASIC METABOLIC PANEL (CALCIUM TOTAL) (02/11/2020 12:00 PM CDT) Glucose 114(H) 70 - 105 mg/dL 02/11/2020 3:10 PM CDT [facility] Sodium 136 136 - 145 mmol/L 02/11/2020 3:10 PM CDT [facility] Potassium 3.6 3.5 - 5.1 mmol/L 02/11/2020 3:10 PM CDT [facility] Chloride 99 98 - 107 mmol/L 02/11/2020 3:10 PM CDT [facility] CO2 28 23 - 31 mmol/L 02/11/2020 3:10 PM CDT [facility] Calcium 9.3 8.4 - 10.4 mg/dL 02/11/2020 3:10 PM CDT [facility] Anion Gap 9 8 - 16 mmol/L 02/11/2020 3:10 PM CDT [facility] BUN 10 9.8 - 20.1 mg/dL 02/11/2020 3:10 PM CDT [facility] Creatinine 0.82 0.57 - 1.11 mg/dL 02/11/2020 3:10 PM CDT [facility] eGFR by MDRD >60 mL/min/1.7 3m2 02/11/2020 3:10 PM CDT [facility] eGFR by MDRD >60 mL/min/1.7 3m2 02/11/2020 3:10 PM CDT [facility] Blood BLOOD SPECIMEN / Unknown Venipuncture / Unknown 02/11/2020 12:00 PM CDT 02/11/2020 2:50 PM CDT Jaleel Contreras MD LAB - CHEMISTRY LORETTA [facility]AMBO[facility] Organization Address City/State/ZIP Co de Phone Number [facility] [address] [place] [address] * (ABNORMAL) B-TYPE NATRIURETIC PEPTIDE (02/11/2020 12:00 PM CDT) BNP 1,319(H) <=100 pg/mL 02/11/2020 3:50 PM CDT [facility] Blood BLOOD SPECIMEN / Unknown Venipuncture / Unknown 02/11/2020 12:00 PM CDT 02/11/2020 3:[address] [facility] - 02/11/2020 3:50 PM CDT A cutoff of 100 pg/mL has been demonstrated to provide the maximal combination of sensitivity, specificity, and negative predictive value for contributing to the diagnosis of congestive heart failure (CHF) only. ??A B-Type Natriuretic Peptide (BNP) value greater than or equal to 100 pg/mL is consistent with a diagnosis of CHF in the appropriate clinical setting. ??False positive results are more common in females greater than 75 years of age. ??Blood concentrations of natriuretic peptides may also be elevated in patients with myocardial infarction and in patients who are candidates for or are undergoing renal dialysis. Jaleel Contreras MD LAB - CHEMISTRY [place] [facility] Organization Address City/State/ZIP Co de Phone Number [facility] [address] [place] [address] Care Teams Scale Assembly Set Up Worker Relationship Specialty Start Date End Date Jaleel Contreras MD [address] [facility] [address] [place] [phone] PCP - General 11/16/21
--- OUTSIDE RECORDS SUMMARY | 2024-08-08 12:15 | XMS_ITS | Clinical Summary ---
Author Organization [facility] Address [address] [place] [address] Care Team Providers Care Combination Machine Tender Name Role Phone Jaleel Contreras MD Primary Care Provider [phone] Allergies Active Allergy Reactions Criticality Noted Date [...] regurgitation 06/03/20 21 Chronic atrial fibrillation 04/10/2018 Surgical History Surgery Date Site/Laterality Comments KNEE SURGERY CARPAL TUNNEL RELEASE Medical History Medical History Date Comments Hypertension Cardiac rhythm disturbance Diabetes mellitus (HCC) Colitis Cataracts, bilateral Family History Medical History Relation Name Comments Cancer Brother Family history of malignant neoplasm - (Added by TW Conv) Hypertension Father Family history of hypertension - (Added by TW Conv) Rheum arthritis Father Family histo ry of rheumatoid arthritis - (Added by TW Conv) Crohn's disease Mother Family histo ry of Crohn's disease - (Added by TW Conv) Hypertension Mother Family history of hypertension - (Added by TW Conv) Hypertension Sister 1 Family history of hypertension - (Added by TW Conv) Rheum arthritis Sister 2 Family histo ry of rheumatoid arthritis - (Added by TW Conv) Hypertension Son 1 Family history of hypertension - (Added by TW Conv) Crohn's disease Son 2 Family histo ry of Crohn's disease - (Added by TW Conv) Relation Name Status Comments Brother Father Mother Sister 1 Sister 2 Son 1 Son 2 Social History Tobacco Use Types Packs/Day Years [...] on file Legal Sex Female 9:20 AM CLINICAL INTERVIEWER Gender Identity Not on file Sexual Orientation Not on file Obstetrics History Last Filed Vital Signs Vital Sign Reading [...] 12/09/2021 9:30 AM CDT Plan of Treatment Health Maintenance Due Date Last Done Comments Depression Screening 1945 Fall Risk Assessment 1945 Hepatitis C Screening 1945 Osteoporosis Screening-Bone Density Scan 1945 Pneumococcal vaccine 65+ (1 of 2 - PCV) 10/05/1953 DTaP/Tdap/Td Vaccine (1 - Tdap) 10/05/1958 Hepatitis B Screening 10/05/1965 Zoster Vaccine (1 of 2) 10/05/1997 Well Visit 65+ 10/05/2012 Influenza Vaccine (#1) 2024 Colon Cancer Screening-CT Colonography Discontinued Colon Cancer Screening-Colonoscopy Discontinued 2016 Colon Cancer Screening-DNA Stool Discontinued 07/05/20 17 Colon Cancer Screening-FIT Discontinued 07/05/2017 Colon Cancer Screening-FOBT Discontinued 07/05/2017 Colon Cancer Screening-Sigmoidoscopy Discontinued 06/17 Colorectal Cancer Screening Discontinued Procedures Procedure Name Priority Date/Time Associated Diagnosis Comments COLONOSCOPY REPORT 07/05/2017 from Last 3 Months or Most Recently Relevant to Health Maintenance Results * COLONOSCOPY REPORT (07/05/2017) Anatomical Region Laterality Modality Other us Provider Scanning GI PROCEDURE ORDERABLES Final Result from Last 3 Months or Most Recently Relevant to Health Maintenance Insurance [employer] MEDICARE MEDICARE Care Teams Combination Machine Tender Relationship Specialty Start Date End Date Jaleel Contreras MD [address] [facility] [address] [place], [place] [phone] PCP - General 07/05/17
--- OUTSIDE RECORDS SUMMARY | 2024-08-08 12:15 | XMS_ITS | Encounter Summary ---
Author Organization [facility] Address [address] [place] [address] Care Team Providers Care Shredded Filler Machine Wrapper Layer Name Role Phone Jaleel Conterras MD Primary Care Provider [phone] Encounter Details Date Type Department Care Team (Late st Contact Info) Description 02/11/2020 Lab Requisition [facility] [address] [place] [address] Jaleel Contreras MD [address] [place] [address] Social History Tobacco Use Types Packs/Day Years Used Date Smoking Tobacco: Never Assessed Sex and Gender Information Value Date Recorded Sex Assigned at Not on file Gender Identity Not on file Sexual Orientation Not on file documented as of this encounter Plan of Treatment Not on file documented as of this encounter Procedures Procedure Name Priority Date/Time Associated Diagnosis Comments TROPONIN I STAT 02/11/2020 12:00 PM CDT BASIC METABOLIC PANEL (CALCIUM TOTAL) STAT 02/11/2020 12:00 PM CDT B-TYPE NATRIURETIC PEPTIDE STAT 02/11/2020 12:00 PM CDT documented in this encounter Results * (ABNORMAL) B-TYPE NATRIURETIC PEPTIDE (02/11/2020 12:00 PM CDT) BNP 1,319(H) <=100 pg/mL 02/11/2020 3:50 PM CDT [facility] Blood BLOOD SPECIMEN / Unknown Venipuncture / Unknown 02/11/2020 12:00 PM CDT 02/11/2020 3:33 PM CDT Narrative [facility] - 02/11/2020 3:50 PM CDT A [...] Contreras MD LAB - CHEMISTRY LORETTA GAMBOA Performing Organization Address City/[facility]/ZIP Co de Phone Number [facility] [address] [place] [phone] * TROPONIN I (02/11/2020 12:00 PM CDT) Pathologist [facility] Troponin I <0.010 <0.038 ng/mL 02/11/2020 3:18 PM CDT [facility] Blood BLOOD SPECIMEN / Unknown Venipuncture / Unknown 02/11/2020 12:00 PM CDT 02/11/2020 2:50 PM CDT Jaleel Contreras MD LAB - CHEMISTRY LORETTA GAMBOA Performing Organization Address [facility] Co de Phone Number [facility] [address] [place] [phone] * (ABNORMAL) BASIC METABOLIC PANEL (CALCIUM TOTAL) (02/11/2020 12:00 PM CDT) Glucose 114(H) 70 - 105 mg/dL 02/11/2020 3:10 PM CDT [facility] Sodium 136 136 - 145 mmol/L 02/11/2020 3:10 PM CDT [facility] Potassium 3.6 3.5 - 5.1 mmol/L 02/11/2020 3:10 PM CDT [facility] Chloride 99 98 - 107 mmol/L 02/11/2020 3:10 PM CDT [facility] CO2 28 23 - 31 mmol/L 02/11/2020 3:10 PM CDT [facility] Calcium 9.3 8.4 - 10.4 mg/dL 02/11/2020 3:10 PM CDT [facility] Anion Gap 9 8 - 16 mmol/L 02/11/2020 3:10 PM CDT [facility] BUN 10 9.8 - 20.1 mg/dL 02/11/2020 3:10 PM CDT [facility] Creatinine 0.82 0.57 - 1.11 mg/dL 02/11/2020 3:10 PM CDT [facility] eGFR by MDRD >60 mL/min/1.7 3m2 02/11/2020 3:10 PM CDT [facility] eGFR by MDRD >60 mL/min/1.7 3m2 02/11/2020 3:10 PM CDT [facility] Blood BLOOD SPECIMEN / Unknown Venipuncture / Unknown 02/11/2020 12:00 PM CDT 02/11/2020 2:50 PM CDT Jaleel Contreras MD LAB - [facility]MISTRY [facility] Organization Address City/State/ZIP Co de Phone Number [facility] [address] [place] [phone] documented in this encounter Visit Diagnoses Not on filedocumented in this encounter Care Teams Shredded Filler Machine Wrapper Layer Relationship Specialty Start Date End Date Jaleel Contreras MD [address] [facility] [address] [place] [address] PCP - General 11/16/21 documented as of this encounter
--- OUTSIDE RECORDS SUMMARY | 2024-08-08 12:15 | XMS_ITS | Clinical Summary ---
Author Organization [facility] Address [address] [address] Care Team Providers Care Plating Stripper Name Role Phone Jaleel Contreras MD Primary Care Provider + Allergies Active Allergy Reactions Criticality Noted Date Comments Levofloxacin Anaphylaxis High 07/05/2024 Nitrofurantoin Nausea and Vomiting Low 07/05/2024 Penicillins Rash Medium 09/15/2010 Medications albuterol sulfate 90 mcg/Actuation inhaler 03/08/2021 Active ALPRAZolam (XANAX) 0.25 mg tablet 11/10/2021 Active atorvastatin (LIPITOR) 40 mg tablet 10/20/2021 Active Calcium Carbonate-Vit D3-Min 600 mg calcium- 400 unit Tablet Take 1 Tablet by mouth daily. Active carvediloL (COREG) 12.5 mg tablet 10/14/2021 Active polycarbophil calcium (FIBERCON) 625 mg tablet Take 625 mg by mouth daily. Active cholecalciferol , Vitamin D3, (VITAMIN D3) 25 mcg (1,000 unit) Capsule Take 1,000 Units by mouth daily. Active folic acid (FOLVITE) 1 mg tablet 11/23/2021 Active furosemide (LASIX) 40 mg tablet Take 80 mg by mouth daily. 04/20/2021 Active linaGLIPtin (TRADJENTA) 5 mg Tablet Take 5 mg by mouth daily. Active magnesium oxide (MAG-OX) 400 mg (241.3 mg magnesium) tablet Take 400 mg by mouth daily. Active Multivitamin Capsule Take 1 Capsule by mouth daily. Active nortriptyline (PAMELOR) 10 mg capsule Take 10 mg by mouth daily at bedtime. Active olmesartan-hydr oCHLOROthiazide (BENICAR-HCT) 40-12.5 mg tablet Take 1 Tablet by mouth daily. Active pantoprazole (PROTONIX) 40 mg Tablet, Delayed Release (E.C.) 11/10/2021 Active potassium chloride (KLOR-CON) 10 mEq Extended Release tablet Take 20 mEq by mouth 2 times daily. Active traMADoL (ULTRAM) 50 mg tabletIndicatio ns:S/P lobectomy of lung Take 1 Tablet (50 mg) by mouth every 4 hours as needed for Pain. 42 Tablet 01/04/2022 Active dexAMETHasone (DECADRON) 4 mg tablet Take 4 mg by mouth. 07/01/2024 Active cyanocobalamin (VITAMIN B-12) 100 mcg tablet Take 1,000 mcg by mouth daily. Active diphenhydrAMINE (BENADRYL) 25 mg tablet Take 50 mg by mouth. Active famotidine (PEPCID) 20 mg tablet Take 20 mg by mouth 2 times daily. Active aspirin (ECOTRIN EC) 81 mg Tablet, Delayed Release (E.C.) Take 81 mg by mouth daily. Active ferrous sulfate 325 mg (65 mg iron) tablet Take 325 mg by mouth daily. Active HYDROcodone-sai taminophen (NORCO) 5-325 mg tablet Take 1 Tablet by mouth every 4 hours as needed for Pain, Moderate. Active Active Problems Problem Noted Date Diagnosed Date Non-small cell cancer of right lung 11/17/2021 Nonrheumatic mitral valve regurgitation 06/03/20 21 Chronic atrial fibrillation 04/10/2018 Encounters Date Type Department Care Team Description 08/07/2024 External Device Data ST[facility] ABSTRACTION Provider, Abstract 07/05/2024 Telephone [facility] Oncology and Hematology - [place] [address] [place] [phone] Gurpreet Valdez MD appointment for new diagnosis 07/02/2024 External Device Data STL ABSTRACTION Provider, Abstract 07/02/2024 Orders Only Mandeep Rogers [facility] Radiation Therapy [address] [place] [address] Tonny Bustos MD 06/28/2024 Chart Note Mandeep Rogers [facility] Radiation Therapy [address] [place] [address] Tonny Bustos MD 06/28/2024 Orders Only [facility] Oncology and Hematology - [place] [address] [place] [address] Krzysztof Rainey MD 06/25/2024 Abstract [facility] Oncology and Hematology - [place] [address] [place] [address] Krzysztof Rainey MD 06/25/2024 Telephone [facility] Oncology and Hematology [place] [address] [place] [address] Krzysztof Rainey MD New DX from Last 3 Months Family History Medical History Relation Name Comments Lung Cancer Brother Relation Name Status Comments Brother Father Mother Sister Alive Son Social History Tobacco Use Types Packs/Day Years Used Date Smoking Tobacco: Every Day Cigarettes 0.5 50 Smokeless Tobacco: Never Alcohol Use Standard Drinks/Week Comments Yes 0 (1 standard drink = 0.6 oz pur e alcohol) Comments No Sex and Gender Information Value Date Recorded Sex Assigned at Not on file Legal Sex Female 10:45 AM CDT Gender Identity Not on file Sexual Orientation Not on file Last Filed Vital Signs Vital Sign Reading Time Taken Comments Blood Pressure 154/80 07/05/2024 11:00 AM LEGAL AIDE Pulse 85 07/05/2024 11:00 AM LEGAL AIDE Temperature 36.6 ??C (97.8 ??F) 07/05/2024 1 1:00 AM LEGAL AIDE Respiratory Rate 16 07/05/2024 11:0 0 AM LEGAL AIDE Oxygen Saturation 90% 07/05/2024 11: 00 AM LEGAL AIDE could not get a good reading with pATIENTS HANDS COLD Inhaled Oxygen Concentration - - Weight 62.1 kg (137 lb) 07/05/2024 11:0 0 AM LEGAL AIDE Height 165.1 cm (5' 5 ) 12/30/2021 9:25 AM CDT Body Mass Index 22.8 12/30/2021 9:25 AM CDT Plan of Treatment Health Maintenance Due Date Last Done Comments DTAP/TDAP/TD VACCINES (1 - Tdap) 10/05/1966 PNEUMOCOCCAL VACCINE 65+ YEARS (1 of 2 - PCV) 10/05/18 69 Traditional Medicare (O) Annual Wellness Visit 10/05 ZOSTER VACCINE (1 of 2) 10/05/1997 OSTEOPOROSIS SCREENING 10/05/2012 RSV VACCINE (60+ or ) (1 - 1-dose 75+ series) 10/05/2022 INFLUENZA VACCINE (#1) 2024 Medical Devices Implanted Type Area De Alcholizer Device Identifier Shelf Expiration Date Model / Serial / Lot Sealant Progel Pleural 4ml [id number] - [id number] Implanted:Qty : 1 on 12/30/2021 by Vargas Villafuerte MD at [facility] Tissue Right: Lung [employer] [id number] 03/12/2023 [id number] / / [id number] Procedures Procedure Name Priority Date/Time Associated Diagnosis Comments GLUCOSE LEVEL Routine 06/27/2024 2:49 PM LEGAL AIDE PET BONE IMG W CT SKL BSE MID THG Routine 06/27/2024 8:33 AM LEGAL AIDE from Last 3 Months Results * GLUCOSE LEVEL (06/27/2024 2:49 PM LEGAL AIDE) Blood Krzysztof Rainey MD CHEMISTRY ORDERABLES Final Resu lt * PET BONE IMG W CT SKB MDTH (06/27/2024 8:33 AM LEGAL AIDE) Anatomical Region Laterality Modality Other Krzysztof Rainey MD PE ORDERABLES Final Result from Last 3 Months Insurance [employer] MEDICARE PART A AND B MEDICARE PART A AND B Advance Directives For more information, please contact: [phone] * Full Code (Latest Code Status on File) Date Activated Date Inactivated Comments 12/30/2021 8:47 PM 01/04/2022 2:49 PM * Full Code Date Activated Date Inactivated Comments 12/30/2021 9:45 AM 12/30/2021 8:47 PM Care Teams Plating Stripper Relationship Specialty Start Date End Date Jaleel Contreras MD [address] [place] [id number] PCP - General Internal Medicine 11/17/21
== END 2024-08-05 14:49 | disposition hospice, home (50) ==
PROVIDERS: Emergency Provider Emergency Medicine; PCP Internal Medicine
DX: I63.9 Cerebral infarction, unspecified (principal); R56.9 Unspecified convulsions; R51.9 Headache, unspecified; Z51.5 Encounter for palliative care; Z20.822 Contact with and (suspected) exposure to COVID-19; C79.31 Secondary malignant neoplasm of brain; J44.9 Chronic obstructive pulmonary disease, unspecified; I50.9 Heart failure, unspecified; I34.0 Nonrheumatic mitral (valve) insufficiency; I48.91 Unspecified atrial fibrillation; I27.20 Pulmonary hypertension, unspecified; K58.9 Irritable bowel syndrome, unspecified; Z66 Do not resuscitate; Z85.118 Personal history of other malignant neoplasm of bronchus and lung; Z92.3 Personal history of irradiation; Z92.21 Personal history of antineoplastic chemotherapy; Z86.0100 Personal history of colon polyps, unspecified; Z87.891 Personal history of nicotine dependence; Z90.49 Acquired absence of other specified parts of digestive tract; Z90.710 Acquired absence of both cervix and uterus; Z90.722 Acquired absence of ovaries, bilateral; Z90.79 Acquired absence of other genital organ(s); Z90.2 Acquired absence of lung [part of]; Z79.82 Long term (current) use of aspirin; Z79.899 Other long term (current) drug therapy
CPT/HCPCS: 36415; 70496; 70498; 71045; 80053; 81001; 83735; 84443; 85025; 85055; 85610; 85730; 87086; 87637; 96374; 96375; 96376; 99284; J1171; J2270; J2405; Q9967